=== PATIENT | female | born 1945 | race Caucasian/White ===

== ENCOUNTER 2020-05-17 12:11 | Inpatient (IN) | payer MEDICARE, BC ==
[~2020-05-17] VITALS: Ht 170.2 cm; Wt 69.1 kg
[2020-05-17 13:05] LABS: Basophils # (auto) 0 10 ^3/uL (0-0.2); Basophils % (auto) 0.5 % (0.0-2.0); Eosinophils # (auto) 0.1 10 ^3/uL (0-0.8); Eosinophils % (auto) 1.1 % (0.0-7.0); Hematocrit 40.2 % (36.0-46.0); Hemoglobin 13.7 g/dL (12.2-16.2); Lymphocytes # (auto) 1.1 10 ^3/uL (0.4-5.4); Lymphocytes % (auto) 13.5 % (10.0-50.0); Mean Corpuscular Hemoglobin 33.7 pg (28.0-32.0); Mean Corpuscular Hgb Conc. 34.2 g/dL (32.0-36.0); Mean Corpuscular Volume 98.6 fL (80.0-100.0); Monocytes # (auto) 0.6 10 ^3/uL (0-1.3); Monocytes % (auto) 7.7 % (0.0-12.0); Neutrophils # (auto) 6.2 10 ^3/uL (1.6-8.6); Neutrophils % (auto) 77.2 % (37.0-80.0); Nucleated Red Blood Cells % 0.1 %; Platelet Count (auto) 223 10^3/uL (140-450); Red Blood Cells 4.08 10^6/uL (4.0-5.20); Red Cell Distribution Width 17.4 % (11.8-14.3)
[2020-05-17 13:21] LABS: Calcium 10.1 mg/dL (8.5-10.1); Magnesium 1.9 mg/dL (1.6-2.6); Potassium 4.5 mmol/L (3.5-5.1)
[2020-05-17 13:24] LABS: BUN/Creatinine Ratio 28.7; Bilirubin, Total 0.5 mg/dL (0.2-1.0); Total Protein 7.4 g/dL (6.4-8.2)
[2020-05-17 13:52] LABS: Urine Bacteria FEW /hpf (None Seen); Urine Blood Negative /uL (Negative); Urine WBC 1 /hpf (0 - 5)
[2020-05-17] MEDS ORDERED: SODIUM CHLORIDE 0.9% 250 ML IV ONE (16:00)
[2020-05-17] MEDS ORDERED: ACETAMINOPHEN 500 MG TAB PO PRN (16:00)
[2020-05-17] MEDS ORDERED: ONDANSETRON HCL 4 MG/2 ML VIAL IV PRN (16:00)
[2020-05-17] MEDS ORDERED: hydrALAZINE HCL 20 MG/ML VL IV PRN (16:00)
[2020-05-17] MEDS ORDERED: NITROGLYCERIN 0.4 MG SL TAB SL PRN (16:00)
[2020-05-17] MEDS ORDERED: LORazepam 0.5 MG TAB PO PRN (16:00)
[2020-05-17] MEDS ORDERED: DEXTROSE (50%) 50ML SYRG IV PRN (16:00)
[2020-05-17] MEDS ORDERED: DOCUSATE CALCIUM 240 MG CAP PO PRN (16:00)
[2020-05-17] MEDS: cefTRIAXone 1GM/50ML D5W 50 ML IV SCH (16:27)
[2020-05-17] MEDS: SODIUM CHLORIDE 0.9% 1,000 ML IV SCH (17:10)
[2020-05-17] MEDS: InsuLIN REG 1unit/0.01ml Soln (100units/ml) SC SCH ×2 (18:00→23:06)
[2020-05-17] MEDS: ACCU-CHEK COMFORT CURVE STRIP VI SCH ×2 (18:28→23:06)
[2020-05-17 21:17] VITALS: BP 140/63
[2020-05-17] MEDS ORDERED: INSULIN LANTUS (GLARGINE) 1 /0.01ml (100units/ml) SC SCH (22:00)
[2020-05-17 23:19] VITALS: BP 140/63
[2020-05-18] MEDS ORDERED: SPIR25TA8 PO (00:17)
[2020-05-18] MEDS ORDERED: METF-370 PO (00:17)
[2020-05-18] MEDS ORDERED: LEVO50CA3 PO (00:17)
[2020-05-18] MEDS ORDERED: FURO40TA4 PO (00:17)
[2020-05-18] MEDS ORDERED: ALLO100T PO (00:17)
[2020-05-18] MEDS ORDERED: GLIP10TA9 PO (00:17)
[2020-05-18] MEDS: InsuLIN REG 1unit/0.01ml Soln (100units/ml) SC SCH ×4 (06:00→21:42)
[2020-05-18] MEDS: ACCU-CHEK COMFORT CURVE STRIP VI SCH ×4 (06:28→21:35)
[2020-05-18 07:12] LABS: Basophils # (auto) 0 10 ^3/uL (0-0.2); Basophils % (auto) 0.3 % (0.0-2.0); Eosinophils # (auto) 0.2 10 ^3/uL (0-0.8); Eosinophils % (auto) 2.3 % (0.0-7.0); Hematocrit 35.9 % (36.0-46.0); Hemoglobin 12.4 g/dL (12.2-16.2); Lymphocytes # (auto) 1.3 10 ^3/uL (0.4-5.4); Lymphocytes % (auto) 17.9 % (10.0-50.0); Mean Corpuscular Hemoglobin 33.4 pg (28.0-32.0); Mean Corpuscular Hgb Conc. 34.5 g/dL (32.0-36.0); Mean Corpuscular Volume 96.7 fL (80.0-100.0); Monocytes # (auto) 0.6 10 ^3/uL (0-1.3); Neutrophils % (auto) 70.5 % (37.0-80.0); Platelet Count (auto) 203 10^3/uL (140-450); Red Blood Cells 3.71 10^6/uL (4.0-5.20); Red Cell Distribution Width 17.4 % (11.8-14.3)
[2020-05-18 07:24] LABS: INR 1.03 (0.9-1.15)
[2020-05-18 07:30] LABS: Albumin 3.4 g/dL (3.4-5.0); Potassium 3.9 mmol/L (3.5-5.1)
[2020-05-18 07:32] LABS: BUN/Creatinine Ratio 31.3
[2020-05-18 07:34] LABS: Bilirubin, Total 0.6 mg/dL (0.2-1.0); Total Protein 6.2 g/dL (6.4-8.2)
[2020-05-18] MEDS: cefTRIAXone 1GM/50ML D5W 50 ML IV SCH (08:44)
[2020-05-18] MEDS: ENOXAPARIN SOD 40 MG/0.4 ML SYRINGE SC SCH (08:44)
[2020-05-18] MEDS: PANTOPRAZOLE 40 MG TAB PO SCH (08:44)
[2020-05-18 09:00] VITALS: BP 126/75
[2020-05-18] MEDS: SODIUM CHLORIDE 0.9% 1,000 ML IV SCH (10:59)
[2020-05-18 13:00] VITALS: BP 152/71
[2020-05-18] MEDS ORDERED: DEXTROSE (50%) 50ML SYRG IV PRN (14:00)
[2020-05-18 17:00] VITALS: BP 131/73
[2020-05-18 22:40] VITALS: BP 149/68
[2020-05-19 05:00] VITALS: BP 86/50
[2020-05-19] MEDS: ACCU-CHEK COMFORT CURVE STRIP VI SCH ×4 (06:55→22:00)
[2020-05-19] MEDS: InsuLIN REG 1unit/0.01ml Soln (100units/ml) SC SCH ×4 (06:56→22:37)
[2020-05-19 07:32] LABS: Calcium 9.2 mg/dL (8.5-10.1)
[2020-05-19 07:35] LABS: BUN/Creatinine Ratio 19.4
[2020-05-19 09:00] VITALS: BP 125/65
[2020-05-19] MEDS: SODIUM CHLORIDE 0.9% 1,000 ML IV SCH (09:18)
[2020-05-19] MEDS: cefTRIAXone 1GM/50ML D5W 50 ML IV SCH (09:18)
[2020-05-19] MEDS: PANTOPRAZOLE 40 MG TAB PO SCH (09:19)
[2020-05-19] MEDS: ENOXAPARIN SOD 40 MG/0.4 ML SYRINGE SC SCH (09:19)
[2020-05-19 12:00] VITALS: BP 126/59
[2020-05-19] MEDS ORDERED: LIDOCAINE W/ EPINEPHRINE 1% 20ML VIAL ONE (12:20)
[2020-05-19] MEDS ORDERED: BUPIVACAINE 0.5% MPF INJ 30ML SDV IJ ONE (12:20)
[2020-05-19] MEDS ORDERED: ROCURONIUM 10MG/ML 10ML VIAL IV ONE (12:42)
[2020-05-19] MEDS ORDERED: PROPOFOL 10 MG/ML 20 ML IV ONE (12:42)
[2020-05-19] MEDS ORDERED: MIDAZOLAM HCL 1MG/1ML-2 ML VIAL ONE (12:42)
[2020-05-19] MEDS ORDERED: fentaNYL CITRATE 100 MCG/2 ML VL ONE (12:42)
[2020-05-19] MEDS ORDERED: LIDOCAINE 2% (LOCAL ANESTH.) PF 5ml SDV ONE (12:42)
[2020-05-19] MEDS ORDERED: ONDANSETRON HCL 4 MG/2 ML VIAL ONE (13:41)
[2020-05-19] MEDS ORDERED: HYDROmorphone HCL 2 MG/ML VL IV PRN (14:15)
[2020-05-19] MEDS ORDERED: ONDANSETRON HCL 4 MG/2 ML VIAL IV PRN (14:15)
[2020-05-19] MEDS: D5W/SOD CHL 0.45%/KCL 20MEQ 1,000 ML IV SCH ×2 (15:22→23:58)
[2020-05-19 17:15] VITALS: BP 132/66
[2020-05-19] MEDS: MORPHINE SULF INJ 2 MG/ML SYRINGE 1ML IV PRN (19:58)
[2020-05-19 22:00] VITALS: BP_SYST 102; BP_SYST 139; BP_DIAS 51; BP_DIAS 77
[2020-05-20] MEDS: MORPHINE SULF INJ 2 MG/ML SYRINGE 1ML IV PRN ×6 (00:57→20:16)
[2020-05-20 05:22] VITALS: BP 125/70
[2020-05-20 05:38] LABS: Basophils # (auto) 0.1 10 ^3/uL (0-0.2); Basophils % (auto) 1.2 % (0.0-2.0); Eosinophils # (auto) 0.1 10 ^3/uL (0-0.8); Eosinophils % (auto) 1.8 % (0.0-7.0); Hematocrit 36.1 % (36.0-46.0); Hemoglobin 12.3 g/dL (12.2-16.2); Lymphocytes # (auto) 1.2 10 ^3/uL (0.4-5.4); Lymphocytes % (auto) 16.1 % (10.0-50.0); Mean Corpuscular Hemoglobin 33.7 pg (28.0-32.0); Mean Corpuscular Volume 99.3 fL (80.0-100.0); Monocytes # (auto) 0.7 10 ^3/uL (0-1.3); Monocytes % (auto) 9.2 % (0.0-12.0); Neutrophils # (auto) 5.2 10 ^3/uL (1.6-8.6); Neutrophils % (auto) 71.7 % (37.0-80.0); Platelet Count (auto) 184 10^3/uL (140-450); Red Blood Cells 3.64 10^6/uL (4.0-5.20); Red Cell Distribution Width 17.6 % (11.8-14.3); White Blood Cell 7.3 10^3/uL (4.4-10.8)
[2020-05-20 06:12] LABS: Calcium 8.7 mg/dL (8.5-10.1); Potassium 4.6 mmol/L (3.5-5.1)
[2020-05-20 06:14] LABS: BUN/Creatinine Ratio 13.7
[2020-05-20] MEDS: InsuLIN REG 1unit/0.01ml Soln (100units/ml) SC SCH ×4 (06:51→21:34)
[2020-05-20] MEDS: ACCU-CHEK COMFORT CURVE STRIP VI SCH ×4 (06:53→21:44)
[2020-05-20] MEDS: cefTRIAXone 1GM/50ML D5W 50 ML IV SCH (09:00)
[2020-05-20 09:16] VITALS: BP 130/68
[2020-05-20] MEDS: PANTOPRAZOLE 40 MG TAB PO SCH (09:49)
[2020-05-20] MEDS: ENOXAPARIN SOD 40 MG/0.4 ML SYRINGE SC SCH ×2 (09:50→10:00)
[2020-05-20] MEDS: D5W/SOD CHL 0.45%/KCL 20MEQ 1,000 ML IV SCH ×2 (10:05→12:30)
[2020-05-20 13:00] VITALS: BP 131/55
[2020-05-20 17:09] VITALS: BP 128/87
[2020-05-20 22:00] VITALS: BP 139/51
[2020-05-21] MEDS: MORPHINE SULF INJ 2 MG/ML SYRINGE 1ML IV PRN ×2 (00:16→03:33)
[2020-05-21] MEDS: D5W/SOD CHL 0.45%/KCL 20MEQ 1,000 ML IV SCH (02:23)
[2020-05-21 05:00] VITALS: BP 110/48
[2020-05-21] MEDS: InsuLIN REG 1unit/0.01ml Soln (100units/ml) SC SCH ×3 (06:01→11:30)
[2020-05-21] MEDS: ACCU-CHEK COMFORT CURVE STRIP VI SCH ×2 (06:02→11:30)
[2020-05-21 07:13] LABS: BUN/Creatinine Ratio 11.9; Calcium 8.6 mg/dL (8.5-10.1); Magnesium 1.8 mg/dL (1.6-2.6); Potassium 3.8 mmol/L (3.5-5.1)
[2020-05-21 08:35] VITALS: BP 125/51
[2020-05-21] MEDS: cefTRIAXone 1GM/50ML D5W 50 ML IV SCH (09:00)
[2020-05-21] MEDS: PANTOPRAZOLE 40 MG TAB PO SCH (09:30)
[2020-05-21] MEDS: ENOXAPARIN SOD 40 MG/0.4 ML SYRINGE SC SCH (09:33)
[2020-05-21] MEDS ORDERED: MAGNESIUM SULFATE 1GM/100ML 100 ML IV ONE (09:45)
[2020-05-21 12:39] VITALS: BP 140/62
== END 2020-05-21 16:45 | disposition home or self-care (01) | DRG 353 ==
LOC: ER 12:11 → TELE 15:58 → TELE-WESTW 19:47 → TELE-EAST 19:55 → TELE-WESTW 05-18 03:52
PROVIDERS: ADMIT Family Medicine; ATTEND Internal Medicine
PROC: 3E00XGC Introduction of Other Therapeutic Substance into Skin and Mucous Membranes, External Approach (ICD-10-PCS; 2020-05-19)
PROC: 0WQF0ZZ Repair Abdominal Wall, Open Approach (ICD-10-PCS; principal; 2020-05-19 12:51)
DX: K43.2 Incisional hernia without obstruction or gangrene (principal); N17.0 Acute kidney failure with tubular necrosis; E11.65 Type 2 diabetes mellitus with hyperglycemia; Z86.16 Personal history of COVID-19; E03.9 Hypothyroidism, unspecified; M10.9 Gout, unspecified; E11.22 Type 2 diabetes mellitus with diabetic chronic kidney disease; I12.9 Hypertensive chronic kidney disease with stage 1 through stage 4 chronic kidney disease, or unspecified chronic kidney disease; M06.9 Rheumatoid arthritis, unspecified; Z20.822 Contact with and (suspected) exposure to COVID-19; Z80.0 Family history of malignant neoplasm of digestive organs; Z86.718 Personal history of other venous thrombosis and embolism; Z87.01 Personal history of pneumonia (recurrent); Z90.49 Acquired absence of other specified parts of digestive tract; Z90.710 Acquired absence of both cervix and uterus; Z82.3 Family history of stroke; Z82.49 Family history of ischemic heart disease and other diseases of the circulatory system; Z88.8 Allergy status to other drugs, medicaments and biological substances; N18.32 Chronic kidney disease, stage 3b
CPT/HCPCS: 36415; 71045; 74176; 76775; 80048; 80053; 81001; 82728; 82962; 83036; 83690; 83735; 84443; 85025; 85610; 86141; 86850; 86900; 86901; 87086; 87426; 93005; 93306; 96365; G0378; J0696; J1815; J2001; J2250; J2405; J2704; J3490

== ENCOUNTER 2020-07-20 15:48 | Emergency (ER) | payer MEDICARE, BC ==
[~2020-07-20] VITALS: Ht 170.2 cm; Wt 59.4 kg
[~2020-07-20 15:48] MED LIST: ALLO100T PO; FURO40TA4 PO; GLIP10TA9 PO; LEVO50CA3 PO; METF-370 PO; SPIR25TA8 PO
[2020-07-20 19:05] VITALS: BP 133/68
== END 2020-07-20 20:26 | disposition home or self-care (01) ==
LOC: ER 15:48
DX: J02.9 Acute pharyngitis, unspecified (principal); E11.9 Type 2 diabetes mellitus without complications; I25.10 Atherosclerotic heart disease of native coronary artery without angina pectoris; Z86.73 Personal history of transient ischemic attack (TIA), and cerebral infarction without residual deficits; Z88.6 Allergy status to analgesic agent; Z79.84 Long term (current) use of oral hypoglycemic drugs; Z79.899 Other long term (current) drug therapy; Z90.89 Acquired absence of other organs; Z90.49 Acquired absence of other specified parts of digestive tract; Z90.710 Acquired absence of both cervix and uterus

== ENCOUNTER 2020-08-07 16:25 | Inpatient (IN) | payer MEDICARE, BC ==
[~2020-08-07] VITALS: Ht 170.2 cm; Wt 64.5 kg
[2020-08-07] MEDS ORDERED: DIPHENOXYLATE W/ATROPINE 2.5 MG TAB PO ONE (16:45)
[2020-08-07 18:36] LABS: Albumin 4.5 g/dL (3.4-5.0); Calcium 10.2 mg/dL (8.5-10.1); Potassium 4.5 mmol/L (3.5-5.1)
[2020-08-07 18:39] LABS: BUN/Creatinine Ratio 19.8
[2020-08-07 18:40] LABS: Basophils # (auto) 0 10 ^3/uL (0-0.2); Basophils % (auto) 0.4 % (0.0-2.0); Eosinophils # (auto) 0.1 10 ^3/uL (0-0.8); Eosinophils % (auto) 0.8 % (0.0-7.0); Hematocrit 40.8 % (36.0-46.0); Hemoglobin 14.3 g/dL (12.2-16.2); Lymphocytes # (auto) 1.8 10 ^3/uL (0.4-5.4); Lymphocytes % (auto) 16.5 % (10.0-50.0); Mean Corpuscular Hemoglobin 33.3 pg (28.0-32.0); Mean Corpuscular Hgb Conc. 34.9 g/dL (32.0-36.0); Mean Corpuscular Volume 95.5 fL (80.0-100.0); Monocytes # (auto) 0.8 10 ^3/uL (0-1.3); Monocytes % (auto) 7.8 % (0.0-12.0); Neutrophils # (auto) 8.1 10 ^3/uL (1.6-8.6); Neutrophils % (auto) 74.5 % (37.0-80.0); Nucleated Red Blood Cells % 0.3 %; Platelet Count (auto) 200 10^3/uL (140-450); Red Blood Cells 4.28 10^6/uL (4.0-5.20); Red Cell Distribution Width 15.9 % (11.8-14.3); White Blood Cell 10.9 10^3/uL (4.4-10.8)
[2020-08-07 18:42] LABS: Bilirubin, Total 0.8 mg/dL (0.2-1.0); Total Protein 7.7 g/dL (6.4-8.2)
[2020-08-07] MEDS ORDERED: NITROGLYCERIN 0.4 MG SL TAB SL PRN (19:15)
[2020-08-07] MEDS ORDERED: HYDROcodone-ACET 5/325MG TAB PO PRN (19:15)
[2020-08-07] MEDS ORDERED: ACETAMINOPHEN 500 MG TAB PO PRN (19:15)
[2020-08-07] MEDS ORDERED: DEXTROSE (50%) 50ML SYRG IV PRN (19:15)
[2020-08-07] MEDS ORDERED: MORPHINE SULF INJ 2 MG/ML SYRINGE 1ML IV PRN ×2 (19:15)
[2020-08-07] MEDS ORDERED: ONDANSETRON HCL 4 MG/2 ML VIAL IV PRN (19:15)
[2020-08-07] MEDS: DOCUSATE SOD 100 MG CAP PO SCH (22:00)
[2020-08-07 22:24] LABS: Urine Bacteria FEW /hpf (None Seen); Urine Blood Negative /uL (Negative); Urine Hyaline Cast FEW /lpf (0 - 2); Urine WBC 9 /hpf (0 - 5)
[2020-08-07] MEDS: InsuLIN REG 1unit/0.01ml Soln (100units/ml) SC SCH (22:47)
[2020-08-07] MEDS: ACCU-CHEK COMFORT CURVE STRIP VI SCH (22:48)
[2020-08-08] VITALS (7 sets, daily range): BP systolic 106–136; BP diastolic 51–63
[2020-08-08] MEDS: ACCU-CHEK COMFORT CURVE STRIP VI SCH ×4 (06:21→22:00)
[2020-08-08] MEDS: InsuLIN REG 1unit/0.01ml Soln (100units/ml) SC SCH ×4 (06:21→22:00)
[2020-08-08] MEDS: DOCUSATE SOD 100 MG CAP PO SCH ×2 (10:00→22:00)
[2020-08-08] MEDS: FAMOTIDINE 20 MG TAB PO SCH (10:25)
[2020-08-09 05:00] VITALS: BP 123/71
[2020-08-09] MEDS: InsuLIN REG 1unit/0.01ml Soln (100units/ml) SC SCH ×2 (06:42→12:06)
[2020-08-09] MEDS: ACCU-CHEK COMFORT CURVE STRIP VI SCH ×2 (06:43→11:30)
[2020-08-09 08:00] VITALS: BP 114/60
[2020-08-09 09:00] VITALS: BP 114/60
[2020-08-09] MEDS: FAMOTIDINE 20 MG TAB PO SCH (09:40)
[2020-08-09] MEDS: DOCUSATE SOD 100 MG CAP PO SCH (09:40)
[2020-08-09 11:16] VITALS: BP 114/60
== END 2020-08-09 12:45 | disposition home or self-care (01) | DRG 392 ==
LOC: EDBD 16:34 → ER 16:34 → OVERFLOW 19:15 → EDUNIT# 19:15 → CENTRAL 23:24
PROVIDERS: ADMIT Nurse Practitioner Acute Care; ATTEND Family Medicine
DX: K57.30 Diverticulosis of large intestine without perforation or abscess without bleeding (principal); E83.52 Hypercalcemia; Z20.822 Contact with and (suspected) exposure to COVID-19; E03.9 Hypothyroidism, unspecified; I10 Essential (primary) hypertension; E11.9 Type 2 diabetes mellitus without complications; Z79.84 Long term (current) use of oral hypoglycemic drugs; Z90.49 Acquired absence of other specified parts of digestive tract; Z90.710 Acquired absence of both cervix and uterus; Z79.899 Other long term (current) drug therapy; Z79.891 Long term (current) use of opiate analgesic; Z79.01 Long term (current) use of anticoagulants
CPT/HCPCS: 36415; 74176; 80053; 81001; 82962; 83036; 84443; 85025; 87081; 87426; G0378; J1815

== ENCOUNTER → 2020-08-13 | Outpatient (CLI) | payer MEDICARE, BC ==
[2020-08-13 09:00] LABS: Basophils # (auto) 0.1 10 ^3/uL (0-0.2); Basophils % (auto) 0.6 % (0.0-2.0); Eosinophils # (auto) 0.1 10 ^3/uL (0-0.8); Eosinophils % (auto) 1.5 % (0.0-7.0); Hematocrit 37.4 % (36.0-46.0); Lymphocytes # (auto) 1.5 10 ^3/uL (0.4-5.4); Lymphocytes % (auto) 15.6 % (10.0-50.0); Mean Corpuscular Hemoglobin 33.5 pg (28.0-32.0); Mean Corpuscular Hgb Conc. 34.7 g/dL (32.0-36.0); Mean Corpuscular Volume 96.3 fL (80.0-100.0); Monocytes # (auto) 0.7 10 ^3/uL (0-1.3); Monocytes % (auto) 7.1 % (0.0-12.0); Neutrophils # (auto) 7.1 10 ^3/uL (1.6-8.6); Neutrophils % (auto) 75.2 % (37.0-80.0); Nucleated Red Blood Cells % 0.1 %; Platelet Count (auto) 179 10^3/uL (140-450); Red Blood Cells 3.88 10^6/uL (4.0-5.20); Red Cell Distribution Width 16.5 % (11.8-14.3); White Blood Cell 9.5 10^3/uL (4.4-10.8)
[2020-08-13 09:14] LABS: Urine Bacteria FEW /hpf (None Seen); Urine Blood TRACE /uL (Negative); Urine WBC 17 /hpf (0 - 5)
[2020-08-13 09:32] LABS: Calcium 9.6 mg/dL (8.5-10.1); Potassium 4.1 mmol/L (3.5-5.1)
[2020-08-13 09:38] LABS: BUN/Creatinine Ratio 20.8
== END | disposition home or self-care (01) ==
LOC: LAB 08:34
PROVIDERS: ATTEND Student in an Organized Health Care Education/Training Program
DX: E11.9 Type 2 diabetes mellitus without complications (principal); I10 Essential (primary) hypertension
CPT/HCPCS: 36415; 80048; 80061; 81001; 83036; 85025

== ENCOUNTER → 2020-09-18 | Outpatient (CLI) | payer MEDICARE, BC | END | disposition home or self-care (01) | LOC: Rad HDHVI 09:53 | PROVIDERS: ATTEND Internal Medicine Cardiovascular Disease | DX: I25.10 Atherosclerotic heart disease of native coronary artery without angina pectoris (principal); I10 Essential (primary) hypertension | CPT/HCPCS: 93306 ==

== ENCOUNTER 2020-10-03 08:42 | Inpatient (IN) | payer MEDICARE, BC ==
[2020-10-01 09:37] LABS: Basophils # (auto) 0 10 ^3/uL (0-0.2); Basophils % (auto) 0.5 % (0.0-2.0); Eosinophils # (auto) 0.1 10 ^3/uL (0-0.8); Eosinophils % (auto) 1.3 % (0.0-7.0); Hematocrit 41.6 % (36.0-46.0); Hemoglobin 14.2 g/dL (12.2-16.2); Lymphocytes % (auto) 12.3 % (10.0-50.0); Mean Corpuscular Hemoglobin 33.4 pg (28.0-32.0); Mean Corpuscular Hgb Conc. 34.2 g/dL (32.0-36.0); Mean Corpuscular Volume 97.7 fL (80.0-100.0); Monocytes # (auto) 0.7 10 ^3/uL (0-1.3); Neutrophils # (auto) 6.6 10 ^3/uL (1.6-8.6); Neutrophils % (auto) 77.9 % (37.0-80.0); Red Blood Cells 4.25 10^6/uL (4.0-5.20); Red Cell Distribution Width 16.3 % (11.8-14.3); White Blood Cell 8.4 10^3/uL (4.4-10.8)
[2020-10-01 09:48] LABS: Urine Amorphous Crystal FEW /hpf (None Seen); Urine Bacteria FEW /hpf (None Seen); Urine Blood 1+ /uL (Negative); Urine WBC 5 /hpf (0 - 5)
[2020-10-01 09:58] LABS: Calcium 9.9 mg/dL (8.5-10.1); Potassium 4.4 mmol/L (3.5-5.1)
[2020-10-01 10:01] LABS: Bilirubin, Total 0.5 mg/dL (0.2-1.0); Total Protein 7.4 g/dL (6.4-8.2)
[~2020-10-03] VITALS: Ht 170.2 cm; Wt 63.6 kg
[2020-10-03] MEDS ORDERED: ceFAZolin 1GM/50ML 100 ML IV ONE (09:28)
[2020-10-03] MEDS ORDERED: BUPIVACAINE W/ EPINEPH 0.25% INJ 50ML MDV ONE (12:41)
[2020-10-03] MEDS ORDERED: ROCURONIUM 10MG/ML 10ML VIAL IV ONE (12:44)
[2020-10-03] MEDS ORDERED: GLYCOPYRROLATE 0.2 MG/ML 1ML VIAL ONE (12:44)
[2020-10-03] MEDS ORDERED: ONDANSETRON HCL 4 MG/2 ML VIAL ONE (12:44)
[2020-10-03] MEDS ORDERED: MIDAZOLAM HCL 2MG/2ML 2ml VIAL (1mg/ml) ONE (12:44)
[2020-10-03] MEDS ORDERED: MEPERIDINE HCL (25 MG/ML) 1ML VIAL ONE (12:44)
[2020-10-03] MEDS ORDERED: SODIUM CHLORIDE LOCK 10 ML ONE (12:44)
[2020-10-03] MEDS ORDERED: PROPOFOL 10 MG/ML 20 ML IV ONE (12:44)
[2020-10-03] MEDS ORDERED: fentaNYL CITRATE 100 MCG/2 ML VL ONE (12:44)
[2020-10-03] MEDS ORDERED: NEOSTIGMINE 1 MG/ML INJ (10mg/10ML VIAL) ONE (12:44)
[2020-10-03] MEDS ORDERED: MORPHINE SULFATE 4 MG/ML SYR/VIAL IV PRN (12:45)
[2020-10-03] MEDS ORDERED: METOCLOPRAMIDE HCL 5MG/ml INJ 2ml VIAL IV PRN (12:45)
[2020-10-03] MEDS ORDERED: HYDROmorphone HCL 2 MG/ML VL IV PRN (12:45)
[2020-10-03] MEDS ORDERED: LABETALOL HCL 5 MG/ML 4ML SYRINGE IV ONE ×2 (14:12→15:45)
[2020-10-03] MEDS: SODIUM CHLORIDE 0.9% 1,000 ML IV SCH ×3 (15:00→18:43)
[2020-10-03] MEDS ORDERED: DEXTROSE (50%) 50ML SYRG IV PRN (15:00)
[2020-10-03] MEDS ORDERED: MORPHINE SULF INJ 2 MG/ML SYRINGE 1ML IV PRN (15:00)
[2020-10-03] MEDS ORDERED: NITROGLYCERIN 0.4 MG SL TAB SL PRN (15:00)
[2020-10-03] MEDS ORDERED: ONDANSETRON HCL 4 MG/2 ML VIAL IV PRN (15:00)
[2020-10-03] MEDS: ACCU-CHEK COMFORT CURVE STRIP VI SCH ×2 (18:17→21:56)
[2020-10-03] MEDS: InsuLIN REG 1unit/0.01ml Soln (100units/ml) SC SCH ×2 (18:18→22:00)
[2020-10-03] MEDS ORDERED: cefTRIAXone 1GM/50ML D5W 50 ML IV ONE (21:00)
[2020-10-03 21:52] VITALS: BP 109/47
[2020-10-03] MEDS: MORPHINE SULF INJ 2 MG/ML SYRINGE 1ML IV PRN (22:03)
[2020-10-04] MEDS: MORPHINE SULF INJ 2 MG/ML SYRINGE 1ML IV PRN ×3 (02:18→10:36)
[2020-10-04 05:30] VITALS: BP 122/59
[2020-10-04] MEDS: ACCU-CHEK COMFORT CURVE STRIP VI SCH ×3 (06:26→17:49)
[2020-10-04] MEDS: InsuLIN REG 1unit/0.01ml Soln (100units/ml) SC SCH ×3 (06:26→17:00)
[2020-10-04] MEDS: LEVOTHYROXINE SODIUM 50 MCG TAB PO SCH (06:29)
[2020-10-04] MEDS: SODIUM CHLORIDE 0.9% 1,000 ML IV SCH (06:34)
[2020-10-04 09:00] VITALS: BP 116/59
[2020-10-04] MEDS: PANTOPRAZOLE 40 MG/10 ML VIAL INJ IV SCH (09:23)
[2020-10-04] MEDS: HYDROcodone-ACET 5/325MG TAB PO PRN ×2 (12:20→17:52)
[2020-10-04 13:00] VITALS: BP 119/58
[2020-10-04 17:00] VITALS: BP_SYST 112; BP_SYST 121; BP_DIAS 51; BP_DIAS 74
[2020-10-04 22:00] VITALS: BP 124/60
[2020-10-05] MEDS: ACCU-CHEK COMFORT CURVE STRIP VI SCH ×3 (00:09→11:30)
[2020-10-05] MEDS: HYDROcodone-ACET 5/325MG TAB PO PRN ×2 (00:10→15:20)
[2020-10-05] MEDS: InsuLIN REG 1unit/0.01ml Soln (100units/ml) SC SCH ×3 (00:11→11:30)
[2020-10-05 05:00] VITALS: BP 123/72
[2020-10-05 05:59] LABS: Basophils # (auto) 0.1 10 ^3/uL (0-0.2); Basophils % (auto) 0.8 % (0.0-2.0); Eosinophils # (auto) 0.1 10 ^3/uL (0-0.8); Eosinophils % (auto) 1.9 % (0.0-7.0); Hematocrit 34.6 % (36.0-46.0); Hemoglobin 12.1 g/dL (12.2-16.2); Lymphocytes % (auto) 15.8 % (10.0-50.0); Mean Corpuscular Hemoglobin 33.8 pg (28.0-32.0); Mean Corpuscular Hgb Conc. 34.9 g/dL (32.0-36.0); Mean Corpuscular Volume 96.9 fL (80.0-100.0); Monocytes # (auto) 0.7 10 ^3/uL (0-1.3); Monocytes % (auto) 11.7 % (0.0-12.0); Neutrophils # (auto) 4.3 10 ^3/uL (1.6-8.6); Neutrophils % (auto) 69.8 % (37.0-80.0); Nucleated Red Blood Cells % 0.1 %; Red Blood Cells 3.58 10^6/uL (4.0-5.20); Red Cell Distribution Width 15.8 % (11.8-14.3); White Blood Cell 6.2 10^3/uL (4.4-10.8)
[2020-10-05 06:28] LABS: BUN/Creatinine Ratio 16.2; Calcium 8.9 mg/dL (8.5-10.1); Potassium 4.3 mmol/L (3.5-5.1)
[2020-10-05] MEDS: SODIUM CHLORIDE 0.9% 1,000 ML IV SCH (06:28)
[2020-10-05] MEDS: LEVOTHYROXINE SODIUM 50 MCG TAB PO SCH (06:28)
[2020-10-05 09:00] VITALS: BP 111/57
[2020-10-05] MEDS ORDERED: ALLOPURINOL 100 MG TAB PO SCH (10:00)
[2020-10-05] MEDS: PANTOPRAZOLE 40 MG/10 ML VIAL INJ IV SCH (10:00)
[2020-10-05 12:43] VITALS: BP 123/55
== END 2020-10-05 15:40 | disposition home or self-care (01) | DRG 354 ==
LOC: SUR 08:42 → TELE 14:57 → TELE-CENTR 17:07 → CENTRAL 10-04 12:17
PROVIDERS: ADMIT Nurse Practitioner Acute Care; ATTEND Internal Medicine
PROC: 0WQF0ZZ Repair Abdominal Wall, Open Approach (ICD-10-PCS; principal; 2020-10-03 13:08)
DX: K43.9 Ventral hernia without obstruction or gangrene (principal); N39.0 Urinary tract infection, site not specified; E11.9 Type 2 diabetes mellitus without complications; I10 Essential (primary) hypertension; E03.9 Hypothyroidism, unspecified; M10.9 Gout, unspecified; Z79.84 Long term (current) use of oral hypoglycemic drugs; Z79.899 Other long term (current) drug therapy; Z82.3 Family history of stroke; Z20.822 Contact with and (suspected) exposure to COVID-19; Z82.49 Family history of ischemic heart disease and other diseases of the circulatory system; Z88.8 Allergy status to other drugs, medicaments and biological substances
CPT/HCPCS: 36415; 71045; 80048; 80053; 81001; 82962; 85025; 86850; 86900; 86901; 88302; C9113; G0378; J0690; J0696; J1815; J2250; J2405; J2704; J3490

== ENCOUNTER → 2021-01-02 | Day surgery (SDC) | payer MEDICARE, BC ==
[2020-12-28 10:25] LABS: Basophils # (auto) 0 10 ^3/uL (0-0.2); Basophils % (auto) 0.5 % (0.0-2.0); Eosinophils # (auto) 0.1 10 ^3/uL (0-0.8); Eosinophils % (auto) 1.9 % (0.0-7.0); Hematocrit 39.6 % (36.0-46.0); Hemoglobin 13.5 g/dL (12.2-16.2); Lymphocytes # (auto) 1.2 10 ^3/uL (0.4-5.4); Lymphocytes % (auto) 16.5 % (10.0-50.0); Mean Corpuscular Hemoglobin 33.9 pg (28.0-32.0); Mean Corpuscular Volume 99.7 fL (80.0-100.0); Monocytes # (auto) 0.6 10 ^3/uL (0-1.3); Monocytes % (auto) 8.2 % (0.0-12.0); Neutrophils # (auto) 5.4 10 ^3/uL (1.6-8.6); Neutrophils % (auto) 72.9 % (37.0-80.0); Nucleated Red Blood Cells % 0.1 %; Red Blood Cells 3.97 10^6/uL (4.0-5.20); White Blood Cell 7.4 10^3/uL (4.4-10.8)
[2020-12-28 11:01] LABS: Albumin 3.9 g/dL (3.4-5.0); Calcium 10.2 mg/dL (8.5-10.1); Potassium 4.1 mmol/L (3.5-5.1)
[2020-12-28 11:05] LABS: BUN/Creatinine Ratio 30.1; Bilirubin, Total 0.3 mg/dL (0.2-1.0)
[~2021-01-02] VITALS: Ht 170.2 cm; Wt 58.1 kg
[~2021-01-02] MED LIST changes: +LIDOCAINE VISCOUS 2% 15ML UD ONE
[2021-01-02] MEDS: MIDAZOLAM HCL 5 MG/ML-1ML VIAL ONE ×2 (13:53→13:57)
[2021-01-02] MEDS: diphenhdrAMINE HCL 50 MG/1 ML VL ONE ×2 (13:53→13:57)
[2021-01-02] MEDS: fentaNYL CITRATE 100 MCG/2 ML VL ONE ×2 (13:53→13:57)
[2021-01-02 15:05] VITALS: BP 120/48
== END | disposition home or self-care (01) ==
LOC: GI 12:10
PROVIDERS: ATTEND Internal Medicine Gastroenterology
DX: R10.13 Epigastric pain (principal); K44.9 Diaphragmatic hernia without obstruction or gangrene; K31.89 Other diseases of stomach and duodenum; K22.10 Ulcer of esophagus without bleeding; K29.80 Duodenitis without bleeding; E03.9 Hypothyroidism, unspecified; D64.9 Anemia, unspecified; F09 Unspecified mental disorder due to known physiological condition; F32.9 Major depressive disorder, single episode, unspecified; Z20.822 Contact with and (suspected) exposure to COVID-19; Z90.710 Acquired absence of both cervix and uterus; Z90.89 Acquired absence of other organs; Z98.890 Other specified postprocedural states; Z79.899 Other long term (current) drug therapy; Z90.721 Acquired absence of ovaries, unilateral
CPT/HCPCS: 36415; 43239; 80053; 85025; J1200; J2250; J3010; J7030; U0003; G0500

== ENCOUNTER → 2021-01-28 | Outpatient (CLI) | payer MEDICARE, BC ==
[~2021-01-28] MED LIST changes: -LIDOCAINE VISCOUS 2% 15ML UD ONE
[2021-01-28 09:17] LABS: Basophils # (auto) 0 10 ^3/uL (0-0.2); Basophils % (auto) 0.6 % (0.0-2.0); Eosinophils # (auto) 0.1 10 ^3/uL (0-0.8); Eosinophils % (auto) 1.2 % (0.0-7.0); Hematocrit 38.3 % (36.0-46.0); Hemoglobin 13.1 g/dL (12.2-16.2); Lymphocytes # (auto) 1.3 10 ^3/uL (0.4-5.4); Lymphocytes % (auto) 17.2 % (10.0-50.0); Mean Corpuscular Hemoglobin 33.8 pg (28.0-32.0); Mean Corpuscular Hgb Conc. 34.3 g/dL (32.0-36.0); Mean Corpuscular Volume 98.5 fL (80.0-100.0); Monocytes # (auto) 0.6 10 ^3/uL (0-1.3); Monocytes % (auto) 7.7 % (0.0-12.0); Neutrophils # (auto) 5.4 10 ^3/uL (1.6-8.6); Neutrophils % (auto) 73.3 % (37.0-80.0); Red Blood Cells 3.89 10^6/uL (4.0-5.20); Red Cell Distribution Width 15.7 % (11.8-14.3); White Blood Cell 7.4 10^3/uL (4.4-10.8)
[2021-01-28 09:55] LABS: Potassium 4.4 mmol/L (3.5-5.1)
[2021-01-28 09:59] LABS: Urine Bacteria FEW /hpf (None Seen); Urine Blood Negative /uL (Negative); Urine Hyaline Cast FEW /lpf (0 - 2); Urine Specific Gravity 1.006 (1.001-1.035); Urine WBC 6 /hpf (0 - 5)
[2021-01-28 10:04] LABS: % Iron Saturation 22.3 % (15-50)
[2021-01-28 10:05] LABS: Albumin 3.8 g/dL (3.4-5.0); BUN/Creatinine Ratio 21.7; Bilirubin, Total 0.5 mg/dL (0.2-1.0); Calcium 9.4 mg/dL (8.5-10.1); Total Protein 6.5 g/dL (6.4-8.2); Uric Acid 5.6 mg/dL (2.6-6.0)
[2021-01-28 10:06] LABS: Thyroid Stimulating Hormone 4.73 uIU/mL (0.358-3.74)
[2021-01-28 10:37] LABS: Ferritin 53.4 ng/mL (10-322)
[2021-01-28 10:40] LABS: Folate (Folic Acid) 11.89 ng/mL (5.38-24)
== END | disposition home or self-care (01) ==
LOC: LAB 08:42
PROVIDERS: ATTEND Student in an Organized Health Care Education/Training Program
DX: I12.9 Hypertensive chronic kidney disease with stage 1 through stage 4 chronic kidney disease, or unspecified chronic kidney disease (principal); E11.22 Type 2 diabetes mellitus with diabetic chronic kidney disease; N18.31 Chronic kidney disease, stage 3a; E03.9 Hypothyroidism, unspecified; M10.9 Gout, unspecified; D50.9 Iron deficiency anemia, unspecified; Z88.8 Allergy status to other drugs, medicaments and biological substances
CPT/HCPCS: 36415; 80053; 80061; 81001; 82607; 82728; 82746; 83036; 83540; 83550; 83615; 84443; 84550; 85025

== ENCOUNTER → 2021-03-27 | Outpatient (CLI) | payer MEDICARE, BC ==
[2021-03-27 10:39] LABS: Basophils # (auto) 0 10 ^3/uL (0-0.2); Eosinophils # (auto) 0.1 10 ^3/uL (0-0.8); Lymphocytes # (auto) 1.6 10 ^3/uL (0.4-5.4); Monocytes # (auto) 0.6 10 ^3/uL (0-1.3); Nucleated Red Blood Cells % 0.1 %
[2021-03-27 10:40] LABS: Basophils % (auto) 0.6 % (0.0-2.0); Eosinophils % (auto) 1.5 % (0.0-7.0); Hematocrit 38.8 % (36.0-46.0); Hemoglobin 13.1 g/dL (12.2-16.2); Lymphocytes % (auto) 21.8 % (10.0-50.0); Mean Corpuscular Hemoglobin 33.8 pg (28.0-32.0); Mean Corpuscular Hgb Conc. 33.8 g/dL (32.0-36.0); Mean Corpuscular Volume 100.2 fL (80.0-100.0); Monocytes % (auto) 7.8 % (0.0-12.0); Neutrophils % (auto) 68.3 % (37.0-80.0); Red Blood Cells 3.88 10^6/uL (4.0-5.20); Red Cell Distribution Width 15.3 % (11.8-14.3); White Blood Cell 7.3 10^3/uL (4.4-10.8)
[2021-03-27 10:57] LABS: Urine Bacteria NONE SEEN /hpf (None Seen); Urine Blood Negative /uL (Negative); Urine Specific Gravity 1.009 (1.001-1.035); Urine WBC 11 /hpf (0 - 5)
[2021-03-27 11:30] LABS: Calcium 9.9 mg/dL (8.5-10.1); Potassium 4.5 mmol/L (3.5-5.1)
[2021-03-27 11:35] LABS: Bilirubin, Total 0.4 mg/dL (0.2-1.0); Total Protein 6.6 g/dL (6.4-8.2)
== END | disposition home or self-care (01) ==
LOC: LAB 09:49
PROVIDERS: ATTEND Internal Medicine Gastroenterology
DX: K29.00 Acute gastritis without bleeding (principal); R00.2 Palpitations; R10.13 Epigastric pain
CPT/HCPCS: 36415; 80053; 81001; 82784; 83516; 84443; 85025; 86255

== ENCOUNTER → 2021-04-09 | Outpatient (CLI) | payer MEDICARE, BC ==
[2021-04-09 10:37] LABS: Urine Bacteria NONE SEEN /hpf (None Seen); Urine Blood Negative /uL (Negative); Urine Specific Gravity 1.006 (1.001-1.035); Urine WBC 2 /hpf (0 - 5)
[2021-04-09 11:18] LABS: Folate (Folic Acid) 12.11 ng/mL (5.38-24)
[2021-04-09 12:14] LABS: % Iron Saturation 18.2 % (15-50)
== END | disposition home or self-care (01) ==
LOC: LAB 09:45
PROVIDERS: ATTEND Internal Medicine Gastroenterology
DX: N39.0 Urinary tract infection, site not specified (principal); R19.4 Change in bowel habit; E11.9 Type 2 diabetes mellitus without complications
CPT/HCPCS: 81001; 82607; 82746; 83540; 83550; 87086

== ENCOUNTER → 2021-04-29 | Outpatient (CLI) | payer MEDICARE, BC ==
[2021-04-29 12:52] LABS: Basophils # (auto) 0.1 10 ^3/uL (0-0.2); Basophils % (auto) 0.7 % (0.0-2.0); Eosinophils # (auto) 0.2 10 ^3/uL (0-0.8); Eosinophils % (auto) 2.5 % (0.0-7.0); Hemoglobin 13.4 g/dL (12.2-16.2); Lymphocytes # (auto) 1.5 10 ^3/uL (0.4-5.4); Lymphocytes % (auto) 18.7 % (10.0-50.0); Mean Corpuscular Hgb Conc. 33.6 g/dL (32.0-36.0); Mean Corpuscular Volume 101.3 fL (80.0-100.0); Monocytes # (auto) 0.6 10 ^3/uL (0-1.3); Monocytes % (auto) 8.2 % (0.0-12.0); Neutrophils # (auto) 5.5 10 ^3/uL (1.6-8.6); Neutrophils % (auto) 69.9 % (37.0-80.0); Nucleated Red Blood Cells % 0.1 %; Red Blood Cells 3.95 10^6/uL (4.0-5.20); Red Cell Distribution Width 15.1 % (11.8-14.3); White Blood Cell 7.8 10^3/uL (4.4-10.8)
[2021-04-29 13:09] LABS: % Iron Saturation 18.4 % (15-50)
[2021-04-29 13:20] LABS: Folate (Folic Acid) 11.47 ng/mL (5.38-24)
[2021-04-29 13:33] LABS: Potassium 4.5 mmol/L (3.5-5.1)
[2021-04-29 13:41] LABS: Albumin 4.2 g/dL (3.4-5.0); BUN/Creatinine Ratio 24.8; Bilirubin, Total 0.6 mg/dL (0.2-1.0); Calcium 9.4 mg/dL (8.5-10.1); Magnesium 1.6 mg/dL (1.6-2.6); Phosphorus 2.8 mg/dL (2.5-4.90); Total Protein 7.1 g/dL (6.4-8.2)
[2021-04-29 14:08] LABS: Thyroid Stimulating Hormone 4.08 uIU/mL (0.358-3.74)
[2021-04-29 16:01] LABS: Urine Bacteria FEW /hpf (None Seen); Urine Blood Negative /uL (Negative); Urine Hyaline Cast FEW /lpf (0 - 2); Urine Specific Gravity 1.008 (1.001-1.035); Urine WBC 8 /hpf (0 - 5)
[2021-04-29 16:08] LABS: Protein, Urine 8.3 mg/dL (0.0-11.9)
[2021-04-29 16:19] LABS: Micro Albumin 10.9 mg/L (0-30.0)
== END | disposition home or self-care (01) ==
LOC: LAB 08:24
PROVIDERS: ATTEND Internal Medicine
DX: I12.9 Hypertensive chronic kidney disease with stage 1 through stage 4 chronic kidney disease, or unspecified chronic kidney disease (principal); E11.22 Type 2 diabetes mellitus with diabetic chronic kidney disease; N18.30 Chronic kidney disease, stage 3 unspecified; D50.9 Iron deficiency anemia, unspecified
CPT/HCPCS: 36415; 80053; 80061; 81001; 82043; 82570; 82607; 82746; 83036; 83540; 83550; 83615; 83735; 84100; 84156; 84443; 85025

== ENCOUNTER → 2021-05-03 | Outpatient (CLI) | payer MEDICARE, BC ==
[2021-05-03 11:57] LABS: Free T4 (Free Thyroxine) 1.05 ng/dL (0.89-1.76)
[2021-05-03 11:58] LABS: Free T3 2.67 pg/mL (2.3-4.2)
== END | disposition home or self-care (01) ==
LOC: LAB 08:18
PROVIDERS: ATTEND Internal Medicine Nephrology
DX: E03.9 Hypothyroidism, unspecified (principal)
CPT/HCPCS: 36415; 84439; 84443; 84481

== ENCOUNTER → 2021-05-06 | Outpatient (CLI) | payer MEDICARE, BC ==
[2021-05-06 12:21] LABS: Urine Bacteria FEW /hpf (None Seen); Urine Blood Negative /uL (Negative); Urine Specific Gravity 1.013 (1.001-1.035); Urine WBC 18 /hpf (0 - 5)
[2021-05-06 12:40] LABS: Cholesterol 172 mg/dL (< 200); HDL Cholesterol 31 mg/dL (40-59); LDL Cholesterol 107 mg/dL (< 100); Triglycerides 292 mg/dL (< 150)
[2021-05-08 11:40] LABS: Potassium 5.4 mmol/L (3.5-5.1)
[2021-05-08 12:01] LABS: BUN/Creatinine Ratio 20.6
== END | disposition home or self-care (01) ==
LOC: LAB 11:42
PROVIDERS: ATTEND Internal Medicine Gastroenterology
DX: E11.9 Type 2 diabetes mellitus without complications (principal); I10 Essential (primary) hypertension; Z79.899 Other long term (current) drug therapy
CPT/HCPCS: 36415; 80048; 80061; 81001; 87086

== ENCOUNTER → 2021-06-06 | Outpatient (CLI) | payer MEDICARE, BC ==
[2021-06-06 14:52] LABS: Potassium 3.8 mmol/L (3.5-5.1)
[2021-06-06 14:58] LABS: BUN/Creatinine Ratio 21.6
== END | disposition home or self-care (01) ==
LOC: LAB 14:11
PROVIDERS: ATTEND Internal Medicine Nephrology
DX: N18.32 Chronic kidney disease, stage 3b (principal)
CPT/HCPCS: 36415; 80048

== ENCOUNTER 2021-06-19 15:37 | Emergency (ER) | payer MEDICARE, BC ==
[~2021-06-19] VITALS: Ht 170.2 cm; Wt 63.5 kg
[2021-06-19] MEDS ORDERED: NAP500T PO (17:08)
[2021-06-19] MEDS ORDERED: TRAM50TA2 PO ×2 (17:08→17:41)
[2021-06-19] MEDS ORDERED: TRAM-297 PO (17:13)
[2021-06-19] MEDS ORDERED: traMADol HCL 50 MG TAB PO ONE (18:15)
[2021-06-19 18:48] VITALS: BP 135/74
== END 2021-06-19 18:50 | disposition home or self-care (01) ==
LOC: ER 15:37
DX: M25.551 Pain in right hip (principal); M16.11 Unilateral primary osteoarthritis, right hip; I11.0 Hypertensive heart disease with heart failure; I50.9 Heart failure, unspecified; E03.9 Hypothyroidism, unspecified; M10.9 Gout, unspecified; Z90.49 Acquired absence of other specified parts of digestive tract; Z90.710 Acquired absence of both cervix and uterus; Z79.899 Other long term (current) drug therapy; Z88.8 Allergy status to other drugs, medicaments and biological substances
CPT/HCPCS: 72192

== ENCOUNTER 2021-07-29 21:54 | Emergency (ER) | payer MEDICARE, BC ==
[~2021-07-29] VITALS: Ht 170.2 cm; Wt 61.2 kg
[~2021-07-29 21:54] MED LIST changes: +NAP500T PO; +TRAM50TA2 PO
[2021-07-29 22:50] LABS: Basophils # (auto) 0 10 ^3/uL (0-0.2); Basophils % (auto) 0.4 % (0.0-2.0); Eosinophils # (auto) 0.1 10 ^3/uL (0-0.8); Eosinophils % (auto) 0.6 % (0.0-7.0); Hematocrit 39.6 % (36.0-46.0); Hemoglobin 13.6 g/dL (12.2-16.2); Lymphocytes # (auto) 1.9 10 ^3/uL (0.4-5.4); Mean Corpuscular Hemoglobin 33.9 pg (28.0-32.0); Mean Corpuscular Hgb Conc. 34.5 g/dL (32.0-36.0); Mean Corpuscular Volume 98.3 fL (80.0-100.0); Monocytes # (auto) 1.1 10 ^3/uL (0-1.3); Monocytes % (auto) 8.5 % (0.0-12.0); Neutrophils # (auto) 9.5 10 ^3/uL (1.6-8.6); Neutrophils % (auto) 75.5 % (37.0-80.0); Red Blood Cells 4.02 10^6/uL (4.0-5.20); Red Cell Distribution Width 15.9 % (11.8-14.3); White Blood Cell 12.6 10^3/uL (4.4-10.8)
[2021-07-29 23:05] LABS: BUN/Creatinine Ratio 18.9; Calcium 9.6 mg/dL (8.5-10.1); Potassium 3.2 mmol/L (3.5-5.1)
[2021-07-29 23:08] LABS: Bilirubin, Total 0.5 mg/dL (0.2-1.0); Total Protein 7.1 g/dL (6.4-8.2)
[2021-07-30 01:46] VITALS: BP 188/72
== END 2021-07-30 01:48 | disposition home or self-care (01) ==
LOC: ER 21:55
DX: R10.30 Lower abdominal pain, unspecified (principal); I50.9 Heart failure, unspecified; E11.9 Type 2 diabetes mellitus without complications; E03.9 Hypothyroidism, unspecified; M10.9 Gout, unspecified; Z90.49 Acquired absence of other specified parts of digestive tract; Z90.710 Acquired absence of both cervix and uterus; Z79.899 Other long term (current) drug therapy; Z88.8 Allergy status to other drugs, medicaments and biological substances
CPT/HCPCS: 36415; 74176; 80053; 85025; 93005

== ENCOUNTER → 2021-08-05 | Outpatient (CLI) | payer MEDICARE, BC ==
[2021-08-05 11:09] LABS: Basophils # (auto) 0.1 10 ^3/uL (0-0.2); Basophils % (auto) 0.6 % (0.0-2.0); Eosinophils # (auto) 0.1 10 ^3/uL (0-0.8); Eosinophils % (auto) 0.5 % (0.0-7.0); Hematocrit 40.8 % (36.0-46.0); Hemoglobin 13.9 g/dL (12.2-16.2); Lymphocytes % (auto) 25.6 % (10.0-50.0); Mean Corpuscular Hemoglobin 33.2 pg (28.0-32.0); Mean Corpuscular Hgb Conc. 33.9 g/dL (32.0-36.0); Mean Corpuscular Volume 97.8 fL (80.0-100.0); Monocytes # (auto) 0.9 10 ^3/uL (0-1.3); Monocytes % (auto) 7.4 % (0.0-12.0); Neutrophils # (auto) 7.7 10 ^3/uL (1.6-8.6); Neutrophils % (auto) 65.9 % (37.0-80.0); Red Blood Cells 4.17 10^6/uL (4.0-5.20); Red Cell Distribution Width 16.1 % (11.8-14.3); White Blood Cell 11.7 10^3/uL (4.4-10.8)
[2021-08-05 11:28] LABS: Albumin 4.3 g/dL (3.4-5.0); Potassium 3.5 mmol/L (3.5-5.1)
[2021-08-05 11:34] LABS: BUN/Creatinine Ratio 23.8; Bilirubin, Total 0.5 mg/dL (0.2-1.0); Total Protein 7.2 g/dL (6.4-8.2)
[2021-08-05 11:38] LABS: Ferritin 68.3 ng/mL (10-322); Free T4 (Free Thyroxine) 1.46 ng/dL (0.89-1.76); Thyroid Stimulating Hormone 1.32 uIU/mL (0.358-3.74)
[2021-08-05 11:39] LABS: Folate (Folic Acid) 16.05 ng/mL (5.38-24)
[2021-08-05 12:49] LABS: % Iron Saturation 18.3 % (15-50)
[2021-08-05 15:43] LABS: Urine Bacteria FEW /hpf (None Seen); Urine Blood Negative /uL (Negative); Urine Hyaline Cast FEW /lpf (0 - 2); Urine Specific Gravity 1.009 (1.001-1.035); Urine WBC 20 /hpf (0 - 5)
== END | disposition home or self-care (01) ==
LOC: LAB 10:25
PROVIDERS: ATTEND Internal Medicine
DX: I10 Essential (primary) hypertension (principal); E11.9 Type 2 diabetes mellitus without complications; E03.8 Other specified hypothyroidism; D50.9 Iron deficiency anemia, unspecified
CPT/HCPCS: 36415; 80053; 80061; 81001; 82043; 82607; 82728; 82746; 83036; 83540; 83550; 83615; 84439; 84443; 85025

== ENCOUNTER → 2021-08-07 | Outpatient (CLI) | payer MEDICARE, BC ==
[2021-08-07 14:28] LABS: Urine Bacteria FEW /hpf (None Seen); Urine Blood Negative /uL (Negative); Urine Specific Gravity 1.005 (1.001-1.035); Urine WBC 3 /hpf (0 - 5)
== END | disposition home or self-care (01) ==
LOC: LAB 10:49
PROVIDERS: ATTEND Internal Medicine Gastroenterology
DX: N30.90 Cystitis, unspecified without hematuria (principal)
CPT/HCPCS: 81001; 87086

== ENCOUNTER → 2021-09-04 | Outpatient (CLI) | payer MEDICARE, BC | END | disposition home or self-care (01) | LOC: Rad HDHVI 10:01 | PROVIDERS: ATTEND Internal Medicine Cardiovascular Disease | DX: I37.1 Nonrheumatic pulmonary valve insufficiency (principal); R00.1 Bradycardia, unspecified; I10 Essential (primary) hypertension | CPT/HCPCS: 93306 ==

== ENCOUNTER → 2021-09-09 | Outpatient (CLI) | payer MEDICARE, BC | END | disposition home or self-care (01) | LOC: Rad HDHVI 14:04 | PROVIDERS: ATTEND Internal Medicine Cardiovascular Disease | DX: I65.23 Occlusion and stenosis of bilateral carotid arteries (principal); I65.09 Occlusion and stenosis of unspecified vertebral artery; I70.213 Atherosclerosis of native arteries of extremities with intermittent claudication, bilateral legs; R06.9 Unspecified abnormalities of breathing; R00.2 Palpitations | CPT/HCPCS: 93880; 93925 ==

== ENCOUNTER → 2021-10-28 | Outpatient (CLI) | payer MEDICARE, BC ==
[2021-10-28 10:04] LABS: Basophils # (auto) 0.1 10 ^3/uL (0-0.2); Basophils % (auto) 0.6 % (0.0-2.0); Eosinophils # (auto) 0 10 ^3/uL (0-0.8); Eosinophils % (auto) 0.3 % (0.0-7.0); Hematocrit 38.7 % (36.0-46.0); Lymphocytes # (auto) 1.1 10 ^3/uL (0.4-5.4); Lymphocytes % (auto) 10.7 % (10.0-50.0); Mean Corpuscular Hemoglobin 32.2 pg (28.0-32.0); Mean Corpuscular Hgb Conc. 33.6 g/dL (32.0-36.0); Monocytes # (auto) 0.6 10 ^3/uL (0-1.3); Monocytes % (auto) 5.7 % (0.0-12.0); Neutrophils # (auto) 8.9 10 ^3/uL (1.6-8.6); Neutrophils % (auto) 82.7 % (37.0-80.0); Nucleated Red Blood Cells % 0.1 %; Red Blood Cells 4.03 10^6/uL (4.0-5.20); Red Cell Distribution Width 15.9 % (11.8-14.3); White Blood Cell 10.7 10^3/uL (4.4-10.8)
[2021-10-28 10:41] LABS: Albumin 3.5 g/dL (3.4-5.0); Calcium 9.6 mg/dL (8.5-10.1); Potassium 4.5 mmol/L (3.5-5.1)
[2021-10-28 10:46] LABS: BUN/Creatinine Ratio 23.5; Bilirubin, Total 0.6 mg/dL (0.2-1.0); Total Protein 6.2 g/dL (6.4-8.2)
[2021-10-28 12:17] LABS: Ferritin 56.9 ng/mL (10-322)
[2021-10-28 12:18] LABS: Folate (Folic Acid) 7.51 ng/mL (5.38-24)
[2021-10-28 12:32] LABS: % Iron Saturation 24.6 % (15-50)
== END | disposition home or self-care (01) ==
LOC: LAB 09:34
PROVIDERS: ATTEND Internal Medicine
DX: D50.9 Iron deficiency anemia, unspecified (principal); D51.9 Vitamin B12 deficiency anemia, unspecified
CPT/HCPCS: 36415; 80053; 82607; 82728; 82746; 83540; 83550; 83615; 85025

== ENCOUNTER 2021-10-31 15:43 | Emergency (ER) | payer MEDICARE, BC ==
[~2021-10-31] VITALS: Ht 170.2 cm; Wt 65.0 kg
[2021-10-31 16:01] VITALS: BP 160/78
[2021-10-31 18:06] LABS: Basophils # (auto) 0 10 ^3/uL (0-0.2); Basophils % (auto) 0.3 % (0.0-2.0); Eosinophils # (auto) 0 10 ^3/uL (0-0.8); Eosinophils % (auto) 0.2 % (0.0-7.0); Hematocrit 40.1 % (36.0-46.0); Lymphocytes # (auto) 1.1 10 ^3/uL (0.4-5.4); Lymphocytes % (auto) 9.5 % (10.0-50.0); Mean Corpuscular Hemoglobin 31.5 pg (28.0-32.0); Mean Corpuscular Hgb Conc. 32.5 g/dL (32.0-36.0); Mean Corpuscular Volume 96.7 fL (80.0-100.0); Monocytes # (auto) 0.8 10 ^3/uL (0-1.3); Monocytes % (auto) 7.1 % (0.0-12.0); Neutrophils # (auto) 9.3 10 ^3/uL (1.6-8.6); Neutrophils % (auto) 82.9 % (37.0-80.0); Nucleated Red Blood Cells % 0.1 %; Red Blood Cells 4.15 10^6/uL (4.0-5.20); Red Cell Distribution Width 15.8 % (11.8-14.3); White Blood Cell 11.3 10^3/uL (4.4-10.8)
[2021-10-31 18:13] LABS: Urine Bacteria MANY /hpf (None Seen); Urine Blood 1+ /uL (Negative); Urine Specific Gravity 1.008 (1.001-1.035); Urine WBC 103 /hpf (0 - 5); Urine WBC Clumps PRESENT /hpf (None Seen)
[2021-10-31 18:18] LABS: BUN/Creatinine Ratio 25.8; Calcium 10.1 mg/dL (8.5-10.1); Magnesium 1.5 mg/dL (1.6-2.6); Potassium 4.4 mmol/L (3.5-5.1)
[2021-10-31 18:21] LABS: Bilirubin, Total 0.5 mg/dL (0.2-1.0); Total Protein 6.7 g/dL (6.4-8.2)
[2021-11-01] MEDS ORDERED: NITR-87 PO (20:56)
== END 2021-11-01 00:42 | disposition home or self-care (01) ==
LOC: ER 15:43
DX: R60.0 Localized edema (principal); N39.0 Urinary tract infection, site not specified; I50.9 Heart failure, unspecified; E11.9 Type 2 diabetes mellitus without complications; E03.9 Hypothyroidism, unspecified; M10.9 Gout, unspecified; Z90.49 Acquired absence of other specified parts of digestive tract; Z90.710 Acquired absence of both cervix and uterus; Z79.899 Other long term (current) drug therapy; Z88.8 Allergy status to other drugs, medicaments and biological substances
CPT/HCPCS: 36415; 71045; 80053; 81001; 83735; 83880; 84484; 85025; 93005

== ENCOUNTER → 2021-11-06 | Outpatient (CLI) | payer MEDICARE, BC ==
[~2021-11-06] MED LIST changes: +NITR-87 PO
[2021-11-06 16:40] LABS: Urine Blood Negative /uL (Negative); Urine Specific Gravity 1.007 (1.001-1.035)
== END | disposition home or self-care (01) ==
LOC: LAB 13:07
PROVIDERS: ATTEND Internal Medicine Cardiovascular Disease
DX: N39.0 Urinary tract infection, site not specified (principal)
CPT/HCPCS: 81003

== ENCOUNTER → 2021-11-11 | Outpatient (CLI) | payer MEDICARE, BC ==
[2021-11-11 11:50] LABS: Basophils # (auto) 0.1 10 ^3/uL (0-0.2); Basophils % (auto) 0.7 % (0.0-2.0); Eosinophils # (auto) 0.1 10 ^3/uL (0-0.8); Eosinophils % (auto) 0.5 % (0.0-7.0); Hemoglobin 12.2 g/dL (12.2-16.2); Lymphocytes # (auto) 1.3 10 ^3/uL (0.4-5.4); Mean Corpuscular Hemoglobin 31.6 pg (28.0-32.0); Mean Corpuscular Hgb Conc. 33.1 g/dL (32.0-36.0); Mean Corpuscular Volume 95.4 fL (80.0-100.0); Monocytes % (auto) 8.8 % (0.0-12.0); Neutrophils # (auto) 8.7 10 ^3/uL (1.6-8.6); Red Blood Cells 3.88 10^6/uL (4.0-5.20); Red Cell Distribution Width 15.6 % (11.8-14.3); White Blood Cell 11.1 10^3/uL (4.4-10.8)
[2021-11-11 15:49] LABS: Potassium 3.4 mmol/L (3.5-5.1)
[2021-11-11 16:09] LABS: BUN/Creatinine Ratio 16.1; Calcium 9.1 mg/dL (8.5-10.1)
[2021-11-12 11:11] LABS: Urine Bacteria FEW /hpf (None Seen); Urine Blood Negative /uL (Negative); Urine Mucus FEW (None Seen); Urine Specific Gravity 1.016 (1.001-1.035); Urine WBC 22 /hpf (0 - 5)
== END | disposition home or self-care (01) ==
LOC: LAB 11:01
PROVIDERS: ATTEND Student in an Organized Health Care Education/Training Program
DX: E11.9 Type 2 diabetes mellitus without complications (principal); N39.0 Urinary tract infection, site not specified; I10 Essential (primary) hypertension
CPT/HCPCS: 36415; 80048; 81001; 82043; 83036; 84443; 85025; 87086

== ENCOUNTER → 2021-11-18 | Outpatient (CLI) | payer MEDICARE, BC | END | disposition home or self-care (01) | LOC: Rad HDHVI 14:02 | PROVIDERS: ATTEND Internal Medicine Cardiovascular Disease | DX: M79.89 Other specified soft tissue disorders (principal); R60.9 Edema, unspecified | CPT/HCPCS: 93925 ==

== ENCOUNTER → 2021-12-04 | Outpatient (CLI) | payer MEDICARE, BC ==
[~2021-12-04] VITALS: Ht 170.2 cm; Wt 61.2 kg
[~2021-12-04] MED LIST changes: +ADENOSINE 51 MG in GIVE UN-DILUTED 0 ML IV ONE; +ADENOSINE 90 MG/30 ML INJ IV ONE
== END | disposition home or self-care (01) ==
LOC: Rad HDHVI 09:06
PROVIDERS: ATTEND Internal Medicine Cardiovascular Disease
DX: I25.10 Atherosclerotic heart disease of native coronary artery without angina pectoris (principal); R00.2 Palpitations; I25.2 Old myocardial infarction; I10 Essential (primary) hypertension; E11.9 Type 2 diabetes mellitus without complications; E78.5 Hyperlipidemia, unspecified; Z82.49 Family history of ischemic heart disease and other diseases of the circulatory system; Z95.0 Presence of cardiac pacemaker
CPT/HCPCS: 78452; 93005; 96374; 96375; A9500; J0153

== ENCOUNTER → 2022-01-29 | Outpatient (CLI) | payer MEDICARE, BC ==
[~2022-01-29] MED LIST changes: -ADENOSINE 51 MG in GIVE UN-DILUTED 0 ML IV ONE; -ADENOSINE 90 MG/30 ML INJ IV ONE
[2022-01-29 10:24] LABS: BUN/Creatinine Ratio 20.8; Calcium 9.3 mg/dL (8.5-10.1); Potassium 3.2 mmol/L (3.5-5.1)
[2022-01-29 19:48] LABS: Urine Specific Gravity 1.014 (1.001-1.035)
[2022-01-29 19:49] LABS: Urine Blood Negative /uL (Negative)
== END | disposition home or self-care (01) ==
LOC: LAB 09:27
PROVIDERS: ATTEND Internal Medicine Gastroenterology
DX: N18.31 Chronic kidney disease, stage 3a (principal); N39.0 Urinary tract infection, site not specified
CPT/HCPCS: 36415; 80048; 81001; 87086

== ENCOUNTER → 2022-02-04 | Outpatient (CLI) | payer MEDICARE, BC ==
[~2022-02-04] MED LIST changes: +IOHEXOL 350 MG/ML 100ML IJ ONE; +READI-CAT 2 (BARIUM SULF)(VANILLA SMOOTHIE) 450ML ONE
[2022-02-04 09:05] VITALS: BP 155/62
[2022-02-04 10:20] VITALS: BP 149/55
== END | disposition home or self-care (01) ==
LOC: Rad HDHVI 08:57
PROVIDERS: ATTEND Internal Medicine Cardiovascular Disease
DX: K76.89 Other specified diseases of liver (principal); N28.1 Cyst of kidney, acquired; M47.819 Spondylosis without myelopathy or radiculopathy, site unspecified; K57.30 Diverticulosis of large intestine without perforation or abscess without bleeding; Z90.49 Acquired absence of other specified parts of digestive tract; Z79.899 Other long term (current) drug therapy; Z79.84 Long term (current) use of oral hypoglycemic drugs
CPT/HCPCS: 74177; G0463; Q9967

== ENCOUNTER → 2022-02-10 | Outpatient (CLI) | payer MEDICARE, BC ==
[~2022-02-10] MED LIST changes: -IOHEXOL 350 MG/ML 100ML IJ ONE; -READI-CAT 2 (BARIUM SULF)(VANILLA SMOOTHIE) 450ML ONE
[2022-02-10 11:24] LABS: Basophils # (auto) 0.1 10 ^3/uL (0-0.2); Basophils % (auto) 0.7 % (0.0-2.0); Eosinophils # (auto) 0.1 10 ^3/uL (0-0.8); Eosinophils % (auto) 1.3 % (0.0-7.0); Hematocrit 35.9 % (36.0-46.0); Hemoglobin 12.1 g/dL (12.2-16.2); Lymphocytes # (auto) 1.2 10 ^3/uL (0.4-5.4); Lymphocytes % (auto) 15.5 % (10.0-50.0); Mean Corpuscular Hemoglobin 32.4 pg (28.0-32.0); Mean Corpuscular Hgb Conc. 33.6 g/dL (32.0-36.0); Mean Corpuscular Volume 96.5 fL (80.0-100.0); Monocytes # (auto) 0.6 10 ^3/uL (0-1.3); Monocytes % (auto) 8.2 % (0.0-12.0); Neutrophils # (auto) 5.7 10 ^3/uL (1.6-8.6); Neutrophils % (auto) 74.3 % (37.0-80.0); Nucleated Red Blood Cells % 0.1 %; Red Blood Cells 3.72 10^6/uL (4.0-5.20); Red Cell Distribution Width 17.2 % (11.8-14.3); White Blood Cell 7.7 10^3/uL (4.4-10.8)
[2022-02-10 12:06] LABS: Albumin 3.8 g/dL (3.4-5.0); Calcium 9.7 mg/dL (8.5-10.1); Potassium 3.9 mmol/L (3.5-5.1)
[2022-02-10 12:12] LABS: BUN/Creatinine Ratio 16.5; Bilirubin, Total 0.6 mg/dL (0.2-1.0); Total Protein 6.5 g/dL (6.4-8.2)
[2022-02-10 13:00] LABS: Urine Blood Negative /uL (Negative); Urine Specific Gravity 1.008 (1.001-1.035); Urine WBC 2 /hpf (0 - 5)
== END | disposition home or self-care (01) ==
LOC: LAB 02-07 10:25
PROVIDERS: ATTEND Student in an Organized Health Care Education/Training Program
DX: E11.9 Type 2 diabetes mellitus without complications (principal); I10 Essential (primary) hypertension; R11.2 Nausea with vomiting, unspecified
CPT/HCPCS: 36415; 80053; 80061; 81001; 83036; 83690; 84439; 84443; 85025

== ENCOUNTER → 2022-04-28 | Outpatient (CLI) | payer MEDICARE, BC ==
[2022-04-28 11:11] LABS: Basophils # (auto) 0 10 ^3/uL (0-0.2); Basophils % (auto) 0.6 % (0.0-2.0); Eosinophils # (auto) 0.1 10 ^3/uL (0-0.8); Eosinophils % (auto) 1.4 % (0.0-7.0); Hemoglobin 12.6 g/dL (12.2-16.2); Lymphocytes # (auto) 1.3 10 ^3/uL (0.4-5.4); Lymphocytes % (auto) 14.9 % (10.0-50.0); Mean Corpuscular Hemoglobin 32.6 pg (28.0-32.0); Mean Corpuscular Hgb Conc. 34.9 g/dL (32.0-36.0); Mean Corpuscular Volume 93.5 fL (80.0-100.0); Monocytes # (auto) 0.7 10 ^3/uL (0-1.3); Neutrophils # (auto) 6.4 10 ^3/uL (1.6-8.6); Neutrophils % (auto) 75.1 % (37.0-80.0); Nucleated Red Blood Cells % 0.1 %; Red Blood Cells 3.86 10^6/uL (4.0-5.20); Red Cell Distribution Width 16.3 % (11.8-14.3); White Blood Cell 8.5 10^3/uL (4.4-10.8)
[2022-04-28 11:46] LABS: Albumin 4.2 g/dL (3.4-5.0)
[2022-04-28 11:48] LABS: % Iron Saturation 12.1 % (15-50)
[2022-04-28 11:50] LABS: BUN/Creatinine Ratio 29.1; Bilirubin, Total 0.5 mg/dL (0.2-1.0)
[2022-04-28 12:37] LABS: Ferritin 41.1 ng/mL (10-322)
[2022-04-28 13:00] LABS: Folate (Folic Acid) 13.38 ng/mL (5.38-24)
== END | disposition home or self-care (01) ==
LOC: LAB 10:52
PROVIDERS: ATTEND Internal Medicine
DX: D50.9 Iron deficiency anemia, unspecified (principal); D51.9 Vitamin B12 deficiency anemia, unspecified
CPT/HCPCS: 36415; 80053; 82607; 82728; 82746; 83540; 83550; 83615; 85025

== ENCOUNTER → 2022-05-07 | Outpatient (CLI) | payer MEDICARE, BC ==
[2022-05-07 10:33] LABS: Basophils # (auto) 0.1 10 ^3/uL (0-0.2); Basophils % (auto) 0.8 % (0.0-2.0); Eosinophils # (auto) 0.2 10 ^3/uL (0-0.8); Eosinophils % (auto) 2.2 % (0.0-7.0); Hematocrit 38.5 % (36.0-46.0); Hemoglobin 12.9 g/dL (12.2-16.2); Lymphocytes # (auto) 1.8 10 ^3/uL (0.4-5.4); Lymphocytes % (auto) 23.4 % (10.0-50.0); Mean Corpuscular Hemoglobin 31.5 pg (28.0-32.0); Mean Corpuscular Hgb Conc. 33.5 g/dL (32.0-36.0); Monocytes # (auto) 0.7 10 ^3/uL (0-1.3); Monocytes % (auto) 9.1 % (0.0-12.0); Neutrophils # (auto) 4.9 10 ^3/uL (1.6-8.6); Neutrophils % (auto) 64.5 % (37.0-80.0); Nucleated Red Blood Cells % 0.1 %; Red Cell Distribution Width 16.6 % (11.8-14.3); White Blood Cell 7.6 10^3/uL (4.4-10.8)
[2022-05-07 11:52] LABS: Albumin 4.2 g/dL (3.4-5.0); BUN/Creatinine Ratio 32.6; Calcium 10.5 mg/dL (8.5-10.1); Potassium 4.1 mmol/L (3.5-5.1)
[2022-05-07 11:57] LABS: Bilirubin, Total 0.4 mg/dL (0.2-1.0); Total Protein 7.4 g/dL (6.4-8.2)
[2022-05-07 12:58] LABS: Urine Bacteria MANY /hpf (None Seen); Urine Blood Negative /uL (Negative); Urine WBC 10 /hpf (0 - 5)
[2022-05-07 17:55] LABS: Protein, Urine 12.2 mg/dL (0.0-11.9)
== END | disposition home or self-care (01) ==
LOC: LAB 10:11
PROVIDERS: ATTEND Internal Medicine Nephrology
DX: I12.9 Hypertensive chronic kidney disease with stage 1 through stage 4 chronic kidney disease, or unspecified chronic kidney disease (principal); E11.22 Type 2 diabetes mellitus with diabetic chronic kidney disease; N18.30 Chronic kidney disease, stage 3 unspecified; E03.9 Hypothyroidism, unspecified; R80.9 Proteinuria, unspecified; E03.8 Other specified hypothyroidism; D63.1 Anemia in chronic kidney disease
CPT/HCPCS: 36415; 80053; 80061; 81001; 82570; 83036; 84156; 84439; 84443; 85025

== ENCOUNTER → 2022-05-13 | Outpatient (CLI) | payer MEDICARE, BC ==
[2022-05-13 14:18] LABS: Albumin 3.8 g/dL (3.4-5.0); Bilirubin, Direct 0.1 mg/dL (0-0.2); Bilirubin, Total 0.5 mg/dL (0.2-1.0); Total Protein 6.5 g/dL (6.4-8.2)
== END | disposition home or self-care (01) ==
LOC: LAB 13:19
PROVIDERS: ATTEND Podiatrist
DX: B35.1 Tinea unguium (principal)
CPT/HCPCS: 36415; 80076

== ENCOUNTER → 2022-06-06 | Outpatient (CLI) | payer BC, MEDICARE ==
[2022-06-06 12:29] LABS: Basophils # (auto) 0.1 10 ^3/uL (0-0.2); Basophils % (auto) 1.2 % (0.0-2.0); Eosinophils # (auto) 0.1 10 ^3/uL (0-0.8); Eosinophils % (auto) 0.6 % (0.0-7.0); Hematocrit 35.9 % (36.0-46.0); Lymphocytes # (auto) 1.2 10 ^3/uL (0.4-5.4); Lymphocytes % (auto) 12.8 % (10.0-50.0); Mean Corpuscular Hemoglobin 31.7 pg (28.0-32.0); Mean Corpuscular Hgb Conc. 33.5 g/dL (32.0-36.0); Mean Corpuscular Volume 94.7 fL (80.0-100.0); Monocytes # (auto) 0.6 10 ^3/uL (0-1.3); Monocytes % (auto) 5.9 % (0.0-12.0); Neutrophils # (auto) 7.7 10 ^3/uL (1.6-8.6); Neutrophils % (auto) 79.5 % (37.0-80.0); Red Blood Cells 3.79 10^6/uL (4.0-5.20); Red Cell Distribution Width 16.5 % (11.8-14.3); White Blood Cell 9.7 10^3/uL (4.4-10.8)
[2022-06-06 12:59] LABS: Calcium 10.7 mg/dL (8.5-10.1); Potassium 4.6 mmol/L (3.5-5.1)
[2022-06-06 13:03] LABS: BUN/Creatinine Ratio 24.7 (10.0-20.0); Bilirubin, Total 0.5 mg/dL (0.2-1.0); Total Protein 7.2 g/dL (6.4-8.2)
== END | disposition home or self-care (01) ==
LOC: LAB 12:14
PROVIDERS: ATTEND Student in an Organized Health Care Education/Training Program
DX: I10 Essential (primary) hypertension (principal); R10.9 Unspecified abdominal pain; N39.0 Urinary tract infection, site not specified
CPT/HCPCS: 36415; 80053; 83690; 85025; 87086

== ENCOUNTER → 2022-06-16 | Outpatient (CLI) | payer MEDICARE, BC ==
[2022-06-16 14:57] LABS: Bilirubin, Direct 0.1 mg/dL (0-0.2); Bilirubin, Total 0.6 mg/dL (0.2-1.0); Total Protein 7.9 g/dL (6.4-8.2)
[2022-06-16 14:58] LABS: Albumin 4.4 g/dL (3.4-5.0)
== END | disposition home or self-care (01) ==
LOC: LAB 09:51
PROVIDERS: ATTEND Podiatrist
DX: B35.1 Tinea unguium (principal)
CPT/HCPCS: 36415; 80076

== ENCOUNTER → 2022-07-09 | Outpatient (CLI) | payer MEDICARE, BC ==
[2022-07-09 09:59] LABS: Basophils # (auto) 0 10 ^3/uL (0-0.2); Basophils % (auto) 0.5 % (0.0-2.0); Eosinophils # (auto) 0.1 10 ^3/uL (0-0.8); Hematocrit 36.9 % (36.0-46.0); Hemoglobin 12.4 g/dL (12.2-16.2); Lymphocytes # (auto) 1.4 10 ^3/uL (0.4-5.4); Lymphocytes % (auto) 16.5 % (10.0-50.0); Mean Corpuscular Hemoglobin 32.1 pg (28.0-32.0); Mean Corpuscular Hgb Conc. 33.6 g/dL (32.0-36.0); Mean Corpuscular Volume 95.6 fL (80.0-100.0); Monocytes # (auto) 0.7 10 ^3/uL (0-1.3); Monocytes % (auto) 8.2 % (0.0-12.0); Neutrophils # (auto) 6.1 10 ^3/uL (1.6-8.6); Neutrophils % (auto) 73.8 % (37.0-80.0); Red Blood Cells 3.86 10^6/uL (4.0-5.20); Red Cell Distribution Width 15.8 % (11.8-14.3); White Blood Cell 8.3 10^3/uL (4.4-10.8)
[2022-07-09 10:30] LABS: Potassium 4.1 mmol/L (3.5-5.1)
[2022-07-09 10:36] LABS: Albumin 4.3 g/dL (3.4-5.0); BUN/Creatinine Ratio 24.3 (10.0-20.0); Bilirubin, Total 0.4 mg/dL (0.2-1.0); Calcium 10.4 mg/dL (8.5-10.1); Total Protein 7.1 g/dL (6.4-8.2)
== END | disposition home or self-care (01) ==
LOC: LAB 09:43
PROVIDERS: ATTEND Internal Medicine Gastroenterology
DX: K85.91 Acute pancreatitis with uninfected necrosis, unspecified (principal); R11.2 Nausea with vomiting, unspecified
CPT/HCPCS: 36415; 80053; 82150; 83690; 85025

== ENCOUNTER → 2022-07-23 | Outpatient (CLI) | payer MEDICARE, BC ==
[2022-07-23 10:48] LABS: Basophils # (auto) 0.1 10 ^3/uL (0-0.2); Basophils % (auto) 0.7 % (0.0-2.0); Eosinophils # (auto) 0.1 10 ^3/uL (0-0.8); Eosinophils % (auto) 1.5 % (0.0-7.0); Hematocrit 36.1 % (36.0-46.0); Lymphocytes # (auto) 1.4 10 ^3/uL (0.4-5.4); Lymphocytes % (auto) 15.1 % (10.0-50.0); Mean Corpuscular Hemoglobin 31.7 pg (28.0-32.0); Mean Corpuscular Hgb Conc. 33.4 g/dL (32.0-36.0); Mean Corpuscular Volume 94.9 fL (80.0-100.0); Monocytes # (auto) 0.7 10 ^3/uL (0-1.3); Monocytes % (auto) 7.6 % (0.0-12.0); Neutrophils # (auto) 6.7 10 ^3/uL (1.6-8.6); Neutrophils % (auto) 75.1 % (37.0-80.0); Nucleated Red Blood Cells % 0.1 %; Red Cell Distribution Width 15.4 % (11.8-14.3)
[2022-07-23 11:20] LABS: Albumin 4.1 g/dL (3.4-5.0); Calcium 9.9 mg/dL (8.5-10.1); Potassium 4.2 mmol/L (3.5-5.1)
[2022-07-23 11:25] LABS: BUN/Creatinine Ratio 21.6 (10.0-20.0); Bilirubin, Total 0.4 mg/dL (0.2-1.0); Total Protein 6.8 g/dL (6.4-8.2)
[2022-07-23 11:55] LABS: Ferritin 54.4 ng/mL (10-322)
[2022-07-23 16:23] LABS: Folate (Folic Acid) 11.4 ng/mL (5.38-24)
== END | disposition home or self-care (01) ==
LOC: LAB 10:28
PROVIDERS: ATTEND Physician Assistant
DX: D50.9 Iron deficiency anemia, unspecified (principal); L03.031 Cellulitis of right toe; D51.9 Vitamin B12 deficiency anemia, unspecified
CPT/HCPCS: 36415; 80053; 82607; 82728; 82746; 83540; 83615; 85025

== ENCOUNTER → 2022-08-12 | Outpatient (CLI) | payer MEDICARE, BC ==
[2022-08-12 13:40] LABS: Urine Bacteria NONE SEEN /hpf (None Seen); Urine Blood Negative /uL (Negative); Urine Specific Gravity 1.014 (1.001-1.035); Urine WBC 4 /hpf (0 - 5)
== END | disposition home or self-care (01) ==
LOC: LAB 12:33
PROVIDERS: ATTEND Student in an Organized Health Care Education/Training Program
DX: E11.9 Type 2 diabetes mellitus without complications (principal); I10 Essential (primary) hypertension; E03.8 Other specified hypothyroidism; N39.0 Urinary tract infection, site not specified
CPT/HCPCS: 81001; 87086

== ENCOUNTER → 2022-08-20 | Outpatient (CLI) | payer MEDICARE, BC ==
[2022-08-20 10:33] LABS: BUN/Creatinine Ratio 19.7 (10.0-20.0); Calcium 9.3 mg/dL (8.5-10.1); Potassium 4.5 mmol/L (3.5-5.1)
== END | disposition home or self-care (01) ==
LOC: LAB 09:47
PROVIDERS: ATTEND Internal Medicine Nephrology
DX: N18.31 Chronic kidney disease, stage 3a (principal)
CPT/HCPCS: 36415; 80048

== ENCOUNTER → 2022-10-16 | Outpatient (CLI) | payer MEDICARE, BC ==
[2022-10-16 10:58] LABS: Basophils # (auto) 0 10 ^3/uL (0-0.2); Basophils % (auto) 0.7 % (0.0-2.0); Eosinophils # (auto) 0.1 10 ^3/uL (0-0.8); Eosinophils % (auto) 1.2 % (0.0-7.0); Hematocrit 35.7 % (36.0-46.0); Hemoglobin 11.8 g/dL (12.2-16.2); Lymphocytes # (auto) 1.3 10 ^3/uL (0.4-5.4); Lymphocytes % (auto) 17.4 % (10.0-50.0); Mean Corpuscular Hemoglobin 30.8 pg (28.0-32.0); Mean Corpuscular Hgb Conc. 33.1 g/dL (32.0-36.0); Mean Corpuscular Volume 92.8 fL (80.0-100.0); Monocytes # (auto) 0.5 10 ^3/uL (0-1.3); Monocytes % (auto) 6.6 % (0.0-12.0); Neutrophils # (auto) 5.4 10 ^3/uL (1.6-8.6); Neutrophils % (auto) 74.1 % (37.0-80.0); Red Blood Cells 3.85 10^6/uL (4.0-5.20); Red Cell Distribution Width 14.9 % (11.8-14.3); White Blood Cell 7.3 10^3/uL (4.4-10.8)
[2022-10-16 11:38] LABS: Albumin 3.7 g/dL (3.4-5.0); Calcium 9.6 mg/dL (8.5-10.1); Potassium 3.4 mmol/L (3.5-5.1)
[2022-10-16 11:41] LABS: BUN/Creatinine Ratio 14.9 (10.0-20.0); Bilirubin, Total 0.4 mg/dL (0.2-1.0); Total Protein 6.6 g/dL (6.4-8.2)
[2022-10-16 12:00] LABS: Ferritin 12.2 ng/mL (10-322)
[2022-10-16 12:02] LABS: Folate (Folic Acid) 17.07 ng/mL (5.38-24)
== END | disposition home or self-care (01) ==
LOC: LAB 10:45
PROVIDERS: ATTEND Internal Medicine
DX: D50.9 Iron deficiency anemia, unspecified (principal); D51.9 Vitamin B12 deficiency anemia, unspecified; L03.031 Cellulitis of right toe
CPT/HCPCS: 36415; 80053; 82607; 82728; 82746; 83540; 83550; 83615; 85025

== ENCOUNTER → 2023-02-26 | Outpatient (CLI) | payer MEDICARE ==
[~2023-02-26] MED LIST changes: +ALLO300T2 PO; +GABA-1250 PO; +LEVO25TA6 PO; +TRAZ-228 PO
[2023-02-26 10:30] LABS: Basophils # (auto) 0 10 ^3/uL (0-0.2); Basophils % (auto) 0.4 % (0.0-2.0); Eosinophils # (auto) 0.1 10 ^3/uL (0-0.8); Eosinophils % (auto) 1.3 % (0.0-7.0); Hematocrit 39.9 % (36.0-46.0); Hemoglobin 12.9 g/dL (12.2-16.2); Lymphocytes # (auto) 1.4 10 ^3/uL (0.4-5.4); Lymphocytes % (auto) 18.7 % (10.0-50.0); Mean Corpuscular Hemoglobin 29.1 pg (28.0-32.0); Mean Corpuscular Hgb Conc. 32.3 g/dL (32.0-36.0); Mean Corpuscular Volume 90.3 fL (80.0-100.0); Monocytes # (auto) 0.5 10 ^3/uL (0-1.3); Neutrophils # (auto) 5.5 10 ^3/uL (1.6-8.6); Neutrophils % (auto) 73.6 % (37.0-80.0); Red Blood Cells 4.42 10^6/uL (4.0-5.20); Red Cell Distribution Width 17.3 % (11.8-14.3); White Blood Cell 7.4 10^3/uL (4.4-10.8)
[2023-02-26 11:09] LABS: % Iron Saturation 11.3 % (15-50)
[2023-02-26 11:12] LABS: Thyroid Stimulating Hormone 1.56 uIU/mL (0.55-4.78)
[2023-02-26 11:13] LABS: Alkaline Phosphatase 90 U/L (46-116); Anion Gap 11 (5-15); BUN/Creatinine Ratio 12.1 (10.0-20.0); Blood Urea Nitrogen 11 mg/dL (9-23); Calcium 10.8 mg/dL (8.5-10.1); Carbon Dioxide 24 mmol/L (20-30); Chloride 108 mmol/L (98-107); Glucose 59 mg/dL (74-106); LDL Cholesterol 116 mg/dL (< 100); Potassium 3.7 mmol/L (3.5-5.1); Sodium 143 mmol/L (136-145); Triglycerides 149 mg/dL (< 150)
[2023-02-26 11:14] LABS: Albumin 4.7 g/dL (3.2-4.8); Aspartate Aminotransferase 12 U/L (13-40); Bilirubin, Total 0.5 mg/dL (0.2-1.0); Cholesterol 162 mg/dL (< 200); HDL Cholesterol 37 mg/dL (40-59)
[2023-02-26 11:15] LABS: Total Protein 6.8 g/dL (5.7-8.2)
[2023-02-26 11:16] LABS: Alanine Aminotransferase < 9 U/L (7-40)
[2023-02-26 11:29] LABS: Free T4 (Free Thyroxine) 1.51 ng/dL (0.89-1.76)
[2023-02-26 11:30] LABS: Folate (Folic Acid) 15.26 ng/mL (>5.38)
[2023-02-26 11:31] LABS: Ferritin 18.8 ng/mL (10-291)
[2023-02-26 16:01] LABS: Urine Bacteria MANY /hpf (None Seen); Urine Blood Negative /uL (Negative); Urine Clarity HAZY (Clear); Urine Color Colorless (Yellow); Urine Protein, UAD Negative (Negative); Urine Specific Gravity 1.008 (1.001-1.035); Urine Urobilinogen Normal (Negative); Urine WBC 16 /hpf (0 - 5); Urine pH 5.5 (5.0-8.0)
== END | disposition home or self-care (01) ==
LOC: LAB 10:13
PROVIDERS: ATTEND Internal Medicine Nephrology
DX: E11.22 Type 2 diabetes mellitus with diabetic chronic kidney disease (principal); N18.31 Chronic kidney disease, stage 3a; M54.50 Low back pain, unspecified; R80.9 Proteinuria, unspecified; D51.9 Vitamin B12 deficiency anemia, unspecified; D50.9 Iron deficiency anemia, unspecified; L03.031 Cellulitis of right toe
CPT/HCPCS: 36415; 80053; 80061; 81001; 82607; 82728; 82746; 83036; 83540; 83550; 83615; 84439; 84443; 85025

== ENCOUNTER 2023-07-12 15:17 | Emergency (ER) | payer MEDICARE, MEDICAID ==
[~2023-07-12] VITALS: Ht 170.2 cm; Wt 51.0 kg
[2023-07-12] MEDS ORDERED: HYDR-4902 PO (19:10)
[2023-07-12] MEDS ORDERED: LEVO500T91 PO (19:10)
[2023-07-12 19:33] VITALS: BP 139/65; PULSE 57; RESP 18; TEMP 99.6; O2SAT 98
== END 2023-07-12 19:32 | disposition home or self-care (01) ==
LOC: ER 15:17
DX: K20.90 Esophagitis, unspecified without bleeding (principal); I51.7 Cardiomegaly; K57.30 Diverticulosis of large intestine without perforation or abscess without bleeding; I50.9 Heart failure, unspecified; E11.9 Type 2 diabetes mellitus without complications; M19.90 Unspecified osteoarthritis, unspecified site; M10.9 Gout, unspecified; Z98.890 Other specified postprocedural states; Z88.8 Allergy status to other drugs, medicaments and biological substances; Z79.899 Other long term (current) drug therapy
CPT/HCPCS: 74176

== ENCOUNTER 2024-01-08 09:27 | Inpatient (IN) | payer OTHER, MEDICAID ==
[~2024-01-08] VITALS: Ht 170.2 cm; Wt 55.9 kg
[~2024-01-08 09:27] MED LIST changes: +HYDR-4902 PO; +LEVO500T91 PO
[2024-01-08 09:50] VITALS: PULSE 68; RESP 16; O2SAT 100
--- NOTE | 2024-01-08 11:44 | DVH ---
CLINICAL INDICATION: trauma TECHNIQUE: XY L ELBOW 2 VIEW XRAY Comparison: None FINDINGS/IMPRESSION: Moderate anterior joint effusion. Subtle lucency through the posterior aspect of the proximal ulna suggesting a nondisplaced 2 minimall y displaced fracture. This is best seen on lateral view.
--- NOTE | 2024-01-08 11:46 | ED.PDOC ---
History of Present Illness HPI Comments 78-year-old female who comes in with chief complaint of a syncopal episode this morning at approximately 7:30 a.m.. The patient states that she was going to the bedroom and then passed out and landed on the floor. She struck the left side of her head and sustained an abrasion with the bleeding through the hair. 911 was called by her niece who was on the phone with her and she was transported to our facility. She denies any history of this in the past. She states that she has been feeling somewhat weak. She denies any chest pain, shortness for breath, nausea or vomiting. Upon further questioning, the patient states that she is now having some diarrhea. Chief Complaint: Fall Injury Time Seen by MD: 10:10 Primary Care Provider: Lorenzo Reviewed Notes: Nurses Notes, Director Quality Systems Notes, Medications, Allergies (Allergies listed above) Allergies: Coded Allergies: Baclofen (Verified Allergy, Unknown, 05/17/20) Home Meds Active Scripts Levofloxacin Hemihydrate (LEVAQUIN 500 MG) 500 Mg Tab, 500 MG PO DAILY for 7 Days, #7 TAB Prov:NITHYA VAUGHN MD 07/12/23 Hydrocodone-Acetaminophen (Hydrocodone Bitartrate/AC 5-325 mg) 1 Tab Tab, 1 TAB PO QIDP PRN, #20 TAB Prov:NITHYA VAUGHN MD 07/12/23 Nitrofurantoin Monohydrate Mac (Macrobid) 100 Mg Cap, 100 MG PO BID for 7 Days, #14 CAP Prov:LANI DIETZ MD 11/01/21 Tramadol Hcl (Tramadol Hcl) 50 Mg Tab, 50 MG PO BID for 5 Days, #10 TAB Prov:CLARISSA MALCOLM MD 06/19/21 Naproxen (NAPROSYN TABLET) 500 Mg Tb, 1 TAB PO BID for 7 Days, #14 TAB Prov:CLARISSA MALCOLM MD 06/19/21 Reported Medications Levothyroxine Sodium (Levothyroxine Sodium) 25 Mcg Tab, 50 MCG PO QAM, TAB 09/11/20 Trazodone Hcl (Trazodone Hcl) 100 Mg Tab, 50 MG PO QHSP, TAB 09/11/20 Glipizide (Glipizide) 10 Mg Tab, 10 MG PO DAILY, TAB 09/11/20 Furosemide (Furosemide) 40 Mg Tab, 40 MG PO DAILY, TAB 09/11/20 Spironolactone (Spironolactone) 25 Mg Tab, 25 MG PO DAILY, TAB 09/11/20 Allopurinol (Allopurinol) 300 Mg Tab, 300 MG PO DAILY, TAB 09/11/20 Gabapentin (Gabapentin) 300 Mg Cap, 300 MG PO DAILY, CAP 09/11/20 Metformin Hydrochloride (Metformin Hcl) 500 Mg Tab, 500 MG PO DAILY, TAB 09/11/20 Allopurinol (Allopurinol) 300 Mg Tab, 300 MG PO DAILY for 30 Days, MG 08/08/20 Spironolactone (Spironolactone) 25 Mg Tab, 1 TAB PO BID, #90 TAB 1 Refill 08/08/20 Glipizide (Glipizide) 10 Mg Tab, 10 MG PO DAILY for 30 Days, MG 08/08/20 Metformin Hydrochloride (Metformin Hcl) 500 Mg Tab, 500 MG PO DAILY for 30 Days, MG 08/08/20 Spironolactone (Spironolactone) 25 Mg Tab, 25 MG PO BID, TAB 05/18/20 Allopurinol (Allopurinol) 100 Mg Tab, 100 MG PO DAILY, TAB 05/18/20 Furosemide (Furosemide) 40 Mg Tab, 40 MG PO DAILY for 30 Days 05/18/20 Levothyroxine Sodium (Levothyroxine Sodium) 50 Mcg Cap, 50 MCG PO DAILY, CAP 05/18/20 Glipizide (Glipizide) 10 Mg Tab, 10 MG PO BID for 30 Days, MG 05/18/20 Metformin Hydrochloride (Metformin Hcl) 500 Mg Tab, 500 MG PO IBID for 30 Days, MG 05/18/20 Information Source: Patient, Emergency Med Personnel Mode of Arrival: EMS Severity: Moderate Timing: Hours Duration: Intermittent Prehospital treatment: Interlocking And Signal Mechanic, Other (Dressing to the left side of the head) Associated signs and symptoms No associated chest pain, shortness for breath or vomiting. Past Medical History PAST MEDICAL HISTORY: Arthritis, CHF, DM, Gout, Thyroid Surgical History: Appendectomy, Cholecystectomy, Hernia Repair, Hysterectomy ELEVATOR CONDUCTOR History: No Pertinent ELEVATOR CONDUCTOR History Family History Family History: Reviewed,noncontributory to illness Social History Smoker: Non-Smoker Alcohol: Denies ETOH Use Drugs: Denies Drug Use Lives In: Home Constitutional: denies: chills, diaphoresis, fatigue, fever, malaise, sweats, weakness, others EENTM: denies: blurred vision, double vision, ear bleeding, ear discharge, ear drainage, ear pain, ear ringing, eye pain, eye redness, hearing loss, mouth pain, mouth swelling, nasal discharge, nose bleeding, nose congestion, nose pain, photophobia, tearing, throat pain, throat swelling, voice changes, others Respiratory: denies: cough, hemoptysis, orthopnea, SOB at rest, shortness of breath, SOB with excertion, stridor, wheezing, others Cardiovascular: denies: chest pain, dizzy spells, diaphoresis, Dyspnea on exertion, edema, irregular heart beat, left arm pain, lightheadedness, palpitations, PND, syncope, others Gastrointestinal: denies: abdomen distended, abdominal pain, blood streaked bowels, constipated, diarrhea, dysphagia, difficulty swallowing, hematemesis, melena, nausea, poor appetite, poor fluid intake, rectal bleeding, rectal pain, vomiting, others Genitourinary: denies: abnormal vagina bleeding, burning, dyspareunia, dysuria, flank pain, frequency, hematuria, incontinence, pain, , vagina discharge, urgency, others Neurological: denies: dizziness, fainting, headache, left sided numbness, left sided weakness, numbness, paresthesia, pre-existing deficit, right sided numbness, right sided weakness, seizure, speech problems, tingling, tremors, weakness, others Musculoskeletal: reports: others (The patient has a abrasions with swelling to the left elbow); denies: back pain, gout, joint pain, joint swelling, muscle pain, muscle stiffness, neck pain Integumetry: reports: others (The patient has an abrasion/superficial laceration to the left side of the head with a dressing in place); denies: bruises, change in color, change in hair/nails, dryness, laceration, lesions, lumps, rash, wounds Allergic/Immunocompromised: denies: Difficulty Healing, Frequent Infections, Hives, Itching, others Hematologic/Lymphatic: denies: anemia, blood clots, easy bleeding, easy bruisin g, swollen glands, others Endocrine: denies: excessive hunger, excessive sweating, excessive thirst, excessive urination, flushing, intolerance to cold, intolerance to heat, unexplained weight gain, unexplained weight loss, others Psychiatric: denies: anxiety, bipolar disorder, depression, hopeless, panic disorder, schizophrenia, sleepless, suicidal, others Physical Exam General Appearance: Moderate Distress HEENT: Normal ENT Inspection, Pharynx Normal, TMs Normal Neck: Full Range of Motion, Non-Tender, Normal, Normal Inspection Respiratory: Chest Non-Tender, Lungs Clear, No Accessory Muscle Use, No Respiratory Distress, Normal Breath Sounds Cardiovascular: No Edema, No JVD, No Murmur, No Gallop, Normal Peripheral Pulses, Regular Rate/Rhythm Breast Exam: Deferred Gastrointestinal: No Organomegaly, Non Tender, No Pulsatile Mass, Normal Bowel Sounds, Soft Genitalia: Deferred Pelvic: Deferred Rectal: Deferred Extremities: No calf tenderness, Normal capillary refill, No pedal edema, Swelling (Left elbow swelling with tenderness and decreased range of motion) Musculoskeletal : Apperance: Normal Neurologic: Alert, assistant art director II-XII nml as Tested, No Motor Deficits, Normal Affect, Normal Mood, No Sensory Deficits Cerebellar Function: Normal Reflexes: Normal Skin: Dry, Normal Color, Warm, Other (Abrasion/superficial laceration to the left scalp with a hematoma) Lymphatic: No Adenopathy Was a procedure done? Was a procedure done?: No Differential Dx Considerations may include: Generalized weakness, electrolyte imbalance, dehydration, syncope, laceration, abrasion X-Ray, Labs, Meds, VS Vital Signs Date Time Temp Pulse Resp B/P (MAP) Pulse Ox O2 Delivery O2 Flow Rate FiO2 01/08/24 12:59 207/115 01/08/24 09:50 98.1 68 12 112/61 (78) 100 98.1 01/08/24 09:50 68 16 100 Room Air* 0 21 01/08/24 09:43 97.8 78 18 156/80 (105) 100 Lab Test 01/08/24 11:28 01/08/24 10:45 Range/Units White Blood Count 8.3 4.4-10.8 10^3/uL Red Blood Count 4.79 4.0-5.20 10^6/uL Hemoglobin 14.2 12.2-16.2 g/dL Hematocrit 40.1 36.0-46.0 % Mean Corpuscular Volume 83.8 80.0-100.0 fL Mean Corpuscular Hemoglobin 29.7 28.0-32.0 pg Mean Corpuscular Hemoglobin Concent 35.4 32.0-36.0 g/dL Red Cell Distribution Width 15.5 H 11.8-14.3 % Platelet Count 141 140-450 10^3/uL Mean Platelet Volume 7.2 6.9-10.8 fL Neutrophils (%) (Auto) 84.6 H 37.0-80.0 % Lymphocytes (%) (Auto) 10.0 10.0-50.0 % Monocytes (%) (Auto) 4.8 0.0-12.0 % Eosinophils (%) (Auto) 0.3 0.0-7.0 % Basophils (%) (Auto) 0.3 0.0-2.0 % Neutrophils # (Auto) 7.0 1.6-8.6 10 ^3/uL Lymphocytes # (Auto) 0.8 0.4-5.4 10 ^3/uL Monocytes # (Auto) 0.4 0-1.3 10 ^3/uL Eosinophils # (Auto) 0 0-0.8 10 ^3/uL Basophils # (Auto) 0 0-0.2 10 ^3/uL Nucleated Red Blood Cells 0.2 % Sodium Level 145 136-145 mmol/L Potassium Level 2.2 *L 3.5-5.1 mmol/L Chloride Level 104 98-107 mmol/L Carbon Dioxide Level 37 H 20-31 mmol/L Anion Gap 4 L 5-15 Blood Urea Nitrogen 8 L 9-23 mg/dL Creatinine 0.86 0.550-1.02 mg/dL Glomerular Filtration Rate Calc 69 >90 mL/min BUN/Creatinine Ratio 9.3 L 10.0-20.0 Serum Glucose 109 H 74-106 mg/dL Calcium Level 10.0 8.7-10.4 mg/dL Magnesium Level 1.7 1.6-2.6 mg/dL Thyroid Stimulating Hormone (TSH) Pending Urine Color Light-yellow Yellow Urine Clarity Clear Clear Urine pH 7.5 5.0-9.0 Urine Specific [place] 1.005 1.001-1.035 Urine Protein 2+ H Negative Urine Ketones Negative Negative Urine Blood 1+ H Negative /uL Urine Nitrite Negative Negative Urine Bilirubin Negative Negative Urine Urobilinogen Normal Negative mg/dL Urine Leukocyte Esterase 3+ Negative /uL Urine RBC 14 0 - 4 /hpf Urine WBC 23 0 - 5 /hpf Urine Squamous Epithelial Cells Few <5 /hpf Urine Bacteria Few H None Seen /hpf Urine Glucose Normal Normal mg/dL Current Medications Medications (Trade) Dose Ordered Sig/Edson Route Start Time Stop Time Status Last Admin Potassium Chloride 100 ml @ 50 mls/hr ONCE ONCE IV 01/08/24 12:15 01/08/24 14:14 DC 01/08/24 12:40 Potassium Chloride (Klor-Con Tablet) 40 meq ONCE ONCE PO 01/08/24 12:15 01/08/24 12:16 DC 01/08/24 12:40 Acetaminophen/ Hydrocodone Bitart ([place] 5/325MG Tab) 1 tab ONCE ONCE PO 01/08/24 13:00 01/08/24 13:01 DC 01/08/24 12:58 Clonidine HCl (Catapres Tablet) 0.1 mg ONCE ONCE PO 01/08/24 13:00 01/08/24 13:01 DC 01/08/24 12:59 The patient's CBC and chemistry panel shows hypokalemia at 2.2 The rest of the chemistry panel is within normal limits. EXAM: CT HEAD WITHOUT CONTRAST IMPRESSION: 1. No acute intracranial process. 2. Large left parietal scalp hematoma. XY L ELBOW 2 VIEW XRAY FINDINGS/IMPRESSION: Moderate anterior joint effusion. Subtle lucency through the posterior aspect of the proximal ulna suggesting a nondisplaced 2 minimally displaced fracture. This is best seen on lateral view. At this time, the patient was being admitted to the hospitalist with a diagnosis of autonomic dysfunction The urine test is positive for UTI The patient was being given Rocephin 1 g IV piggyback The patient was also somewhat hypertensive so was given clonidine 0.1 mg by mouth The patient was also given Reinbeck for the headache The patient was given potassium both oral and IV secondary to the hypokalemia The patient was being admitted at this time The patient will be splinted Orthopedic surgery will be called. Images Reviewed?: Images reviewed and evaluated by me Time of 1ST Reevaluation: 12:20 Reevaluation 1ST: Unchanged Patient Education/Counseling: Diagnosis, Treatment, Prognosis Family Education/Counseling: No Family Present Departure 1 Departure Time of Disposition: 14:56 Impression: Primary Impression: Autonomic dysfunction Additional Impressions: Left elbow fracture Qualified Codes: S42.402A - Unspecified fracture of lower end of left humerus, initial encounter for closed fracture Scalp hematoma Qualified Codes: S00.03XA - Contusion of scalp, initial encounter History of fall Disposition: ADMITTED INPATIENT Admit to: Med Surg Condition: Fair Critical Care Note Critical Care Time?: Yes (35 min-critical care time only) Stability Stability form required: Yes Unstable for transfer: Telemetry monitoring (Telemetry monitoring required), ED Physician Assesment (Clinical assesment) Heart Score Heart Score: Heart Score Response (Comments) Value History N/A 0 EKG N/A 0 Age N/A 0 Risk Factors N/A 0 Troponin N/A 0 Total 0 I personally scribed for ANOOP CRYSTAL MD ([email or web address]) on 01/08/24 at 13:46. Electronically submitted by Racheal Galindo ([facility]). ANOOP CRYSTAL MD Jan 08, 2024 11:46
[2024-01-08 11:51] LABS: Basophils # (auto) 0 10 ^3/uL (0-0.2); Basophils % (auto) 0.3 % (0.0-2.0); Eosinophils # (auto) 0 10 ^3/uL (0-0.8); Eosinophils % (auto) 0.3 % (0.0-7.0); Hematocrit 40.1 % (36.0-46.0); Hemoglobin 14.2 g/dL (12.2-16.2); Lymphocytes # (auto) 0.8 10 ^3/uL (0.4-5.4); Mean Corpuscular Hemoglobin 29.7 pg (28.0-32.0); Mean Corpuscular Hgb Conc. 35.4 g/dL (32.0-36.0); Mean Corpuscular Volume 83.8 fL (80.0-100.0); Monocytes # (auto) 0.4 10 ^3/uL (0-1.3); Monocytes % (auto) 4.8 % (0.0-12.0); Neutrophils % (auto) 84.6 % (37.0-80.0); Nucleated Red Blood Cells % 0.2 %; Platelet Count (auto) 141 10^3/uL (140-450); Red Blood Cells 4.79 10^6/uL (4.0-5.20); Red Cell Distribution Width 15.5 % (11.8-14.3); White Blood Cell 8.3 10^3/uL (4.4-10.8)
[2024-01-08 12:00] LABS: Chloride 104 mmol/L (98-107); Sodium 145 mmol/L (136-145)
[2024-01-08 12:01] LABS: Anion Gap 4 (5-15); Carbon Dioxide 37 mmol/L (20-31)
[2024-01-08 12:06] LABS: BUN/Creatinine Ratio 9.3 (10.0-20.0); Blood Urea Nitrogen 8 mg/dL (9-23); Glucose 109 mg/dL (74-106)
[2024-01-08 12:09] LABS: Potassium 2.2 mmol/L (3.5-5.1)
--- NOTE | 2024-01-08 12:28 | ECG ---
[facility] Test Date: 2024-01-08 Test Time: 09:33:54 Pat Name: RAGHAVENDRA LORENZ Department: ED Room: Gender: F Android Ui Developer: AMILCAR : 1945 Requested By: ANOOP CRYSTAL Order Number: [id number] Reading MD: Measurements Intervals [place] Rate: 81 P: 23 AR: 162 QRS: 36 QRSD: 105 T: 228 QT: 395 QTc: 459 Interpretive Statements Sinus rhythm Paired ventricular premature complexes Sinus pause Probable LVH with secondary repol abnrm ST depr, consider ischemia, inferior leads Baseline wander in lead(s) I,III,aVL,V6 Please click the below link to view image of tracing.
[2024-01-08] MEDS: POTASSIUM CHL 20 Meq TABLET PO ONE (12:40)
[2024-01-08] MEDS: POTASSIUM CHL 20MEQ/100ML 100 ML IV ONE (12:40)
--- NOTE | 2024-01-08 12:44 | DVH ---
EXAM: CT HEAD WITHOUT CONTRAST HISTORY: fall COMPARISON: CT ABD PELVIS W CONTRAST on DOS: 02/04/22 TECHNIQUE: Axial images of the head were obtained and reformatted in coronal and sagittal planes. All CT scans at this medical facility are performed using dose modulation techniques as appropriate t o a performed exam including the following: Automated exposure control was utilized; adjustment of th e MA and/or KV according to patient size; and use of iterative reconstruction technique. CT Dose: CTDI volume is 91.56 mGy. Dose-length product is 2117.89 mGy*cm FINDINGS: the CT images are degraded by motion artifact. There is no evidence of acute intracranial hemorrhage, mass, mass effect midline shift. There is no hydrocephalus or extra-axial fluid collection. Polanco-whi te matter differentiation is maintained.. There is a large left parietal scalp hematoma. The calvarium is intact. Visualized paranasal sinuses and mastoid air cells are clear. IMPRESSION: 1. No acute intracranial process. 2. Large left parietal scalp hematoma. HS:Y
[2024-01-08] MEDS: HYDROcodone-ACET 5/325MG TAB PO ONE (12:58)
[2024-01-08] MEDS: cloNIDine HCL 0.1 MG TAB PO ONE (12:59)
[2024-01-08] MEDS ORDERED: MORPHINE SULFATE INJ 2 MG/ml SYRG IV PRN (13:45)
[2024-01-08] MEDS ORDERED: NITROGLYCERIN 0.4 MG SL TAB SL PRN (13:45)
[2024-01-08 13:55] LABS: Urine Bacteria FEW /hpf (None Seen); Urine Blood 1+ /uL (Negative); Urine Clarity Clear (Clear); Urine Color Light-Yellow (Yellow); Urine Protein, UAD 2+ (Negative); Urine Specific Gravity 1.005 (1.001-1.035); Urine Urobilinogen Normal (Negative); Urine WBC 23 /hpf (0 - 5); Urine pH 7.5 (5.0-9.0)
[2024-01-08] MEDS ORDERED: DEXTROSE (50%) 50ML SYRG IV PRN (14:15)
[2024-01-08] MEDS: cefTRIAXone 1GM/50ML D5W 50 ML IV SCH (14:44)
--- NOTE | 2024-01-08 14:50 | DVHHP2 ---
History of Present Illness Reason for Visit: Syncope History of Present Illness 78-year-old female who came in with chief complaint of syncopal episode this morning at 7:30 a.m. patient states she was going up to her bedroom and she passed out and landed on the floor. She hit the left side of her head and sustained an abrasion, and has a headache, CT of head showed large parietal scalp hematoma. Patient also hit her left elbow when she fell, which also has bruising and inflammation, elbow x-ray shows fracture nondisplaced to minimally displaced ulnar fracture. Patient denies chest pain, headache, dizziness, diaphoresis, shortness of breath, abdominal pain, no nausea, vomiting, fever, or chills endorsed by the patient. Patient was admitted for further evaluation medical management. Past Medical History Arthritis, CHF, DM, Gout, Thyroid Past Surgical History Appendectomy, Cholecystectomy, Hernia Repair, Hysterectomy Family History Reviewed noncontributory to the management of this case Smoke: No ALCOHOL: none Drugs: None Lives: with Family Review of Systems Constitutional: No: Fever, Chills, Sweats, Weakness, Malaise, Other Eyes: No: Pain, Vision change, Conjunctivae inflammation, Eyelid inflammation, Other, Redness ENT: No: Ear pain, Ear discharge, Nose pain, Nose discharge, Nose congestion, Mouth pain, Mouth swelling, Throat pain, Throat swelling, Other Respiratory: No: Cough, Dry, Shortness of breath, SOB with excertion, Wheezing, Hemoptysis, Pleuritic Pain, Sputum, Wheezing, Other Cardiovascular: No: Chest Pain, Palpitations, Orthopnea, Paroxysmal Noc. Dyspne a, Edema, Lt Headedness, Other Gastrointestinal: No: Nausea, Vomiting, Abdominal Pain, Diarrhea, Constipation, Melena, Hematochezia, Other Genitourinary: No Dysuria, No Frequency, No Incontinence, No Hematuria, No Retention, No Other Musculoskeletal: arm pain (Left elbow fracture); No: other, neck pain, shoulder pain, back pain, hand pain, leg pain, foot pain Skin: No: Rash, Lesions, Jaundice, Bruising, Other Neurological: Other (Headache); No: Weakness, Numbness, Incoordination, Change in speech, Confusion, Seizures Allergies: Coded Allergies: Baclofen (Verified Allergy, Unknown, 05/17/20) Medications Current Medications Medications Dose Ordered Sig/Edson Route Start Time Stop Time Status Last Admin Dose Admin Acetaminophen/ Hydrocodone Bitart 1 tab Q4HP PRN PO 01/08/24 13:45 Ondansetron HCl 4 mg Q4HP PRN IV 01/08/24 13:45 Morphine Sulfate 2 mg Q4HPRN PRN IV 01/08/24 13:45 Nitroglycerin 0.4 mg Q5MINP PRN SL 01/08/24 13:45 Morphine Sulfate 2 mg Q30M PRN IV 01/08/24 13:45 Hydralazine HCl 10 mg Q6HP PRN IV 01/08/24 14:15 Diagnostic Test (Pha) 1 strip ACHS 01/08/24 17:00 Insulin Human Regular ACHS SC 01/08/24 17:00 Dextrose 50 ml UD PRN IV 01/08/24 14:15 Ceftriaxone Sodium 50 ml @ 100 mls/hr DAILY@09 IV 01/08/24 14:30 UNV Exam Vital Signs Vital Signs Date Time Temp Pulse Resp B/P (MAP) Pulse Ox O2 Delivery O2 Flow Rate FiO2 01/08/24 13:41 197/117 01/08/24 09:50 98.1 68 12 100 98.1 01/08/24 09:50 Room Air* 0 21 General Appearance: Alert, Oriented X3, Cooperative, No acute distress HEENT: Atraumatic, PERRLA, EOMI, Mucous membr. moist/pink Respiratory: Clear to auscultation, Normal air movement Cardiovascular: Regular rate, Normal S1, Normal S2, No murmurs Abdominal: Normal bowel sounds, Soft, No tenderness, No hepatospenomegaly, No masses Extremities: No clubbing, No cyanosis, No edema, Normal pulses, No tenderness/swelling Skin: No rashes, No breakdown, No significant lesion Neuro: Normal gait, Normal speech, Strength at 5/5 X4 ext (Left arm, week due to elbow fracture), Normal tone, Sensation intact, Cranial nerves 3-12 NL, Reflexes 2+ Psych/Mental Status: Mental status NL, Mood NL Labs/Xrays Labs, imaging and ED notes reviewed Labs Test 01/08/24 11:28 01/08/24 10:45 Range/Units White Blood Count 8.3 4.4-10.8 10^3/uL Red Blood Count 4.79 4.0-5.20 10^6/uL Hemoglobin 14.2 12.2-16.2 g/dL Hematocrit 40.1 36.0-46.0 % Mean Corpuscular Volume 83.8 80.0-100.0 fL Mean Corpuscular Hemoglobin 29.7 28.0-32.0 pg Mean Corpuscular Hemoglobin Concent 35.4 32.0-36.0 g/dL Red Cell Distribution Width 15.5 H 11.8-14.3 % Platelet Count 141 140-450 10^3/uL Mean Platelet Volume 7.2 6.9-10.8 fL Neutrophils (%) (Auto) 84.6 H 37.0-80.0 % Lymphocytes (%) (Auto) 10.0 10.0-50.0 % Monocytes (%) (Auto) 4.8 0.0-12.0 % Eosinophils (%) (Auto) 0.3 0.0-7.0 % Basophils (%) (Auto) 0.3 0.0-2.0 % Neutrophils # (Auto) 7.0 1.6-8.6 10 ^3/uL Lymphocytes # (Auto) 0.8 0.4-5.4 10 ^3/uL Monocytes # (Auto) 0.4 0-1.3 10 ^3/uL Eosinophils # (Auto) 0 0-0.8 10 ^3/uL Basophils # (Auto) 0 0-0.2 10 ^3/uL Nucleated Red Blood Cells 0.2 % Sodium Level 145 136-145 mmol/L Potassium Level 2.2 *L 3.5-5.1 mmol/L Chloride Level 104 98-107 mmol/L Carbon Dioxide Level 37 H 20-31 mmol/L Anion Gap 4 L 5-15 Blood Urea Nitrogen 8 L 9-23 mg/dL Creatinine 0.86 0.550-1.02 mg/dL Glomerular Filtration Rate Calc 69 >90 mL/min BUN/Creatinine Ratio 9.3 L 10.0-20.0 Serum Glucose 109 H 74-106 mg/dL Calcium Level 10.0 8.7-10.4 mg/dL Urine Color Light-yellow Yellow Urine Clarity Clear Clear Urine pH 7.5 5.0-9.0 Urine Specific [place] 1.005 1.001-1.035 Urine Protein 2+ H Negative Urine Ketones Negative Negative Urine Blood 1+ H Negative /uL Urine Nitrite Negative Negative Urine Bilirubin Negative Negative Urine Urobilinogen Normal Negative mg/dL Urine Leukocyte Esterase 3+ Negative /uL Urine RBC 14 0 - 4 /hpf Urine WBC 23 0 - 5 /hpf Urine Squamous Epithelial Cells Few <5 /hpf Urine Bacteria Few H None Seen /hpf Urine Glucose Normal Normal mg/dL Assessment/Plan Assessment/Plan Syncope Admit to telemetry Fall risk IV fluids Ulna fracture Consulted ortho Immobilize left arm Ice to arm for swelling Pain meds p.r.n. Zofran p.r.n. nausea Hypokalemia Potassium 2.2- 20 mEq was given IV, 40 mEq was given p.o. Monitor labs in a.m. UTI Started Rocephin Hypertensive urgency Patient states from pain Clonidine given Hydralazine p.r.n. History diabetes mellitus type 2 Accu-Cheks a.c. HS Mild insulin sliding scale FEN/PPX GI and VTE prophylaxis not indicated IV fluids Consistent carb diet Plan discussed with: Patient My Orders Orders - IZAIAH CHANDLER Procedure Category Date Status Time * Orthopedic Consult CONS 01/08/24 Transmitted 13:31 Admit ADMIT 01/08/24 Transmitted 13:31 Code Status CODE 01/08/24 Transmitted 13:31 Vital Signs JUAN RAMON 01/08/24 In Process 13:31 Review Orders With JUAN RAMON 01/08/24 In Process Adm. 13:31 Maintain Bed Rest JUAN RAMON 01/08/24 In Process 13:31 Consistent DIET 01/08/24 Transmitted Carb(Ccho)Diabetes Dinner Notify Of Changes JUA NRAMON 01/08/24 In Process From Base 13:31 Advance Directive JUAN RAMON 01/08/24 In Process 13:31 Basic Metabolic Panel LAB 01/09/24 Verified 04:00 Complete Blood Count LAB 01/09/24 Verified 04:00 Patient Condition ORDERS 01/08/24 Transmitted 13:31 Allergies JUAN RAMON 01/08/24 In Process 13:31 Hydrocodone-Acet PHA 01/08/24 In Process 5/325mg Tab ([place] 13:45 Ondansetron Hcl PHA 01/08/24 In Process (Zofran) 13:45 Morphine Sulfate PHA 01/08/24 In Process Injection 13:45 Nitroglycerin PHA 01/08/24 In Process Sublingual (Ntrostat 13:45 Morphine Sulfate PHA 01/08/24 In Process Injection 13:45 Stat Ekg For Chest JUAN RAMON 01/08/24 In Process Pain 13:31 Notify Md Of Changes [facility] 01/08/24 In Process From Base 13:31 Table And Desk Finisher For [facility] 01/08/24 In Process 24 Hours 13:31 Emergency Dysrhythmia [facility] 01/08/24 In Process Protocol 13:31 Rhythm Strips Once [facility] 01/08/24 In Process Every Shift 13:31 Oxygen By Nasal RT 01/08/24 Transmitted Cannula 13:31 Hydralazine Injection PHA 01/08/24 In Process (Apresoline Inject 14:15 Glucose Blood PHA 01/08/24 In Process (Accu-Chek Comfort 17:00 Insulin R (Human) PHA 01/08/24 In Process (Insulin R) 17:00 Dextrose 50% Syringe PHA 01/08/24 In Process 14:15 Thyroid Stimulating LAB 01/08/24 In Process Hormone 14:12 Magnesium LAB 01/08/24 In Process 14:12 Ceftriaxone 1gm/50ml PHA 01/08/24 Logged D5w (Rocephin) 14:30 Date of Service: Jan 08, 2024 Billing Provider: IZAIAH CHANDLER Common Visit Codes: [id number] INP/OBS CARE (HIGH) IZAIAH CHANDLER Jan 08, 2024 14:50
[2024-01-08] MEDS: SODIUM CHLORIDE 0.9% 1,000 ML IV SCH (15:30)
[2024-01-08] MEDS: InsuLIN REG 1unit/0.01ml Soln (100units/ml) SC SCH (17:00)
[2024-01-08] MEDS: ACCU-CHEK COMFORT CURVE STRIP VI SCH (17:29)
[2024-01-08 17:30] VITALS: BP 146/74; PULSE 51; RESP 16; TEMP 98.4; O2SAT 98
[2024-01-08] MEDS: HYDROcodone-ACET 5/325MG TAB PO PRN (18:54)
[2024-01-08 20:00] VITALS: PULSE 57; PULSE 59; RESP 20; O2SAT 99
[2024-01-08 21:00] VITALS: BP 147/52; PULSE 57; RESP 20; TEMP 98.2; O2SAT 99
[2024-01-09] VITALS (7 sets, daily range): BP systolic 153–178; BP diastolic 54–64; PULSE 47–67; RESP 17–20; TEMP 97.7–98.7; O2SAT 95–100
[2024-01-09] MEDS: hydrALAZINE HCL 20 MG/ML VL IV PRN (05:28)
[2024-01-09 07:23] LABS: Anion Gap 10 (5-15); Carbon Dioxide 27 mmol/L (20-31); Chloride 105 mmol/L (98-107); Potassium 2.6 mmol/L (3.5-5.1); Sodium 142 mmol/L (136-145)
[2024-01-09 07:24] LABS: Calcium 9.1 mg/dL (8.7-10.4)
[2024-01-09 07:29] LABS: BUN/Creatinine Ratio 13.9 (10.0-20.0); Blood Urea Nitrogen 11 mg/dL (9-23); Glucose 86 mg/dL (74-106)
[2024-01-09 08:05] LABS: Basophils # (auto) 0 10 ^3/uL (0-0.2); Basophils % (auto) 0.4 % (0.0-2.0); Eosinophils # (auto) 0.1 10 ^3/uL (0-0.8); Eosinophils % (auto) 1.5 % (0.0-7.0); Hematocrit 36.3 % (36.0-46.0); Hemoglobin 12.2 g/dL (12.2-16.2); Lymphocytes # (auto) 1.8 10 ^3/uL (0.4-5.4); Lymphocytes % (auto) 27.3 % (10.0-50.0); Mean Corpuscular Hemoglobin 29.4 pg (28.0-32.0); Mean Corpuscular Hgb Conc. 33.6 g/dL (32.0-36.0); Mean Corpuscular Volume 87.4 fL (80.0-100.0); Monocytes # (auto) 0.4 10 ^3/uL (0-1.3); Monocytes % (auto) 6.4 % (0.0-12.0); Neutrophils # (auto) 4.2 10 ^3/uL (1.6-8.6); Neutrophils % (auto) 64.4 % (37.0-80.0); Nucleated Red Blood Cells % 0.2 %; Platelet Count (auto) 121 10^3/uL (140-450); Red Blood Cells 4.15 10^6/uL (4.0-5.20); Red Cell Distribution Width 15.1 % (11.8-14.3); White Blood Cell 6.5 10^3/uL (4.4-10.8)
--- NOTE | 2024-01-09 16:48 | DVHPN2 ---
Subjective I am assuming the care of the patient from today onwards who was under the care of the hospitalist team. Patient had a syncope and fall and sustained left scalp hematoma. Also patient sustained left elbow nondisplaced fracture. Reviewed: Care Plan Changes from previous H/P or p: No Changes Eyes: No Pain, No Vision change, No Conjunctivae inflammation, No Eyelid inflammation, No Other, No Redness ENT: No Ear pain, No Ear discharge, No Nose pain, No Nose discharge, No Nose congestion, No Mouth pain, No Mouth swelling, No Throat pain, No Throat swelling, No Other Cardiovascular: No Chest Pain, No Palpitations, No Orthopnea, No Paroxysmal Noc. Dyspnea, No Edema, No Lt Headedness, No Other Respiratory: No Cough, No Dry, No Shortness of breath, No SOB with excertion, No Wheezing, No Hemoptysis, No Pleuritic Pain, No Sputum, No Other Gastrointestinal: No Nausea, No Vomiting, No Abdominal Pain, No Diarrhea, No Constipation, No Melena, No Hematochezia, No Other Genitourinary: No Dysuria, No Frequency, No Incontinence, No Hematuria, No Retention, No Other Musculoskeletal: No other, No neck pain, No shoulder pain; arm pain (Left elbow fracture); No back pain, No hand pain, No leg pain, No foot pain Skin: No Rash, No Lesions, No Jaundice, No Bruising, No Other Objective Vitals Vital Signs Date Time Temp Pulse Resp B/P (MAP) Pulse Ox O2 Delivery O2 Flow Rate FiO2 01/09/24 12:30 98.1 50 20 171/57 (95) 99 98.1 01/09/24 08:00 Room Air* 0 21 Intake/Output Intake and Output 01/09/24 07:00 Intake Total 2250 ml Balance 2250 ml Intake Oral 800 ml IV Total 1450 ml # Voids 3 Exam HEENT pupils are reactive Neck is supple CV is S1-S2 regular rate and rhythm Respiratory diminished breath sounds bases GI positive bowel sound Extremity no edema SEED [employer]YER no motor deficit Medications Current Medications Medications Dose Ordered Sig/Edson Route Start Time Stop Time Status Last Admin Dose Admin Acetaminophen/ Hydrocodone Bitart 1 tab Q4HP PRN PO 01/08/24 13:45 01/09/24 16:02 1 TAB Ondansetron HCl 4 mg Q4HP PRN IV 01/08/24 13:45 Morphine Sulfate 2 mg Q4HPRN PRN IV 01/08/24 13:45 Nitroglycerin 0.4 mg Q5MINP PRN SL 01/08/24 13:45 Morphine Sulfate 2 mg Q30M PRN IV 01/08/24 13:45 Hydralazine HCl 10 mg Q6HP PRN IV 01/08/24 14:15 01/09/24 05:28 10 MG Diagnostic Test (Pha) 1 strip ACHS 01/08/24 17:00 01/09/24 11:49 1 STRIP Insulin Human Regular ACHS SC 01/08/24 17:00 Dextrose 50 ml UD PRN IV 01/08/24 14:15 Ceftriaxone Sodium 50 ml @ 100 mls/hr DAILY@09 IV 01/08/24 14:30 01/09/24 09:16 100 MLS/HR Sodium Chloride 1,000 ml @ 125 mls/hr Q8H IV 01/08/24 15:00 01/09/24 15:00 125 MLS/HR Enteral Nutritional Formula 240 ml TIDWM PO 01/09/24 18:00 Laboratory Results Laboratory Tests 01/09/24 06:37 Chemistry Test 01/09/24 06:37 Calcium Level 9.1 mg/dL (8.7-10.4) Urinalysis Test 01/08/24 10:45 Urine Color Light-yellow (Yellow) Urine Clarity Clear (Clear) Urine pH 7.5 (5.0-9.0) Urine Specific [place] 1.005 (1.001-1.035) Urine Protein 2+ (Negative) H Urine Ketones Negative (Negative) Urine Blood 1+ /uL (Negative) H Urine Nitrite Negative (Negative) Urine Bilirubin Negative (Negative) Urine Urobilinogen Normal mg/dL (Negative) Urine Leukocyte Esterase 3+ /uL (Negative) Urine RBC 14 /hpf (0 - 4) Urine WBC 23 /hpf (0 - 5) Urine Squamous Epithelial Cells Few /hpf (<5) Urine Bacteria Few /hpf (None Seen) H Urine Glucose Normal mg/dL (Normal) Assessment/Plan Assessment/Plan 78-year-old female with a known history of congestive heart failure, diabetes mellitus type 2, gout, hypertension initially presented to the hospital with fall and syncope found to have 1. Syncope unspecified 2. Closed head injury with left parietal scalp hematoma 3. Left elbow fracture minimally displaced/nondisplaced 4. Diabetes mellitus type 2 5. Hypertension 6. Gout -resume home medications, watch for any tele arrhythmias, 2D echo , cardiology consultation-neurology consultation -orthopedic evaluation for left elbow fracture although does not need any surgical intervention Plan discussed with: Patient My Orders Orders - AVELINO SAMUEL MD Procedure Category Date Status Time * Neurology Consult CONS 01/09/24 Transmitted 14:41 Nutritional PHA 01/09/24 In Process Supplements (Ensure 18:00 Pt Request For Service PT 01/09/24 Logged 14:58 Date of Service: Jan 09, 2024 Billing Provider: AVELINO SAMUEL MD Common Visit Codes: [id number] INP/OBS CARE(HIGH) AVELINO SAMUEL MD Jan 09, 2024 16:48
[2024-01-09] MEDS: Ensure HIGH Protein Chocolate 8oz Bottle PO SCH (18:00)
[2024-01-10] VITALS (7 sets, daily range): BP systolic 136–191; BP diastolic 45–69; PULSE 56–67; RESP 14–17; TEMP 98.1–98.7; O2SAT 96–98
[2024-01-10] MEDS: MORPHINE SULFATE INJ 2 MG/ml SYRG IV PRN (01:49)
[2024-01-10] MEDS: ONDANSETRON HCL 4 MG/2 ML VIAL IV PRN (06:05)
--- NOTE | 2024-01-10 07:29 | DVHINCON2 ---
Date of service: Jan 10, 2024 Reason for Consultation Left proximal ulna fracture History of Present Illness 78 yo F sp mechanical fall and landed onto left syde with a syncope event -- she states she lost her balance and fell onto left side -- pain in left side of face and left arm. No numbness or tingling. Supposed to be moving to [place] soon. Past Medical History Past Medical History Arthritis, CHF, DM, Gout, Thyroid Past Surgical History Appendectomy, Cholecystectomy, Hernia Repair, Hysterectomy Family History: Cardiovascular disease G8 MOTHER G8 MOTHER Cardiovascular disease G8 MOTHER G8 MOTHER Cerebrovascular accident (CVA) G8 MOTHER G8 FATHER FH: brain aneurysm G8 MOTHER FH: heart attack G8 MOTHER Allergies: Coded Allergies: Baclofen (Verified Allergy, Unknown, 05/17/20) Home Meds Active Scripts Levofloxacin Hemihydrate (LEVAQUIN 500 MG) 500 Mg Tab, 500 MG PO DAILY for 7 Days, #7 TAB Prov:NITHYA VAUGHN MD 07/12/23 Hydrocodone-Acetaminophen (Hydrocodone Bitartrate/AC 5-325 mg) 1 Tab Tab, 1 TAB PO QIDP PRN, #20 TAB Prov:NITHYA VAUGHN MD 07/12/23 Nitrofurantoin Monohydrate Mac (Macrobid) 100 Mg Cap, 100 MG PO BID for 7 Days, #14 CAP Prov:LANI DIETZ MD 11/01/21 Tramadol Hcl (Tramadol Hcl) 50 Mg Tab, 50 MG PO BID for 5 Days, #10 TAB Prov:CLARISSA MALCOLM MD 06/19/21 Naproxen (NAPROSYN TABLET) 500 Mg Tb, 1 TAB PO BID for 7 Days, #14 TAB Prov:CLARISSA MALCOLM MD 06/19/21 Reported Medications Levothyroxine Sodium (Levothyroxine Sodium) 25 Mcg Tab, 50 MCG PO QAM, TAB 09/11/20 Trazodone Hcl (Trazodone Hcl) 100 Mg Tab, 50 MG PO QHSP, TAB 09/11/20 Glipizide (Glipizide) 10 Mg Tab, 10 MG PO DAILY, TAB 09/11/20 Furosemide (Furosemide) 40 Mg Tab, 40 MG PO DAILY, TAB 09/11/20 Spironolactone (Spironolactone) 25 Mg Tab, 25 MG PO DAILY, TAB 09/11/20 Allopurinol (Allopurinol) 300 Mg Tab, 300 MG PO DAILY, TAB 09/11/20 Gabapentin (Gabapentin) 300 Mg Cap, 300 MG PO DAILY, CAP 09/11/20 Metformin Hydrochloride (Metformin Hcl) 500 Mg Tab, 500 MG PO DAILY, TAB 09/11/20 Allopurinol (Allopurinol) 300 Mg Tab, 300 MG PO DAILY for 30 Days, MG 08/08/20 Spironolactone (Spironolactone) 25 Mg Tab, 1 TAB PO BID, #90 TAB 1 Refill 08/08/20 Glipizide (Glipizide) 10 Mg Tab, 10 MG PO DAILY for 30 Days, MG 08/08/20 Metformin Hydrochloride (Metformin Hcl) 500 Mg Tab, 500 MG PO DAILY for 30 Days, MG 08/08/20 Spironolactone (Spironolactone) 25 Mg Tab, 25 MG PO BID, TAB 05/18/20 Allopurinol (Allopurinol) 100 Mg Tab, 100 MG PO DAILY, TAB 05/18/20 Furosemide (Furosemide) 40 Mg Tab, 40 MG PO DAILY for 30 Days 05/18/20 Levothyroxine Sodium (Levothyroxine Sodium) 50 Mcg Cap, 50 MCG PO DAILY, CAP 05/18/20 Glipizide (Glipizide) 10 Mg Tab, 10 MG PO BID for 30 Days, MG 05/18/20 Metformin Hydrochloride (Metformin Hcl) 500 Mg Tab, 500 MG PO IBID for 30 Days, MG 05/18/20 Current Medications Current Medications Medications (Trade) Dose Ordered Sig/Edson Route PRN Reason Start Time Stop Time Status Last Admin Enteral Nutritional Formula (Ensure High Protein) 240 ml TIDWM PO 01/09/24 18:00 Review of Systems Denies except per HPI Vital Signs Vital Signs Date Time Temp Pulse Resp B/P (MAP) Pulse Ox O2 Delivery O2 Flow Rate FiO2 01/10/24 05:00 98.7 59 17 172/45 (87) 97 98.7 01/09/24 20:00 Room Air* 0 21 Physical Exam NAD LUE: +swelling/ecchymosis/abrasion at elbow pain with elbow ROM +WE/WF silt m/r/u RP 2+ Labs/Diagnostic Data Labs Test 01/09/24 21:29 01/09/24 06:37 11/8/24 11:28 01/08/24 10:45 Range/Units POC Glucose 173 H 70-106 mg/dl White Blood Count 6.5 4.4-10.8 10^3/uL Red Blood Count 4.15 4.0-5.20 10^6/uL Hemoglobin 12.2 12.2-16.2 g/dL Hematocrit 36.3 36.0-46.0 % Mean Corpuscular Volume 87.4 # 80.0-100.0 fL Mean Corpuscular Hemoglobin 29.4 28.0-32.0 pg Mean Corpuscular Hemoglobin Concent 33.6 32.0-36.0 g/dL Red Cell Distribution Width 15.1 H 11.8-14.3 % Platelet Count 121 L 140-450 10^3/uL Mean Platelet Volume 7.1 6.9-10.8 fL Neutrophils (%) (Auto) 64.4 37.0-80.0 % Lymphocytes (%) (Auto) 27.3 10.0-50.0 % Monocytes (%) (Auto) 6.4 0.0-12.0 % Eosinophils (%) (Auto) 1.5 0.0-7.0 % Basophils (%) (Auto) 0.4 0.0-2.0 % Neutrophils # (Auto) 4.2 1.6-8.6 10 ^3/uL Lymphocytes # (Auto) 1.8 0.4-5.4 10 ^3/uL Monocytes # (Auto) 0.4 0-1.3 10 ^3/uL Eosinophils # (Auto) 0.1 0-0.8 10 ^3/uL Basophils # (Auto) 0 0-0.2 10 ^3/uL Nucleated Red Blood Cells 0.2 % Sodium Level 142 136-145 mmol/L Potassium Level 2.6 L 3.5-5.1 mmol/L Chloride Level 105 98-107 mmol/L Carbon Dioxide Level 27 20-31 mmol/L Anion Gap 10 5-15 Blood Urea Nitrogen 11 9-23 mg/dL Creatinine 0.79 0.550-1.02 mg/dL Glomerular Filtration Rate Calc 77 >90 mL/min BUN/Creatinine Ratio 13.9 10.0-20.0 Serum Glucose 86 74-106 mg/dL Calcium Level 9.1 8.7-10.4 mg/dL Magnesium Level 1.7 1.6-2.6 mg/dL Thyroid Stimulating Hormone (TSH) 3.24 0.55-4.78 uIU/mL Urine Color Light-yellow Yellow Urine Clarity Clear Clear Urine pH 7.5 5.0-9.0 Urine Specific [place] 1.005 1.001-1.035 Urine Protein 2+ H Negative Urine Ketones Negative Negative Urine Blood 1+ H Negative /uL Urine Nitrite Negative Negative Urine Bilirubin Negative Negative Urine Urobilinogen Normal Negative mg/dL Urine Leukocyte Esterase 3+ Negative /uL Urine RBC 14 0 - 4 /hpf Urine WBC 23 0 - 5 /hpf Urine Squamous Epithelial Cells Few <5 /hpf Urine Bacteria Few H None Seen /hpf Urine Glucose Normal Normal mg/dL Plan/Recommendation 78 yo F with Nondisplaced left proximal ulna fracture 1. A long and thorough discussion held with patient regarding condition. Questions for patient answered. We can continue with nonop treatment 2. NWB LUE 3. pain control 4. Left elbow ROM brace -- can keep unlocked; currently there is no splint on patient 5. fu with orthopedics in 2 weeks with left elbow xray Plan discussed with: Patient AYUSH RED MD Jan 10, 2024 07:29
--- NOTE | 2024-01-10 16:00 | DVHPN2 ---
Subjective Patient had a syncope and fall and sustained left scalp hematoma. Also patient sustained left elbow nondisplaced fracture. Reviewed: Care Plan Changes from previous H/P or p: No Changes Eyes: No Pain, No Vision change, No Conjunctivae inflammation, No Eyelid inflammation, No Other, No Redness ENT: No Ear pain, No Ear discharge, No Nose pain, No Nose discharge, No Nose congestion, No Mouth pain, No Mouth swelling, No Throat pain, No Throat swelling, No Other Cardiovascular: No Chest Pain, No Palpitations, No Orthopnea, No Paroxysmal Noc. Dyspnea, No Edema, No Lt Headedness, No Other Respiratory: No Cough, No Dry, No Shortness of breath, No SOB with excertion, No Wheezing, No Hemoptysis, No Pleuritic Pain, No Sputum, No Other Gastrointestinal: No Nausea, No Vomiting, No Abdominal Pain, No Diarrhea, No Constipation, No Melena, No Hematochezia, No Other Genitourinary: No Dysuria, No Frequency, No Incontinence, No Hematuria, No Retention, No Other Musculoskeletal: No other, No neck pain, No shoulder pain; arm pain (Left elbow fracture); No back pain, No hand pain, No leg pain, No foot pain Skin: No Rash, No Lesions, No Jaundice, No Bruising, No Other Objective Vitals Vital Signs Date Time Temp Pulse Resp B/P (MAP) Pulse Ox O2 Delivery O2 Flow Rate FiO2 01/10/24 12:51 98.7 60 16 147/56 (86) 98 98.7 01/10/24 07:50 Room Air* 0 21 Intake/Output Intake and Output 01/10/24 07:00 Intake Total 1710 ml Balance 1710 ml Intake Oral 810 ml IV Total 900 ml # Voids 12 Exam HEENT pupils are reactive Neck is supple CV is S1-S2 regular rate and rhythm Respiratory diminished breath sounds bases GI positive bowel sound Extremity no edema 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 Medications Current Medications Medications Dose Ordered Sig/Edson Route Start Time Stop Time Status Last Admin Dose Admin Acetaminophen/ Hydrocodone Bitart 1 tab Q4HP PRN PO 01/08/24 13:45 01/10/24 09:47 1 TAB Ondansetron HCl 4 mg Q4HP PRN IV 01/08/24 13:45 01/10/24 06:05 4 MG Morphine Sulfate 2 mg Q4HPRN PRN IV 01/08/24 13:45 01/10/24 01:49 2 MG Nitroglycerin 0.4 mg Q5MINP PRN SL 01/08/24 13:45 Morphine Sulfate 2 mg Q30M PRN IV 01/08/24 13:45 Hydralazine HCl 10 mg Q6HP PRN IV 01/08/24 14:15 01/10/24 04:14 10 MG Diagnostic Test (Pha) 1 strip ACHS 01/08/24 17:00 01/10/24 11:56 1 STRIP Insulin Human Regular ACHS SC 01/08/24 17:00 01/09/24 22:07 3 UNITS Dextrose 50 ml UD PRN IV 01/08/24 14:15 Ceftriaxone Sodium 50 ml @ 100 mls/hr DAILY@09 IV 01/08/24 14:30 01/10/24 09:35 100 MLS/HR Sodium Chloride 1,000 ml @ 125 mls/hr Q8H IV 01/08/24 15:00 01/09/24 23:17 125 MLS/HR Enteral Nutritional Formula 240 ml TIDWM PO 01/10/24 18:00 UNV Laboratory Results Laboratory Tests 01/09/24 06:37 Urinalysis Test 01/08/24 10:45 Urine Color Light-yellow (Yellow) Urine Clarity Clear (Clear) Urine pH 7.5 (5.0-9.0) Urine Specific [place] 1.005 (1.001-1.035) Urine Protein 2+ (Negative) H Urine Ketones Negative (Negative) Urine Blood 1+ /uL (Negative) H Urine Nitrite Negative (Negative) Urine Bilirubin Negative (Negative) Urine Urobilinogen Normal mg/dL (Negative) Urine Leukocyte Esterase 3+ /uL (Negative) Urine RBC 14 /hpf (0 - 4) Urine WBC 23 /hpf (0 - 5) Urine Squamous Epithelial Cells Few /hpf (<5) Urine Bacteria Few /hpf (None Seen) H Urine Glucose Normal mg/dL (Normal) Assessment/Plan Assessment/Plan 78-year-old female with a known history of congestive heart failure, diabetes mellitus type 2, gout, hypertension initially presented to the hospital with fall and syncope found to have 1. Syncope unspecified 2. Closed head injury with left parietal scalp hematoma 3. Left elbow fracture minimally displaced/nondisplaced, need left elbow [id number]-zcekyi brace 4. Diabetes mellitus type 2 5. Hypertension 6. Gout -recheck BMP and Mag level -resume home medications, watch for any tele arrhythmias, 2D echo , cardiology consultation-neurology consultation -orthopedic evaluation for left elbow fracture although does not need any surgical intervention Plan discussed with: Patient My Orders Orders - AVELINO SAMUEL MD Procedure Category Date Status Time * Cardiology Consult CONS 01/09/24 Transmitted 16:48 Nutritional PHA 01/10/24 Logged Supplements (Glucerna 18:00 Date of Service: Jan 10, 2024 Billing Provider: AVELINO SAMUEL MD Common Visit Codes: [id number] INP/OBS CARE(MOD), NOT BILLABLE AVELINO SAMUEL MD Jan 10, 2024 16:00
[2024-01-10 18:08] LABS: Chloride 104 mmol/L (98-107); Sodium 139 mmol/L (136-145)
[2024-01-10 18:09] LABS: Anion Gap 4 (5-15); Carbon Dioxide 31 mmol/L (20-31)
[2024-01-10 18:10] LABS: Calcium 9.2 mg/dL (8.7-10.4)
[2024-01-10 18:14] LABS: Glucose 163 mg/dL (74-106)
[2024-01-10 18:15] LABS: BUN/Creatinine Ratio 8.3 (10.0-20.0); Blood Urea Nitrogen 10 mg/dL (9-23); Magnesium 1.5 mg/dL (1.6-2.6)
[2024-01-10 18:18] LABS: Potassium 2.5 mmol/L (3.5-5.1)
[2024-01-10] MEDS: Glucerna Carbsteady SHAKE Vanilla 8oz PO SCH (18:51)
--- NOTE | 2024-01-10 20:01 | DVHINCON2 ---
Date of service: Jan 10, [address] Mustafa Reason for Consultation Syncope History of Present Illness Ms. Frank is a 78 years old left-handed female with a history of diabetes, hypothyroidism, gout, arthritis, the patient was brought to the [facility] on 01/08/2024 with a chief company of syncopal episode. At this time, she is alert and fully oriented, she provided the following history Around 8 a.m. on 01/08/2024, when she was standing at home, with no warning, she found herself on the floor, with bleeding from the left scalp, and she was consciousness everything on waking up, she does not remember if he lost her consciousness for status remember falling. There was no associated dizziness/lightheadedness, chest pain, nausea, hot feeling, palpitation, in creased sweating associated with event, the patient was never had similar problem before, she denies a history of seizure or stroke She did not have, but noticed the pain in the left arm sometimes after the fall, and x-ray confirmed elbow fracture Urinalysis, 01/08/2024: WBC: 23, urine leukocyte esterase: 3+ CBC, 01/08/2024: Unremarkable Potassium, 01/09/2024: 2.6, 01/10/24: 2.5 TG/CHOL/LDL/HDL, 02/26/2023: 149/162/116/37 Vitamin B12, 02/26/2023: 149 Folic acid, 02/26/2023: 15.26 Echocardiogram, 01/10/2024: X-ray, left arm, 01/08/2024: Subtle lucency through the posterior aspect of the proximal ulna suggesting a nondisplaced 2 minimally displaced fracture. This is best seen on lateral view CT head, 01/08/2024: 1. No acute intracranial process. 2. Large left parietal scalp hematoma Past Medical History Diabetes, hypothyroidism, gout, arthritis. No headache/migraine Past Surgical History Appendectomy, cholecystectomy, hernia repair, hysterectomy Family History: Cardiovascular disease G8 MOTHER G8 MOTHER Cardiovascular disease G8 MOTHER G8 MOTHER Cerebrovascular accident (CVA) G8 MOTHER G8 FATHER FH: brain aneurysm G8 MOTHER FH: heart attack G8 MOTHER Family History Stroke, heart disease, brain aneurysm (only mother) Social History She was tobacco smoke, but no history of alcohol or recreational substance abuse Allergies: Coded Allergies: Baclofen (Verified Allergy, Unknown, 05/17/20) Home Meds Active Scripts Levofloxacin Hemihydrate (LEVAQUIN 500 MG) 500 Mg Tab, 500 MG PO DAILY for 7 Days, #7 TAB Prov:NITHYA VAUGHN MD 07/12/23 Hydrocodone-Acetaminophen (Hydrocodone Bitartrate/AC 5-325 mg) 1 Tab Tab, 1 TAB PO QIDP PRN, #20 TAB Prov:NITHYA VAUGHN MD 07/12/23 Nitrofurantoin Monohydrate Mac (Macrobid) 100 Mg Cap, 100 MG PO BID for 7 Days, #14 CAP Prov:LANI DIETZ MD 11/01/21 Tramadol Hcl (Tramadol Hcl) 50 Mg Tab, 50 MG PO BID for 5 Days, #10 TAB Prov:CLARISSA MALCOLM MD 06/19/21 Naproxen (NAPROSYN TABLET) 500 Mg Tb, 1 TAB PO BID for 7 Days, #14 TAB Prov:CLARISSA MALCOLM MD 06/19/21 Reported Medications Levothyroxine Sodium (Levothyroxine Sodium) 25 Mcg Tab, 50 MCG PO QAM, TAB 09/11/20 Trazodone Hcl (Trazodone Hcl) 100 Mg Tab, 50 MG PO QHSP, TAB 09/11/20 Glipizide (Glipizide) 10 Mg Tab, 10 MG PO DAILY, TAB 09/11/20 Furosemide (Furosemide) 40 Mg Tab, 40 MG PO DAILY, TAB 09/11/20 Spironolactone (Spironolactone) 25 Mg Tab, 25 MG PO DAILY, TAB 09/11/20 Allopurinol (Allopurinol) 300 Mg Tab, 300 MG PO DAILY, TAB 09/11/20 Gabapentin (Gabapentin) 300 Mg Cap, 300 MG PO DAILY, CAP 09/11/20 Metformin Hydrochloride (Metformin Hcl) 500 Mg Tab, 500 MG PO DAILY, TAB 09/11/20 Allopurinol (Allopurinol) 300 Mg Tab, 300 MG PO DAILY for 30 Days, MG 08/08/20 Spironolactone (Spironolactone) 25 Mg Tab, 1 TAB PO BID, #90 TAB 1 Refill 08/08/20 Glipizide (Glipizide) 10 Mg Tab, 10 MG PO DAILY for 30 Days, MG 6/9/21 Metformin Hydrochloride (Metformin Hcl) 500 Mg Tab, 500 MG PO DAILY for 30 Days, MG 08/08/20 Spironolactone (Spironolactone) 25 Mg Tab, 25 MG PO BID, TAB 05/18/20 Allopurinol (Allopurinol) 100 Mg Tab, 100 MG PO DAILY, TAB 05/18/20 Furosemide (Furosemide) 40 Mg Tab, 40 MG PO DAILY for 30 Days 05/18/20 Levothyroxine Sodium (Levothyroxine Sodium) 50 Mcg Cap, 50 MCG PO DAILY, CAP 05/18/20 Glipizide (Glipizide) 10 Mg Tab, 10 MG PO BID for 30 Days, MG 05/18/20 Metformin Hydrochloride (Metformin Hcl) 500 Mg Tab, 500 MG PO IBID for 30 Days, MG 05/18/20 Current Medications Current Medications Medications (Trade) Dose Ordered Sig/Edson Route PRN Reason Start Time Stop Time Status Last Admin Enteral Nutritional Formula (Glucerna Carbsteady SHAKE) 240 ml TIDWM PO 01/10/24 18:00 01/10/24 18:51 Review of Systems As above, the other systems are negative Vital Signs Vital Signs Date Time Temp Pulse Resp B/P (MAP) Pulse Ox O2 Delivery O2 Flow Rate FiO2 01/10/24 17:00 98.2 64 16 136/69 (91) 98 98.2 01/10/24 07:50 Room Air* 0 21 Physical Exam GENERAL EXAM: General: the patient is well developed and nourished. No acute distress. HEENT: Normocephalic, neck is supple, no carotid bruits. No mass. RESPIRATORY: Normal respiratory effort with symmetrical lung expansion. Lungs clear to auscultation. CARDIOVASCULAR: Regular rate and rhythm with no murmurs. S1, S2. ABDOMEN: Soft, nontender, normal bowel sound MUSCULOSKELETAL EXAM: Pain tenderness in left arm NEUROLOGICAL: MENTAL STATUS: Awake and alert. Oriented to person, place, time and general circumstances. Able to give personal history SPEECH, LANGUAGE, HIGHER CORTICAL FUNCTION: no aphasia or dysathria. CRANIAL NERVES: #2: Intact visual rabago to confrontation. The optic discs were sharp. Retinal background was uniformly pink in appearance. There was no hemorrhages or exudates. #3,4,6: Pupils are equal, round and reactive. EOMs full and conjugate. Mild bilateral gaze evoked nystagmus. #5: Facial sensation intact in all three divisions bilaterally. Mandibular strength intact. #7: Facial muscles symmetrical and strength intact. #8: Hearing grossly normal to voice. #9,10: Uvula and soft palate rise in the midline. Swallow and voice are normal. #11: Trapezius and sternomastoid strength intact bilaterally. #12: Tongue midline. No fasciculations or atrophy. SENSATION: Sensation to touch and pinprick is normal. MOTOR: Normal tone in the upper and lower extremity. Normal muscle bulk. No fasciculations. No abnormal movements or posturing. Muscle strength of the major groups in the extremities is 5/5, except weakness in the left upper extremity secondary to local pain/fracture. REFLEXES: Deep tendon reflexes are symmetrical. No pathological reflexes. CEREBELLAR/COORDINATION: Finger to nose is normal with a right-handed GAIT/STATION: deferred. Labs/Diagnostic Data Labs Test 01/10/24 18:18 01/10/24 17:00 01/09/24 06:37 01/08/24 11:28 Range/Units POC Glucose 167 H 70-106 mg/dl Sodium Level 139 136-145 mmol/L Potassium Level 2.5 *L 3.5-5.1 mmol/L Chloride Level 104 98-107 mmol/L Carbon Dioxide Level 31 20-31 mmol/L Anion Gap 4 L 5-15 Blood Urea Nitrogen 10 9-23 mg/dL Creatinine 1.21 #H 0.550-1.02 mg/dL Glomerular Filtration Rate Calc 46 >90 mL/min BUN/Creatinine Ratio 8.3 L 10.0-20.0 Serum Glucose 163 H 74-106 mg/dL Calcium Level 9.2 8.7-10.4 mg/dL Magnesium Level 1.5 L 1.6-2.6 mg/dL White Blood Count 6.5 4.4-10.8 10^3/uL Red Blood Count 4.15 4.0-5.20 10^6/uL Hemoglobin 12.2 12.2-16.2 g/dL Hematocrit 36.3 36.0-46.0 % Mean Corpuscular Volume 87.4 # 80.0-100.0 fL Mean Corpuscular Hemoglobin 29.4 28.0-32.0 pg Mean Corpuscular Hemoglobin Concent 33.6 32.0-36.0 g/dL Red Cell Distribution Width 15.1 H 11.8-14.3 % Platelet Count 121 L 140-450 10^3/uL Mean Platelet Volume 7.1 6.9-10.8 fL Neutrophils (%) (Auto) 64.4 37.0-80.0 % Lymphocytes (%) (Auto) 27.3 10.0-50.0 % Monocytes (%) (Auto) 6.4 0.0-12.0 % Eosinophils (%) (Auto) 1.5 0.0-7.0 % Basophils (%) (Auto) 0.4 0.0-2.0 % Neutrophils # (Auto) 4.2 1.6-8.6 10 ^3/uL Lymphocytes # (Auto) 1.8 0.4-5.4 10 ^3/uL Monocytes # (Auto) 0.4 0-1.3 10 ^3/uL Eosinophils # (Auto) 0.1 0-0.8 10 ^3/uL Basophils # (Auto) 0 0-0.2 10 ^3/uL Nucleated Red Blood Cells 0.2 % Thyroid Stimulating Hormone (TSH) 3.24 0.55-4.78 uIU/mL Test 01/08/24 10:45 Range/Units Urine Color Light-yellow Yellow Urine Clarity Clear Clear Urine pH 7.5 5.0-9.0 Urine Specific [place] 1.005 1.001-1.035 Urine Protein 2+ H Negative Urine Ketones Negative Negative Urine Blood 1+ H Negative /uL Urine Nitrite Negative Negative Urine Bilirubin Negative Negative Urine Urobilinogen Normal Negative mg/dL Urine Leukocyte Esterase 3+ Negative /uL Urine RBC 14 0 - 4 /hpf Urine WBC 23 0 - 5 /hpf Urine Squamous Epithelial Cells Few <5 /hpf Urine Bacteria Few H None Seen /hpf Urine Glucose Normal Normal mg/dL Assessment Fall Like a syncopal event Rule out seizure, less likely Rule out TIA, less likely Left ulnar fracture Plan/Recommendation Monitoring Supportive treatment Telemetry EEG MRI brain Orthopedic surgeon case More recommendation per clinical course Prognosis: Poor This medical document was created using an electronic medical record system with [employer] system. Although this document has been carefully reviewed, there may still be some phonetic and typographical errors. These areas are purely typographical due to imperfections of the software programs, and do not reflect any compromise in the patient's medical care. Plan discussed with: Patient, Other ELY PORRAS MD Jan 10, 2024 20:01
[2024-01-10] MEDS ORDERED: LORazepam 2MG/ML-1ML VIAL IV PRN (21:00)
[2024-01-11] VITALS (8 sets, daily range): BP systolic 110–186; BP diastolic 58–83; PULSE 62–72; RESP 17–19; TEMP 98.2–98.9; O2SAT 95–97
[2024-01-11 06:50] LABS: Anion Gap 8 (5-15); Carbon Dioxide 29 mmol/L (20-31); Chloride 106 mmol/L (98-107); Sodium 143 mmol/L (136-145)
[2024-01-11 06:51] LABS: Calcium 9.2 mg/dL (8.7-10.4)
[2024-01-11 06:55] LABS: Basophils # (auto) 0 10 ^3/uL (0-0.2); Basophils % (auto) 0.7 % (0.0-2.0); Eosinophils # (auto) 0.1 10 ^3/uL (0-0.8); Eosinophils % (auto) 1.3 % (0.0-7.0); Glucose 96 mg/dL (74-106); Hematocrit 32.6 % (36.0-46.0); Hemoglobin 11.6 g/dL (12.2-16.2); Lymphocytes # (auto) 1.4 10 ^3/uL (0.4-5.4); Lymphocytes % (auto) 22.4 % (10.0-50.0); Mean Corpuscular Hgb Conc. 35.6 g/dL (32.0-36.0); Mean Corpuscular Volume 84.3 fL (80.0-100.0); Monocytes # (auto) 0.4 10 ^3/uL (0-1.3); Monocytes % (auto) 6.9 % (0.0-12.0); Neutrophils # (auto) 4.2 10 ^3/uL (1.6-8.6); Neutrophils % (auto) 68.7 % (37.0-80.0); Platelet Count (auto) 118 10^3/uL (140-450); Red Blood Cells 3.87 10^6/uL (4.0-5.20); Red Cell Distribution Width 15.6 % (11.8-14.3); White Blood Cell 6.1 10^3/uL (4.4-10.8)
[2024-01-11 06:56] LABS: BUN/Creatinine Ratio 13.3 (10.0-20.0); Blood Urea Nitrogen 12 mg/dL (9-23); Magnesium 1.6 mg/dL (1.6-2.6)
[2024-01-11 07:00] LABS: Potassium 2.4 mmol/L (3.5-5.1)
--- NOTE | 2024-01-11 09:26 | DVHSR ---
APPROVED REPORT EXAM: Two-dimensional and M-mode echocardiogram with Doppler and color Doppler. Blood Pressure: 172/45 mmHg INDICATION Syncope RISK FACTORS Height: 5'7", Weight: 128 DIMENSIONS LVDd4.1 (3.8-5.7cm)LA (2D)4.5 (1.9-4.0cm)Aortic Root3.8 (2.0-3.7cm) LVDs2.8 (2.5-4.0cm)LA (MM) (1.9-4.0cm)Aortic Cusp Exc1.9 (1.5-2.0cm) EF (%) 60.0 (55-70%)Rt. Atrium4.1 (1.9-4.0cm)Asc. Aorta cm IVSd1.2 (0.7-1.1cm)RV (D) (1.8-2.4cm) PWd1.1 (0.7-1.1cm) Mitral Valve MitralMitral Stenosis E wave0.78m/sMV Mean GR.mmHg A wave1.21m/sMV Peak GR.mmHg E/A ratio0.62D MVAcm2 DECEL [id number] 1/2 [place] Aortic Valve Aortic ValveAortic Stenosis V11.27m/[place] Mean GR.4mmHg V21.31m/[place] Peak GR.7mmHg LVOT Diameter2.1 (1.8-2.4cm)Doppler AVA3.36cm2 Pulmonic Valve V20.87m/s Tricuspid Valve TR Velocity2.60m/s [id number] Other Information Technically limited study due to patient position. Conclusion Normal left ventricular size and dimension. Normal left ventricular systolic function estimated ejec tion fraction 55%. There is a grade 1 diastolic dysfunction. Normal right ventricular size and dimension. Normal right ventricular systolic function. Slightly i ncreased right ventricular systolic pressure at 34 mm of mercury. Normal biatrial size and dimension. Normal aortic valve structure and function. Normal mitral valve structure and function. Normal tricuspid valve structure and function. The pulmonary valve is grossly normal. No pericardial effusion.
--- NOTE | 2024-01-11 10:35 | DVHINCON2 ---
Date Seen: Jan 11, [address] Mustafa Reason for Consultation Syncope History of Present Illness 78-year-old female with past medical history of gout, type 2 diabetes and hypertension who presented to the hospital after experiencing a syncopal episode. She reports that this is her 1st episode of syncope and describes it as brief, with full recall of events following the incident, indicating no postictal confusion or memory loss. During the episode she fell and struck the left side of her head resulting in an head hematoma and left elbow fracture. She is currently awaiting an arm brace for the elbow fracture. The patient denies any history of hypoglycemia as a potential cause of her syncope, noting that her glucose levels were normal prior to the episode. She reports no previous cardiovascular events, has not had recent cardiology follow- up and last saw a office rental clerk a few years ago prior to undergoing a hernia repair surgery. Urinalysis was positive for urinary tract infection with may have contributed to her syncopal episode. An EKG showed normal sinus rhythm but demonstrated ST depression in the inferior leads, raising concern for ischemia (chronic). Additionally recent lab work showed potassium levels of 2.4 and magnesium levels of 1.6 mg/dL, for which replacement therapy has been initiated. Past Medical History Gout Type 2 diabetes Hypertension Family History: Cardiovascular disease G8 MOTHER G8 MOTHER Cardiovascular disease G8 MOTHER G8 MOTHER Cerebrovascular accident (CVA) G8 MOTHER G8 FATHER FH: brain aneurysm G8 MOTHER FH: heart attack G8 MOTHER Allergies: Coded Allergies: Baclofen (Verified Allergy, Unknown, 05/17/20) Home Meds Active Scripts Levofloxacin Hemihydrate (LEVAQUIN 500 MG) 500 Mg Tab, 500 MG PO DAILY for 7 Days, #7 TAB Prov:NITHYA VAUGHN MD 07/12/23 Hydrocodone-Acetaminophen (Hydrocodone Bitartrate/AC 5-325 mg) 1 Tab Tab, 1 TAB PO QIDP PRN, #20 TAB Prov:NITHYA VAUGHN MD 07/12/23 Nitrofurantoin Monohydrate Mac (Macrobid) 100 Mg Cap, 100 MG PO BID for 7 Days, #14 CAP Prov:LANI DIETZ MD 11/01/21 Tramadol Hcl (Tramadol Hcl) 50 Mg Tab, 50 MG PO BID for 5 Days, #10 TAB Prov:CLARISSA MALCOLM MD 06/19/21 Naproxen (NAPROSYN TABLET) 500 Mg Tb, 1 TAB PO BID for 7 Days, #14 TAB Prov:CLARISSA MALCOLM MD 06/19/21 Reported Medications Levothyroxine Sodium (Levothyroxine Sodium) 25 Mcg Tab, 50 MCG PO QAM, TAB 09/11/20 Trazodone Hcl (Trazodone Hcl) 100 Mg Tab, 50 MG PO QHSP, TAB 09/11/20 Glipizide (Glipizide) 10 Mg Tab, 10 MG PO DAILY, TAB 09/11/20 Furosemide (Furosemide) 40 Mg Tab, 40 MG PO DAILY, TAB 09/11/20 Spironolactone (Spironolactone) 25 Mg Tab, 25 MG PO DAILY, TAB 09/11/20 Allopurinol (Allopurinol) 300 Mg Tab, 300 MG PO DAILY, TAB 09/11/20 Gabapentin (Gabapentin) 300 Mg Cap, 300 MG PO DAILY, CAP 09/11/20 Metformin Hydrochloride (Metformin Hcl) 500 Mg Tab, 500 MG PO DAILY, TAB 09/11/20 Allopurinol (Allopurinol) 300 Mg Tab, 300 MG PO DAILY for 30 Days, MG 08/08/20 Spironolactone (Spironolactone) 25 Mg Tab, 1 TAB PO BID, #90 TAB 1 Refill 08/08/20 Glipizide (Glipizide) 10 Mg Tab, 10 MG PO DAILY for 30 Days, MG 08/08/20 Metformin Hydrochloride (Metformin Hcl) 500 Mg Tab, 500 MG PO DAILY for 30 Days, MG 08/08/20 Spironolactone (Spironolactone) 25 Mg Tab, 25 MG PO BID, TAB 05/18/20 Allopurinol (Allopurinol) 100 Mg Tab, 100 MG PO DAILY, TAB 05/18/20 Furosemide (Furosemide) 40 Mg Tab, 40 MG PO DAILY for 30 Days 05/18/20 Levothyroxine Sodium (Levothyroxine Sodium) 50 Mcg Cap, 50 MCG PO DAILY, CAP 05/18/20 Glipizide (Glipizide) 10 Mg Tab, 10 MG PO BID for 30 Days, MG 05/18/20 Metformin Hydrochloride (Metformin Hcl) 500 Mg Tab, 500 MG PO IBID for 30 Days, MG 05/18/20 Current Medications Current Medications Medications (Trade) Dose Ordered Sig/Edson Route PRN Reason Start Time Stop Time Status Last Admin Enteral Nutritional Formula (Glucerna Farrahsteady FERMINKE) 240 ml TIDWM PO 01/10/24 18:00 01/11/24 08:00 Lorazepam (Ativan Inj) 1 mg ONCE PRN IV MRI 01/10/24 21:00 Potassium Chloride 100 ml @ 50 mls/hr Q2H IV 01/11/24 08:15 01/11/24 16:14 Magnesium Sulfate/ Dextrose 100 ml @ 100 mls/hr Q1HR IV 01/11/24 09:00 01/11/24 10:59 Review of Systems Constitutional: No: Fever, Chills, Sweats, Weakness, Malaise, Other Eyes: No: Pain, Vision change, Conjunctivae inflammation, Eyelid inflammation, Other, Redness ENT: No: Ear pain, Ear discharge, Nose pain, Nose discharge, Nose congestion, Mouth pain, Mouth swelling, Throat pain, Throat swelling, Other Respiratory: No Wheezing, Hemoptysis, Pleuritic Pain, Sputum, Wheezing, Other Cardiovascular: No: Chest Pain, Palpitations, Orthopnea, Paroxysmal Noc. Dyspnea, Edema, Lt Headedness, Other Gastrointestinal: No: Nausea, Vomiting, Abdominal Pain, Diarrhea, Constipation, Melena, Hematochezia, Other Musculoskeletal: Yes: Elbow pain status post fracture No: other, neck pain, shoulder pain, arm pain, back pain, hand pain, leg pain, foot pain Neurological:; No: Weakness, Numbness, Incoordination, Change in speech, Confusion, Seizures Vital Signs Vital Signs Date Time Temp Pulse Resp B/P (MAP) Pulse Ox O2 Delivery O2 Flow Rate FiO2 01/11/24 10:12 186/59 01/11/24 09:29 98.7 62 18 96 98.7 01/10/24 20:00 Room Air* 0 21 Physical Exam Examination General Appearance: Alert, Oriented X3, Cooperative, No acute distress HEENT: EOMI Respiratory: Clear to auscultation, Normal air movement Cardiovascular: Regular rate, Normal S1, Normal S2 Abdominal: Normal bowel sounds Extremities: Left elbow swelling/tenderness status post fracture, No cyanosis, No edema, Normal pulses, No tenderness/swelling Skin: No rashes, No breakdown Neuro: Normal gait, Normal speech, Strength at 5/5 X4 ext, Normal tone, Sensation intact, Cranial nerves 3-12 NL, Reflexes 2+ Psych/Mental Status: Mental status NL, Mood NL Labs/Diagnostic Data Labs Test 01/11/24 04:15 01/10/24 21:09 01/08/24 11:28 01/08/24 10:45 Range/Units White Blood Count 6.1 4.4-10.8 10^3/uL Red Blood Count 3.87 L 4.0-5.20 10^6/uL Hemoglobin 11.6 L 12.2-16.2 g/dL Hematocrit 32.6 #L 36.0-46.0 % Mean Corpuscular Volume 84.3 80.0-100.0 fL Mean Corpuscular Hemoglobin 30.0 28.0-32.0 pg Mean Corpuscular Hemoglobin Concent 35.6 32.0-36.0 g/dL Red Cell Distribution Width 15.6 H 11.8-14.3 % Platelet Count 118 L 140-450 10^3/uL Mean Platelet Volume 7.3 6.9-10.8 fL Neutrophils (%) (Auto) 68.7 37.0-80.0 % Lymphocytes (%) (Auto) 22.4 10.0-50.0 % Monocytes (%) (Auto) 6.9 0.0-12.0 % Eosinophils (%) (Auto) 1.3 0.0-7.0 % Basophils (%) (Auto) 0.7 0.0-2.0 % Neutrophils # (Auto) 4.2 1.6-8.6 10 ^3/uL Lymphocytes # (Auto) 1.4 0.4-5.4 10 ^3/uL Monocytes # (Auto) 0.4 0-1.3 10 ^3/uL Eosinophils # (Auto) 0.1 0-0.8 10 ^3/uL Basophils # (Auto) 0 0-0.2 10 ^3/uL Nucleated Red Blood Cells 0.0 % Sodium Level 143 136-145 mmol/L Potassium Level 2.4 *L 3.5-5.1 mmol/L Chloride Level 106 98-107 mmol/L Carbon Dioxide Level 29 20-31 mmol/L Anion Gap 8 5-15 Blood Urea Nitrogen 12 9-23 mg/dL Creatinine 0.90 0.550-1.02 mg/dL Glomerular Filtration Rate Calc 65 >90 mL/min BUN/Creatinine Ratio 13.3 10.0-20.0 Serum Glucose 96 74-106 mg/dL Calcium Level 9.2 8.7-10.4 mg/dL Magnesium Level 1.6 1.6-2.6 mg/dL POC Glucose 169 H 70-106 mg/dl Thyroid Stimulating Hormone (TSH) 3.24 0.55-4.78 uIU/mL Urine Color Light-yellow Yellow Urine Clarity Clear Clear Urine pH 7.5 5.0-9.0 Urine Specific [place] 1.005 1.001-1.035 Urine Protein 2+ H Negative Urine Ketones Negative Negative Urine Blood 1+ H Negative /uL Urine Nitrite Negative Negative Urine Bilirubin Negative Negative Urine Urobilinogen Normal Negative mg/dL Urine Leukocyte Esterase 3+ Negative /uL Urine RBC 14 0 - 4 /hpf Urine WBC 23 0 - 5 /hpf Urine Squamous Epithelial Cells Few <5 /hpf Urine Bacteria Few H None Seen /hpf Urine Glucose Normal Normal mg/dL Assessment Syncope unspecified, likely reflex, rule out seizure Severe hypokalemia Hypomagnesemia left parietal scalp hematoma Diabetes mellitus type 2 Left elbow fracture minimally displaced/nondisplaced, need left elbow [id number] brace Uncontrolled Hypertension Gout Plan/Recommendation Recent echocardiogram showed 55 ejection fraction Slightly increased right ventricular systolic pressure 34 mm Hg EKG showed sinus rhythm Continue nifedipine 60 mg daily for blood pressure control Other medical management per hospitalist and other consultants. Thank you for allowing us participate in this case, there is no further workup indicated at this time. We are signing off. Case discussed with Dr. Ward Critical care, time spent: 49 minutes. Plan discussed with: Patient Date of Service: Jan 11, 2024 Billing Provider: MITUL WARD MD Cardiology Common Codes: [id number] INP/OBS CARE (High) LORENZO RENTERIA RESIDENT Jan 11, 2024 10:35
[2024-01-11] MEDS: MAGNESIUM SULFATE 1GM/100ML 100 ML IV SCH (10:50)
[2024-01-11] MEDS: POTASSIUM CHL 20MEQ/100ML 100 ML IV SCH ×2 (10:50→20:00)
--- NOTE | 2024-01-11 11:09 | DVHPN2 ---
Progress Note - Dictate Date Seen: Jan 11, 2024 Medical Necessity Reason Pt with a Central, PICC or Fol: No Subjective This is a difficult follow-up. Ms. Frank is a 78 years old left-handed female with a history of diabetes, hypothyroidism, gout, arthritis, the patient was brought to the [facility] on 01/08/2024 with a chief company of syncopal episode. Have seen examined the patient, along with her nurse, the patient was alert and fully oriented, but she states that she will refuse anymore tests on her, and she was to leave the hospital after she got brace for her left arm It Is hard for for us to change her mind. We have advised her to think twice before she was refused all the recommended tests Urinalysis, 01/08/2024: WBC: 23, urine leukocyte esterase: 3+ CBC, 01/08/2024: Unremarkable Potassium, 01/09/2024: 2.6, 01/10/24: 2.5 TG/CHOL/LDL/HDL, 02/26/2023: 149/162/116/37 Vitamin B12, 02/26/2023: 149 Folic acid, 02/26/2023: 15.26 Echocardiogram, 01/10/2024: X-ray, left arm, 01/08/2024: Subtle lucency through the posterior aspect of the proximal ulna suggesting a nondisplaced 2 minimally displaced fracture. This is best seen on lateral view CT head, 01/08/2024: 1. No acute intracranial process. 2. Large left parietal scalp hematoma vital signs Vital Sign Date Time Temp Pulse Resp B/P (MAP) Pulse Ox O2 Delivery O2 Flow Rate FiO2 01/11/24 10:12 186/59 01/11/24 09:29 98.7 62 18 96 98.7 01/10/24 20:00 Room Air* 0 21 Total Intake and Output 01/10/24 01/10/24 01/11/24 15:00 23:00 07:00 Intake Total 470 ml 1420 ml 550 ml Output Total 400 ml Balance 470 ml 1420 ml 150 ml medications Current Medications Medications Dose Ordered Sig/Edson Route Start Time Stop Time Status Last Admin Dose Admin Acetaminophen/ Hydrocodone Bitart 1 tab Q4HP PRN PO 01/08/24 13:45 01/11/24 10:13 1 TAB Ondansetron HCl 4 mg Q4HP PRN IV 01/08/24 13:45 01/10/24 06:05 4 MG Morphine Sulfate 2 mg Q4HPRN PRN IV 01/08/24 13:45 01/10/24 21:14 2 MG Nitroglycerin 0.4 mg Q5MINP PRN SL 01/08/24 13:45 Morphine Sulfate 2 mg Q30M PRN IV 01/08/24 13:45 Hydralazine HCl 10 mg Q6HP PRN IV 01/08/24 14:15 01/11/24 10:12 10 MG Diagnostic Test (Pha) 1 strip ACHS 01/08/24 17:00 01/11/24 06:21 1 STRIP Insulin Human Regular ACHS SC 01/08/24 17:00 01/10/24 21:22 3 UNITS Dextrose 50 ml UD PRN IV 01/08/24 14:15 Ceftriaxone Sodium 50 ml @ 100 mls/hr DAILY@09 IV 01/08/24 14:30 01/11/24 10:13 100 MLS/HR Sodium Chloride 1,000 ml @ 125 mls/hr Q8H IV 01/08/24 15:00 01/09/24 23:17 125 MLS/HR Enteral Nutritional Formula 240 ml TIDWM PO 01/10/24 18:00 01/11/24 08:00 240 ML Lorazepam 1 mg ONCE PRN IV 01/10/24 21:00 Potassium Chloride 100 ml @ 50 mls/hr Q2H IV 01/11/24 08:15 01/11/24 16:14 01/11/24 10:50 50 MLS/HR objective General: the patient is well developed and nourished. No acute distress. MENTAL STATUS: Subjective SPEECH, LANGUAGE, HIGHER CORTICAL FUNCTION: no aphasia or dysathria. CRANIAL NERVES: Pupils are equal, round and reactive. EOMs full and conjugate. Mild bilateral gaze evoked nystagmus. Facial sensation intact in all three divisions bilaterally. Mandibular strength intact. Facial muscles symmetrical and strength intact. SENSATION: Sensation to touch and pinprick is normal. MOTOR: Normal tone in the upper and lower extremity. Normal muscle bulk. No fasciculations. No abnormal movements or posturing. Muscle strength of the major groups in the extremities is 5/5, except weakness in the left upper extremity secondary to local pain/fracture. REFLEXES: Deep tendon reflexes are symmetrical. No pathological reflexes. CEREBELLAR/COORDINATION: Finger to nose is normal with a right-handed GAIT/STATION: deferred. laboratory and microbiology Laboratory Tests 01/11/24 04:15 Test 01/11/24 04:15 Range/Units Serum Glucose 96 74-106 mg/dL Problem List Fall Like a syncopal event Rule out seizure, less likely Rule out TIA, less likely Left ulnar fracture Assessment/Plan Monitoring Supportive treatment Telemetry EEG MRI brain Orthopedic surgeon case More recommendation per clinical course This medical document was created using an electronic medical record system with [employer] dictation system. Although this document has been carefully reviewed, there may still be some phonetic and typographical errors. These areas are purely typographical due to imperfections of the software programs, and do not reflect any compromise in the patient's medical care. Prognosis poor Dietary Evaluation Review Comments: 1. Continue diet regime 2. Continue Ensure HP at this time Expected Outcomes/Goals: 1. Pt will consume >75% of estimated needs within 3-5 days Plan discussed with: Patient, Other Total Time (mins): 40 ELY PORRAS MD Jan 11, 2024 11:09
--- NOTE | 2024-01-11 16:37 | DVHPN2 ---
Subjective Patient had a syncope and fall and sustained left scalp hematoma. Also patient sustained left elbow nondisplaced fracture. Reviewed: Care Plan Changes from previous H/P or p: No Changes Eyes: No Pain, No Vision change, No Conjunctivae inflammation, No Eyelid inflammation, No Other, No Redness ENT: No Ear pain, No Ear discharge, No Nose pain, No Nose discharge, No Nose congestion, No Mouth pain, No Mouth swelling, No Throat pain, No Throat swelling, No Other Cardiovascular: No Chest Pain, No Palpitations, No Orthopnea, No Paroxysmal Noc. Dyspnea, No Edema, No Lt Headedness, No Other Respiratory: No Cough, No Dry, No Shortness of breath, No SOB with excertion, No Wheezing, No Hemoptysis, No Pleuritic Pain, No Sputum, No Other Gastrointestinal: No Nausea, No Vomiting, No Abdominal Pain, No Diarrhea, No Constipation, No Melena, No Hematochezia, No Other Genitourinary: No Dysuria, No Frequency, No Incontinence, No Hematuria, No Retention, No Other Musculoskeletal: No other, No neck pain, No shoulder pain; arm pain (Left elbow fracture); No back pain, No hand pain, No leg pain, No foot pain Skin: No Rash, No Lesions, No Jaundice, No Bruising, No Other Objective Vitals Vital Signs Date Time Temp Pulse Resp B/P (MAP) Pulse Ox O2 Delivery O2 Flow Rate FiO2 01/11/24 13:10 98.9 69 18 144/58 (86) 97 98.9 01/11/24 08:00 Room Air* 0 21 Intake/Output Intake and Output 01/11/24 07:00 Intake Total 2440 ml Output Total 400 ml Balance 2040 ml Intake Oral 2390 ml IV Total 50 ml Output Urine Total 400 ml # Voids 8 Exam HEENT pupils are reactive Neck is supple CV is S1-S2 regular rate and rhythm Respiratory diminished breath sounds bases GI positive bowel sound Extremity no edema [employer] no motor deficit Medications Current Medications Medications Dose Ordered Sig/Edson Route Start Time Stop Time Status Last Admin Dose Admin Acetaminophen/ Hydrocodone Bitart 1 tab Q4HP PRN PO 01/08/24 13:45 01/11/24 10:13 1 TAB Ondansetron HCl 4 mg Q4HP PRN IV 01/08/24 13:45 01/10/24 06:05 4 MG Morphine Sulfate 2 mg Q4HPRN PRN IV 01/08/24 13:45 01/10/24 21:14 2 MG Nitroglycerin 0.4 mg Q5MINP PRN SL 01/08/24 13:45 Morphine Sulfate 2 mg Q30M PRN IV 01/08/24 13:45 Hydralazine HCl 10 mg Q6HP PRN IV 01/08/24 14:15 01/11/24 10:12 10 MG Diagnostic Test (Pha) 1 strip ACHS 01/08/24 17:00 01/11/24 12:32 1 STRIP Insulin Human Regular ACHS SC 01/08/24 17:00 01/11/24 12:31 4 UNITS Dextrose 50 ml UD PRN IV 01/08/24 14:15 Ceftriaxone Sodium 50 ml @ 100 mls/hr DAILY@09 IV 01/08/24 14:30 01/11/24 10:13 100 MLS/HR Enteral Nutritional Formula 240 ml TIDWM PO 01/10/24 18:00 01/11/24 12:32 240 ML Lorazepam 1 mg ONCE PRN IV 01/10/24 21:00 Nifedipine 60 mg DAILY PO 01/12/24 10:00 Laboratory Results Laboratory Tests 01/11/24 04:15 Chemistry Test 01/10/24 17:00 01/11/24 04:15 Calcium Level 9.2 mg/dL (8.7-10.4) 9.2 mg/dL (8.7-10.4) Magnesium Level 1.5 mg/dL (1.6-2.6) L 1.6 mg/dL (1.6-2.6) HgA1c, TSH Test 01/11/24 04:15 Hemoglobin A1c 4.6 % A1C (<5.7) Thyroid Stimulating Hormone (TSH) 2.39 uIU/mL (0.55-4.78) Urinalysis Test 01/08/24 10:45 Urine Color Light-yellow (Yellow) Urine Clarity Clear (Clear) Urine pH 7.5 (5.0-9.0) Urine Specific [place] 1.005 (1.001-1.035) Urine Protein 2+ (Negative) H Urine Ketones Negative (Negative) Urine Blood 1+ /uL (Negative) H Urine Nitrite Negative (Negative) Urine Bilirubin Negative (Negative) Urine Urobilinogen Normal mg/dL (Negative) Urine Leukocyte Esterase 3+ /uL (Negative) Urine RBC 14 /hpf (0 - 4) Urine WBC 23 /hpf (0 - 5) Urine Squamous Epithelial Cells Few /hpf (<5) Urine Bacteria Few /hpf (None Seen) H Urine Glucose Normal mg/dL (Normal) Assessment/Plan Assessment/Plan 78-year-old female with a known history of congestive heart failure, diabetes mellitus type 2, gout, hypertension initially presented to the hospital with fall and syncope found to have 1. Syncope unspecified 2. Closed head injury with left parietal scalp hematoma 3. Left elbow fracture minimally displaced/nondisplaced, need left elbow [id number] brace 4. Diabetes mellitus type 2 5. Hypertension 6. Gout -days potassium -resume home medications, watch for any tele arrhythmias, 2D echo , cardiology consultation-neurology consultation -orthopedic evaluation for left elbow fracture although does not need any surgical intervention Plan discussed with: Patient Date of Service: Jan 11, 2024 Billing Provider: AVELINO SAMUEL MD Common Visit Codes: [id number] INP/OBS CARE(MOD), NOT BILLABLE AVELINO SAMUEL MD Jan 11, 2024 16:37
[2024-01-11] MEDS: NIFEdipine ER 30 MG TAB PO ONE (16:53)
--- NOTE | 2024-01-11 17:03 | MEDREC ---
[facility] Intervention Section I [facility] Intervention: Review courses of therapy (PLEASE CONSIDER D/C ANTIBIOTIC(S) IN ABSENCE OF BACTERIAL INFECTION) SHIV SAENZ PHARMACIST Jan 11, 2024 17:03
[2024-01-12] VITALS (10 sets, daily range): BP systolic 102–149; BP diastolic 53–69; PULSE 60–75; RESP 16–18; TEMP 97.6–98.5; O2SAT 93–99
[2024-01-12 06:48] LABS: Basophils # (auto) 0 10 ^3/uL (0-0.2); Basophils % (auto) 0.5 % (0.0-2.0); Eosinophils # (auto) 0.1 10 ^3/uL (0-0.8); Eosinophils % (auto) 1.5 % (0.0-7.0); Hematocrit 32.4 % (36.0-46.0); Hemoglobin 11.2 g/dL (12.2-16.2); Lymphocytes # (auto) 1.4 10 ^3/uL (0.4-5.4); Lymphocytes % (auto) 23.9 % (10.0-50.0); Mean Corpuscular Hemoglobin 29.7 pg (28.0-32.0); Mean Corpuscular Hgb Conc. 34.5 g/dL (32.0-36.0); Monocytes # (auto) 0.4 10 ^3/uL (0-1.3); Monocytes % (auto) 7.1 % (0.0-12.0); Neutrophils # (auto) 3.8 10 ^3/uL (1.6-8.6); Nucleated Red Blood Cells % 0.1 %; Platelet Count (auto) 124 10^3/uL (140-450); Red Blood Cells 3.76 10^6/uL (4.0-5.20); Red Cell Distribution Width 15.7 % (11.8-14.3); White Blood Cell 5.7 10^3/uL (4.4-10.8)
[2024-01-12] MEDS: NIFEdipine ER 30 MG TAB PO SCH (09:07)
[2024-01-12 12:34] LABS: Chloride 107 mmol/L (98-107); Potassium 3.5 mmol/L (3.5-5.1); Sodium 140 mmol/L (136-145)
[2024-01-12 12:35] LABS: Anion Gap 3 (5-15); Carbon Dioxide 30 mmol/L (20-31)
[2024-01-12 12:36] LABS: Calcium 9.2 mg/dL (8.7-10.4)
[2024-01-12 12:40] LABS: BUN/Creatinine Ratio 20.3 (10.0-20.0); Blood Urea Nitrogen 16 mg/dL (9-23); Glucose 155 mg/dL (74-106)
--- NOTE | 2024-01-12 13:59 | CONS ---
Pharmacy Clinical Information: Patient from [facility] HF report. Patient is >75 y.o. with diabetes, adding a statin for this group after the age of 75 y.o. should be discussed with primary care provider for benefit-risk evaluation. ELIJAH GILES PHARMACIST Jan 12, 2024 13:59
--- NOTE | 2024-01-12 19:21 | DVHDS2 ---
Discharge Summary Date of Admission Jan 08, 2024 at 13:31 Date of Discharge: Jan 12, 2024 Labs/Diagnostic Data: Laboratory Results Test 01/12/24 11:57 01/12/24 11:15 01/12/24 05:55 01/11/24 04:15 Sodium Level 140 mmol/L (136-145) Potassium Level 3.5 mmol/L (3.5-5.1) Chloride Level 107 mmol/L (98-107) Carbon Dioxide Level 30 mmol/L (20-31) Anion Gap 3 (5-15) Blood Urea Nitrogen 16 mg/dL (9-23) Creatinine 0.79 mg/dL (0.550-1.02) Glomerular Filtration Rate Calc 77 mL/min (>90) BUN/Creatinine Ratio 20.3 (10.0-20.0) Serum Glucose 155 mg/dL (74-106) Calcium Level 9.2 mg/dL (8.7-10.4) POC Glucose 171 mg/dl (70-106) White Blood Count 5.7 10^3/uL (4.4-10.8) Red Blood Count 3.76 10^6/uL (4.0-5.20) Hemoglobin 11.2 g/dL (12.2-16.2) Hematocrit 32.4 % (36.0-46.0) Mean Corpuscular Volume 86.0 fL (80.0-100.0) Mean Corpuscular Hemoglobin 29.7 pg (28.0-32.0) Mean Corpuscular Hemoglobin Concent 34.5 g/dL (32.0-36.0) Red Cell Distribution Width 15.7 % (11.8-14.3) Platelet Count 124 10^3/uL (140-450) Mean Platelet Volume 7.5 fL (6.9-10.8) Neutrophils (%) (Auto) 67.0 % (37.0-80.0) Lymphocytes (%) (Auto) 23.9 % (10.0-50.0) Monocytes (%) (Auto) 7.1 % (0.0-12.0) Eosinophils (%) (Auto) 1.5 % (0.0-7.0) Basophils (%) (Auto) 0.5 % (0.0-2.0) Neutrophils # (Auto) 3.8 10 ^3/uL (1.6-8.6) Lymphocytes # (Auto) 1.4 10 ^3/uL (0.4-5.4) Monocytes # (Auto) 0.4 10 ^3/uL (0-1.3) Eosinophils # (Auto) 0.1 10 ^3/uL (0-0.8) Basophils # (Auto) 0 10 ^3/uL (0-0.2) Nucleated Red Blood Cells 0.1 % Hemoglobin A1c 4.6 % A1C (<5.7) Magnesium Level 1.6 mg/dL (1.6-2.6) Thyroid Stimulating Hormone (TSH) 2.39 uIU/mL (0.55-4.78) Test 01/08/24 10:45 Urine Color Light-yellow (Yellow) Urine Clarity Clear (Clear) Urine pH 7.5 (5.0-9.0) Urine Specific [place] 1.005 (1.001-1.035) Urine Protein 2+ (Negative) Urine Ketones Negative (Negative) Urine Blood 1+ /uL (Negative) Urine Nitrite Negative (Negative) Urine Bilirubin Negative (Negative) Urine Urobilinogen Normal mg/dL (Negative) Urine Leukocyte Esterase 3+ /uL (Negative) Urine RBC 14 /hpf (0 - 4) Urine WBC 23 /hpf (0 - 5) Urine Squamous Epithelial Cells Few /hpf (<5) Urine Bacteria Few /hpf (None Seen) Urine Glucose Normal mg/dL (Normal) Other Laboratory Tests 01/12/24 11:57 01/12/24 05:55 Brief Hx & Hospital Course: 78-year-old female with a known history of congestive heart failure, diabetes mellitus type 2, gout, hypertension initially presented to the hospital with fall and syncope found to have closed head injury with a left parietal scalp hematoma. Patient also had a left elbow fracture minimally displaced, needed a elbow range of motion brace. Patient's hospital course was eventful for noncompliance and she refused to vera brace on the left elbow. Patient's CT head was negative for any acute pathology. The patient was being discharged under stable condition with the home has home safety evaluation once arranged. Patient was vital has been stable physical examination no change Condition at Discharge: Stable Final Diagnosis/Problems List 78-year-old female with a known history of congestive heart failure, diabetes mellitus type 2, gout, hypertension initially presented to the hospital with fall and syncope found to have 1. Syncope unspecified 2. Closed head injury with left parietal scalp hematoma 3. Left elbow fracture minimally displaced/nondisplaced, need left elbow [id number] brace 4. Diabetes mellitus type 2 5. Hypertension 6. Gout Discharge Disposition: Home with Health Services SNF Discharge Will this Physician continue t: No Discharge Instruct/Medications Diet: Cardiac 2g Na,low cholest Activity: No Restrictions, As Tolerated Follow Up/Referral: Follow up with the PCP in 1-2 weeks Outpatient follow up with Orthopedics for left elbow fracture Outpatient follow up with Cardiology for Holter monitoring to look for any arrhythmias Medications: Resume home medications Discharge Statement: "Patient was advised to return to the ER or call 911 if any headaches, dizziness, shortness of breath, chest pain, abdominal pain, bleeding, fevers, or worsening of medical condition. Patient was counseled about treatment plan, medications, possible side effects, patientverbalized understanding. All questions were answered to the best of my ability. This discharge took greater then 30 minutes in planning, reviewing documentation, counseling the patient, and discussing with other team members." ASSESSMENT ASSESSMENT Assessment 78-year-old female with a known history of congestive heart failure, diabetes mellitus type 2, gout, hypertension initially presented to the hospital with fall and syncope found to have 1. Syncope unspecified 2. Closed head injury with left parietal scalp hematoma 3. Left elbow fracture minimally displaced/nondisplaced, need left elbow [id number] brace 4. Diabetes mellitus type 2 5. Hypertension 6. Gout Date of Service: Jan 12, 2024 Billing Provider: AVELINO SAMUEL MD Common Visit Codes: NOT BILLABLE AVELINO SAMUEL MD Jan 12, 2024 19:21
--- NOTE | 2024-01-12 21:54 | DVHPN2 ---
Progress Note - Dictate Date Seen: Jan 12, 2024 Medical Necessity Reason Pt with a Central, PICC or Fol: No Subjective Ms. Frank is a 78 years old left-handed female with a history of diabetes, hypothyroidism, gout, arthritis, the patient was brought to the [facility] on 01/08/2024 with a chief company of syncopal episode. I have seen and examined the patient, I have talked to her nurse and other medical staff, she was doing fine, alert and fully oriented, she is not interested in any more testing on her Urinalysis, 01/08/2024: WBC: 23, urine leukocyte esterase: 3+ CBC, 01/08/2024: Unremarkable Potassium, 01/09/2024: 2.6, 01/10/24: 2.5 TG/CHOL/LDL/HDL, 02/26/2023: 149/162/116/37 Vitamin B12, 02/26/2023: 149 Folic acid, 02/26/2023: 15.26 Echocardiogram, 01/10/2024: X-ray, left arm, 01/08/2024: Subtle lucency through the posterior aspect of the proximal ulna suggesting a nondisplaced 2 minimally displaced fracture. This is best seen on lateral view CT head, 01/08/2024: 1. No acute intracranial process. 2. Large left parietal scalp hematoma vital signs Vital Sign Date Time Temp Pulse Resp B/P (MAP) Pulse Ox O2 Delivery O2 Flow Rate FiO2 01/12/24 16:42 98.0 75 17 146/62 (90) 99 98.0 01/12/24 08:00 Room Air* 0 21 Total Intake and Output 01/11/24 01/11/24 01/12/24 15:00 23:00 07:00 Intake Total 250 ml 625 ml 400 ml Balance 250 ml 625 ml 400 ml medications Current Medications Medications Dose Ordered Sig/Edson Route Start Time Stop Time Status Last Admin Dose Admin Acetaminophen/ Hydrocodone Bitart 1 tab Q4HP PRN PO 01/08/24 13:45 01/12/24 09:11 1 TAB Ondansetron HCl 4 mg Q4HP PRN IV 01/08/24 13:45 01/10/24 06:05 4 MG Morphine Sulfate 2 mg Q4HPRN PRN IV 01/08/24 13:45 01/10/24 21:14 2 MG Nitroglycerin 0.4 mg Q5MINP PRN SL 01/08/24 13:45 Morphine Sulfate 2 mg Q30M PRN IV 01/08/24 13:45 Hydralazine HCl 10 mg Q6HP PRN IV 01/08/24 14:15 01/11/24 10:12 10 MG Diagnostic Test (Pha) 1 strip ACHS 01/08/24 17:00 01/12/24 21:28 1 STRIP Insulin Human Regular ACHS SC 01/08/24 17:00 01/12/24 21:29 3 UNITS Dextrose 50 ml UD PRN IV 01/08/24 14:15 Enteral Nutritional Formula 240 ml TIDWM PO 01/10/24 18:00 01/12/24 18:00 240 ML Lorazepam 1 mg ONCE PRN IV 01/10/24 21:00 Nifedipine 60 mg DAILY PO 01/12/24 10:00 01/12/24 09:07 60 MG objective General: the patient is well developed and nourished. No acute distress. MENTAL STATUS: Subjective SPEECH, LANGUAGE, HIGHER CORTICAL FUNCTION: no aphasia or dysathria. CRANIAL NERVES: Pupils are equal, round and reactive. EOMs full and conjugate. Mild bilateral gaze evoked nystagmus. Facial sensation intact in all three divisions bilaterally. Mandibular strength intact. Facial muscles symmetrical and strength intact. SENSATION: Sensation to touch and pinprick is normal. MOTOR: Normal tone in the upper and lower extremity. Normal muscle bulk. No fasciculations. No abnormal movements or posturing. Muscle strength of the major groups in the extremities is 5/5, except weakness in the left upper extremity secondary to local pain/fracture. REFLEXES: Deep tendon reflexes are symmetrical. No pathological reflexes. CEREBELLAR/COORDINATION: Finger to nose is normal with a right-handed GAIT/STATION: deferred. laboratory and microbiology Laboratory Tests 01/12/24 11:57 01/12/24 05:55 Test 01/12/24 11:57 Range/Units Serum Glucose 155 H 74-106 mg/dL Problem List Fall Like a syncopal event Rule out seizure, less likely Rule out TIA, less likely Left ulnar fracture Assessment/Plan Monitoring Supportive treatment Telemetry EEG MRI brain Orthopedic surgeon case More recommendation per clinical course This medical document was created using an electronic medical record system with [employer] dictation system. Although this document has been carefully reviewed, there may still be some phonetic and typographical errors. These areas are purely typographical due to imperfections of the software programs, and do not reflect any compromise in the patient's medical care. Prognosis poor Dietary Evaluation Review Comments: 1. Continue diet regime 2. Continue Ensure HP at this time Expected Outcomes/Goals: 1. Pt will consume >75% of estimated needs within 3-5 days Plan discussed with: Other ELY PORRAS MD Jan 12, 2024 21:54
[2024-01-13] VITALS (7 sets, daily range): BP systolic 123–163; BP diastolic 58–64; PULSE 65–84; RESP 14–18; TEMP 98–98.2; O2SAT 93–99
== END 2024-01-13 19:20 | disposition home health service (06) | DRG 305 ==
LOC: ER 09:27 → EDUNIT# 09:27 → EDBD 09:27 → TELE 13:31 → TELE-WESTW 17:17
PROVIDERS: ADMIT Registered Nurse General Practice; ATTEND Internal Medicine
DX: I16.0 Hypertensive urgency (principal); N39.0 Urinary tract infection, site not specified; S42.402A Unspecified fracture of lower end of left humerus, initial encounter for closed fracture; G90.89 Other disorders of autonomic nervous system; E11.43 Type 2 diabetes mellitus with diabetic autonomic (poly)neuropathy; E87.6 Hypokalemia; E03.9 Hypothyroidism, unspecified; M10.9 Gout, unspecified; S00.03XA Contusion of scalp, initial encounter; E83.42 Hypomagnesemia; W01.0XXA Fall on same level from slipping, tripping and stumbling without subsequent striking against object, initial encounter; Z91.81 History of falling; Z91.199 Patient's noncompliance with other medical treatment and regimen due to unspecified reason; Z90.710 Acquired absence of both cervix and uterus; Z82.49 Family history of ischemic heart disease and other diseases of the circulatory system; Z82.3 Family history of stroke; Z79.899 Other long term (current) drug therapy; Z90.49 Acquired absence of other specified parts of digestive tract; Y93.89 Activity, other specified; Y92.89 Other specified places as the place of occurrence of the external cause; Y99.8 Other external cause status; Z79.84 Long term (current) use of oral hypoglycemic drugs
CPT/HCPCS: 36415; 70450; 73070; 80048; 81001; 82962; 83036; 83735; 84443; 85025; 93005; 93306; 97110; 97116; 97163; 97530; 99291; G0378; J1815; J2405; J3480

== ENCOUNTER 2024-09-23 20:11 | Emergency (ER) | payer OTHER, MEDICAID ==
[~2024-09-23] VITALS: Ht 170.2 cm; Wt 47.7 kg
[~2024-09-23 20:11] MED LIST changes: -LEVO500T91 PO
--- NOTE | 2024-09-23 20:35 | ED.PDOC ---
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 Patient reports she was walking when her body suddenly "twisted" and she fell on the back of her head. Per biofuels engineering manager, patient has spontaneously fallen before. Patient denies any LOC, dizziness, or further associated symptoms of migraine, blurred vision, slurred speech, or N/V. Per biofuels engineering manager, patient is on hospice, though the reason is unclear. Upon triage, patient presents with a small abrasion with localized bleeding to the back of the head. No further complaints at this time. Chief Complaint: Fall Injury Time Seen by MD: 20:30 Primary Care Provider: Lorenzo History of Present Illness: Nurses Notes, Medications, Allergies Allergies: Coded Allergies: Baclofen (Verified Allergy, Unknown, 05/17/20) Home Meds Active Scripts Hydrocodone-Acetaminophen (Hydrocodone Bitartrate/AC 5-325 mg) 1 Tab Tab, 1 TAB PO QIDP PRN, #20 TAB Prov:NITHYA VAUGHN MD 07/12/23 Nitrofurantoin Monohydrate Mac (Macrobid) 100 Mg Cap, 100 MG PO BID for 7 Days, #14 CAP Prov:LANI DIETZ MD 11/01/21 Tramadol Hcl (Tramadol Hcl) 50 Mg Tab, 50 MG PO BID for 5 Days, #10 TAB Prov:CLARISSA MALCOLM MD 06/19/21 Naproxen (NAPROSYN TABLET) 500 Mg Tb, 1 TAB PO BID for 7 Days, #14 TAB Prov:CLARISSA MALCOLM MD 06/19/21 Reported Medications Levothyroxine Sodium (Levothyroxine Sodium) 25 Mcg Tab, 50 MCG PO QAM, TAB 09/11/20 Trazodone Hcl (Trazodone Hcl) 100 Mg Tab, 50 MG PO QHSP, TAB 09/11/20 Glipizide (Glipizide) 10 Mg Tab, 10 MG PO DAILY, TAB 09/11/20 Furosemide (Furosemide) 40 Mg Tab, 40 MG PO DAILY, TAB 09/11/20 Spironolactone (Spironolactone) 25 Mg Tab, 25 MG PO DAILY, TAB 09/11/20 Allopurinol (Allopurinol) 300 Mg Tab, 300 MG PO DAILY, TAB 09/11/20 Gabapentin (Gabapentin) 300 Mg Cap, 300 MG PO DAILY, CAP 09/11/20 Metformin Hydrochloride (Metformin Hcl) 500 Mg Tab, 500 MG PO DAILY, TAB 09/11/20 Allopurinol (Allopurinol) 300 Mg Tab, 300 MG PO DAILY for 30 Days, MG 08/08/20 Spironolactone (Spironolactone) 25 Mg Tab, 1 TAB PO BID, #90 TAB 1 Refill 08/08/20 Glipizide (Glipizide) 10 Mg Tab, 10 MG PO DAILY for 30 Days, MG 08/08/20 Metformin Hydrochloride (Metformin Hcl) 500 Mg Tab, 500 MG PO DAILY for 30 Days, MG 08/08/20 Spironolactone (Spironolactone) 25 Mg Tab, 25 MG PO BID, TAB 05/18/20 Allopurinol (Allopurinol) 100 Mg Tab, 100 MG PO DAILY, TAB 05/18/20 Furosemide (Furosemide) 40 Mg Tab, 40 MG PO DAILY for 30 Days 05/18/20 Levothyroxine Sodium (Levothyroxine Sodium) 50 Mcg Cap, 50 MCG PO DAILY, CAP 05/18/20 Glipizide (Glipizide) 10 Mg Tab, 10 MG PO BID for 30 Days, MG 05/18/20 Metformin Hydrochloride (Metformin Hcl) 500 Mg Tab, 500 MG PO IBID for 30 Days, MG 05/18/20 Information Source: Patient, Friend Mode of Arrival: Ambulatory Severity: Moderate Timing: Minutes Duration: Since onset Prehospital treatment: None Location: Head Mechanism: Blunt Trauma Occurence: Indoors Wound Type: Abrasion Tetanus: UTD Past Medical History PAST MEDICAL HISTORY: Arthritis, CHF, DM, Gout, Thyroid Surgical History: Appendectomy, Cholecystectomy, Hernia Repair, Hysterectomy ACCOUNT DEVELOPMENT ASSOCIATE History: No Pertinent ACCOUNT DEVELOPMENT ASSOCIATE History Family History Family History: Reviewed,noncontributory to illness Social History Smoker: Non-Smoker Alcohol: Denies ETOH Use Drugs: Denies Drug Use Lives In: Home Constitutional: denies: chills, diaphoresis, fatigue, fever, malaise, sweats, weakness, others EENTM: denies: blurred vision, double vision, ear bleeding, ear discharge, ear drainage, ear pain, ear ringing, eye pain, eye redness, hearing loss, mouth pain, mouth swelling, nasal discharge, nose bleeding, nose congestion, nose pain, photophobia, tearing, throat pain, throat swelling, voice changes, others Respiratory: denies: cough, hemoptysis, orthopnea, SOB at rest, shortness of breath, SOB with excertion, stridor, wheezing, others Cardiovascular: denies: chest pain, dizzy spells, diaphoresis, Dyspnea on exertion, edema, irregular heart beat, left arm pain, lightheadedness, palpitations, PND, syncope, others Gastrointestinal: denies: abdomen distended, abdominal pain, blood streaked bowels, constipated, diarrhea, dysphagia, difficulty swallowing, hematemesis, melena, nausea, poor appetite, poor fluid intake, rectal bleeding, rectal pain, vomiting, others Genitourinary: denies: abnormal vagina bleeding, burning, dyspareunia, dysuria, flank pain, frequency, hematuria, incontinence, pain, , vagina discharge, urgency, others Neurological: denies: dizziness, fainting, headache, left sided numbness, left sided weakness, numbness, paresthesia, pre-existing deficit, right sided numbness, right sided weakness, seizure, speech problems, tingling, tremors, weakness, others Musculoskeletal: denies: back pain, gout, joint pain, joint swelling, muscle pain, muscle stiffness, neck pain, others Integumetry: reports: others (Abrasion to back of head, bleeding controlled ); denies: bruises, change in color, change in hair/nails, dryness, laceration, lesions, lumps, rash, wounds Allergic/Immunocompromised: denies: Difficulty Healing, Frequent Infections, Hives, Itching, others Hematologic/Lymphatic: denies: anemia, blood clots, easy bleeding, easy bruising, swollen glands, others Endocrine: denies: excessive hunger, excessive sweating, excessive thirst, excessive urination, flushing, intolerance to cold, intolerance to heat, unexplained weight gain, unexplained weight loss, others Psychiatric: denies: anxiety, bipolar disorder, depression, hopeless, panic d isorder, schizophrenia, sleepless, suicidal, others All Other Systems: Reviewed and Negative Physical Exam General Appearance: No Apparent Distress (Patient was in no distress at time of evaluation.), Normal HEENT: Head (Patient displays a 2 cm laceration to the superior and posterior scalp. No active bleed. No skull depression or deformity.), Normal ENT Inspection, Pharynx Normal, TMs Normal Neck: Full Range of Motion, Non-Tender, Normal, Normal Inspection Respiratory: Chest Non-Tender, Lungs Clear, No Accessory Muscle Use, No Respiratory Distress, Normal Breath Sounds Cardiovascular: No Edema, No JVD, No Murmur, No Gallop, Normal Peripheral Pulses, Regular Rate/Rhythm Breast Exam: Deferred Gastrointestinal: No Organomegaly, Non Tender, No Pulsatile Mass, Normal Bowel Sounds, Soft Genitalia: Deferred Pelvic: Deferred Rectal: Deferred Extremities: No calf tenderness, Normal capillary refill, Normal inspection, Normal range of motion, Non-tender, No pedal edema Neurologic: Alert, Normal Affect, Normal Mood Cerebellar Function: NOT DONE Reflexes: NOT DONE Skin: Dry, Lacerations (HEENT for description of scalp laceration), Normal Color, Warm Lymphatic: No Adenopathy Was a procedure done? Was a procedure done?: Yes Sedation Sedation?: No Other Procedure Notes Copious irrigation was performed. Two cruz were placed. Patient tolerated procedure well. Dressing applied. Differential Diagnosis (INTG) Differential Diagnosis: Abrasion, Laceration, Puncture Wound X-Ray, Labs, Meds, VS Vital Signs Date Time Temp Pulse Resp B/P (MAP) Pulse Ox O2 Delivery O2 Flow Rate FiO2 09/23/24 22:50 98.0 54 20 122/51 (74) 97 98.0 09/23/24 20:39 204/112 09/23/24 20:25 98.4 64 16 204/112 (142) 99 98.4 Lab Test 09/23/24 20:50 Range/Units White Blood Count 9.2 4.4-10.8 10^3/uL Red Blood Count 3.80 L 4.0-5.20 10^6/uL Hemoglobin 11.9 L 12.2-16.2 g/dL Hematocrit 33.3 L 36.0-46.0 % Mean Corpuscular Volume 87.7 80.0-100.0 fL Mean Corpuscular Hemoglobin 31.2 28.0-32.0 pg Mean Corpuscular Hemoglobin Concent 35.6 32.0-36.0 g/dL Red Cell Distribution Width 15.1 H 11.8-14.3 % Platelet Count 176 140-450 10^3/uL Mean Platelet Volume 7.2 6.9-10.8 fL Neutrophils (%) (Auto) 71.2 37.0-80.0 % Lymphocytes (%) (Auto) 17.6 10.0-50.0 % Monocytes (%) (Auto) 9.2 0.0-12.0 % Eosinophils (%) (Auto) 1.4 0.0-7.0 % Basophils (%) (Auto) 0.6 0.0-2.0 % Neutrophils # (Auto) 6.6 1.6-8.6 10 ^3/uL Lymphocytes # (Auto) 1.6 0.4-5.4 10 ^3/uL Monocytes # (Auto) 0.8 0-1.3 10 ^3/uL Eosinophils # (Auto) 0.1 0-0.8 10 ^3/uL Basophils # (Auto) 0.1 0-0.2 10 ^3/uL Nucleated Red Blood Cells 0.0 % Sodium Level 144 136-145 mmol/L Potassium Level 2.6 L 3.5-5.1 mmol/L Chloride Level 100 98-107 mmol/L Carbon Dioxide Level 33 H 20-31 mmol/L Anion Gap 11 5-15 Blood Urea Nitrogen 23 9-23 mg/dL Creatinine 1.11 H 0.550-1.02 mg/dL Glomerular Filtration Rate Calc 51 >90 mL/min BUN/Creatinine Ratio 20.7 H 10.0-20.0 Serum Glucose 117 H 74-106 mg/dL Calcium Level 10.4 8.7-10.4 mg/dL Current Medications Medications (Trade) Dose Ordered Sig/Edson Route Start Time Stop Time Status Last Admin Clonidine HCl (Catapres Tablet) 0.2 mg ONCE ONCE PO 09/23/24 20:45 09/23/24 20:46 DC 09/23/24 20:[address] [address] Ph: [phone] DIAGNOSTIC IMAGING Diagnostic Imaging Report : [id number] Signed PATIENT: RAGHAVENDRA LORENZ ACCT: [id number] UNIT: [id number] : 1945 LOC: ER ROOM / BED: / AGE / SEX: 79 / F ADM STATUS: REG ER SERVICE 29 ORDERING PHYSICIAN: YARIEL JENNINGS PAC PROCEDURE(s): HWOCT - HEAD WITHOUT CONTRAST REASON: Fall/posterior scalp injury ORDER NUMBER(s): [id number], ACCESSION NUMBER(s): [id number] CT HEAD WITHOUT CONTRAST INDICATION: Fall/posterior scalp injury COMPARISON: CT HEAD WITHOUT CONTRAST on DOS: 01/08/24 TECHNIQUE: CT of the head without intravenous contrast. RADIATION DOSE: CTDIvol: mGy, DLP: mGy*cm FINDINGS: There is no evidence of intracranial hemorrhage, infarct, extra-axial collection, mass effect, midline shift, herniation or hydrocephalus. Mild ventricular and sulcal enlargement related to mild cerebral volume loss. The rivera-white differentiation is preserved. Visualized paranasal sinuses and mastoid air cells are clear. Evidence of scalp laceration and mild scalp hematoma in left posterior parietal region with overlying scalp cruz. No calvarial abnormality/fracture. IMPRESSION: No hemorrhage or other acute intracranial abnormality. X-Ray, Labs, Meds, VS Comment Patient tolerated staple procedure well. Advised patient utilize topical antibiotics next few days. Patient laboratories were unremarkable for any systemic concerns. Patient has been evaluated and should go back on hospice. Time of 1ST Reevaluation: 23:06 Reevaluation 1ST: Improved Consultation: PCP Patient Education/Counseling: Diagnosis, Treatment Family Education/Counseling: Diagnosis, Treatment Medical Screening: No EMC Exist At This Time SEPSIS Sepsis Screen Recent Procedure: No On Antibiotic Therapy: No Respiratory Rate >20: No Heart Rate >90: No Temp<36 C (96.8 F) or >38.3 C: No SBP <90 or MAP <65 mmHG: No New Acute Mental Status Change: No Is the patient on CPAP, BIPAP,: No Physician Orders Urinalysis (09/23/24 20:30) Head Without Contrast (09/23/24 20:30) Potassium Effervesent Tab (Klor-Con/Ef) (09/23/24 23:15) Vital Signs Date Time Temp Pulse Resp B/P (MAP) Pulse Ox O2 Delivery O2 Flow Rate FiO2 09/23/24 22:50 98.0 54 20 122/51 (74) 97 98.0 09/23/24 20:39 204/112 09/23/24 20:25 98.4 64 16 204/112 (142) 99 98.4 Laboratory Tests Test 09/23/24 20:50 White Blood Count 9.2 10^3/uL (4.4-10.8) Medications Medications Dose Ordered Sig/Edson Route Start Time Stop Time Status Last Admin Dose Admin Clonidine HCl 0.2 mg ONCE ONCE PO 09/23/24 20:45 09/23/24 20:46 DC 09/23/24 20:39 Departure 1 Departure Time of Disposition: 23:06 Impression: Primary Impression: History of fall Additional Impressions: Head trauma Scalp laceration Hypokalemia Disposition: HOME / SELF CARE / HOMELESS Condition: Stable Additional Instructions: Advised Tylenol and or Motrin as needed for symptomatic relief as well as topical antibiotics multiple times a day. Patient should return to ED in 8-10 days for re-evaluation and probable staple removal. e-Prescriptions Bacitracin Base (Bacitracin) 500 Unit/Gm Oin 500 UNIT TOP BID for 7 Days, #30 GM Prov: YARIEL JENNINGS PAC 09/23/24 Discharged With: Self, [place] Critical Care Note Critical Care Time?: No Stability Stability form required: No Heart Score Heart Score: Heart Score Response (Comments) Value History N/A 0 EKG N/A 0 Age N/A 0 Risk Factors N/A 0 Troponin N/A 0 Total 0 I personally scribed for YARIEL JENNINGS PAC ([email or web address]) on 09/23/24 at 20:35. Electronically submitted by Hanna Mauricio ([employer]). I personally scribed for YARIEL JENNINGS PAC ([email or web address]) on 09/23/24 at 20:38. Electronically submitted by Hanna Mauricio ([employer]). I personally scribed for YARIEL JENNINGS PAC ([email or web address]) on 09/23/24 at 21:50. Electronically submitted by Hanna Mauricio ([employer]). YARIEL JENNINGS PAC Sep 23, 2024 20:35
[2024-09-23 21:08] LABS: Hematocrit 33.3 % (36.0-46.0); Hemoglobin 11.9 g/dL (12.2-16.2); Mean Corpuscular Hemoglobin 31.2 pg (28.0-32.0); Mean Corpuscular Volume 87.7 fL (80.0-100.0); Nucleated Red Blood Cells % 0.0 %
[2024-09-23 21:20] LABS: Chloride 100 mmol/L (98-107); Sodium 144 mmol/L (136-145)
[2024-09-23 21:21] LABS: Anion Gap 11 (5-15); Calcium 10.4 mg/dL (8.7-10.4); Carbon Dioxide 33 mmol/L (20-31); Potassium 2.6 mmol/L (3.5-5.1)
[2024-09-23 21:26] LABS: BUN/Creatinine Ratio 20.7 (10.0-20.0); Blood Urea Nitrogen 23 mg/dL (9-23); Glucose 117 mg/dL (74-106)
--- NOTE | 2024-09-23 21:41 | DVH ---
CT HEAD WITHOUT CONTRAST INDICATION: Fall/posterior scalp injury COMPARISON: CT HEAD WITHOUT CONTRAST on DOS: 01/08/24 TECHNIQUE: CT of the head without intravenous contrast. RADIATION DOSE: CTDIvol: mGy, DLP: mGy*cm FINDINGS: There is no evidence of intracranial hemorrhage, infarct, extra-axial collection, mass effect, midli ne shift, herniation or hydrocephalus. Mild ventricular and sulcal enlargement related to mild cerebr al volume loss. The rivera-white differentiation is preserved. Visualized paranasal sinuses and mastoid air cells are clear. Evidence of scalp laceration and mild scalp hematoma in left posterior parietal region with overlying scalp cruz. No calvarial abnormality/fracture. IMPRESSION: No hemorrhage or other acute intracranial abnormality.
[2024-09-23 22:50] VITALS: BP 122/51; PULSE 54; RESP 20; TEMP 98; O2SAT 97
[2024-09-23] MEDS ORDERED: BACIOIN15 TOP (23:08)
[2024-09-23] MEDS: POTASSIUM EFFERVESENT TAB 25 MEQ PO ONE (23:36)
[2024-09-24 00:08] LABS: Urine Protein, UAD 2+ (Negative)
== END 2024-09-23 23:52 | disposition home or self-care (01) ==
LOC: ER 20:11
DX: S01.01XA Laceration without foreign body of scalp, initial encounter (principal); E87.6 Hypokalemia; E11.9 Type 2 diabetes mellitus without complications; I50.9 Heart failure, unspecified; M10.9 Gout, unspecified; M19.90 Unspecified osteoarthritis, unspecified site; Z79.84 Long term (current) use of oral hypoglycemic drugs; Z79.899 Other long term (current) drug therapy; Z90.49 Acquired absence of other specified parts of digestive tract; Z90.710 Acquired absence of both cervix and uterus; Z98.890 Other specified postprocedural states; W18.39XA Other fall on same level, initial encounter; Y93.01 Activity, walking, marching and hiking; Y92.89 Other specified places as the place of occurrence of the external cause; Y99.8 Other external cause status
CPT/HCPCS: 12001; 36415; 70450; 80048; 81001; 85025

== ENCOUNTER 2024-11-02 10:31 | Inpatient (IN) | payer OTHER, MEDICAID ==
[2024-11-02] VITALS (29 sets, daily range): BP systolic 98–172; BP diastolic 44–85; PULSE 55–101; RESP 16–27; TEMP 96.6–100; O2SAT 90–100
[~2024-11-02] VITALS: Ht 157.5 cm; Wt 46.7 kg
[~2024-11-02 10:31] MED LIST changes: +BACIOIN15 TOP
--- NOTE | 2024-11-02 10:44 | ECG ---
[facility] Test Date: 2024-11-02 Test Time: 10:37:47 Pat Name: RAGHAVENDRA LORENZ Department: [facility] ED Patient ID: [facility]-[id number] Room: [address] [place] [address] Gender: F Memorial Counselor: sandra : 1945 Requested By: CODY SCHULZ Order Number: [id number] Reading MD: Agustín Sampson Measurements Intervals [place] Rate: 65 P: 92 CO: 142 QRS: 78 QRSD: 98 T: 262 QT: 338 QTc: 352 Interpretive Statements Sinus rhythm Probable LVH with secondary repol abnrm ST depression, consider ischemia, diffuse lds Baseline wander in lead(s) I,III,aVR,aVL,aVF,V2,V3,V4,V6 Electronically Signed On 11-03-2024 17:02:43 PDT by Agustín Sampson Please click the below link to view image of tracing.
--- NOTE | 2024-11-02 10:45 | ED.PDOC ---
Altered Mental Status HPI Comments This is a 79-year-old female with past medical history of diabetes, heart failure, hypertension brought in by EMS from boarding care due to altered mental status. Per EMS report, history was taken from collateral (roommate), today morning upon waking up was altered. The last time patient was seen normal was last night at 10:00 p.m. while she was going to bed. At the scene, patient's GCS was 7 and 1 L of fluid was given by EMS. Upon hospital arrival, GCS was 9 (eyes open spontaneously, making incomprehensible sounds, and had reflexive response to pain stimuli), maintain saturation at 91% on room air, but patient's mental status gradually worsened, subsequently the patient was sedated, in tubated and put on mechanical ventilation. 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 Allergies: Coded Allergies: UNOBTAINABLE (Unverified , 11/02/24) Home Meds Reported Medications Metformin Hydrochloride (Glumetza) 500 Mg Tab, 500 MG PO DAILY 11/02/24 Lisinopril & Hydrochlorothiazi (Lisinopril/Hydrochlorothi) 1 Tab Tab, 1 TAB PO DAILY, #30 TAB 5 Refills 11/02/24 Carvedilol (Carvedilol) 3.125 Mg Tab, 1 TAB PO BID 11/02/24 Glipizide (Glipizide) 10 Mg Tab, 20 MG PO BID 11/02/24 Mode of Arrival: EMS Severity: Severe Timing: Hours Duration: Days Past Medical History Past Medical History (Other): Heart failure, hypertension and diabetes Surgical History: Denies all surgeries [employer] History: No Pertinent [employer] History Family History Family History: Reviewed,noncontributory to illness, No family hx of Cancer, No family hx of DM, No family hx of Heart sandra, No family hx of HTN, No family hx ofKidney sandra, No family hx of Liver sandra, No family hx of Lung sandra, No family hx of Stroke Social History Smoker: Non-Smoker Alcohol: Denies ETOH Use Drugs: Denies Drug Use Constitutional: denies: chills, diaphoresis, fatigue, fever, malaise, sweats, weakness, others EENTM: denies: blurred vision, double vision, ear bleeding, ear discharge, ear drainage, ear pain, ear ringing, eye pain, eye redness, hearing loss, mouth pain, mouth swelling, nasal discharge, nose bleeding, nose congestion, nose pain, photophobia, tearing, throat pain, throat swelling, voice changes, others Respiratory: denies: cough, hemoptysis, orthopnea, SOB at rest, shortness of breath, SOB with excertion, stridor, wheezing, others Cardiovascular: denies: chest pain, dizzy spells, diaphoresis, Dyspnea on exertion, edema, irregular heart beat, left arm pain, lightheadedness, palpitations, PND, syncope, others Gastrointestinal: denies: abdomen distended, abdominal pain, blood streaked bowels, constipated, diarrhea, dysphagia, difficulty swallowing, hematemesis, melena, nausea, poor appetite, poor fluid intake, rectal bleeding, rectal pain, vomiting, others Genitourinary: denies: abnormal vagina bleeding, burning, dyspareunia, dysuria, flank pain, frequency, hematuria, incontinence, pain, , vagina discharge, urgency, others Neurological: reports: speech problems Musculoskeletal: denies: back pain, gout, joint pain, joint swelling, muscle pain, muscle stiffness, neck pain, others Physical Exam General Appearance: Cachectic, Severe Distress, Thin HEENT: Normal ENT Inspection, Pharynx Normal, TMs Normal Neck: Full Range of Motion, Non-Tender, Normal, Normal Inspection Respiratory: Accessory Muscle Use, Respiratory Distress, Other (Bilaterally harsh respiratory sounds) Cardiovascular: No Edema, No JVD, No Murmur, No Gallop, Normal Peripheral Pulses, Regular Rate/Rhythm Breast Exam: Deferred Gastrointestinal: No Organomegaly, Non Tender, No Pulsatile Mass, Normal Bowel Sounds, Soft Genitalia: Deferred Pelvic: Deferred Rectal: Deferred Extremities: No calf tenderness, Normal capillary refill, Normal inspection, Normal range of motion, Non-tender, No pedal edema 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) Indication: Volume resuscitation, Inability to obtain IV Room prepared for procedure: Yes [employer] performed hand hygien: Yes Maximal sterile barrier precau: Mask/Eye shield, Sterile gown, Cap, Sterlie gloves, Large sterlie drape Skin Preparation: Chlorhexidine gluconate Skin preparation completely dr: Yes Insertion site: Right, Internal jugular Central line catheter type: [id number] dialysis Number of lumens: 3 Central line exchanged over a: Yes Antiseptic ointment applied to: Yes Post Assessment: Chest X-Ray, Proper placement Informed consent obtained: No Risks/benefits/alt described: No Intubation Indication: Respiratory Insufficiency, Altered Mental Status, Airway Protection Prep: Preoxygenation Pretreated with: Sedation Medicated with: Vecuronium Intubation Approach: Orotracheal Intubation size: cm (7.5) Informed consent obtained: No Risks/benefits/alt described: No Differential Diagnosis (ALOC) Differential Diagnosis: Dehydration, Encephalopathy, Sepsis, Hypoxemia, CVA, Heart Failure (NSTEMI) X-Ray, Labs, Meds, VS Vital Signs Date Time Temp Pulse Resp B/P (MAP) Pulse Ox O2 Delivery O2 Flow Rate FiO2 11/02/24 14:57 74 18 156/119 (131) 11/02/24 14:50 204/81 11/02/24 14:41 76 18 170/62 (98) 11/02/24 14:26 74 18 204/81 (122) 11/02/24 13:50 192/93 11/02/24 13:41 68 18 192/93 (126) 11/02/24 13:40 62 16 192/93 (126) 100 50 11/02/24 13:30 212/80 11/02/24 13:29 64 18 190/85 (120) 11/02/24 13:26 65 18 210/85 (126) 11/02/24 12:50 218/98 11/02/24 12:47 218/98 11/02/24 11:13 218/85 11/02/24 11:10 76 18 218/98 (138) 99 100 11/02/24 11:01 101 18 218/98 (138) 90 11/02/24 10:55 101 27 90 Room Air* 0 21 11/02/24 10:55 101 18 218/98 (138) 90 11/02/24 10:48 96.6 81 14 92 96.6 11/02/24 10:37 65 Lab Test 11/02/24 14:02 11/02/24 13:21 11/02/24 13:18 11/02/24 12:17 Range/Units Troponin I High Sensitivity 8513 *H </=34 ng/L Triglycerides Level 202 H < 150 mg/dL Cholesterol Level 180 < 200 mg/dL LDL Cholesterol 127 H < 100 mg/dL HDL Cholesterol 27 L 40-59 mg/dL Thyroid Stimulating Hormone (TSH) 4.66 0.55-4.78 uIU/mL Blood Gas Specimen Type Arterial Blood Gas Sample Site Right radial Blood Gas Patient Temperature 37.0 Arterial Blood Date Drawn [id number] Arterial Blood pH 7.526 H 7.350-7.450 Arterial Blood Partial Pressure CO2 40.4 32.0-45.0 mmHg Arterial Blood Partial Pressure O2 462.9 *H 83.0-108.0 mmHg Arterial Blood HCO3 32.7 H 21.0-28.0 mmol/L Arterial Blood Oxygen Saturation 99.3 H 94.0-98.0 % Arterial Blood Base Excess 9.2 H -2.0-3.0 mmol/L Arterial Blood Oxyhemoglobin 98.0 94.0-98.0 % Arterial Blood Carboxyhemoglobin 0.3 L 0.5-1.5 % Arterial Blood Methemoglobin 1.0 0.0-1.5 % Prem Test Modified Blood Gas Total Hemoglobin 12.00 12.0-16.0 g/dL Blood Gas Set Respiration Rate 18.0 Blood Gas Modality Vent - ac Blood Gas Spontaneous Rate 18 FiO2 % 100.0 Blood Gas Tidal Volume 400.0 Blood Gas PEEP or CPAP 5.0 Specimen Drawn By Blood Gas Critical Value Read Back Yes Blood Gas Notified Whom Blood Gas Notified Time [id number] Blood Gas Notified By Kimberly avery rt Influenza Type A Antigen Negative Negative Influenza Type B Antigen Negative Negative SARS-CoV-2 Antigen (Rapid) Negative NEGATIVE Urine Color Light-yellow Yellow Urine Clarity Turbid H Clear Urine pH 7.0 5.0-9.0 Urine Specific [place] 1.010 1.001-1.035 Urine Protein 2+ H Negative Urine Ketones Negative Negative Urine Blood 1+ H Negative /uL Urine Nitrite Negative Negative Urine Bilirubin Negative Negative Urine Urobilinogen Normal Negative mg/dL Urine Leukocyte Esterase Trace Negative /uL Urine RBC 2 0 - 4 /hpf Urine Microscopic WBC 15 H 0-5 /HPF Urine Squamous Epithelial Cells Few <5 /hpf Urine Bacteria None seen None Seen /hpf Urine Hyaline Casts Few 0 - 2 /lpf Urine Glucose Trace Normal mg/dL Urine Opiates Screen Neg NEGATIVE Urine Fentanyl Screen Neg NEGATIVE Urine Barbiturates Screen Neg NEGATIVE Urine Phencyclidine Screen Neg NEGATIVE Urine Amphetamines Screen Neg NEGATIVE Urine Benzodiazepines Screen Neg NEGATIVE Urine Cocaine Screen Neg NEGATIVE Urine Cannabinoids Screen Neg NEGATIVE Test 11/02/24 11:55 11/02/24 11:10 Range/Units Lactic Acid Level 1.9 0.4-2.0 mmol/L White Blood Count 13.6 H 4.4-10.8 10^3/uL Red Blood Count 3.89 L 4.0-5.20 10^6/uL Hemoglobin 11.8 L 12.2-16.2 g/dL Hematocrit 33.0 L 36.0-46.0 % Mean Corpuscular Volume 84.9 80.0-100.0 fL Mean Corpuscular Hemoglobin 30.3 28.0-32.0 pg Mean Corpuscular Hemoglobin Concent 35.6 32.0-36.0 g/dL Red Cell Distribution Width 13.9 11.8-14.3 % Platelet Count 220 140-450 10^3/uL Mean Platelet Volume 7.5 6.9-10.8 fL Neutrophils (%) (Auto) 77.0 37.0-80.0 % Lymphocytes (%) (Auto) 14.9 10.0-50.0 % Monocytes (%) (Auto) 7.3 0.0-12.0 % Eosinophils (%) (Auto) 0.4 0.0-7.0 % Basophils (%) (Auto) 0.4 0.0-2.0 % Neutrophils # (Auto) 10.5 H 1.6-8.6 10 ^3/uL Lymphocytes # (Auto) 2.0 0.4-5.4 10 ^3/uL Monocytes # (Auto) 1.0 0-1.3 10 ^3/uL Eosinophils # (Auto) 0 0-0.8 10 ^3/uL Basophils # (Auto) 0.1 0-0.2 10 ^3/uL Nucleated Red Blood Cells 0.0 % Prothrombin Time 11.3 9.3-11.8 sec Prothrombin Time INR 1.07 0.9-1.15 Sodium Level 145 136-145 mmol/L Potassium Level 2.0 *L 3.5-5.1 mmol/L Chloride Level 99 98-107 mmol/L Carbon Dioxide Level 34 H 20-31 mmol/L Anion Gap 12 5-15 Blood Urea Nitrogen 25 H 9-23 mg/dL Creatinine 1.47 H 0.550-1.02 mg/dL Glomerular Filtration Rate Calc 36 >90 mL/min BUN/Creatinine Ratio 17.0 10.0-20.0 Serum Glucose 255 H 74-106 mg/dL Calcium Level 9.1 8.7-10.4 mg/dL Magnesium Level 1.6 1.6-2.6 mg/dL Total Bilirubin 0.7 0.2-1.0 mg/dL Aspartate Amino Transferase (AST) 40 13-40 U/L Alanine Aminotransferase (ALT) 16 7-40 U/L Alkaline Phosphatase 66 46-116 U/L Troponin I High Sensitivity 6108 *H </=34 ng/L B-Type Natriuretic Peptide 300.93 0-100 pg/mL Total Protein 5.6 L 5.7-8.2 g/dL Albumin 3.7 3.2-4.8 g/dL Current Medications Medications (Trade) Dose Ordered Sig/Edson Route Start Time Stop Time Status Last Admin Vancomycin HCl 250 ml @ 250 mls/hr ONCE ONCE IV 11/02/24 11:45 11/02/24 12:44 DC 11/02/24 13:45 Piperacillin Sod/ Tazobactam Sod 100 ml @ 100 mls/hr ONCE ONCE IV 11/02/24 11:45 11/02/24 12:44 DC 11/02/24 13:45 Potassium Chloride 100 ml @ 50 mls/hr Q2H IV 11/02/24 12:30 11/02/24 20:29 DC 11/02/24 20:40 Sodium Chloride 2,000 ml @ 1,000 mls/hr Q2H ONCE IV 11/02/24 12:30 11/02/24 14:29 DC 11/02/24 13:45 Midazolam HCl 50 ml @ 1 mls/hr Q24H IV 11/02/24 12:45 11/02/24 11:13 Etomidate 15 mg ONCE ONCE IV 11/02/24 12:45 11/02/24 12:46 DC 11/02/24 12:46 Rocuronium [place] 50 mg ONCE ONCE IV 11/02/24 12:45 11/02/24 12:46 DC 11/02/24 12:47 Hydralazine HCl (Apresoline Injection) 15 mg ONCE ONCE IV 11/02/24 13:30 11/02/24 14:08 DC 11/02/24 13:30 Magnesium Sulfate/ Dextrose 100 ml @ 100 mls/hr ONCE ONCE IV 11/02/24 14:30 11/02/24 15:29 DC 11/02/24 16:00 Enoxaparin Sodium (Lovenox) 50 mg ONCE ONCE SC 11/02/24 15:00 11/02/24 15:03 DC 11/02/24 15:18 PROCEDURE(s): CTH - STROKE CTH REASON: RULE OUT BLEED ORDER NUMBER(s): [id number], ACCESSION NUMBER(s): [id number] CT STROKE CTH Indication: RULE OUT BLEED EXAM DATE: 11/02/2024 11:25 AM COMPARISON: CT HEAD WITHOUT CONTRAST on DOS: 09/23/24, CT HEAD WITHOUT CONTRAST on DOS: 01/08/24 TECHNIQUE: CT of the head without intravenous contrast. RADIATION DOSE: CTDIvol: 56.5 mGy, DLP: 1113 mGy*cm FINDINGS: There is no intracranial hemorrhage. There is no extra-axial fluid, mass, mass effect or midline shift. The ventricles are midline and normal in size. Basilar cisterns are patent. There are mild periventricular and subcortical white matter chronic microvascular ischemic changes. There is mild global cerebral volume loss. The mastoids are well pneumatized. Bilateral maxillary uncinectomy. Mucosal thickening of the bilateral maxillary sinuses.. Imaged portion of the orbits are unremarkable. IMPRESSION: No intracranial hemorrhage or mass effect. Mild chronic microvascular ischemic changes. Mild global cerebral volume loss. EDURE(s): CXR1 - CHEST XRAY 1 VIEW REASON: PLACEMENT CONFIRMATION FOR CENTRAL LINE AND OG TUBE ORDER NUMBER(s): [id number], ACCESSION NUMBER(s): [id number] EXAM: XY CHEST XRAY 1 VIEW Indication: PLACEMENT CONFIRMATION FOR CENTRAL LINE AND OG TUBE Technique: Single frontal view of the chest was obtained Comparison: XY CHEST XRAY 1 VIEW on DOS: 11/02/24, XR CHEST 2 VIEW on DOS: 06/27/24, CHEST PORTABLE on DOS: 10/31/21, CXRP on DOS: 10/31/21, CHEST TWO VIEWS ROUTINE on DOS: 12/17/20 FINDINGS: Lines and Tubes: Endotracheal tube projects 2.7 cm above the eagle. Right internal jugular central venous catheter tip projects over the cavoatrial junction. Enteric tube is not well visualized due to technique of exam. Lungs: Pulmonary edema. Pleura: No effusion. No pneumothorax. Cardiomediastinal contours: Unremarkable Bones: No acute osseous abnormality. IMPRESSION: Endotracheal tube projects 2.7 cm above the eagle. Right internal jugular central venous catheter tip projects over the cavoatrial junction. Enteric tube is not well visualized due to technique of exam. EDURE(s): CXR1 - CHEST XRAY 1 VIEW REASON: TUBE PLACEMENT ORDER NUMBER(s): [id number], ACCESSION NUMBER(s): [id number] EXAM: XY CHEST XRAY 1 VIEW Indication: TUBE PLACEMENT Technique: Single frontal view of the chest was obtained Comparison: XR CHEST 2 VIEW on DOS: 06/27/24, CHEST PORTABLE on DOS: 10/31/21, CXRP on DOS: 10/31/21, CHEST TWO VIEWS ROUTINE on DOS: 12/17/20 FINDINGS: Lines and Tubes: Endotracheal tube projects 4.8 cm above the eagle. Lungs: No focal consolidation. Diffuse interstitial opacities. Pleura: No effusion. No pneumothorax. Cardiomediastinal contours: Unremarkable. Atherosclerotic vascular calcifications of the thoracic aorta are noted. Bones: No acute osseous abnormality. IMPRESSION: Endotracheal tube in appropriate position. Pulmonary edema versus atypical infection. Time of 1ST Reevaluation: 12:00 Reevaluation 1ST: Unchanged Time of 2ND Reevaluation: 13:00 Reevaluation 2ND: Unchanged Consultation: Cardiology Patient Education/Counseling: Pt Unresponsive Family Education/Counseling: No Family Present SEPSIS Sepsis Screen Date sepsis recognized/suspect: Nov 02, 2024 Physician Orders Blood Culture (11/02/24 10:54) Urine Bacterial Culture (11/02/24 10:54) Respiratory Culture W/ Gs (11/02/24 10:54) Ct Head Cva (11/02/24 11:15) Chest Xray 1 View (11/02/24 11:15) Ventilator Orders (11/02/24 11:10) Abg W/ Co-Ox (11/02/24 12:15) Midazolam Drip 50 Mg/50ml (Versed Drip 5 (11/02/24 12:45) Chest Xray 1 View (11/02/24 13:06) * Cardiology Consult (11/02/24 13:47) Ventilator Orders (11/02/24 13:40) Abg W/ Co-Ox (11/02/24 15:30) Echo 2d Mode Cardiac Dop (11/02/24 14:54) Vital Signs Date Time Temp Pulse Resp B/P (MAP) Pulse Ox O2 Delivery O2 Flow Rate FiO2 11/02/24 14:57 74 18 156/119 (131) 90 11/02/24 14:50 204/81 11/02/24 14:41 76 18 170/62 (98) 90 11/02/24 14:26 74 18 204/81 (122) 11/02/24 13:50 192/93 11/02/24 13:41 68 18 192/93 (126) 90 11/02/24 13:40 62 16 192/93 (126) 100 50 11/02/24 13:30 212/80 11/02/24 13:29 64 18 190/85 (120) 90 11/02/24 13:26 65 18 210/85 (126) 90 11/02/24 12:50 218/98 11/02/24 12:47 218/98 11/02/24 11:13 218/85 11/02/24 11:10 76 18 218/98 (138) 99 100 11/02/24 11:01 101 18 218/98 (138) 90 11/02/24 10:55 101 27 90 Room Air* 0 21 11/02/24 10:55 101 18 218/98 (138) 90 11/02/24 10:48 96.6 81 14 92 96.6 11/02/24 10:37 65 Laboratory Tests Test 11/02/24 11:10 11/02/24 11:55 White Blood Count 13.6 10^3/uL (4.4-10.8) H Lactic Acid Level 1.9 mmol/L (0.4-2.0) Medications Medications Dose Ordered Sig/Edson Route Start Time Stop Time Status Last Admin Dose Admin Enoxaparin Sodium 50 mg ONCE ONCE SC 11/02/24 15:00 11/02/24 15:03 DC 11/02/24 15:18 Etomidate 15 mg ONCE ONCE IV 11/02/24 12:45 11/02/24 12:46 DC 11/02/24 12:46 Hydralazine HCl 15 mg ONCE ONCE IV 11/02/24 13:30 11/02/24 14:08 DC 11/02/24 13:30 Magnesium Sulfate/ Dextrose 100 ml @ 100 mls/hr ONCE ONCE IV 11/02/24 14:30 11/02/24 15:29 DC 11/02/24 16:00 Midazolam HCl 50 ml @ 1 mls/hr Q24H IV 11/02/24 12:45 11/02/24 11:13 Piperacillin Sod/ Tazobactam Sod 100 ml @ 100 mls/hr ONCE ONCE IV 11/02/24 11:45 11/02/24 12:44 DC 11/02/24 13:45 Potassium Chloride 100 ml @ 50 mls/hr Q2H IV 11/02/24 12:30 11/02/24 20:29 DC 11/02/24 20:40 Rocuronium [place] 50 mg ONCE ONCE IV 11/02/24 12:45 11/02/24 12:46 DC 11/02/24 12:47 Sodium Chloride 2,000 ml @ 1,000 mls/hr Q2H ONCE IV 11/02/24 12:30 11/02/24 14:29 DC 11/02/24 13:45 Vancomycin HCl 250 ml @ 250 mls/hr ONCE ONCE IV 11/02/24 11:45 11/02/24 12:44 DC 11/02/24 13:45 Departure 1 Departure Time of Disposition: 13:44 Impression: Primary Impression: Altered mental status Additional Impressions: NSTEMI (non-ST elevated myocardial infarction) Sepsis Disposition: ADMITTED INPATIENT Admit to: ICU Condition: Critical Critical Care Note Critical Care Time?: Yes (>90min-critical care time only) Critical care comment: Critical care time including multiple bedside re-evaluations, review of lab and imaging studies, and discussion of the case with the admitting and consulting providers. Patient is high risk for respiratory, neurologic and/or hemodynamic decompensation. Stability Stability form required: No Heart Score Heart Score: Heart Score Response (Comments) Value History Highly Suspicious 2 EKG Repolarization Disturb 1 Age >65 2 Risk Factors >3 or Hx ASHD 2 Troponin >3 x's Normal limit 2 Total 9 CODY SCHULZ Nov 02, 2024 10:45 AMKENZIE MARTINEZ MD Nov 02, 2024 22:19
[2024-11-02] MEDS: ETOMIDATE (2MG/ML) 20ML VIAL IV ONE ×2 (11:10→12:46)
[2024-11-02] MEDS: ROCURONIUM 10MG/ML 10ML VIAL IV ONE ×2 (11:10→12:47)
[2024-11-02] MEDS: MIDAZOLAM DRIP 50 mg/50mL 50 ML IV ONE (11:11)
[2024-11-02] MEDS: MIDAZOLAM DRIP 50 mg/50mL 50 ML IV SCH (11:13)
[2024-11-02 11:34] LABS: Hematocrit 33.0 % (36.0-46.0); Hemoglobin 11.8 g/dL (12.2-16.2); Mean Corpuscular Hemoglobin 30.3 pg (28.0-32.0); Mean Corpuscular Volume 84.9 fL (80.0-100.0); Nucleated Red Blood Cells % 0.0 %
[2024-11-02 11:46] LABS: INR 1.07 (0.9-1.15); Prothrombin Time 11.3 sec (9.3-11.8)
--- NOTE | 2024-11-02 11:47 | DVH ---
EXAM: XY CHEST XRAY 1 VIEW Indication: TUBE PLACEMENT Technique: Single frontal view of the chest was obtained Comparison: XR CHEST 2 VIEW on DOS: 06/27/24, CHEST PORTABLE on DOS: 10/31/21, CXRP on DOS: 10/31/21, CHES T TWO VIEWS ROUTINE on DOS: 12/17/20 FINDINGS: Lines and Tubes: Endotracheal tube projects 4.8 cm above the eagle. Lungs: No focal consolidation. Diffuse interstitial opacities. Pleura: No effusion. No pneumothorax. Cardiomediastinal contours: Unremarkable. Atherosclerotic vascular calcifications of the thoracic ao rta are noted. Bones: No acute osseous abnormality. IMPRESSION: Endotracheal tube in appropriate position. Pulmonary edema versus atypical infection.
[2024-11-02 11:50] LABS: Alanine Aminotransferase 16 U/L (7-40); Albumin 3.7 g/dL (3.2-4.8); Alkaline Phosphatase 66 U/L (46-116); Anion Gap 12 (5-15); BUN/Creatinine Ratio 17.0 (10.0-20.0); Calcium 9.1 mg/dL (8.7-10.4); Chloride 99 mmol/L (98-107); Magnesium 1.6 mg/dL (1.6-2.6); Sodium 145 mmol/L (136-145)
[2024-11-02 11:51] LABS: Blood Urea Nitrogen 25 mg/dL (9-23); Carbon Dioxide 34 mmol/L (20-31); Glucose 255 mg/dL (74-106); Total Protein 5.6 g/dL (5.7-8.2)
[2024-11-02 11:52] LABS: Potassium 2.0 mmol/L (3.5-5.1)
--- NOTE | 2024-11-02 12:19 | DVH ---
CT STROKE CTH Indication: RULE OUT BLEED EXAM DATE: 11/02/2024 11:25 AM COMPARISON: CT HEAD WITHOUT CONTRAST on DOS: 09/23/24, CT HEAD WITHOUT CONTRAST on DOS: 01/08/24 TECHNIQUE: CT of the head without intravenous contrast. RADIATION DOSE: CTDIvol: 56.5 mGy, DLP: 1113 mGy*cm FINDINGS: There is no intracranial hemorrhage. There is no extra-axial fluid, mass, mass effect or midline shif t. The ventricles are midline and normal in size. Basilar cisterns are patent. There are mild periven tricular and subcortical white matter chronic microvascular ischemic changes. There is mild global ce rebral volume loss. The mastoids are well pneumatized. Bilateral maxillary uncinectomy. Mucosal thickening of the bilate ral maxillary sinuses.. Imaged portion of the orbits are unremarkable. IMPRESSION: No intracranial hemorrhage or mass effect. Mild chronic microvascular ischemic changes. Mild global cerebral volume loss.
[2024-11-02 12:37] LABS: Urine Protein, UAD 2+ (Negative)
[2024-11-02 12:39] LABS: Bilirubin, Total 0.7 mg/dL (0.2-1.0)
[2024-11-02] MEDS: hydrALAZINE HCL 20 MG/ML VL IV ONE (13:30)
[2024-11-02 13:31] LABS: Base Excess 9.2 mmol/L (-2.0-3.0)
[2024-11-02] MEDS: VANCOMYCIN 1GM/250ML KIT 250 ML IV ONE (13:45)
[2024-11-02] MEDS: POTASSIUM CHL 20MEQ/100ML 100 ML IV SCH (13:45)
[2024-11-02] MEDS: SODIUM CHLORIDE 0.9% 2,000 ML IV ONE (13:45)
[2024-11-02] MEDS: PIPERACILLIN-TAZOB 3.375GM 100 ML IV ONE (13:45)
[2024-11-02 13:53] LABS: Benzodiazephine Screen, Urine Neg (NEGATIVE)
[2024-11-02 13:58] LABS: Amphetamine Screen, Urine Neg (NEGATIVE); Barbiturate Scree,Urine Neg (NEGATIVE); Cannabinoid Screen, Urine Neg (NEGATIVE); Cocaine Screen, Urine Neg (NEGATIVE); Opiate Scree,Urine Neg (NEGATIVE); Phencyclidine Screen, Urine Neg (NEGATIVE)
--- NOTE | 2024-11-02 14:00 | DVH ---
EXAM: XY CHEST XRAY 1 VIEW Indication: PLACEMENT CONFIRMATION FOR CENTRAL LINE AND OG TUBE Technique: Single frontal view of the chest was obtained Comparison: XY CHEST XRAY 1 VIEW on DOS: 11/02/24, XR CHEST 2 VIEW on DOS: 06/27/24, CHEST PORTABLE on D OS: 10/31/21, CXRP on DOS: 10/31/21, CHEST TWO VIEWS ROUTINE on DOS: 12/17/20 FINDINGS: Lines and Tubes: Endotracheal tube projects 2.7 cm above the eagle. Right internal jugular central v enous catheter tip projects over the cavoatrial junction. Enteric tube is not well visualized due to technique of exam. Lungs: Pulmonary edema. Pleura: No effusion. No pneumothorax. Cardiomediastinal contours: Unremarkable Bones: No acute osseous abnormality. IMPRESSION: Endotracheal tube projects 2.7 cm above the eagle. Right internal jugular central venous catheter ti p projects over the cavoatrial junction. Enteric tube is not well visualized due to technique of exam .
[2024-11-02 14:01] LABS: COVID19 ANTIGEN SOFIA FIA NEGATIVE (NEGATIVE)
--- NOTE | 2024-11-02 14:26 | DVHINCON2 ---
Date Seen: Nov 02, 2024 Referring Physician MD Ann Marie Reason for Consultation NSTEMI History of Present Illness This is a 79-year-old female who presented to the emergency room via [facility] facility with a chief complaint of ALOC. At time of assessment, the patient was found endotracheally intubated with 50% FiO2, chemically sedated, the systolic blood pressures in the 200s mmHg. Information obtained from records and primary RN. It appears the patient was found to be altered today and last seen normal at 2200 last night. She presented with oxygen support via nasopharyngeal airway with a associated agonal breathing and subsequently endotracheally intubated for airway protection within the emergency room. She was medicated with NS x5 100 mL EN route to the hospital. A 12 lead electrocardiogram revealed a sinus rhythm with diffuse T-wave segment depression. satellite project site monitor revealed ventricular bigeminy. Serial troponin levels are trending up with latest >8500s ng/L. Significant medical history includes hypertension, dyslipidemia, insulin-dependent diabetes mellitus, thyroid disease, gout, and history of COVID-19 pneumonia. Past Medical History Past medical history reviewed. No other significant than mentioned above. Past Surgical History Ventral hernia repair Family History Unable to obtain family history at this time. Social History Unable to obtain social history at this time. Allergies: Coded Allergies: UNOBTAINABLE (Unverified , 11/02/24) Home Meds Reported Medications Metformin Hydrochloride (Glumetza) 500 Mg Tab, 500 MG PO DAILY 11/02/24 Lisinopril & Hydrochlorothiazi (Lisinopril/Hydrochlorothi) 1 Tab Tab, 1 TAB PO DAILY, #30 TAB 5 Refills 11/02/24 Carvedilol (Carvedilol) 3.125 Mg Tab, 1 TAB PO BID 11/02/24 Glipizide (Glipizide) 10 Mg Tab, 20 MG PO BID 11/02/24 Home Meds Home medications reviewed. Current Medications Current Medications Medications (Trade) Dose Ordered Sig/Edson Route PRN Reason Start Time Stop Time Status Last Admin Potassium Chloride 100 ml @ 50 mls/hr Q2H IV 11/02/24 12:30 11/02/24 20:29 11/02/24 13:45 Midazolam HCl 50 ml @ 1 mls/hr Q24H IV 11/02/24 12:45 11/02/24 12:50 Review of Systems Constitutional: No symptom reported Ears, Nose, & Throat: No symptom reported Eyes: No symptom reported Neurological: ALOC Pulmonary/Respiratory: SOB Cardiovascular: No symptom reported Gastrointestinal: No symptom reported Genitourinary: No symptom reported Musculoskeletal: No symptom reported Skin: No symptom reported Psychiatric: No symptom reported Endocrine: No symptom reported Hemotologic/Lymphatic: No symptom reported Vital Signs Vital Signs Date Time Temp Pulse Resp B/P (MAP) Pulse Ox O2 Delivery O2 Flow Rate FiO2 11/02/24 12:50 218/98 11/02/24 11:10 76 18 99 100 11/02/24 10:55 Room Air* 0 11/02/24 10:48 96.6 96.6 Physical Exam General Appearance: Chemically sedated. Withdrawn. Endotracheally intubated Head Exam: Normal inspection Neck Exam: Normal inspection. Normal alignment Pulmonary/Respiratory: Clear bilateral breath sounds. Endotracheally intubated with 50% FiO2, PEEP 5.0 Cardiovascular/Chest: Regular rate and rhythm. S1, S2. Sinus rhythm with ventricular bigeminy. No murmurs. No JVD. Peripheral Pulses: 2+ Radial (R). 2+ Radial (L). 2+ Pedal (R). 2+ Pedal (L) Abdominal Exam: Normal bowel sounds. Soft Ankle Exam: Negative ankle edema Lower extremities: Negative lower extremity edema Neuro/Mental Status: Chemically sedated. PERRLA. Positive cough/gag reflex Thoughts/Psych: Unable to assess at this time Appearance: Withdrawn Skin Exam: Normal inspection. Normal color. Warm. Dry Labs/Diagnostic Data Labs Test 11/02/24 14:02 11/02/24 13:21 11/02/24 13:18 11/02/24 12:17 Range/Units Blood Gas Specimen Type Arterial Blood Gas Sample Site Right radial Blood Gas Patient Temperature 37.0 Arterial Blood Date Drawn [id number] Arterial Blood pH 7.526 H 7.350-7.450 Arterial Blood Partial Pressure CO2 40.4 32.0-45.0 mmHg Arterial Blood Partial Pressure O2 462.9 *H 83.0-108.0 mmHg Arterial Blood HCO3 32.7 H 21.0-28.0 mmol/L Arterial Blood Oxygen Saturation 99.3 H 94.0-98.0 % Arterial Blood Base Excess 9.2 H -2.0-3.0 mmol/L Arterial Blood Oxyhemoglobin 98.0 94.0-98.0 % Arterial Blood Carboxyhemoglobin 0.3 L 0.5-1.5 % Arterial Blood Methemoglobin 1.0 0.0-1.5 % Prem Test Modified Blood Gas Total Hemoglobin 12.00 12.0-16.0 g/dL Blood Gas Set Respiration Rate 18.0 Blood Gas Modality Vent - ac Blood Gas Spontaneous Rate 18 FiO2 % 100.0 Blood Gas Tidal Volume 400.0 Blood Gas PEEP or CPAP 5.0 Specimen Drawn By Blood Gas Critical Value Read Back Yes Blood Gas Notified Whom Blood Gas Notified Time [id number] Blood Gas Notified By Kimberly avery rt Influenza Type A Antigen Negative Negative Influenza Type B Antigen Negative Negative SARS-CoV-2 Antigen (Rapid) Negative NEGATIVE Urine Color Light-yellow Yellow Urine Clarity Turbid H Clear Urine pH 7.0 5.0-9.0 Urine Specific [place] 1.010 1.001-1.035 Urine Protein 2+ H Negative Urine Ketones Negative Negative Urine Blood 1+ H Negative /uL Urine Nitrite Negative Negative Urine Bilirubin Negative Negative Urine Urobilinogen Normal Negative mg/dL Urine Leukocyte Esterase Trace Negative /uL Urine RBC 2 0 - 4 /hpf Urine Microscopic WBC 15 H 0-5 /HPF Urine Squamous Epithelial Cells Few <5 /hpf Urine Bacteria None seen None Seen /hpf Urine Hyaline Casts Few 0 - 2 /lpf Urine Glucose Trace Normal mg/dL Urine Opiates Screen Neg NEGATIVE Urine Fentanyl Screen Neg NEGATIVE Urine Barbiturates Screen Neg NEGATIVE Urine Phencyclidine Screen Neg NEGATIVE Urine Amphetamines Screen Neg NEGATIVE Urine Benzodiazepines Screen Neg NEGATIVE Urine Cocaine Screen Neg NEGATIVE Urine Cannabinoids Screen Neg NEGATIVE Test 11/02/24 11:55 11/02/24 11:10 Range/Units Lactic Acid Level 1.9 0.4-2.0 mmol/L White Blood Count 13.6 H 4.4-10.8 10^3/uL Red Blood Count 3.89 L 4.0-5.20 10^6/uL Hemoglobin 11.8 L 12.2-16.2 g/dL Hematocrit 33.0 L 36.0-46.0 % Mean Corpuscular Volume 84.9 80.0-100.0 fL Mean Corpuscular Hemoglobin 30.3 28.0-32.0 pg Mean Corpuscular Hemoglobin Concent 35.6 32.0-36.0 g/dL Red Cell Distribution Width 13.9 11.8-14.3 % Platelet Count 220 140-450 10^3/uL Mean Platelet Volume 7.5 6.9-10.8 fL Neutrophils (%) (Auto) 77.0 37.0-80.0 % Lymphocytes (%) (Auto) 14.9 10.0-50.0 % Monocytes (%) (Auto) 7.3 0.0-12.0 % Eosinophils (%) (Auto) 0.4 0.0-7.0 % Basophils (%) (Auto) 0.4 0.0-2.0 % Neutrophils # (Auto) 10.5 H 1.6-8.6 10 ^3/uL Lymphocytes # (Auto) 2.0 0.4-5.4 10 ^3/uL Monocytes # (Auto) 1.0 0-1.3 10 ^3/uL Eosinophils # (Auto) 0 0-0.8 10 ^3/uL Basophils # (Auto) 0.1 0-0.2 10 ^3/uL Nucleated Red Blood Cells 0.0 % Prothrombin Time 11.3 9.3-11.8 sec Prothrombin Time INR 1.07 0.9-1.15 Sodium Level 145 136-145 mmol/L Potassium Level 2.0 *L 3.5-5.1 mmol/L Chloride Level 99 98-107 mmol/L Carbon Dioxide Level 34 H 20-31 mmol/L Anion Gap 12 5-15 Blood Urea Nitrogen 25 H 9-23 mg/dL Creatinine 1.47 H 0.550-1.02 mg/dL Glomerular Filtration Rate Calc 36 >90 mL/min BUN/Creatinine Ratio 17.0 10.0-20.0 Serum Glucose 255 H 74-106 mg/dL Calcium Level 9.1 8.7-10.4 mg/dL Magnesium Level 1.6 1.6-2.6 mg/dL Total Bilirubin 0.7 0.2-1.0 mg/dL Aspartate Amino Transferase (AST) 40 13-40 U/L Alanine Aminotransferase (ALT) 16 7-40 U/L Alkaline Phosphatase 66 46-116 U/L B-Type Natriuretic Peptide 300.93 0-100 pg/mL Total Protein 5.6 L 5.7-8.2 g/dL Albumin 3.7 3.2-4.8 g/dL Assessment Hypertensive emergency with acute encephalopathy Ventricular bigeminy in the setting of severe hypokalemia/hypomagnesemia NSTEMI, likely type II secondary to above Rule out primary aldosteronism Insulin-dependent diabetes mellitus Dyslipidemia Hypothyroidism Gout Plan/Recommendation (Dr. Sampson) Transthoracic echocardiogram from 01/11/2024 revealed LVEF 55% with grade 1 diastolic dysfunction and normal rapid ventricular systolic function. Repeat transthoracic echocardiogram. Initiate parenteral administration of Nicardipine drip for blood pressure control. Renin/aldosterone levels pending. Replete electrolytes as necessary. Initiate therapeutic Lovenox. Continue single- antiplatelet therapy and lipid-lowering agent. Trend troponin levels closely as well as ECG changes. Repeat ECG in the morning. Further orders per clinical course. Thank you for allowing us to participate in this patient's care. Please call if you have any questions or concerns. Of note, patient has another . Critical care time: 40 min. This medical document was created using an electronic medical record system with voice recognition software and computerized dictation system. Although this document has been carefully reviewed, there might still be some phonetic and typographical errors. Occasional wrong-word or ``sound-alike substitutions may have occurred due to the inherent limitations of voice recognition software. These areas are purely typographical due to imperfections of the software programs and do not reflect any compromise in the patient's medical care. Please read the chart carefully and recognize, using context, where these substitutions have occurred. Plan discussed with: Other NYHA Physical activity limitations: NA Date of Service: Nov 02, 2024 Billing Provider: RENEE AVILA Cardiology Common Codes: [id number] CARE 30-74 MIN RENEE AVILA Nov 02, 2024 14:25
[2024-11-02] MEDS ORDERED: NITROGLYCERIN 0.4 MG SL TAB SL PRN (15:00)
[2024-11-02] MEDS ORDERED: MORPHINE SULFATE INJ 2 MG/ml SYRG IV PRN (15:00)
[2024-11-02 15:05] LABS: Cholesterol 180 mg/dL (< 200)
[2024-11-02 15:06] LABS: HDL Cholesterol 27 mg/dL (40-59); Triglycerides 202 mg/dL (< 150)
[2024-11-02] MEDS ORDERED: VANCOMYCIN PER PHARMACY 0 MG IV SCH (15:15)
[2024-11-02] MEDS: ENOXAPARIN SOD 100 MG/1 ML SYRINGE SC ONE (15:18)
[2024-11-02] MEDS: ATORVASTATIN 20 MG TAB PO ONE (15:30)
[2024-11-02 15:35] LABS: Base Excess 6.8 mmol/L (-2.0-3.0)
[2024-11-02] MEDS ORDERED: DEXTROSE (50%) 50ML SYRG IV PRN (15:45)
--- NOTE | 2024-11-02 15:52 | DVHHP2 ---
History of Present Illness Reason for Visit: ALOC History of Present Illness Nannette Frank is a 79-year-old male with past medical history of hypertension, CHF, and diabetes, who was brought to the hospital by EMS for ALOC. Patient lives in a [facility] and [facility] facility. This morning the roommate noticed that the patient was not breathing well or responding. She alerted staff and EMS was called. Patient was last seen well last night about 2200. When EMS arrived they found her to be only responsive to pain. Patient was brought to the hospital and intubated shortly after arrival. Cardiovascular: CHF, HTN Endocrine: Diabetes Past Surgical History: Appendectomy, Cholecystectomy, Hysterectomy, Hernia Repair Smoke: No ALCOHOL: none Drugs: None Lives: Other ([facility] and [facility]) Review of Systems Review of Systems unable to obtain Allergies: Coded Allergies: UNOBTAINABLE (Unverified , 11/02/24) Medications Current Medications Medications Dose Ordered Sig/Edson Route Start Time Stop Time Status Last Admin Dose Admin Potassium Chloride 100 ml @ 50 mls/hr Q2H IV 11/02/24 12:30 11/02/24 20:29 11/02/24 13:45 50 MLS/HR Midazolam HCl 50 ml @ 1 mls/hr Q24H IV 11/02/24 12:45 11/02/24 12:50 1 MLS/HR Nicardipine HCl 250 ml @ 50 mls/hr Q5H IV 11/02/24 14:30 UNV Enoxaparin Sodium 50 mg DAILY SC 11/03/24 10:00 Nicardipine/ Sodium Chloride 200 ml @ 50 mls/hr Q4H IV 11/02/24 15:15 Ondansetron HCl 4 mg Q4HP PRN IV 11/02/24 15:00 Acetaminophen 650 mg Q6HP PRN PO 11/02/24 15:00 Nitroglycerin 0.4 mg Q5MINP PRN SL 11/02/24 15:00 Morphine Sulfate 2 mg Q30M PRN IV 11/02/24 15:00 Exam Vital Signs Vital Signs Date Time Temp Pulse Resp B/P (MAP) Pulse Ox O2 Delivery O2 Flow Rate FiO2 11/02/24 13:30 212/80 11/02/24 11:10 76 18 99 100 11/02/24 10:55 Room Air* 0 11/02/24 10:48 96.6 96.6 General Appearance: Other (sedated) HEENT: Atraumatic, PERRLA Respiratory: Other (Intubated, Diminished breath sounds) Cardiovascular: Other (bigeminy) Abdominal: Normal bowel sounds, Soft, No tenderness Extremities: No clubbing, No cyanosis, No edema, Normal pulses Skin: No rashes, No breakdown, No significant lesion Neuro: Other (sedated and intubated) Labs/Xrays Labs Test 11/02/24 14:02 11/02/24 13:21 11/02/24 13:18 11/02/24 12:17 Range/Units Troponin I High Sensitivity 8513 *H </=34 ng/L Triglycerides Level 202 H < 150 mg/dL Cholesterol Level 180 < 200 mg/dL LDL Cholesterol 127 H < 100 mg/dL HDL Cholesterol 27 L 40-59 mg/dL Thyroid Stimulating Hormone (TSH) 4.66 0.55-4.78 uIU/mL Blood Gas Specimen Type Arterial Blood Gas Sample Site Right radial Blood Gas Patient Temperature 37.0 Arterial Blood Date Drawn [id number] Arterial Blood pH 7.526 H 7.350-7.450 Arterial Blood Partial Pressure CO2 40.4 32.0-45.0 mmHg Arterial Blood Partial Pressure O2 462.9 *H 83.0-108.0 mmHg Arterial Blood HCO3 32.7 H 21.0-28.0 mmol/L Arterial Blood Oxygen Saturation 99.3 H 94.0-98.0 % Arterial Blood Base Excess 9.2 H -2.0-3.0 mmol/L Arterial Blood Oxyhemoglobin 98.0 94.0-98.0 % Arterial Blood Carboxyhemoglobin 0.3 L 0.5-1.5 % Arterial Blood Methemoglobin 1.0 0.0-1.5 % Prem Test Modified Blood Gas Total Hemoglobin 12.00 12.0-16.0 g/dL Blood Gas Set Respiration Rate 18.0 Blood Gas Modality Vent - ac Blood Gas Spontaneous Rate 18 FiO2 % 100.0 Blood Gas Tidal Volume 400.0 Blood Gas PEEP or CPAP 5.0 Specimen Drawn By Blood Gas Critical Value Read Back Yes Blood Gas Notified Whom Blood Gas Notified Time [id number] Blood Gas Notified By Kimberly avery rt Influenza Type A Antigen Negative Negative Influenza Type B Antigen Negative Negative SARS-CoV-2 Antigen (Rapid) Negative NEGATIVE Urine Color Light-yellow Yellow Urine Clarity Turbid H Clear Urine pH 7.0 5.0-9.0 Urine Specific [place] 1.010 1.001-1.035 Urine Protein 2+ H Negative Urine Ketones Negative Negative Urine Blood 1+ H Negative /uL Urine Nitrite Negative Negative Urine Bilirubin Negative Negative Urine Urobilinogen Normal Negative mg/dL Urine Leukocyte Esterase Trace Negative /uL Urine RBC 2 0 - 4 /hpf Urine Microscopic WBC 15 H 0-5 /HPF Urine Squamous Epithelial Cells Few <5 /hpf Urine Bacteria None seen None Seen /hpf Urine Hyaline Casts Few 0 - 2 /lpf Urine Glucose Trace Normal mg/dL Urine Opiates Screen Neg NEGATIVE Urine Fentanyl Screen Neg NEGATIVE Urine Barbiturates Screen Neg NEGATIVE Urine Phencyclidine Screen Neg NEGATIVE Urine Amphetamines Screen Neg NEGATIVE Urine Benzodiazepines Screen Neg NEGATIVE Urine Cocaine Screen Neg NEGATIVE Urine Cannabinoids Screen Neg NEGATIVE Test 11/02/24 11:55 11/02/24 11:10 Range/Units Lactic Acid Level 1.9 0.4-2.0 mmol/L White Blood Count 13.6 H 4.4-10.8 10^3/uL Red Blood Count 3.89 L 4.0-5.20 10^6/uL Hemoglobin 11.8 L 12.2-16.2 g/dL Hematocrit 33.0 L 36.0-46.0 % Mean Corpuscular Volume 84.9 80.0-100.0 fL Mean Corpuscular Hemoglobin 30.3 28.0-32.0 pg Mean Corpuscular Hemoglobin Concent 35.6 32.0-36.0 g/dL Red Cell Distribution Width 13.9 11.8-14.3 % Platelet Count 220 140-450 10^3/uL Mean Platelet Volume 7.5 6.9-10.8 fL Neutrophils (%) (Auto) 77.0 37.0-80.0 % Lymphocytes (%) (Auto) 14.9 10.0-50.0 % Monocytes (%) (Auto) 7.3 0.0-12.0 % Eosinophils (%) (Auto) 0.4 0.0-7.0 % Basophils (%) (Auto) 0.4 0.0-2.0 % Neutrophils # (Auto) 10.5 H 1.6-8.6 10 ^3/uL Lymphocytes # (Auto) 2.0 0.4-5.4 10 ^3/uL Monocytes # (Auto) 1.0 0-1.3 10 ^3/uL Eosinophils # (Auto) 0 0-0.8 10 ^3/uL Basophils # (Auto) 0.1 0-0.2 10 ^3/uL Nucleated Red Blood Cells 0.0 % Prothrombin Time 11.3 9.3-11.8 sec Prothrombin Time INR 1.07 0.9-1.15 Sodium Level 145 136-145 mmol/L Potassium Level 2.0 *L 3.5-5.1 mmol/L Chloride Level 99 98-107 mmol/L Carbon Dioxide Level 34 H 20-31 mmol/L Anion Gap 12 5-15 Blood Urea Nitrogen 25 H 9-23 mg/dL Creatinine 1.47 H 0.550-1.02 mg/dL Glomerular Filtration Rate Calc 36 >90 mL/min BUN/Creatinine Ratio 17.0 10.0-20.0 Serum Glucose 255 H 74-106 mg/dL Calcium Level 9.1 8.7-10.4 mg/dL Magnesium Level 1.6 1.6-2.6 mg/dL Total Bilirubin 0.7 0.2-1.0 mg/dL Aspartate Amino Transferase (AST) 40 13-40 U/L Alanine Aminotransferase (ALT) 16 7-40 U/L Alkaline Phosphatase 66 46-116 U/L B-Type Natriuretic Peptide 300.93 0-100 pg/mL Total Protein 5.6 L 5.7-8.2 g/dL Albumin 3.7 3.2-4.8 g/dL EXAM: XY CHEST XRAY 1 VIEW FINDINGS: Lines and Tubes: Endotracheal tube projects 4.8 cm above the eagle. Lungs: No focal consolidation. Diffuse interstitial opacities. Pleura: No effusion. No pneumothorax. Cardiomediastinal contours: Unremarkable. Atherosclerotic vascular calcifications of the thoracic aorta are noted. Bones: No acute osseous abnormality. IMPRESSION: Endotracheal tube in appropriate position. Pulmonary edema versus atypical infe ction. CT STROKE CTH FINDINGS: There is no intracranial hemorrhage. There is no extra-axial fluid, mass, mass effect or midline shift. The ventricles are midline and normal in size. Basilar cisterns are patent. There are mild periventricular and subcortical white matter chronic microvascular ischemic changes. There is mild global cerebral volume loss. The mastoids are well pneumatized. Bilateral maxillary uncinectomy. Mucosal thickening of the bilateral maxillary sinuses.. Imaged portion of the orbits are unremarkable. IMPRESSION: No intracranial hemorrhage or mass effect. Mild chronic microvascular ischemic changes. Mild global cerebral volume loss. SEPSIS Sepsis Screen Date sepsis recognized/suspect: Nov 02, 2024 Time Sepsis recognized/suspect: 1043 Recent Procedure: No On Antibiotic Therapy: No Respiratory Rate >20: No Heart Rate >90: No Temp<36 C (96.8 F) or >38.3 C: Yes SBP <90 or MAP <65 mmHG: No New Acute Mental Status Change: Yes Is the patient on CPAP, BIPAP,: No Physician Orders Blood Culture (11/02/24 10:54) Urine Bacterial Culture (11/02/24 10:54) Respiratory Culture W/ Gs (11/02/24 10:54) Ct Head Cva (11/02/24 11:15) Chest Xray 1 View (11/02/24 11:15) Ventilator Orders (11/02/24 11:10) Abg W/ Co-Ox (11/02/24 12:15) Troponin-I Hs (11/02/24 15:08) Potassium Chl 20meq/100ml (11/02/24 12:30) Midazolam Drip 50 Mg/50ml (Versed Drip 5 (11/02/24 12:45) Rass Sedation Scale Q1HR (11/02/24 12:36) Chest Xray 1 View (11/02/24 13:06) * Cardiology Consult (11/02/24 13:47) Ventilator Orders (11/02/24 13:40) Abg W/ Co-Ox (11/02/24 15:30) Magnesium Sulfate 1gm/100ml (11/02/24 14:30) Echo 2d Mode Cardiac Dop (11/02/24 14:54) Renin Activity And Aldosterone (11/02/24 15:02) Enoxaparin Sodium (Lovenox) (11/03/24 10:00) Nicardipine Hcl In Sodium Chlo (Cardene (11/02/24 15:15) Admit (11/02/24 15:00) Code Status (11/02/24 15:00) Ondansetron Hcl (Zofran) (11/02/24 15:00) Complete Blood Count (11/03/24 04:00) Comprehensive Metabolic Panel (11/03/24 04:00) Npo (Nothing By Mouth) Diet (11/02/24 Dinner) Condition: Critical (11/02/24 15:00) Acetaminophen Tablet (Tylenol Tablet) (11/02/24 15:00) Nitroglycerin Sublingual (Ntrostat Subli (11/02/24 15:00) Morphine Sulfate Injection (11/02/24 15:00) Stat Ekg For Chest Pain (11/02/24 15:00) Notify Md Of Changes From Base (11/02/24 15:00) Cuff Slitter For 24 Hours (11/02/24 15:00) Emergency Dysrhythmia Protocol (11/02/24 15:00) Rhythm Strips Once Every Shift (11/02/24 15:00) Oxygen By Nasal Cannula (11/02/24 15:00) Brain Head Wo Contrast (11/02/24 15:00) * Neurology Consult (11/02/24 15:00) Vital Signs Date Time Temp Pulse Resp B/P (MAP) Pulse Ox O2 Delivery O2 Flow Rate FiO2 11/02/24 13:30 212/80 11/02/24 12:50 218/98 11/02/24 12:47 218/98 11/02/24 11:10 76 18 218/98 (138) 99 100 11/02/24 10:55 101 27 90 Room Air* 0 21 11/02/24 10:55 101 18 218/98 (138) 90 11/02/24 10:48 96.6 81 14 92 96.6 11/02/24 10:37 65 Laboratory Tests Test 11/02/24 11:10 11/02/24 11:55 White Blood Count 13.6 10^3/uL (4.4-10.8) H Lactic Acid Level 1.9 mmol/L (0.4-2.0) Medications Medications Dose Ordered Sig/Edson Route Start Time Stop Time Status Last Admin Dose Admin Etomidate 15 mg ONCE ONCE IV 11/02/24 12:45 11/02/24 12:46 DC 11/02/24 12:46 15 MG Hydralazine HCl 15 mg ONCE ONCE IV 11/02/24 13:30 11/02/24 14:08 DC 11/02/24 13:30 15 MG Midazolam HCl 50 ml @ 1 mls/hr Q24H IV 11/02/24 12:45 11/02/24 12:50 1 MLS/HR Piperacillin Sod/ Tazobactam Sod 100 ml @ 100 mls/hr ONCE ONCE IV 11/02/24 11:45 11/02/24 12:44 DC 11/02/24 13:45 100 MLS/HR Potassium Chloride 100 ml @ 50 mls/hr Q2H IV 11/02/24 12:30 11/02/24 20:29 11/02/24 13:45 50 MLS/HR Rocuronium [place] 50 mg ONCE ONCE IV 11/02/24 12:45 11/02/24 12:46 DC 11/02/24 12:47 50 MG Sodium Chloride 2,000 ml @ 1,000 mls/hr Q2H ONCE IV 11/02/24 12:30 11/02/24 14:29 DC 11/02/24 13:45 1,000 MLS/HR Vancomycin HCl 250 ml @ 250 mls/hr ONCE ONCE IV 11/02/24 11:45 11/02/24 12:44 DC 11/02/24 13:45 250 MLS/HR Assessment/Plan Assessment/Plan Assessment: NSTEMI (non-ST elevated myocardial infarction), Metabolic encephalopathy, Hypokalemia, Hypertensive crisis, Possible stroke, Leukocytosis, Hyperglycemia, CHF, Plan: Admit to ICU, Cardiology consult, Neurology consult, MRI of brain, Mechanical ventilation, IV antibiotics, Therapeutic Lovenox, IV hydration, ECHO, Blood, urine, respiratory cultures, Accu checks with sliding scale, Plan discussed with: Patient My Orders Orders - AGNES HERCULES [employer] Procedure Category Date Status Time Admit ADMIT 11/02/24 Transmitted 15:00 Code Status CODE 11/02/24 Transmitted 15:00 Ondansetron Hcl PHA 11/02/24 In Process (Zofran) 15:00 Complete Blood Count LAB 11/03/24 Verified 04:00 Comprehensive LAB 11/03/24 Verified Metabolic Panel 04:00 Npo (Nothing By DIET 11/02/24 Transmitted Mouth) Diet Dinner Condition: Critical JUAN RAMON 11/02/24 In Process 15:00 Acetaminophen Tablet PHA 11/02/24 In Process (Tylenol Tablet) 15:00 Nitroglycerin PHA 11/02/24 In Process Sublingual (Ntrostat 15:00 Morphine Sulfate PHA 11/02/24 In Process Injection 15:00 Stat Ekg For Chest [facility] 11/02/24 In Process Pain 15:00 Notify Of Changes [facility] 11/02/24 In Process From Base 15:00 Cuff Slitter For [facility] 11/02/24 In Process 24 Hours 15:00 Emergency Dysrhythmia [facility] 11/02/24 In Process Protocol 15:00 Rhythm Strips Once [facility] 11/02/24 In Process Every Shift 15:00 Oxygen By Nasal RT 11/02/24 Transmitted Cannula 15:00 Brain Head Wo Contrast MRI 11/02/24 Logged 15:00 * Neurology Consult CONS 11/02/24 Transmitted 15:00 Date of Service: Nov 02, 2024 Billing Provider: AGNES HERCULES Common Visit Codes: [id number] INP/OBS CARE (MOD) AGNES HERCULES Nov 02, 2024 15:52
[2024-11-02] MEDS: MAGNESIUM SULFATE 1GM/100ML 100 ML IV ONE (16:00)
[2024-11-02] MEDS ORDERED: VANCOMYCIN 750MG KIT 100 ML IV ONE (16:15)
[2024-11-02] MEDS: ATORVASTATIN 20 MG TAB NG ONE (18:14)
[2024-11-02] MEDS: ACETAMINOPHEN IV 1000 MG/100ML (10MG/ML) IV ONE (18:22)
[2024-11-02] MEDS: InsuLIN REG 1unit/0.01ml Soln (100units/ml) SC SCH (18:37)
[2024-11-02] MEDS: ACCU-CHEK COMFORT CURVE STRIP VI SCH (18:38)
--- NOTE | 2024-11-02 20:37 | DVHINCON2 ---
Date of service: Nov 02, 2024 Referring Physician Leann Reason for Consultation ALOC History of Present Illness Ms. Frank is a 77 years old female with a history of hypertension, diabetes, heart failure, she was brought to the [facility] on 11/02/2024 with a chief complaint of altered mental status. At this time, she is intubated, sedated, only responsive to stroke painful stimuli, the history is obtained from chart review and the his nurse Apparently, he was mentally normal last night around 10:00 p.m. when she was going to bed, but her roommate noticed altered mental status on her in the morning on 11/02/2024, at the scene, her GCS was seven. In the ER her mental status deteriorated, and she also had agonal breathing, as a result she is intubated T-max: 101.3 Urinalysis, 11/02/2024: WBC: 15 urine leukocyte esterase:: Trace UDS, 11/02/2024: Negative WBC/HB/PLT/MCV, 11/02/2024: 13.6/11.8/220/84.9 K 11/02/2024: 2 BUN/CR, 11/02/24: 25/1.47 GFR, 11/02/2024: 36 Troponin one high sensitivity, 11/02/2024: 6108, 5013, 9224 TG/HDL/LDL/HDL, 11/02/2024: 202/IA T/127/27 TSH, 11/02/2024: 4.66 Chest x-ray, 11/02/2024: Endotracheal tube in appropriate position. Pulmonary edema versus atypical infection CT head, 11/02/2024: No intracranial hemorrhage or mass effect. Mild chronic microvascular ischemic changes. Mild global cerebral volume loss. Past Medical History Hypertension, diabetes, heart failure Past Surgical History Denies all surgeries Family History Reviewed,noncontributory to illness, No family hx of Cancer, No family hx of DM, No family hx of Heart sandra, No family hx of HTN, No family hx ofKidney sandra, No family hx of Liver sandra, No family hx of Lung sandra, No family hx of Stroke Social History Smoker: Non-Smoker Alcohol: Denies ETOH Use Drugs: Denies Drug Use Allergies: Coded Allergies: UNOBTAINABLE (Unverified , 11/02/24) Home Meds Reported Medications Metformin Hydrochloride (Glumetza) 500 Mg Tab, 500 MG PO DAILY 11/02/24 Lisinopril & Hydrochlorothiazi (Lisinopril/Hydrochlorothi) 1 Tab Tab, 1 TAB PO DAILY, #30 TAB 5 Refills 11/02/24 Carvedilol (Carvedilol) 3.125 Mg Tab, 1 TAB PO BID 11/02/24 Glipizide (Glipizide) 10 Mg Tab, 20 MG PO BID 11/02/24 Current Medications Current Medications Medications (Trade) Dose Ordered Sig/Edson Route PRN Reason Start Time Stop Time Status Last Admin Potassium Chloride 100 ml @ 50 mls/hr Q2H IV 11/02/24 12:30 11/02/24 20:29 DC 11/02/24 18:38 Midazolam HCl 50 ml @ 1 mls/hr Q24H IV 11/02/24 12:45 11/02/24 11:13 Nicardipine HCl 250 ml @ 50 mls/hr Q5H IV 11/02/24 14:30 UNV Enoxaparin Sodium (Lovenox) 50 mg Q12HR SC 11/02/24 22:00 11/02/24 15:04 DC Enoxaparin Sodium (Lovenox) 50 mg DAILY SC 11/03/24 10:00 Nicardipine/ Sodium Chloride 200 ml @ 50 mls/hr Q4H IV 11/02/24 15:15 11/02/24 15:14 Ondansetron HCl (Zofran) 4 mg Q4HP PRN IV NAUSEA / VOMITING 11/02/24 15:00 Acetaminophen (Tylenol Tablet) 650 mg Q6HP PRN PO PAIN SCALE 1-3 OR TEMP>100.4 11/02/24 15:00 Nitroglycerin (Ntrostat Sublingual) 0.4 mg Q5MINP PRN SL FOR CHEST PAIN 11/02/24 15:00 Morphine Sulfate 2 mg Q30M PRN IV FOR CHEST PAIN 11/02/24 15:00 Vancomycin HCl 0 ml @ 0 mls/hr UD IV 11/02/24 15:15 Diagnostic Test (Pha) (Accu-Chek Comfort Curve T) 1 strip Q6HR 11/02/24 18:00 11/02/24 18:38 Insulin Human Regular (InsuLIN R) Q6HR SC 11/02/24 18:00 11/02/24 18:37 Dextrose 50 ml UD PRN IV Blood Sugar LESS THAN 60 11/02/24 15:45 Ceftriaxone Sodium 50 ml @ 100 mls/hr DAILY@09 IV 11/03/24 09:00 Aspirin 81 mg DAILY PO 11/03/24 10:00 Atorvastatin Calcium (Lipitor) 40 mg HS PO 11/02/24 22:00 11/02/24 15:48 DC Atorvastatin Calcium (Lipitor) 40 mg HS PO 11/03/24 22:00 Hydralazine HCl (Apresoline Tablet) 50 mg Q8HR PO 11/02/24 22:00 Clonidine HCl (Catapres Tablet) 0.1 mg Q4HP PRN PO SBP>150 11/02/24 19:15 Review of Systems Unobtainable Vital Signs Vital Signs Date Time Temp Pulse Resp B/P (MAP) Pulse Ox O2 Delivery O2 Flow Rate FiO2 11/02/24 20:00 73 26 136/48 (77) 100 30 11/02/24 19:15 100.9 100.9 11/02/24 16:00 Room Air* 0 Mechanical Ventilator+ Physical Exam The patient is well-nourished and well-developed with no distress. The patient is intubated HEENT: Normocephalic, neck supple, no carotid bruits Lungs: Clear to auscultation Cardiovascular: Regular rate and region, S1, S2, no murmurs Abdomen: Soft, nontender, normal bowel sounds MENTAL STATUS: Responsive to stroke painful stimuli CRANIAL NERVES: Pupils are equal, round and nonreactive, very small. There are corneal reflexes and doll's eyes phenomenon. No signs of facial weakness. There are gagging or coughing reflexes SENSATION: Responses to strong pain stimuli. MOTOR: Normal tone in the upper and lower extremity. Normal muscle bulk. No fasciculations. No spontaneous movement. REFLEXES: Deep tendon reflexes are symmetrical. No pathological reflexes. CEREBELLAR/COORDINATION: Deferred GAIT/STATION: deferred. Labs/Diagnostic Data Labs Test 11/02/24 18:24 11/02/24 16:09 11/02/24 15:24 11/02/24 14:02 Range/Units POC Glucose 345 H 70-106 mg/dl Troponin I High Sensitivity 9224 *H </=34 ng/L Blood Gas Specimen Type Arterial Blood Gas Sample Site Right radial Blood Gas Patient Temperature 37.0 Arterial Blood Date Drawn [id number] Arterial Blood pH 7.526 H 7.350-7.450 Arterial Blood Partial Pressure CO2 36.9 32.0-45.0 mmHg Arterial Blood Partial Pressure O2 102.7 83.0-108.0 mmHg Arterial Blood HCO3 29.9 H 21.0-28.0 mmol/L Arterial Blood Oxygen Saturation 97.8 94.0-98.0 % Arterial Blood Base Excess 6.8 H -2.0-3.0 mmol/L Arterial Blood Oxyhemoglobin 96.6 94.0-98.0 % Arterial Blood Carboxyhemoglobin 0.3 L 0.5-1.5 % Arterial Blood Methemoglobin 0.9 0.0-1.5 % Prem Test Modified Blood Gas Total Hemoglobin 10.60 L 12.0-16.0 g/dL Blood Gas Set Respiration Rate 16.0 Blood Gas Modality Vent - ac FiO2 % 50.0 Blood Gas Tidal Volume 350.0 Blood Gas PEEP or CPAP 5.0 Triglycerides Level 202 H < 150 mg/dL Cholesterol Level 180 < 200 mg/dL LDL Cholesterol 127 H < 100 mg/dL HDL Cholesterol 27 L 40-59 mg/dL Thyroid Stimulating Hormone (TSH) 4.66 0.55-4.78 uIU/mL Test 11/02/24 13:21 11/02/24 13:18 11/02/24 12:17 11/02/24 11:55 Range/Units Blood Gas Spontaneous Rate 18 Specimen Drawn By Blood Gas Critical Value Read Back Yes Blood Gas Notified Whom Blood Gas Notified Time [id number] Blood Gas Notified By Kimberly avery rt Influenza Type A Antigen Negative Negative Influenza Type B Antigen Negative Negative SARS-CoV-2 Antigen (Rapid) Negative NEGATIVE Urine Color Light-yellow Yellow Urine Clarity Turbid H Clear Urine pH 7.0 5.0-9.0 Urine Specific [place] 1.010 1.001-1.035 Urine Protein 2+ H Negative Urine Ketones Negative Negative Urine Blood 1+ H Negative /uL Urine Nitrite Negative Negative Urine Bilirubin Negative Negative Urine Urobilinogen Normal Negative mg/dL Urine Leukocyte Esterase Trace Negative /uL Urine RBC 2 0 - 4 /hpf Urine Microscopic WBC 15 H 0-5 /HPF Urine Squamous Epithelial Cells Few <5 /hpf Urine Bacteria None seen None Seen /hpf Urine Hyaline Casts Few 0 - 2 /lpf Urine Glucose Trace Normal mg/dL Urine Opiates Screen Neg NEGATIVE Urine Fentanyl Screen Neg NEGATIVE Urine Barbiturates Screen Neg NEGATIVE Urine Phencyclidine Screen Neg NEGATIVE Urine Amphetamines Screen Neg NEGATIVE Urine Benzodiazepines Screen Neg NEGATIVE Urine Cocaine Screen Neg NEGATIVE Urine Cannabinoids Screen Neg NEGATIVE Lactic Acid Level 1.9 0.4-2.0 mmol/L Test 11/02/24 11:10 Range/Units White Blood Count 13.6 H 4.4-10.8 10^3/uL Red Blood Count 3.89 L 4.0-5.20 10^6/uL Hemoglobin 11.8 L 12.2-16.2 g/dL Hematocrit 33.0 L 36.0-46.0 % Mean Corpuscular Volume 84.9 80.0-100.0 fL Mean Corpuscular Hemoglobin 30.3 28.0-32.0 pg Mean Corpuscular Hemoglobin Concent 35.6 32.0-36.0 g/dL Red Cell Distribution Width 13.9 11.8-14.3 % Platelet Count 220 140-450 10^3/uL Mean Platelet Volume 7.5 6.9-10.8 fL Neutrophils (%) (Auto) 77.0 37.0-80.0 % Lymphocytes (%) (Auto) 14.9 10.0-50.0 % Monocytes (%) (Auto) 7.3 0.0-12.0 % Eosinophils (%) (Auto) 0.4 0.0-7.0 % Basophils (%) (Auto) 0.4 0.0-2.0 % Neutrophils # (Auto) 10.5 H 1.6-8.6 10 ^3/uL Lymphocytes # (Auto) 2.0 0.4-5.4 10 ^3/uL Monocytes # (Auto) 1.0 0-1.3 10 ^3/uL Eosinophils # (Auto) 0 0-0.8 10 ^3/uL Basophils # (Auto) 0.1 0-0.2 10 ^3/uL Nucleated Red Blood Cells 0.0 % Prothrombin Time 11.3 9.3-11.8 sec Prothrombin Time INR 1.07 0.9-1.15 Sodium Level 145 136-145 mmol/L Potassium Level 2.0 *L 3.5-5.1 mmol/L Chloride Level 99 98-107 mmol/L Carbon Dioxide Level 34 H 20-31 mmol/L Anion Gap 12 5-15 Blood Urea Nitrogen 25 H 9-23 mg/dL Creatinine 1.47 H 0.550-1.02 mg/dL Glomerular Filtration Rate Calc 36 >90 mL/min BUN/Creatinine Ratio 17.0 10.0-20.0 Serum Glucose 255 H 74-106 mg/dL Calcium Level 9.1 8.7-10.4 mg/dL Magnesium Level 1.6 1.6-2.6 mg/dL Total Bilirubin 0.7 0.2-1.0 mg/dL Aspartate Amino Transferase (AST) 40 13-40 U/L Alanine Aminotransferase (ALT) 16 7-40 U/L Alkaline Phosphatase 66 46-116 U/L B-Type Natriuretic Peptide 300.93 0-100 pg/mL Total Protein 5.6 L 5.7-8.2 g/dL Albumin 3.7 3.2-4.8 g/dL Assessment Fever, leukocytosis, altered mental status Sepsis UTI Pneumonia Coma/altered mental status Hypoxic encephalopathy Metabolic encephalopathy Rule out intracranial pathology Hypokalemia Kidney failure Plan/Recommendation Monitoring Supportive treatment ICU care Follow-up blood tests Blood culture EEG MR head Respiratory support/vent management Stabilize vitals/pressor drip Oxygen IV antibiotics IV fluids DVT prophylaxis More recommendation per clinical course Progress: Guarded Critical Care time: 45 minutes This medical document was created using an electronic medical record system with [employer] dictation system. Although this document has been carefully reviewed, there may still be some phonetic and typographical errors. These areas are purely typographical due to imperfections of the software programs, and do not reflect any compromise in the patient's medical care. Plan discussed with: Other ELY PORRAS MD Nov 02, 2024 20:37
[2024-11-02] MEDS ORDERED: ATORVASTATIN 20 MG TAB PO SCH (22:00)
[2024-11-02] MEDS ORDERED: ENOXAPARIN SOD 100 MG/1 ML SYRINGE SC SCH (22:00)
[2024-11-03] VITALS (107 sets, daily range): BP systolic 78–181; BP diastolic 41–87; PULSE 38–85; RESP 12–26; TEMP 98.8–100.2; O2SAT 89–100
[2024-11-03] MEDS: POTASSIUM CHL 20MEQ/100ML 100 ML IV SCH ×3 (01:16→16:40)
[2024-11-03] MEDS: ATROPINE SULFATE 1 MG/1 ML VIAL ONE ×2 (03:15→09:10)
[2024-11-03 04:42] LABS: Hematocrit 30.3 % (36.0-46.0); Hemoglobin 10.7 g/dL (12.2-16.2); Mean Corpuscular Hemoglobin 30.2 pg (28.0-32.0); Mean Corpuscular Volume 85.0 fL (80.0-100.0); Nucleated Red Blood Cells % 0.0 %
--- NOTE | 2024-11-03 06:27 | DVH ---
CHEST RADIOGRAPH Indication: INTUBATED Technique: Single frontal view of the chest was obtained Comparison: XY CHEST XRAY 1 VIEW on DOS: 11/02/24 FINDINGS: Lines and Tubes: The endotracheal tube terminates 5.2 cm above the eagle. There is a right central v enous catheter with its tip terminating in the superior cavoatrial junction. The enteric tube courses below the left hemidiaphragm and the tip extends outside the field of view. Lungs: Pulmonary vascular congestion is similar to prior study. No focal consolidation. Pleura: No effusion. No pneumothorax. Cardiomediastinal contours: Unremarkable Bones: No acute osseous abnormality. IMPRESSION: 1. Support tubes, unchanged. 2. Pulmonary vascular congestion, unchanged.
[2024-11-03] MEDS: ENOXAPARIN SOD 100 MG/1 ML SYRINGE SC SCH (08:09)
[2024-11-03 08:14] LABS: Base Excess 5.2 mmol/L (-2.0-3.0)
[2024-11-03 09:43] LABS: Alanine Aminotransferase 19 U/L (7-40); Albumin 3.7 g/dL (3.2-4.8); Alkaline Phosphatase 64 U/L (46-116); Anion Gap 10 (5-15); BUN/Creatinine Ratio 15.3 (10.0-20.0); Blood Urea Nitrogen 20 mg/dL (9-23); Calcium 9.0 mg/dL (8.7-10.4); Chloride 103 mmol/L (98-107); Magnesium 1.9 mg/dL (1.6-2.6); Total Protein 5.8 g/dL (5.7-8.2)
[2024-11-03 09:44] LABS: Bilirubin, Total 0.5 mg/dL (0.2-1.0); Carbon Dioxide 32 mmol/L (20-31); Glucose 163 mg/dL (74-106); Potassium 2.7 mmol/L (3.5-5.1); Sodium 145 mmol/L (136-145)
--- NOTE | 2024-11-03 10:36 | ECG ---
[facility] Test Date: 2024-11-03 Test Time: 09:09:10 Pat Name: RAGHAVENDRA LORENZ Department: Respiratoy Room: [address] [place] [address] A Gender: F Production Engineer: MIGUEL : 1945 Requested By: BRITTANY BOWIE Order Number: [id number] Reading MD: Agustín Sampson Measurements Intervals [place] Rate: 33 P: 80 [place]: 115 QRS: 49 QRSD: 107 T: 243 QT: 663 QTc: 492 Interpretive Statements Sinus bradycardia Borderline short [place] interval Probable anterior infarct, age indeterminate Abnormal T, probable ischemia, widespread Lateral leads are also involved Electronically Signed On 11-03-2024 14:39:55 PDT by Agustín Sampson Please click the below link to view image of tracing.
--- NOTE | 2024-11-03 10:36 | ECG ---
[facility] Test Date: 2024-11-03 Test Time: 09:10:59 Pat Name: RAGHAVENDRA LORENZ Department: Respiratoy Room: [address] [place] [address] A Gender: F Project Consultant: MIGUEL : 1945 Requested By: RENEE AVILA Order Number: [id number] Reading MD: Agustín Smapson Measurements Intervals [place] Rate: 84 P: 68 [place]: 144 QRS: 51 QRSD: 103 T: 224 QT: 432 QTc: 511 Interpretive Statements Sinus rhythm Probable anterior infarct, age indeterminate Lateral leads are also involved Prolonged QT interval Electronically Signed On 11-03-2024 14:40:06 PDT by Agustín Sampson Please click the below link to view image of tracing.
--- NOTE | 2024-11-03 10:37 | ECG ---
[facility] Test Date: 2024-11-03 Test Time: 07:04:07 Pat Name: RAGHAVENDRA LORENZ Department: ICU Room: [address] [place] [address] A Gender: F Satellite Tv Technician: Stevie : 1945 Requested By: BRITTANY BOWIE Order Number: [id number] Reading MD: Agustín Sampson Measurements Intervals [place] Rate: 79 P: 71 [place]: 123 QRS: 45 QRSD: 92 T: 249 QT: 521 QTc: 598 Interpretive Statements Sinus rhythm Ventricular bigeminy Probable LVH with secondary repol abnrm Abnormal T, probable ischemia, anterior leads Electronically Signed On 11-03-2024 14:39:48 PDT by Agustín Sampson Please click the below link to view image of tracing.
--- NOTE | 2024-11-03 10:37 | ECG ---
[facility] Test Date: 2024-11-03 Test Time: 09:05:40 Pat Name: RAGHAVENDRA LORENZ Department: Respiratoy Room: [address] [place] [address] A Gender: F Chuck Wagon Driver: MIGUEL : 1945 Requested By: RENEE AVILA Order Number: [id number] Reading MD: Agustín Sampson Measurements Intervals [place] Rate: 80 P: 71 [place]: 115 QRS: 38 QRSD: 99 T: 242 QT: 483 QTc: 558 Interpretive Statements Sinus rhythm Ventricular bigeminy Borderline short [place] interval Probable anterior infarct, age indeterminate Abnormal T, probable ischemia, widespread Lateral leads are also involved Electronically Signed On 11-03-2024 14:39:52 PDT by Agustín Sampson Please click the below link to view image of tracing.
--- NOTE | 2024-11-03 10:40 | DVHPN2 ---
Progress Note - Dictate Date Seen: Nov 03, 2024 Medical Necessity Reason Pt with a Central, PICC or Fol: No Subjective Ms. Frank is a 77 years old female with a history of hypertension, diabetes, heart failure, she was brought to the [facility] on 11/02/2024 with a chief complaint of altered mental status. I have seen and examined the patient, talked to her nurse, he is intubated, sedated, only responsive to strong painful stimuli,At this time, she is intubated, sedated, only responsive to stroke painful stimuli, the history is obtained from chart review and the his nurse Versed 10 mg/hour, fentanyl 25 mcg/hour Blood culture, 11/02/2024: Urine culture, 11/02/2024: Urinalysis, 11/02/2024: WBC: 15 urine leukocyte esterase:: Trace UDS, 11/02/2024: Negative WBC/HB/PLT/MCV, 11/02/2024: 13.6/11.8/220/84.9, 11/03/2024: 14.1/10.7/173/85 K 11/02/2024: 2 BUN/CR, 11/02/24: 25/1.47, 11/03/2024: 20/1.31 GFR, 11/02/2024: 36 Troponin one high sensitivity, 11/02/2024: 6108, 5013, 9224 TG/HDL/LDL/HDL, 11/02/2024: 202/IA T/127/27 TSH, 11/02/2024: 4.66 Chest x-ray, 11/02/2024: Endotracheal tube in appropriate position. Pulmonary edema versus atypical infection CT head, 11/02/2024: No intracranial hemorrhage or mass effect. Mild chronic microvascular ischemic changes. Mild global cerebral volume loss. vital signs Vital Sign Date Time Temp Pulse Resp B/P (MAP) Pulse Ox O2 Delivery O2 Flow Rate FiO2 11/03/24 10:18 76 21 154/53 (86) 100 30 11/03/24 09:56 Mechanical Ventilator+ 11/03/24 09:45 99.9 211.8 11/02/24 16:00 0 Total Intake and Output 11/02/24 11/02/24 11/03/24 15:00 23:00 07:00 Intake Total 1414 ml 1356 ml 299 ml Output Total 450 ml Balance 1414 ml 1356 ml -151 ml medications Current Medications Medications Dose Ordered Sig/Edson Route Start Time Stop Time Status Last Admin Dose Admin Midazolam HCl 50 ml @ 1 mls/hr Q24H IV 11/02/24 12:45 11/03/24 09:45 6 MLS/HR Nicardipine HCl 250 ml @ 50 mls/hr Q5H IV 11/02/24 14:30 UNV Enoxaparin Sodium 50 mg DAILY SC 11/03/24 10:00 11/03/24 08:09 50 MG Nicardipine/ Sodium Chloride 200 ml @ 50 mls/hr Q4H IV 11/02/24 15:15 11/02/24 15:14 50 MLS/HR Ondansetron HCl 4 mg Q4HP PRN IV 11/02/24 15:00 Acetaminophen 650 mg Q6HP PRN PO 11/02/24 15:00 Nitroglycerin 0.4 mg Q5MINP PRN SL 11/02/24 15:00 Morphine Sulfate 2 mg Q30M PRN IV 11/02/24 15:00 Vancomycin HCl 0 ml @ 0 mls/hr UD IV 11/02/24 15:15 Diagnostic Test (Pha) 1 strip Q6HR 11/02/24 18:00 11/03/24 05:32 1 STRIP Insulin Human Regular Q6HR SC 11/02/24 18:00 11/03/24 05:44 3 UNITS Dextrose 50 ml UD PRN IV 11/02/24 15:45 Ceftriaxone Sodium 50 ml @ 100 mls/hr DAILY@09 IV 11/03/24 09:00 11/03/24 08:08 100 MLS/HR Aspirin 81 mg DAILY PO 11/03/24 10:00 11/03/24 08:08 81 MG Atorvastatin Calcium 40 mg HS PO 11/03/24 22:00 Hydralazine HCl 50 mg Q8HR PO 11/02/24 22:00 11/03/24 05:43 50 MG Clonidine HCl 0.1 mg Q4HP PRN PO 11/02/24 19:15 objective The patient is well-nourished and well-developed with no distress. The patient is intubated MENTAL STATUS: Subjective CRANIAL NERVES: Pupils are equal, round and nonreactive, very small. There are corneal reflexes and doll's eyes phenomenon. No signs of facial weakness. There are gagging or coughing reflexes SENSATION: Responses to strong pain stimuli. MOTOR: Normal tone in the upper and lower extremity. Normal muscle bulk. No fasciculations. No spontaneous movement. REFLEXES: Deep tendon reflexes are symmetrical. Upgoing toes in the feet,. CEREBELLAR/COORDINATION: Deferred GAIT/STATION: deferred laboratory and microbiology Laboratory Tests 11/03/24 08:36 11/03/24 03:58 Test 11/03/24 08:36 Range/Units Serum Glucose 163 H 74-106 mg/dL Problem List Fever, leukocytosis, altered mental status Sepsis UTI Pneumonia Coma/altered mental status Hypoxic encephalopathy Metabolic encephalopathy Rule out intracranial pathology Hypokalemia Kidney failure Assessment/Plan Monitoring Supportive treatment ICU care Follow-up blood tests Blood culture EEG MR head Respiratory support/vent management Stabilize vitals/pressor drip Oxygen IV antibiotics IV fluids DVT prophylaxis More recommendation per clinical course This medical document was created using an electronic medical record system with [employer] computerized dictation system. Although this document has been carefully reviewed, there may still be some phonetic and typographical errors. These areas are purely typographical due to imperfections of the software programs, and do not reflect any compromise in the patient's medical care. Prognosis guarded Plan discussed with: Other Critical Care Time(min): 35 ELY PORRAS MD Nov 03, 2024 10:40
[2024-11-03] MEDS: MAGNESIUM SULFATE 1GM/100ML 100 ML IV ONE (11:09)
[2024-11-03] MEDS: NITROGLYCERIN 50MG/250ML 250 ML IV SCH (11:10)
--- NOTE | 2024-11-03 11:34 | DVHPN2 ---
Subjective Patient chemically sedated Reviewed: Care Plan, H&P, Labs, Medications Changes from previous H/P or p: No Changes General: Per HPI Objective Vitals Vital Signs Date Time Temp Pulse Resp B/P (MAP) Pulse Ox O2 Delivery O2 Flow Rate FiO2 11/03/24 11:10 155/73 11/03/24 10:18 76 21 100 30 11/03/24 09:56 Mechanical Ventilator+ 11/03/24 09:45 99.9 211.8 11/02/24 16:00 0 Intake/Output Intake and Output 11/03/24 07:00 Intake Total 3069 ml Output Total 450 ml Balance 2619 ml Intake IV Total 3009 ml Tube Feeding 60 ml Output Urine Total 450 ml General Appearance: moderate distress, Other (Unable to assess) HEENT: PERRLA Lungs: Clear to auscultation, Normal air movement Cardiovascular: Normal S1, Normal S2 Abdomen: Normal bowel sounds, Soft, No tenderness, No hepatospenomegaly Musculoskeletal: Other (No motor movement) Psych/Mental Status: Other (Unable to assess) Medications Current Medications Medications Dose Ordered Sig/Edson Route Start Time Stop Time Status Last Admin Dose Admin Midazolam HCl 50 ml @ 1 mls/hr Q24H IV 11/02/24 12:45 11/03/24 09:45 6 MLS/HR Nicardipine HCl 250 ml @ 50 mls/hr Q5H IV 11/02/24 14:30 UNV Enoxaparin Sodium 50 mg DAILY SC 11/03/24 10:00 11/03/24 08:09 50 MG Ondansetron HCl 4 mg Q4HP PRN IV 11/02/24 15:00 Acetaminophen 650 mg Q6HP PRN PO 11/02/24 15:00 Nitroglycerin 0.4 mg Q5MINP PRN SL 11/02/24 15:00 Morphine Sulfate 2 mg Q30M PRN IV 11/02/24 15:00 Vancomycin HCl 0 ml @ 0 mls/hr UD IV 11/02/24 15:15 Diagnostic Test (Pha) 1 strip Q6HR 11/02/24 18:00 11/03/24 05:32 1 STRIP Insulin Human Regular Q6HR SC 11/02/24 18:00 11/03/24 05:44 3 UNITS Dextrose 50 ml UD PRN IV 9/3/25 15:45 Aspirin 81 mg DAILY PO 11/03/24 10:00 11/03/24 08:08 81 MG Atorvastatin Calcium 40 mg HS PO 11/03/24 22:00 Potassium Chloride 100 ml @ 50 mls/hr Q2H IV 11/03/24 10:45 11/03/24 16:44 11/03/24 11:09 50 MLS/HR Cefepime HCl 50 ml @ 12.5 mls/hr Q12HR IV 11/03/24 22:00 UNV Nitroglycerin 250 ml @ 1.5 mls/hr Q24H IV 11/03/24 10:45 11/03/24 11:10 1.5 MLS/HR Furosemide 20 mg BIDD NG 11/03/24 18:00 Enteral Nutritional Formula 1,000 ml 30ML/HR GT 11/03/24 10:45 Laboratory Results Laboratory Tests 11/03/24 03:58 11/03/24 08:36 Chemistry Test 11/03/24 00:13 11/03/24 08:36 Magnesium Level 1.8 mg/dL (1.6-2.6) 1.9 mg/dL (1.6-2.6) Albumin 3.7 g/dL (3.2-4.8) Calcium Level 9.0 mg/dL (8.7-10.4) Total Protein 5.8 g/dL (5.7-8.2) Lipid panel Test 11/02/24 14:02 Cholesterol Level 180 mg/dL (< 200) HDL Cholesterol 27 mg/dL (40-59) L Triglycerides Level 202 mg/dL (< 150) H LFT Test 11/03/24 08:36 Alanine Aminotransferase (ALT) 19 U/L (7-40) Alkaline Phosphatase 64 U/L (46-116) Aspartate Amino Transferase (AST) 46 U/L (13-40) H Total Bilirubin 0.5 mg/dL (0.2-1.0) HgA1c, TSH Test 11/02/24 14:02 Thyroid Stimulating Hormone (TSH) 4.66 uIU/mL (0.55-4.78) Urinalysis Test 11/02/24 12:17 Urine Color Light-yellow (Yellow) Urine Clarity Turbid (Clear) H Urine pH 7.0 (5.0-9.0) Urine Specific [place] 1.010 (1.001-1.035) Urine Protein 2+ (Negative) H Urine Ketones Negative (Negative) Urine Blood 1+ /uL (Negative) H Urine Nitrite Negative (Negative) Urine Bilirubin Negative (Negative) Urine Urobilinogen Normal mg/dL (Negative) Urine Leukocyte Esterase Trace /uL (Negative) Urine RBC 2 /hpf (0 - 4) Urine Microscopic WBC 15 /HPF (0-5) H Urine Squamous Epithelial Cells Few /hpf (<5) Urine Bacteria None seen /hpf (None Seen) Urine Hyaline Casts Few /lpf (0 - 2) Urine Glucose Trace mg/dL (Normal) Blood Gas Results Test 11/02/24 13:21 11/02/24 15:24 11/03/24 07:55 Arterial Blood pH 7.526 (7.350-7.450) 7.526 (7.350-7.450) 7.496 (7.350-7.450) FiO2 % 100.0 50.0 30.0 Microbiology Microbiology Date/Time Source Procedure Growth Status 11/02/24 12:17 Voided Urine Urine Culture - Preliminary Resulted 11/02/24 11:10 Sputum Gram Stain Pending Resulted 11/02/24 11:10 Sputum Respiratory Culture - Preliminary Resulted Labs and/or images reviewed: Labs reviewed by me, Image(s) reviewed by me Assessment/Plan Assessment/Plan Impression: -metabolic encephalopathy -acute hypoxic respiratory failure -acute systolic heart failure -NSTEMI type [address]-depression in lateral leads -dyslipidemia -diabetes mellitus -accelerated hypertension -ventricular bigeminy with bradycardia Plan: -stop nicardipine drip, add Tridil for blood pressure control -hold beta-blockers given bigeminy, bradycardia, prolonged QTC -continue full-dose anticoagulation with Lovenox -continue aspirin -regular insulin sliding scale -start Jevity -potassium and magnesium replacement -PUD prophylaxis -repeat labs, chest x-ray, ABG in a.m. Critical care time spent with patient discussing and formulating plan of care: 40 minutes. This does not include time spent performing procedures. This medical document was created using an electronic medical record system with [employer] dictation system. Although this document has been carefully reviewed, there may still be some phonetic and typographical errors. These areas are purely typographical due to imperfections of the software programs, and do not reflect any compromise in the patient's medical care. Plan discussed with: Patient, Other (RN) My Orders Orders - ALEXANDER TAMAYO NP Procedure Category Date Status Time Potassium Chl PHA 11/03/24 In Process 20meq/100ml 10:45 Magnesium Sulfate PHA 11/03/24 In Process 1gm/100ml 10:45 Cefepime 1gm/50ml PHA 11/03/24 Logged (Maxipime 1gm/50ml) 22:00 Nitroglycerin PHA 11/03/24 In Process 50mg/250ml (Tridil) 10:45 Basic Metabolic Panel LAB 11/04/24 Verified 05:00 Basic Metabolic Panel LAB 11/05/24 Verified 05:00 Basic Metabolic Panel LAB 11/06/24 Verified 05:00 Chest Portable XY 11/04/24 Logged 05:00 Chest Portable XY 11/05/24 Logged 05:00 Chest Portable XY 11/06/24 Logged 05:00 Complete Blood Count LAB 11/04/24 Verified 05:00 Complete Blood Count LAB 11/05/24 Verified 05:00 Complete Blood Count LAB 11/06/24 Verified 05:00 Furosemide Tablet PHA 11/03/24 In Process (Lasix Tablet) 18:00 Nutritional PHA 11/03/24 In Process Supplements (Jevity 10:45 * Geothermal Operations Manager CONS 11/03/24 Transmitted Consult Date of Service: Nov 03, 2024 Billing Provider: ALEXANDER TAMAYO NP Common Visit Codes: [id number] CARE 30-74 MIN ALEXANDER TAMAYO NP Nov 03, 2024 11:34
--- NOTE | 2024-11-03 12:12 | DVHSR ---
APPROVED REPORT EXAM: Two-dimensional echocardiogram with [employer]. Blood Pressure: 167/77 mmHg INDICATION NSTEMI RISK FACTORS Height: 5'2", Weight: 109 DIMENSIONS LVDd5.7 (3.8-5.7cm)LA (2D)5.4 (1.9-4.0cm)Aortic Root3.2 (2.0-3.7cm) LVDs4.6 (2.5-4.0cm)LA (MM) (1.9-4.0cm)Aortic Cusp Exc1.8 (1.5-2.0cm) EF (%) 39.0 (55-70%)Rt. Atrium3.5 (1.9-4.0cm)Asc. Aorta3.4 cm IVSd1.0 (0.7-1.1cm)RV (D)2.8 (1.8-2.4cm) PWd0.9 (0.7-1.1cm) Mitral Valve MitralMitral Stenosis E wave0.46m/sMV Mean GR.mmHg A wave0.65m/sMV Peak GR.mmHg E/A ratio0.72D MVAcm2 DECEL [id number] 1/2 Timems Aortic Valve Aortic ValveAortic Stenosis V10.87m/[place] Mean GR.3mmHg V21.13m/[place] Peak GR.5mmHg LVOT Diameter2.1 (1.8-2.4cm)Doppler AVA2.67cm2 Tricuspid Valve TR Velocity2.60m/s [id number] Other Information Quality : Technically LimitedRhythm : Technically limited study due to on vent. Conclusion lvef 30% severe LV dysfunction anteroseptum is akinetic RVmild enlarged left atrium enlarged no severe valve abnormalities noted mild mitral regurg mild trciuspid regurg
[2024-11-03] MEDS: VANCOMYCIN 500mg/100mL 100 ML IV ONE (13:19)
[2024-11-03] MEDS: fentaNYL Drip 2500mCg/250mlNS 250 ML IV SCH (14:08)
--- NOTE | 2024-11-03 14:58 | DVHPN2 ---
Consult Progress Note Subjective Other Systems: Patient remains chemically sedated and mechanically ventilated Patient in normal sinus rhythm at time of assessment Objective vital signs Vital Sign Date Time Temp Pulse Resp B/P (MAP) Pulse Ox O2 Delivery O2 Flow Rate FiO2 11/03/24 14:45 99.5 75 16 126/58 (80) 100 211.1 11/03/24 14:28 30 11/03/24 13:30 Mechanical Ventilator+ 11/02/24 16:00 0 Total Intake and Output 11/02/24 11/02/24 11/03/24 15:00 23:00 07:00 Intake Total 1414 ml 1356 ml 299 ml Output Total 450 ml Balance 1414 ml 1356 ml -151 ml medications Current Medications Medications Dose Ordered Sig/Edson Route Start Time Stop Time Status Last Admin Dose Admin Midazolam HCl 50 ml @ 1 mls/hr Q24H IV 11/02/24 12:45 11/03/24 14:31 13 MLS/HR Nicardipine HCl 250 ml @ 50 mls/hr Q5H IV 11/02/24 14:30 UNV Enoxaparin Sodium 50 mg DAILY SC 11/03/24 10:00 11/03/24 08:09 50 MG Ondansetron HCl 4 mg Q4HP PRN IV 11/02/24 15:00 Acetaminophen 650 mg Q6HP PRN PO 11/02/24 15:00 Nitroglycerin 0.4 mg Q5MINP PRN SL 11/02/24 15:00 Morphine Sulfate 2 mg Q30M PRN IV 11/02/24 15:00 Vancomycin HCl 0 ml @ 0 mls/hr UD IV 11/02/24 15:15 Diagnostic Test (Pha) 1 strip Q6HR 11/02/24 18:00 11/03/24 12:15 1 STRIP Insulin Human Regular Q6HR SC 11/02/24 18:00 11/03/24 12:20 2 UNITS Dextrose 50 ml UD PRN IV 11/02/24 15:45 Aspirin 81 mg DAILY PO 11/03/24 10:00 11/03/24 08:08 81 MG Atorvastatin Calcium 40 mg HS PO 11/03/24 22:00 Potassium Chloride 100 ml @ 50 mls/hr Q2H IV 11/03/24 10:45 11/03/24 16:44 11/03/24 13:10 50 MLS/HR Cefepime HCl 50 ml @ 12.5 mls/hr DAILY IV 11/04/24 10:00 Nitroglycerin 250 ml @ 1.5 mls/hr Q24H IV 11/03/24 10:45 11/03/24 11:10 1.5 MLS/HR Furosemide 20 mg BIDD NG 11/03/24 18:00 Enteral Nutritional Formula 1,000 ml 30ML/HR GT 11/03/24 10:45 Fentanyl Citrate 250 ml @ 2.5 mls/hr Q24H IV 11/03/24 13:30 11/03/24 14:08 2.5 MLS/HR Examination: GENERAL:Abnormal, LUNGS:Abnormal (Mechanically ventilated), CVS:Normal, NEURO:Abnormal (Chemically sedated) laboratory and microbiology Laboratory Tests 11/03/24 08:36 11/03/24 03:58 Test 11/03/24 08:36 Range/Units Serum Glucose 163 H 74-106 mg/dL Problem List/Assessment/Plan Problem List/Assessment/Plan Hypertensive emergency with acute encephalopathy NSTEMI, suspected type 1 De Teddy HFrEF, NYHA class IV Ventricular bigeminy in the setting of severe hypokalemia/hypomagnesemia Mild mitral and tricuspid valve regurgitation Dyslipidemia Rule out primary aldosteronism Insulin-dependent diabetes mellitus Acute kidney injury Hypothyroidism Gout Plan/Recommendation (Dr. Sampson) Case discussed with . A transthoracic echocardiogram on this admission reveals an EF of 30% with akinetic anteroseptum. A previous transthoracic echocardiogram from 01/11/2024 reveals an EF of 55%. We will initiate guideline directed medical therapy for CHF as tolerated. We will hold off on beta- blockers at this time given bradycardia. Patient also noted to have severely elevated troponin level as well as ST segment changes to anterolateral leads on twelve lead EKG. Continue therapeutic Lovenox. Continue single-antiplatelet therapy and lipid-lowering agent. Given new findings on echocardiogram (reduced EF and wall motion abnormalities), elevated troponin level, and ST segment changes on twelve lead electrocardiograms, the patient may benefit from a coronary angiogram with left heart catheterization. Pending brain MRI to assess for neurological function. If neurological function intact, cardiology team we will consider taking the patient for a coronary angiogram with left heart catheterization. We will need to contact next of kin for consents. Closely monitor and replete electrolytes as needed. Renin/aldosterone levels pending. Thank you for allowing us to participate in this patient's care. Please call if you have any questions or concerns. Of note, patient has another . Critical care time: 40 min. This medical document was created using an electronic medical record system with voice recognition software and computerized dictation system. Although this document has been carefully reviewed, there might still be some phonetic and typographical errors. Occasional wrong-word or ``sound-alike substitutions may have occurred due to the inherent limitations of voice recognition software. These areas are purely typographical due to imperfections of the software programs and do not reflect any compromise in the patient's medical care. Please read the chart carefully and recognize, using context, where these substitutions have occurred. Plan discussed with: Other (Bedside RN) Date of Service: Nov 03, 2024 Billing Provider: PACO LOUIE Common Visit Codes: [id number] CARE 30-74 MIN APCO LOUIE Nov 03, 2024 14:58
[2024-11-03] MEDS: CEFEPIME 1GM/50ML 50 ML IV ONE (16:36)
[2024-11-03] MEDS: POTASSIUM EFFERVESENT TAB 25 MEQ PO ONE (16:40)
[2024-11-03] MEDS: FUROSEMIDE 20 MG TAB NG SCH (17:24)
[2024-11-03] MEDS: SACUBITRIL-VALSARTAN 24mg/26mg TAB PO SCH (22:10)
[2024-11-03] MEDS: ATORVASTATIN 20 MG TAB PO SCH (22:10)
[2024-11-04] VITALS (111 sets, daily range): BP systolic 80–147; BP diastolic 34–67; PULSE 50–76; RESP 6–24; TEMP 98.4–100.6; O2SAT 99–100
[2024-11-04 03:59] LABS: Hematocrit 27.1 % (36.0-46.0); Hemoglobin 9.7 g/dL (12.2-16.2); Mean Corpuscular Hemoglobin 30.7 pg (28.0-32.0); Mean Corpuscular Volume 86.2 fL (80.0-100.0); Nucleated Red Blood Cells % 0.0 %
[2024-11-04 04:43] LABS: Anion Gap 8 (5-15); Chloride 107 mmol/L (98-107)
[2024-11-04 04:49] LABS: BUN/Creatinine Ratio 20.2 (10.0-20.0); Blood Urea Nitrogen 21 mg/dL (9-23); Magnesium 2.0 mg/dL (1.6-2.6)
[2024-11-04 04:50] LABS: Calcium 8.3 mg/dL (8.7-10.4); Carbon Dioxide 32 mmol/L (20-31); Glucose 122 mg/dL (74-106); Potassium 3.1 mmol/L (3.5-5.1); Sodium 147 mmol/L (136-145)
[2024-11-04] MEDS: POTASSIUM CHL 20MEQ/100ML 100 ML IV SCH (05:22)
--- NOTE | 2024-11-04 05:55 | DVH ---
CHEST RADIOGRAPH Indication: chf Technique: Single frontal view of the chest was obtained COMPARISON: XY CHEST XRAY 1 VIEW on DOS: 11/03/24, XY CHEST XRAY 1 VIEW on DOS: 11/02/24, XY CHEST XRAY 1 VIEW on DOS: 11/02/24, XR CHEST 2 VIEW on DOS: 06/27/24, CHEST PORTABLE on DOS: 10/31/21 FINDINGS: Lines and Tubes: Endotracheal tube, enteric catheter and right central venous catheter in satisfactor y position. Lungs: Congestion Pleura: No effusion. No pneumothorax. Cardiomediastinal contours: Unremarkable Bones: Unremarkable IMPRESSION: Lines and tubes in satisfactory position. No significant interval change.
[2024-11-04] MEDS: EMPAGLIFLOZIN 10 MG TAB PO SCH (07:22)
[2024-11-04] MEDS: SPIRONOLACTONE 25 MG TAB PO SCH (07:22)
[2024-11-04 08:51] LABS: Base Excess 5.3 mmol/L (-2.0-3.0)
--- NOTE | 2024-11-04 08:58 | DVHPN2 ---
Subjective Patient chemically sedated Reviewed: Care Plan, H&P, Labs, Medications Changes from previous H/P or p: No Changes General: Per HPI Objective Vitals Vital Signs Date Time Temp Pulse Resp B/P (MAP) Pulse Ox O2 Delivery O2 Flow Rate FiO2 11/04/24 08:15 99.3 58 16 104/40 (61) 100 210.7 11/04/24 08:00 Mechanical Ventilator+ 30 30 11/02/24 16:00 0 Intake/Output Intake and Output 11/04/24 07:00 Intake Total 1409.0 ml Output Total 675 ml Balance 734.0 ml Intake Oral 180 ml IV Total 1084.0 ml Tube Feeding 145 ml Output Urine Total 675 ml General Appearance: moderate distress, Other (Unable to assess) HEENT: PERRLA Lungs: Clear to auscultation, Normal air movement Cardiovascular: Normal S1, Normal S2 Abdomen: Normal bowel sounds, Soft, No tenderness, No hepatospenomegaly Genitourinary: No Apparent Abnormalities ([place]) Musculoskeletal: Other (No motor movement) Skin: Dry, Intact Psych/Mental Status: Other (Unable to assess) Medications Current Medications Medications Dose Ordered Sig/Edson Route Start Time Stop Time Status Last Admin Dose Admin Midazolam HCl 50 ml @ 1 mls/hr Q24H IV 11/02/24 12:45 11/04/24 04:26 8 MLS/HR Nicardipine HCl 250 ml @ 50 mls/hr Q5H IV 11/02/24 14:30 UNV Enoxaparin Sodium 50 mg DAILY SC 11/03/24 10:00 11/04/24 07:23 50 MG Ondansetron HCl 4 mg Q4HP PRN IV 11/02/24 15:00 Acetaminophen 650 mg Q6HP PRN PO 11/02/24 15:00 Nitroglycerin 0.4 mg Q5MINP PRN SL 11/02/24 15:00 Morphine Sulfate 2 mg Q30M PRN IV 11/02/24 15:00 Vancomycin HCl 0 ml @ 0 mls/hr UD IV 11/02/24 15:15 Diagnostic Test (Pha) 1 strip Q6HR 11/02/24 18:00 11/04/24 05:36 1 STRIP Insulin Human Regular Q6HR SC 11/02/24 18:00 11/03/24 12:20 2 UNITS Dextrose 50 ml UD PRN IV 11/02/24 15:45 Aspirin 81 mg DAILY PO 11/03/24 10:00 11/04/24 07:22 81 MG Atorvastatin Calcium 40 mg HS PO 11/03/24 22:00 11/03/24 22:10 40 MG Cefepime HCl 50 ml @ 12.5 mls/hr DAILY IV 11/04/24 10:00 Nitroglycerin 250 ml @ 1.5 mls/hr Q24H IV 11/03/24 10:45 11/03/24 11:10 1.5 MLS/HR Furosemide 20 mg BIDD NG 11/03/24 18:00 11/04/24 05:22 20 MG Enteral Nutritional Formula 1,000 ml 30ML/HR GT 11/03/24 10:45 Fentanyl Citrate 250 ml @ 2.5 mls/hr Q24H IV 11/03/24 13:30 11/03/24 14:08 2.5 MLS/HR Spironolactone 25 mg DAILY PO 11/04/24 10:00 11/04/24 07:22 25 MG Sacubitril/ Valsartan 1 tab BID PO 11/03/24 22:00 11/04/24 07:22 1 TAB Empaglifozin 10 mg DAILY PO 11/04/24 10:00 11/04/24 07:22 10 MG Potassium Chloride 100 ml @ 50 mls/hr Q2H IV 11/04/24 05:15 11/04/24 11:14 11/04/24 08:36 50 MLS/HR Laboratory Results Laboratory Tests 11/04/24 03:00 Chemistry Test 11/04/24 03:00 Calcium Level 8.3 mg/dL (8.7-10.4) L Magnesium Level 2.0 mg/dL (1.6-2.6) Urinalysis Test 11/02/24 12:17 Urine Color Light-yellow (Yellow) Urine Clarity Turbid (Clear) H Urine pH 7.0 (5.0-9.0) Urine Specific [place] 1.010 (1.001-1.035) Urine Protein 2+ (Negative) H Urine Ketones Negative (Negative) Urine Blood 1+ /uL (Negative) H Urine Nitrite Negative (Negative) Urine Bilirubin Negative (Negative) Urine Urobilinogen Normal mg/dL (Negative) Urine Leukocyte Esterase Trace /uL (Negative) Urine RBC 2 /hpf (0 - 4) Urine Microscopic WBC 15 /HPF (0-5) H Urine Squamous Epithelial Cells Few /hpf (<5) Urine Bacteria None seen /hpf (None Seen) Urine Hyaline Casts Few /lpf (0 - 2) Urine Glucose Trace mg/dL (Normal) Blood Gas Results Test 11/04/24 08:45 Arterial Blood pH 7.439 (7.350-7.450) FiO2 % 30.0 Microbiology Microbiology Date/Time Source Procedure Growth Status 11/03/24 00:00 Nose MRSA Screen - Final Complete 11/02/24 12:17 Voided Urine Urine Culture - Preliminary Resulted 11/02/24 11:55 Blood Blood Culture - Preliminary NO GROWTH AFTER 24 HOURS OF INCUBATION. Resulted 11/02/24 11:10 Sputum Gram Stain - Final Resulted 11/02/24 11:10 Sputum Respiratory Culture - Preliminary Resulted Labs and/or images reviewed: Labs reviewed by me, Image(s) reviewed by me Assessment/Plan Assessment/Plan Impression: -metabolic encephalopathy -acute hypoxic respiratory failure -acute systolic heart failure -NSTEMI type [address]-depression in lateral leads -dyslipidemia -diabetes mellitus -accelerated hypertension -ventricular bigeminy with bradycardia Plan: Events: EF 30% with Apical/Septal akinesis. Ectopi improving -Plans for MRI of brain -Cardiology: Possible [facility] -Use low dose Tridil -continue full-dose anticoagulation with Lovenox -continue aspirin -regular insulin sliding scale -TF with Jevity -potassium and magnesium replacement -PUD prophylaxis -repeat labs, chest x-ray, ABG in a.m. Critical care time spent with patient discussing and formulating plan of care: 40 minutes. This does not include time spent performing procedures. This medical document was created using an electronic medical record system with [employer] dictation system. Although this document has been carefully reviewed, there may still be some phonetic and typographical errors. These areas are purely typographical due to imperfections of the software programs, and do not reflect any compromise in the patient's medical care. Plan discussed with: Patient, Other (RN) My Orders Orders - ALEXANDER TAMAYO NP Procedure Category Date Status Time Nitroglycerin PHA 11/03/24 In Process 50mg/250ml (Tridil) 10:45 Basic Metabolic Panel LAB 11/05/24 Verified 05:00 Basic Metabolic Panel LAB 11/06/24 Verified 05:00 Chest Portable XY 11/04/24 Resulted 05:00 Chest Portable XY 11/05/24 Logged 05:00 Chest Portable XY 11/06/24 Logged 05:00 Complete Blood Count LAB 11/05/24 Verified 05:00 Complete Blood Count LAB 11/06/24 Verified 05:00 Furosemide Tablet PHA 11/03/24 In Process (Lasix Tablet) 18:00 Nutritional PHA 11/03/24 In Process Supplements (Jevity 10:45 * Tax Director CONS 11/03/24 Transmitted Consult Cefepime 1gm/50ml PHA 11/04/24 In Process (Maxipime 1gm/50ml) 10:00 Fentanyl Drip PHA 11/03/24 In Process 2500mcg/250mlns 13:30 Abg W/ Co-Ox RT 11/04/24 Logged 04:00 * Wound Consult CONS 11/04/24 Transmitted Potassium Effervesent PHA 11/12/24 Verified Tab (Klor-Con/Ef) 10:00 Date of Service: Nov 04, 2024 Billing Provider: ALEXANDER TAMAYO NP Common Visit Codes: [id number] CARE 30-74 MIN ALEXANDER TAMAYO NP Nov 04, 2024 08:58
[2024-11-04] MEDS: CEFEPIME 1GM/50ML 50 ML IV SCH (10:06)
[2024-11-04] MEDS: VANCOMYCIN 500mg/100mL 100 ML IV SCH (13:01)
[2024-11-04] MEDS: ACETAMINOPHEN 325 MG TAB PO PRN (13:16)
--- NOTE | 2024-11-04 16:34 | DVHPN2 ---
Consult Progress Note Subjective Other Systems: Patient in normal sinus rhythm at time of assessment with depressed T-waves on lunchroom monitor Objective vital signs Vital Sign Date Time Temp Pulse Resp B/P (MAP) Pulse Ox O2 Delivery O2 Flow Rate FiO2 11/04/24 16:00 30 11/04/24 16:00 17 100 Mechanical Ventilator+ 11/04/24 15:30 99.7 68 121/43 (69) 211.5 11/02/24 16:00 0 Total Intake and Output 11/03/24 11/03/24 11/04/24 15:00 23:00 07:00 Intake Total 537.5 ml 569.0 ml 302.5 ml Output Total 350 ml 325 ml Balance 537.5 ml 219.0 ml -22.5 ml medications Current Medications Medications Dose Ordered Sig/Edson Route Start Time Stop Time Status Last Admin Dose Admin Midazolam HCl 50 ml @ 1 mls/hr Q24H IV 11/02/24 12:45 11/04/24 16:06 10 MLS/HR Nicardipine HCl 250 ml @ 50 mls/hr Q5H IV 11/02/24 14:30 UNV Enoxaparin Sodium 50 mg DAILY SC 11/03/24 10:00 11/04/24 07:23 50 MG Ondansetron HCl 4 mg Q4HP PRN IV 11/02/24 15:00 Acetaminophen 650 mg Q6HP PRN PO 11/02/24 15:00 11/04/24 13:16 650 MG Nitroglycerin 0.4 mg Q5MINP PRN SL 11/02/24 15:00 Vancomycin HCl 0 ml @ 0 mls/hr UD IV 11/02/24 15:15 Diagnostic Test (Pha) 1 strip Q6HR 11/02/24 18:00 11/04/24 11:18 1 STRIP Insulin Human Regular Q6HR SC 11/02/24 18:00 11/03/24 12:20 2 UNITS Dextrose 50 ml UD PRN IV 11/02/24 15:45 Aspirin 81 mg DAILY PO 11/03/24 10:00 11/04/24 07:22 81 MG Atorvastatin Calcium 40 mg HS PO 11/03/24 22:00 11/03/24 22:10 40 MG Cefepime HCl 50 ml @ 12.5 mls/hr DAILY IV 11/04/24 10:00 11/04/24 10:06 12.5 MLS/HR Furosemide 20 mg BIDD NG 11/03/24 18:00 11/04/24 05:22 20 MG Enteral Nutritional Formula 1,000 ml 30ML/HR GT 11/03/24 10:45 Fentanyl Citrate 250 ml @ 2.5 mls/hr Q24H IV 11/03/24 13:30 11/03/24 14:08 2.5 MLS/HR Spironolactone 25 mg DAILY PO 11/04/24 10:00 11/04/24 07:22 25 MG Sacubitril/ Valsartan 1 tab BID PO 11/03/24 22:00 11/04/24 07:22 1 TAB Empaglifozin 10 mg DAILY PO 11/04/24 10:00 11/04/24 07:22 10 MG Potassium Bicarbonate 25 meq DAILY GT 11/05/24 10:00 Vancomycin HCl 100 ml @ 200 mls/hr DAILY@1300 IV 11/04/24 13:00 11/04/24 13:01 200 MLS/HR Examination: GENERAL:Abnormal, LUNGS:Abnormal (Mechanically ventilated), CVS:Normal, NEURO:Abnormal (Chemically sedated) laboratory and microbiology Laboratory Tests 11/04/24 13:09 11/04/24 03:00 Test 11/04/24 03:00 Range/Units Serum Glucose 122 H 74-106 mg/dL Problem List/Assessment/Plan Problem List/Assessment/Plan Hypertensive emergency with acute encephalopathy NSTEMI, suspected type 1 De [place] HFrEF, NYHA class IV Ventricular bigeminy in the setting of severe hypokalemia/hypomagnesemia Mild mitral and tricuspid valve regurgitation Dyslipidemia Rule out primary aldosteronism Insulin-dependent diabetes mellitus Acute kidney injury Hypothyroidism Gout Plan/Recommendation (Dr. Sampson) Case discussed with . A transthoracic echocardiogram on this admission reveals an EF of 30% with akinetic anteroseptum. A previous transthoracic echocardiogram from 01/11/2024 reveals an EF of 55%. We will initiate guideline directed medical therapy for CHF as tolerated. We will hold off on beta- blockers at this time given bradycardia. Patient also noted to have severely elevated troponin level as well as ST segment changes to anterolateral leads on twelve lead EKG. Continue therapeutic Lovenox. Continue single-antiplatelet therapy and lipid-lowering agent. Given new findings on echocardiogram (reduced EF and wall motion abnormalities), elevated troponin level, and ST segment changes on twelve lead electrocardiograms, the patient may benefit from a coronary angiogram with left heart catheterization. Pending brain MRI to assess for neurological function. If neurological function intact, cardiology team we will consider taking the patient for a coronary angiogram with left heart catheterization. We will need to contact next of kin for consents. Closely monitor and replete electrolytes as needed. Renin/aldosterone levels pending. Thank you for allowing us to participate in this patient's care. Please call if you have any questions or concerns. Of note, patient has another . Critical care time: 40 min. This medical document was created using an electronic medical record system with voice recognition software and computerized dictation system. Although this document has been carefully reviewed, there might still be some phonetic and typographical errors. Occasional wrong-word or ``sound-alike substitutions may have occurred due to the inherent limitations of voice recognition software. These areas are purely typographical due to imperfections of the software programs and do not reflect any compromise in the patient's medical care. Please read the chart carefully and recognize, using context, where these substitutions have occurred. Plan discussed with: Other (Bedside RN) Dietary Evaluation Review Comments: Glucerna 1.2 @45ml/hr providing 65g prot, 1296kcal 869ml free water Expected Outcomes/Goals: Maintain Wt, prevent losing muscle mass Date of Service: Nov 04, 2024 Billing Provider: PACO LOUIE Common Visit Codes: [id number] CARE 30-74 MIN PACO LOUIE Nov 04, 2024 16:34
[2024-11-04 17:59] LABS: Potassium 3.9 mmol/L (3.5-5.1)
[2024-11-04 18:06] LABS: Magnesium 1.8 mg/dL (1.6-2.6)
[2024-11-04] MEDS: MAGNESIUM SULFATE 1GM/100ML 100 ML IV ONE (18:53)
--- NOTE | 2024-11-04 20:18 | DVHPN2 ---
Progress Note - Dictate Date Seen: Nov 04, 2024 Medical Necessity Reason Pt with a Central, PICC or Fol: No Subjective Ms. Frank is a 77 years old female with a history of hypertension, diabetes, heart failure, she was brought to the [facility] on 11/02/2024 with a chief complaint of altered mental status. I have seen and examined the patient, talked to her nurse, he is intubated, less sedated, responsive to touch stimuli Versed 10 mg/hour, fentanyl 25 mcg/hour Blood culture, 11/02/2024: Urine culture, 11/02/2024: Urinalysis, 11/02/2024: WBC: 15 urine leukocyte esterase:: Trace UDS, 11/02/2024: Negative WBC/HB/PLT/MCV, 11/02/2024: 13.6/11.8/220/84.9, 11/03/2024: 14.1/10.7/173/85 Na 11/03/2024: 145, 11/04/2024: 147 K 11/02/2024: 2 BUN/CR, 11/02/24: 25/1.47, 11/03/2024: 20/1.31 GFR, 11/02/2024: 36 Troponin one high sensitivity, 11/02/2024: 6108, 5013, 9224 TG/HDL/LDL/HDL, 11/02/2024: 202/IA T/127/27 TSH, 11/02/2024: 4.66 Echocardiogram, 11/03/2024: lvef 30% severe LV dysfunction anteroseptum is akinetic RVmild enlarged left atrium enlarged no severe valve abnormalities noted mild mitral regurg mild trciuspid regurg Chest x-ray, 11/02/2024: Endotracheal tube in appropriate position. Pulmonary edema versus atypical infection CT head, 11/02/2024: No intracranial hemorrhage or mass effect. Mild chronic microvascular ischemic changes. Mild global cerebral volume loss. vital signs Vital Sign Date Time Temp Pulse Resp B/P (MAP) Pulse Ox O2 Delivery O2 Flow Rate FiO2 11/04/24 19:00 99.5 62 16 100/41 (60) 100 211.1 11/04/24 17:59 Mechanical Ventilator+ 30 30 11/02/24 16:00 0 Total Intake and Output 9/411/03/24 11/04/24 15:00 23:00 07:00 Intake Total 537.5 ml 569.0 ml 302.5 ml Output Total 350 ml 325 ml Balance 537.5 ml 219.0 ml -22.5 ml medications Current Medications Medications Dose Ordered Sig/Edson Route Start Time Stop Time Status Last Admin Dose Admin Midazolam HCl 50 ml @ 1 mls/hr Q24H IV 11/02/24 12:45 11/04/24 16:06 10 MLS/HR Nicardipine HCl 250 ml @ 50 mls/hr Q5H IV 11/02/24 14:30 UNV Enoxaparin Sodium 50 mg DAILY SC 11/03/24 10:00 11/04/24 07:23 50 MG Ondansetron HCl 4 mg Q4HP PRN IV 11/02/24 15:00 Acetaminophen 650 mg Q6HP PRN PO 11/02/24 15:00 11/04/24 13:16 650 MG Nitroglycerin 0.4 mg Q5MINP PRN SL 11/02/24 15:00 Vancomycin HCl 0 ml @ 0 mls/hr UD IV 11/02/24 15:15 Diagnostic Test (Pha) 1 strip Q6HR 11/02/24 18:00 11/04/24 17:23 1 STRIP Insulin Human Regular Q6HR SC 11/02/24 18:00 11/04/24 17:30 2 UNITS Dextrose 50 ml UD PRN IV 11/02/24 15:45 Aspirin 81 mg DAILY PO 11/03/24 10:00 11/04/24 07:22 81 MG Atorvastatin Calcium 40 mg HS PO 11/03/24 22:00 11/03/24 22:10 40 MG Cefepime HCl 50 ml @ 12.5 mls/hr DAILY IV 11/04/24 10:00 11/04/24 10:06 12.5 MLS/HR Furosemide 20 mg BIDD NG 11/03/24 18:00 11/04/24 17:42 20 MG Enteral Nutritional Formula 1,000 ml 30ML/HR GT 11/03/24 10:45 Fentanyl Citrate 250 ml @ 2.5 mls/hr Q24H IV 11/03/24 13:30 11/03/24 14:08 2.5 MLS/HR Spironolactone 25 mg DAILY PO 11/04/24 10:00 11/04/24 07:22 25 MG Sacubitril/ Valsartan 1 tab BID PO 11/03/24 22:00 11/04/24 07:22 1 TAB Empaglifozin 10 mg DAILY PO 11/04/24 10:00 11/04/24 07:22 10 MG Potassium Bicarbonate 25 meq DAILY GT 11/05/24 10:00 Vancomycin HCl 100 ml @ 200 mls/hr DAILY@1300 IV 11/04/24 13:00 11/04/24 13:01 200 MLS/HR objective The patient is well-nourished and well-developed with no distress. The patient is intubated MENTAL STATUS: Subjective CRANIAL NERVES: Pupils are equal, round and nonreactive, very small. There are corneal reflexes and doll's eyes phenomenon. No signs of facial weakness. There are gagging or coughing reflexes SENSATION: Responses to touch MOTOR: Normal tone in the upper and lower extremity. Normal muscle bulk. No fasciculations. No spontaneous movement. REFLEXES: Deep tendon reflexes are symmetrical. Upgoing toes in the feet,. CEREBELLAR/COORDINATION: Deferred GAIT/STATION: deferred laboratory and microbiology Laboratory Tests 11/04/24 17:40 11/04/24 03:00 Test 11/04/24 03:00 Range/Units Serum Glucose 122 H 74-106 mg/dL Problem List Fever, leukocytosis, altered mental status Sepsis UTI Pneumonia Coma/altered mental status Hypoxic encephalopathy Metabolic encephalopathy Rule out intracranial pathology Hypokalemia Kidney failure Assessment/Plan Monitoring Supportive treatment ICU care Follow-up blood tests Blood culture EEG MR head Respiratory support/vent management Stabilize vitals/pressor drip Oxygen IV antibiotics IV fluids DVT prophylaxis More recommendation per clinical course This medical document was created using an electronic medical record system with [id number] dictation system. Although this document has been carefully reviewed, there may still be some phonetic and typographical errors. These areas are purely typographical due to imperfections of the software programs, and do not reflect any compromise in the patient's medical care. Prognosis guarded Dietary Evaluation Review Comments: Glucerna 1.2 @45ml/hr providing 65g prot, 1296kcal 869ml free water Expected Outcomes/Goals: Maintain Wt, prevent losing muscle mass Plan discussed with: Other Critical Care Time(min): 30 ELY PORRAS MD Nov 04, 2024 20:18
[2024-11-05] VITALS (110 sets, daily range): BP systolic 81–145; BP diastolic 36–68; PULSE 54–87; RESP 11–29; TEMP 98.6–100.4; O2SAT 91–100
[2024-11-05] MEDS: Jevity 1.2 Cal/Fiber 1 Liter GT SCH (03:00)
[2024-11-05 03:59] LABS: Hematocrit 27.8 % (36.0-46.0); Hemoglobin 10.0 g/dL (12.2-16.2); Mean Corpuscular Hemoglobin 31.2 pg (28.0-32.0); Mean Corpuscular Volume 87.1 fL (80.0-100.0); Nucleated Red Blood Cells % 0.0 %
[2024-11-05 04:54] LABS: Anion Gap 9 (5-15); Carbon Dioxide 29 mmol/L (20-31)
[2024-11-05 04:55] LABS: Calcium 8.8 mg/dL (8.7-10.4)
[2024-11-05 05:00] LABS: BUN/Creatinine Ratio 17.9 (10.0-20.0); Blood Urea Nitrogen 20 mg/dL (9-23)
[2024-11-05 05:06] LABS: Chloride 108 mmol/L (98-107); Glucose 144 mg/dL (74-106); Potassium 3.5 mmol/L (3.5-5.1); Sodium 146 mmol/L (136-145)
--- NOTE | 2024-11-05 05:50 | DVH ---
CHEST RADIOGRAPH Indication: chf Technique: Single frontal view of the chest was obtained COMPARISON: XY CHEST PORTABLE on DOS: 11/04/24, XY CHEST XRAY 1 VIEW on DOS: 11/03/24, XY CHEST XRAY 1 EW on DOS: 11/02/24, XY CHEST XRAY 1 VIEW on DOS: 11/02/24, XR CHEST 2 VIEW on DOS: 06/27/24 FINDINGS: Lines and Tubes: Slight interval retraction of endotracheal tube such that the tip now projects appro ximately 5.3 cm above the level of the eagle. Remaining lines and tubes unchanged. Lungs: Clear Pleura: No effusion. No pneumothorax. Cardiomediastinal contours: Unremarkable Bones: Unremarkable IMPRESSION: 1. Slight interval retraction of endotracheal tube. Remaining lines and tubes unchanged. 2. No evidence of acute cardiopulmonary process.
[2024-11-05 08:22] LABS: Base Excess 4.6 mmol/L (-2.0-3.0)
[2024-11-05] MEDS: POTASSIUM EFFERVESENT TAB 25 MEQ GT SCH (09:56)
[2024-11-05] MEDS: ENOXAPARIN SOD 100 MG/1 ML SYRINGE SC SCH (09:57)
--- NOTE | 2024-11-05 10:34 | DVHPN2 ---
Consult Progress Note Objective vital signs Vital Sign Date Time Temp Pulse Resp B/P (MAP) Pulse Ox O2 Delivery O2 Flow Rate FiO2 11/05/24 09:58 62 16 134/56 (82) 100 30 11/05/24 06:45 98.8 98.8 11/05/24 06:00 Mechanical Ventilator+ Total Intake and Output 11/04/24 11/04/24 11/05/24 15:00 23:00 07:00 Intake Total 347.0 ml 500.5 ml 512.5 ml Output Total 450 ml 300 ml Balance 347.0 ml 50.5 ml 212.5 ml medications Current Medications Medications Dose Ordered Sig/Edson Route Start Time Stop Time Status Last Admin Dose Admin Midazolam HCl 50 ml @ 1 mls/hr Q24H IV 11/02/24 12:45 11/05/24 09:55 8 MLS/HR Nicardipine HCl 250 ml @ 50 mls/hr Q5H IV 11/02/24 14:30 UNV Ondansetron HCl 4 mg Q4HP PRN IV 11/02/24 15:00 Acetaminophen 650 mg Q6HP PRN PO 11/02/24 15:00 11/04/24 13:16 650 MG Nitroglycerin 0.4 mg Q5MINP PRN SL 11/02/24 15:00 Vancomycin HCl 0 ml @ 0 mls/hr UD IV 11/02/24 15:15 Diagnostic Test (Pha) 1 strip Q6HR 11/02/24 18:00 11/05/24 06:02 1 STRIP Insulin Human Regular Q6HR SC 11/02/24 18:00 11/05/24 06:02 2 UNITS Dextrose 50 ml UD PRN IV 11/02/24 15:45 Aspirin 81 mg DAILY PO 11/03/24 10:00 11/05/24 09:56 81 MG Atorvastatin Calcium 40 mg HS PO 11/03/24 22:00 11/04/24 21:23 40 MG Cefepime HCl 50 ml @ 12.5 mls/hr DAILY IV 11/04/24 10:00 11/05/24 09:55 12.5 MLS/HR Furosemide 20 mg BIDD NG 11/03/24 18:00 11/05/24 06:03 20 MG Enteral Nutritional Formula 1,000 ml 30ML/HR GT 11/03/24 10:45 11/05/24 03:00 1,000 ML Fentanyl Citrate 250 ml @ 2.5 mls/hr Q24H IV 11/03/24 13:30 11/03/24 14:08 2.5 MLS/HR Spironolactone 25 mg DAILY PO 11/04/24 10:00 11/05/24 09:56 25 MG Sacubitril/ Valsartan 1 tab BID PO 11/03/24 22:00 11/05/24 09:56 1 TAB Empaglifozin 10 mg DAILY PO 11/04/24 10:00 11/05/24 09:56 10 MG Potassium Bicarbonate 25 meq DAILY GT 11/05/24 10:00 11/05/24 09:56 25 MEQ Vancomycin HCl 100 ml @ 200 mls/hr DAILY@1300 IV 11/04/24 13:00 11/04/24 13:01 200 MLS/HR Enoxaparin Sodium 50 mg Q12HR SC 11/05/24 10:00 11/05/24 09:57 50 MG laboratory and microbiology Laboratory Tests 11/05/24 03:25 Test 11/05/24 03:25 Range/Units Serum Glucose 144 H 74-106 mg/dL Problem List/Assessment/Plan Problem List/Assessment/Plan Problem List/Assessment/Plan Hypertensive emergency with acute encephalopathy NSTEMI, suspected type 1 De Teddy HFrEF, NYHA class IV Ventricular bigeminy in the setting of severe hypokalemia/hypomagnesemia Mild mitral and tricuspid valve regurgitation Dyslipidemia Rule out primary aldosteronism Insulin-dependent diabetes mellitus Acute kidney injury Hypothyroidism Gout Plan/Recommendation (Dr. Sampson) Case discussed with . EF of 30% with akinetic anteroseptum this admission. A previous transthoracic echocardiogram from 01/11/2024 reveals an EF of 55%. Guideline directed medical therapy for CHF as tolerated. No beta- blockers at this time given bradycardia. Patient also noted to have severely elevated troponin level as well as ST segment changes to anterolateral leads on twelve lead EKG. Continue therapeutic Lovenox. Continue single-antiplatelet therapy and lipid-lowering agent. Given new findings on echocardiogram, elevated troponin level, and ST segment changes on twelve lead electrocardiograms, the patient may benefit from a coronary angiogram with left heart catheterization. Unable to proceed with brain MRI to assess for neurological function due to oral hardware. EEG pending, follow up neurology recs. If neurological function intact, cardiology team we will consider taking the patient for a coronary angiogram with left heart catheterization. We will need to contact next of kin for consents. Closely monitor and replete electrolytes as needed. Renin/aldosterone levels pending. Thank you for allowing us to participate in this patient's care. Please call if you have any questions or concerns. Of note, patient has another . This medical document was created using an electronic medical record system with voice recognition software and computerized dictation system. Although this document has been carefully reviewed, there might still be some phonetic and typographical errors. Occasional wrong-word or ``sound-alike substitutions may have occurred due to the inherent limitations of voice recognition software. These areas are purely typographical due to imperfections of the software programs and do not reflect any compromise in the patient's medical care. Please read the chart carefully and recognize, using context, where these substitutions have occurred. Thank you for allowing me to participate in the management of this patient. The treatment plan was discussed with and agreed upon by patient/family including requesting consultants and ordering of imaging/procedures. Plan discussed with: Other Dietary Evaluation Review Comments: Glucerna 1.2 @45ml/hr providing 65g prot, 1296kcal 869ml free water Expected Outcomes/Goals: Maintain Wt, prevent losing muscle mass Date of Service: Nov 05, 2024 Billing Provider: JENIFFER MADRIGAL Common Visit Codes: [id number] INP/OBS CARE(HIGH), [id number] CARE 30-74 MIN JENIFFER MADRIGAL Nov 05, 2024 10:34
[2024-11-05] MEDS: PANTOPRAZOLE 40 MG/10 ML VIAL INJ IV SCH (12:24)
--- NOTE | 2024-11-05 13:57 | DVHPN2 ---
Progress Note - Dictate Date Seen: Nov 05, 2024 Medical Necessity Reason Pt with a Central, PICC or Fol: No vital signs Vital Sign Date Time Temp Pulse Resp B/P (MAP) Pulse Ox O2 Delivery O2 Flow Rate FiO2 11/05/24 13:17 62 16 122/46 (71) 100 30 11/05/24 12:30 99.5 211.1 11/05/24 12:00 Mechanical Ventilator+ Total Intake and Output 11/04/24 11/04/24 11/05/24 15:00 23:00 07:00 Intake Total 347.0 ml 500.5 ml 523.0 ml Output Total 450 ml 300 ml Balance 347.0 ml 50.5 ml 223.0 ml medications Current Medications Medications Dose Ordered Sig/Edson Route Start Time Stop Time Status Last Admin Dose Admin Midazolam HCl 50 ml @ 1 mls/hr Q24H IV 11/02/24 12:45 11/05/24 09:55 8 MLS/HR Nicardipine HCl 250 ml @ 50 mls/hr Q5H IV 11/02/24 14:30 UNV Ondansetron HCl 4 mg Q4HP PRN IV 11/02/24 15:00 Acetaminophen 650 mg Q6HP PRN PO 11/02/24 15:00 11/04/24 13:16 650 MG Nitroglycerin 0.4 mg Q5MINP PRN SL 11/02/24 15:00 Vancomycin HCl 0 ml @ 0 mls/hr UD IV 11/02/24 15:15 Diagnostic Test (Pha) 1 strip Q6HR 11/02/24 18:00 11/05/24 12:25 1 STRIP Insulin Human Regular Q6HR SC 11/02/24 18:00 11/05/24 06:02 2 UNITS Dextrose 50 ml UD PRN IV 11/02/24 15:45 Aspirin 81 mg DAILY PO 11/03/24 10:00 11/05/24 09:56 81 MG Atorvastatin Calcium 40 mg HS PO 11/03/24 22:00 11/04/24 21:23 40 MG Cefepime HCl 50 ml @ 12.5 mls/hr DAILY IV 11/04/24 10:00 11/05/24 09:55 12.5 MLS/HR Furosemide 20 mg BIDD NG 11/03/24 18:00 11/05/24 06:03 20 MG Enteral Nutritional Formula 1,000 ml 30ML/HR GT 11/03/24 10:45 11/05/24 03:00 1,000 ML Fentanyl Citrate 250 ml @ 2.5 mls/hr Q24H IV 11/03/24 13:30 11/03/24 14:08 2.5 MLS/HR Spironolactone 25 mg DAILY PO 11/04/24 10:00 11/05/24 09:56 25 MG Sacubitril/ Valsartan 1 tab BID PO 11/03/24 22:00 11/05/24 09:56 1 TAB Empaglifozin 10 mg DAILY PO 11/04/24 10:00 11/05/24 09:56 10 MG Potassium Bicarbonate 25 meq DAILY GT 11/05/24 10:00 11/05/24 09:56 25 MEQ Vancomycin HCl 100 ml @ 200 mls/hr DAILY@1300 IV 11/04/24 13:00 11/05/24 12:25 200 MLS/HR Enoxaparin Sodium 50 mg Q12HR SC 11/05/24 10:00 11/05/24 09:57 50 MG Pantoprazole Sodium 40 mg DAILY IV 11/05/24 11:52 11/05/24 12:24 40 MG Sennosides 8.6 mg HS PO 11/05/24 22:00 laboratory and microbiology Laboratory Tests 11/05/24 03:25 Test 11/05/24 03:25 Range/Units Serum Glucose 144 H 74-106 mg/dL Assessment/Plan Covering for Dr. Pathak Impression Acute hypoxemic respiratory failure Elevated troponin NSTEMI CHF Patient seen and examined in ICU Events On mechanical ventilation S/p intubation PEEP 5, FiO2 30% Labs and imaging reviewed ABG reviewed Management Vent support Titrate to maintain sats 90% or above Sedation for vent synchrony Bronchodilators Monitor renal function Monitor electrolytes Supplement as needed Pressors as needed for hemodynamic support To maintain a mean arterial pressure of 65 mmHg Echo report reviewed EF 30% F/u cardiology DVT prophylaxis Critical care time 35 minutes Dietary Evaluation Review Comments: Glucerna 1.2 @45ml/hr providing 65g prot, 1296kcal 869ml free water Expected Outcomes/Goals: Maintain Wt, prevent losing muscle mass Plan discussed with: Other (Rn) SCARLETT LUBIN MD Nov 05, 2024 13:57
--- NOTE | 2024-11-05 19:43 | DVHPN2 ---
Assessment/Plan Assessment/Plan ICU note 79 F with DM HFrEF, intubated on mechanical vent. covering seen today, for sedation vacation, if good mental status cardio wants to do [facility] physical exam intubated, on low sedation on mech vent PERLLA cough and gag not following commands s1 s2 rrr mechanical breath sounds abdomen soft no LE edema labs ekg imaging reviewed assessment and plan metabolic encephalopathy acute hypoxic RF req mech vent acute systolic HF NSTEMI HLD DM HTN [facility] if good mentation sedation vacation lovenox therapeutic ISS asa c/w mech vent diet jevity dvt ppx lovenox gi ppx protonix condition critical prognosis poor critical care time 65 minutes Plan discussed with: Other Date of Service: Nov 05, 2024 Billing Provider: JASWANT CURTIS MD Common Visit Codes: [id number] CARE 30-74 MIN JASWANT CURTIS MD Nov 05, 2024 19:43
--- NOTE | 2024-11-05 19:45 | DVHPN2 ---
Progress Note - Dictate Date Seen: Nov 05, 2024 Medical Necessity Reason Pt with a Central, PICC or Fol: No Subjective Ms. Frank is a 77 years old female with a history of hypertension, diabetes, heart failure, she was brought to the [facility] on 11/02/2024 with a chief complaint of altered mental status. I have seen and examined the patient, talked to her nurse, he is intubated, responsive to light painful stimuli with opening in both eyes, but she does not follow verbal commands, does not move the extremities Versed 8 mg/hour, fentanyl 25 mcg/hour Blood culture, 11/02/2024: Urine culture, 11/02/2024: Urinalysis, 11/02/2024: WBC: 15 urine leukocyte esterase:: Trace UDS, 11/02/2024: Negative WBC/HB/PLT/MCV, 11/02/2024: 13.6/11.8/220/84.9, 11/03/2024: 14.1/10.7/173/85 Na 11/03/2024: 145, 11/04/2024: 147, 11/05/24: 146 K 11/02/2024: 2 BUN/CR, 11/02/24: 25/1.47, 11/03/2024: 20/1.31 GFR, 11/02/2024: 36 Troponin one high sensitivity, 11/02/2024: 6108, 5013, 9224 TG/HDL/LDL/HDL, 11/02/2024: 202/IA T/127/27 TSH, 11/02/2024: 4.66 Echocardiogram, 11/03/2024: lvef 30% severe LV dysfunction anteroseptum is akinetic RVmild enlarged left atrium enlarged no severe valve abnormalities noted mild mitral regurg mild trciuspid regurg Chest x-ray, 11/02/2024: Endotracheal tube in appropriate position. Pulmonary edema versus atypical infection CT head, 11/02/2024: No intracranial hemorrhage or mass effect. Mild chronic microvascular ischemic changes. Mild global cerebral volume loss. vital signs Vital Sign Date Time Temp Pulse Resp B/P (MAP) Pulse Ox O2 Delivery O2 Flow Rate FiO2 11/05/24 18:45 99.9 59 16 107/43 (64) 100 211.8 11/05/24 18:28 30 11/05/24 18:00 Mechanical Ventilator+ Total Intake and Output 11/04/24 11/04/24 11/05/24 15:00 23:00 07:00 Intake Total 347.0 ml 500.5 ml 523.0 ml Output Total 450 ml 300 ml Balance 347.0 ml 50.5 ml 223.0 ml medications Current Medications Medications Dose Ordered Sig/Edson Route Start Time Stop Time Status Last Admin Dose Admin Midazolam HCl 50 ml @ 1 mls/hr Q24H IV 11/02/24 12:45 11/05/24 17:27 8 MLS/HR Nicardipine HCl 250 ml @ 50 mls/hr Q5H IV 11/02/24 14:30 UNV Ondansetron HCl 4 mg Q4HP PRN IV 11/02/24 15:00 Acetaminophen 650 mg Q6HP PRN PO 11/02/24 15:00 11/05/24 17:26 650 MG Nitroglycerin 0.4 mg Q5MINP PRN SL 11/02/24 15:00 Vancomycin HCl 0 ml @ 0 mls/hr UD IV 11/02/24 15:15 Diagnostic Test (Pha) 1 strip Q6HR 11/02/24 18:00 11/05/24 17:27 1 STRIP Insulin Human Regular Q6HR SC 11/02/24 18:00 11/05/24 06:02 2 UNITS Dextrose 50 ml UD PRN IV 11/02/24 15:45 Aspirin 81 mg DAILY PO 11/03/24 10:00 11/05/24 09:56 81 MG Atorvastatin Calcium 40 mg HS PO 11/03/24 22:00 11/04/24 21:23 40 MG Cefepime HCl 50 ml @ 12.5 mls/hr DAILY IV 11/04/24 10:00 11/05/24 09:55 12.5 MLS/HR Furosemide 20 mg BIDD NG 11/03/24 18:00 11/05/24 17:26 20 MG Enteral Nutritional Formula 1,000 ml 30ML/HR GT 11/03/24 10:45 11/05/24 03:00 1,000 ML Fentanyl Citrate 250 ml @ 2.5 mls/hr Q24H IV 11/03/24 13:30 11/03/24 14:08 2.5 MLS/HR Spironolactone 25 mg DAILY PO 11/04/24 10:00 11/05/24 09:56 25 MG Sacubitril/ Valsartan 1 tab BID PO 11/03/24 22:00 11/05/24 09:56 1 TAB Empaglifozin 10 mg DAILY PO 11/04/24 10:00 11/05/24 09:56 10 MG Potassium Bicarbonate 25 meq DAILY GT 11/05/24 10:00 11/05/24 09:56 25 MEQ Vancomycin HCl 100 ml @ 200 mls/hr DAILY@1300 IV 11/04/24 13:00 11/05/24 12:25 200 MLS/HR Enoxaparin Sodium 50 mg Q12HR SC 11/05/24 10:00 11/05/24 09:57 50 MG Pantoprazole Sodium 40 mg DAILY IV 11/05/24 11:52 11/05/24 12:24 40 MG Sennosides 8.6 mg HS PO 11/05/24 22:00 objective The patient is well-nourished and well-developed with no distress. The patient is intubated MENTAL STATUS: Subjective CRANIAL NERVES: Pupils are equal, round and nonreactive, very small. There are corneal reflexes and doll's eyes phenomenon. No signs of facial weakness. There are gagging or coughing reflexes SENSATION: Responses to light painful stimuli MOTOR: Normal tone in the upper and lower extremity. Normal muscle bulk. No fasciculations. No spontaneous movement. REFLEXES: Deep tendon reflexes are symmetrical. Upgoing toes in the feet,. CEREBELLAR/COORDINATION: Deferred GAIT/STATION: deferred laboratory and microbiology Laboratory Tests 11/05/24 03:25 Test 11/05/24 03:25 Range/Units Serum Glucose 144 H 74-106 mg/dL Problem List Fever, leukocytosis, altered mental status Sepsis UTI Pneumonia Coma/altered mental status Hypoxic encephalopathy Metabolic encephalopathy Rule out intracranial pathology Hypokalemia Kidney failure Assessment/Plan Monitoring Supportive treatment ICU care Follow-up blood tests Blood culture EEG MR head Respiratory support/vent management Stabilize vitals/pressor drip Oxygen IV antibiotics IV fluids DVT prophylaxis More recommendation per clinical course This medical document was created using an electronic medical record system with [employer] system. Although this document has been carefully reviewed, there may still be some phonetic and typographical errors. These areas are purely typographical due to imperfections of the software programs, and do not reflect any compromise in the patient's medical care. Prognosis Guarded Dietary Evaluation Review Comments: Glucerna 1.2 @45ml/hr providing 65g prot, 1296kcal 869ml free water Expected Outcomes/Goals: Maintain Wt, prevent losing muscle mass Plan discussed with: Other Critical Care Time(min): 30 ELY PORRAS MD Nov 05, 2024 19:45
[2024-11-05] MEDS: SENNA 8.6 MG TAB PO SCH (21:43)
[2024-11-06] VITALS (116 sets, daily range): BP systolic 78–183; BP diastolic 33–114; PULSE 57–104; RESP 9–28; TEMP 78.4–101.1; O2SAT 83–100
[2024-11-06 04:13] LABS: Hematocrit 28.5 % (36.0-46.0); Hemoglobin 10.2 g/dL (12.2-16.2); Mean Corpuscular Hemoglobin 31.3 pg (28.0-32.0); Mean Corpuscular Volume 87.3 fL (80.0-100.0); Nucleated Red Blood Cells % 0.0 %
[2024-11-06 04:14] LABS: Anion Gap 8 (5-15); Potassium 3.7 mmol/L (3.5-5.1)
[2024-11-06 04:15] LABS: Calcium 9.1 mg/dL (8.7-10.4)
[2024-11-06 04:20] LABS: BUN/Creatinine Ratio 17.1 (10.0-20.0); Blood Urea Nitrogen 19 mg/dL (9-23)
[2024-11-06 04:21] LABS: Magnesium 1.9 mg/dL (1.6-2.6)
[2024-11-06 04:44] LABS: Carbon Dioxide 32 mmol/L (20-31); Chloride 107 mmol/L (98-107); Glucose 165 mg/dL (74-106); Sodium 147 mmol/L (136-145)
--- NOTE | 2024-11-06 05:42 | DVH ---
CHEST RADIOGRAPH Indication: chf Technique: Single frontal view of the chest was obtained Comparison: XY CHEST PORTABLE on DOS: 11/05/24, XY CHEST PORTABLE on DOS: 11/04/24, XY CHEST XRAY 1 VIEW on DOS: 11/03/24 IMPRESSION: ET tube 3-4 cm from the eagle. IJ catheter tip in the superior vena cava. Enteric tube tip in the r egion of the stomach. The lungs appear otherwise clear without focal airspace opacity, effusion, or pneumothorax.
[2024-11-06 08:55] LABS: Base Excess 4.0 mmol/L (-2.0-3.0)
--- NOTE | 2024-11-06 10:54 | MEDREC ---
[facility] ASP Intervention Section I [facility] ASP Intervention: Deescalate AB based on CS (PLEASE CONSIDER DE-ESCALATION BASED ON THE CULTURE RESULTS (NO PSEUDOMONAS AERUGINOSA AND NO MRSA)) SHIV SAENZ PHARMACIST Nov 06, 2024 10:54
--- NOTE | 2024-11-06 13:21 | DVHPN2 ---
Progress Note - Dictate Date Seen: Nov 06, 2024 Medical Necessity Reason Pt with a Central, PICC or Fol: No vital signs Vital Sign Date Time Temp Pulse Resp B/P (MAP) Pulse Ox O2 Delivery O2 Flow Rate FiO2 11/06/24 11:37 75 20 117/41 (66) 100 30 11/06/24 10:16 99.1 210.4 11/06/24 06:00 Mechanical Ventilator+ Total Intake and Output 11/05/24 11/05/24 11/06/24 15:00 23:00 07:00 Intake Total 194.5 ml 557.75 ml 480.5 ml Output Total 450 ml 650 ml Balance 194.5 ml 107.75 ml -169.5 ml medications Current Medications Medications Dose Ordered Sig/Edson Route Start Time Stop Time Status Last Admin Dose Admin Midazolam HCl 50 ml @ 1 mls/hr Q24H IV 11/02/24 12:45 11/06/24 05:40 4 MLS/HR Nicardipine HCl 250 ml @ 50 mls/hr Q5H IV 11/02/24 14:30 UNV Ondansetron HCl 4 mg Q4HP PRN IV 11/02/24 15:00 Acetaminophen 650 mg Q6HP PRN PO 11/02/24 15:00 11/06/24 05:41 650 MG Nitroglycerin 0.4 mg Q5MINP PRN SL 11/02/24 15:00 Vancomycin HCl 0 ml @ 0 mls/hr UD IV 11/02/24 15:15 Diagnostic Test (Pha) 1 strip Q6HR 11/02/24 18:00 11/06/24 12:29 1 STRIP Insulin Human Regular Q6HR SC 11/02/24 18:00 11/06/24 06:30 2 UNITS Dextrose 50 ml UD PRN IV 11/02/24 15:45 Aspirin 81 mg DAILY PO 11/03/24 10:00 11/06/24 10:12 81 MG Atorvastatin Calcium 40 mg HS PO 11/03/24 22:00 11/05/24 21:43 40 MG Cefepime HCl 50 ml @ 12.5 mls/hr DAILY IV 11/04/24 10:00 11/06/24 10:12 12.5 MLS/HR Furosemide 20 mg BIDD NG 11/03/24 18:00 11/06/24 05:41 20 MG Enteral Nutritional Formula 1,000 ml 30ML/HR GT 11/03/24 10:45 11/05/24 03:00 1,000 ML Fentanyl Citrate 250 ml @ 2.5 mls/hr Q24H IV 11/03/24 13:30 11/03/24 14:08 2.5 MLS/HR Spironolactone 25 mg DAILY PO 11/04/24 10:00 11/06/24 10:13 25 MG Sacubitril/ Valsartan 1 tab BID PO 11/03/24 22:00 11/05/24 21:43 1 TAB Empaglifozin 10 mg DAILY PO 11/04/24 10:00 11/06/24 10:13 10 MG Potassium Bicarbonate 25 meq DAILY GT 11/05/24 10:00 11/06/24 10:12 25 MEQ Vancomycin HCl 100 ml @ 200 mls/hr DAILY@1300 IV 11/04/24 13:00 11/05/24 12:25 200 MLS/HR Enoxaparin Sodium 50 mg Q12HR SC 11/05/24 10:00 11/06/24 10:13 50 MG Pantoprazole Sodium 40 mg DAILY IV 11/05/24 11:52 11/06/24 10:12 40 MG Sennosides 8.6 mg HS PO 11/05/24 22:00 11/05/24 21:43 8.6 MG laboratory and microbiology Laboratory Tests 11/06/24 03:42 Test 11/06/24 03:42 Range/Units Serum Glucose 165 H 74-106 mg/dL Assessment/Plan Covering for Dr. Pathak Impression Acute hypoxemic respiratory failure Elevated troponin NSTEMI CHF Patient seen and examined in ICU Events On mechanical ventilation S/p intubation Tolerating CPAP Scheduled for heart cath in AM Labs and imaging reviewed ABG reviewed Management Vent support Titrate to maintain sats 90% or above Sedation for vent synchrony Consider weaning trial after procedure Bronchodilators Monitor renal function Monitor electrolytes Supplement as needed Pressors as needed for hemodynamic support To maintain a mean arterial pressure of 65 mmHg Echo report reviewed F/u cardiology DVT prophylaxis Critical care time 35 minutes Dietary Evaluation Review Comments: Glucerna 1.2 @45ml/hr providing 65g prot, 1296kcal 869ml free water Expected Outcomes/Goals: Maintain Wt, prevent losing muscle mass Plan discussed with: Other (Rn) SCARLETT LUBIN MD Nov 06, 2024 13:21
--- NOTE | 2024-11-06 14:09 | DVHPN2 ---
Assessment/Plan Assessment/Plan ICU note 79 F with DM HFrEF, intubated on mechanical vent. covering seen today, off sedation, not following commands but opening eyes and moving. c/w sedation vacation. neuro following physical exam intubated, on low sedation on mech vent PERLLA cough and gag not following commands s1 s2 rrr mechanical breath sounds abdomen soft no LE edema labs ekg imaging reviewed assessment and plan metabolic encephalopathy acute hypoxic RF req mech vent acute systolic HF NSTEMI HLD DM HTN LHC if good mentation sedation vacation lovenox therapeutic ISS asa c/w mech vent diet jevity dvt ppx lovenox gi ppx protonix condition critical prognosis poor critical care time 35 minutes Plan discussed with: Other My Orders Orders - JASWANT CURTIS MD Procedure Category Date Status Time Cpap/Sed Vacation Med ORDERS 11/05/24 Transmitted Weaning 19:41 Date of Service: Nov 06, 2024 Billing Provider: JASWANT CURTIS MD Common Visit Codes: [id number] CARE 30-74 MIN JASWANT CURTIS MD Nov 06, 2024 14:09
[2024-11-06] MEDS: DEXMEDETOMIDINE HCL IN D5W 100 ML IV SCH (19:29)
[2024-11-06] MEDS: ENOXAPARIN SOD 60 MG/0.6 ML SYRINGE SC SCH (21:53)
[2024-11-07] VITALS (110 sets, daily range): BP systolic 70–169; BP diastolic 35–125; PULSE 52–159; RESP 9–26; TEMP 96.3–100.2; O2SAT 79–100
[2024-11-07 03:46] LABS: Hematocrit 26.3 % (36.0-46.0); Hemoglobin 9.3 g/dL (12.2-16.2); Mean Corpuscular Hemoglobin 31.1 pg (28.0-32.0); Mean Corpuscular Volume 87.6 fL (80.0-100.0); Nucleated Red Blood Cells % 0.0 %
[2024-11-07 04:02] LABS: Chloride 107 mmol/L (98-107); Potassium 3.9 mmol/L (3.5-5.1); Sodium 145 mmol/L (136-145)
[2024-11-07 04:03] LABS: Anion Gap 6 (5-15); Carbon Dioxide 32 mmol/L (20-31)
[2024-11-07 04:08] LABS: BUN/Creatinine Ratio 21.4 (10.0-20.0)
[2024-11-07 04:09] LABS: Magnesium 1.8 mg/dL (1.6-2.6)
[2024-11-07 04:20] LABS: Blood Urea Nitrogen 24 mg/dL (9-23); Calcium 8.6 mg/dL (8.7-10.4); Glucose 182 mg/dL (74-106)
[2024-11-07 07:51] LABS: Base Excess 2.0 mmol/L (-2.0-3.0)
--- NOTE | 2024-11-07 09:29 | DVHPN2 ---
Subjective Patient chemically sedated Reviewed: Care Plan, H&P, Labs, Medications Changes from previous H/P or p: No Changes General: Per HPI Objective Vitals Vital Signs Date Time Temp Pulse Resp B/P (MAP) Pulse Ox O2 Delivery O2 Flow Rate FiO2 11/07/24 08:16 83 16 118/62 (80) 100 30 11/07/24 06:48 99.1 210.4 11/07/24 06:00 Mechanical Ventilator+ Intake/Output Intake and Output 11/07/24 07:00 Intake Total 1070.875 ml Output Total 885 ml Balance 185.875 ml Intake Oral 250 ml IV Total 380.875 ml Tube Feeding 440 ml Output Urine Total 685 ml Stool Total 200 ml # Bowel Movements 2 General Appearance: moderate distress, Other (Unable to assess) HEENT: PERRLA Lungs: Clear to auscultation, Normal air movement Cardiovascular: Normal S1, Normal S2 Abdomen: Normal bowel sounds, Soft, No tenderness, No hepatospenomegaly Genitourinary: No Apparent Abnormalities ([place]) Musculoskeletal: Other (No motor movement) Skin: Dry, Intact Psych/Mental Status: Other (Unable to assess) Medications Current Medications Medications Dose Ordered Sig/Edson Route Start Time Stop Time Status Last Admin Dose Admin Midazolam HCl 50 ml @ 1 mls/hr Q24H IV 11/02/24 12:45 11/06/24 19:41 5 MLS/HR Nicardipine HCl 250 ml @ 50 mls/hr Q5H IV 11/02/24 14:30 UNV Ondansetron HCl 4 mg Q4HP PRN IV 11/02/24 15:00 Acetaminophen 650 mg Q6HP PRN PO 11/02/24 15:00 11/06/24 05:41 650 MG Nitroglycerin 0.4 mg Q5MINP PRN SL 11/02/24 15:00 Vancomycin HCl 0 ml @ 0 mls/hr UD IV 11/02/24 15:15 Diagnostic Test (Pha) 1 strip Q6HR 11/02/24 18:00 11/07/24 06:00 1 STRIP Insulin Human Regular Q6HR SC 11/02/24 18:00 11/06/24 17:50 2 UNITS Dextrose 50 ml UD PRN IV 11/02/24 15:45 Aspirin 81 mg DAILY PO 11/03/24 10:00 11/06/24 10:12 81 MG Atorvastatin Calcium 40 mg HS PO 11/03/24 22:00 11/06/24 21:48 40 MG Cefepime HCl 50 ml @ 12.5 mls/hr DAILY IV 11/04/24 10:00 11/06/24 10:12 12.5 MLS/HR Furosemide 20 mg BIDD NG 11/03/24 18:00 11/07/24 05:56 20 MG Enteral Nutritional Formula 1,000 ml 30ML/HR GT 11/03/24 10:45 11/06/24 21:59 1,000 ML Fentanyl Citrate 250 ml @ 2.5 mls/hr Q24H IV 11/03/24 13:30 11/06/24 13:10 7.5 MLS/HR Spironolactone 25 mg DAILY PO 11/04/24 10:00 11/06/24 10:13 25 MG Sacubitril/ Valsartan 1 tab BID PO 11/03/24 22:00 11/06/24 21:48 1 TAB Empaglifozin 10 mg DAILY PO 11/04/24 10:00 11/06/24 10:13 10 MG Potassium Bicarbonate 25 meq DAILY GT 11/05/24 10:00 11/06/24 10:12 25 MEQ Pantoprazole Sodium 40 mg DAILY IV 11/05/24 11:52 11/06/24 10:12 40 MG Sennosides 8.6 mg HS PO 11/05/24 22:00 11/06/24 21:48 8.6 MG Vancomycin HCl 100 ml @ 100 mls/hr DAILY@1400 IV 11/07/24 14:00 Enoxaparin Sodium 50 mg Q12HR SC 11/06/24 22:00 11/06/24 21:53 50 MG Laboratory Results Laboratory Tests 11/07/24 03:23 Chemistry Test 11/07/24 03:23 Calcium Level 8.6 mg/dL (8.7-10.4) L Magnesium Level 1.8 mg/dL (1.6-2.6) Phosphorus Level 3.7 mg/dL (2.4-5.1) Urinalysis Test 11/02/24 12:17 Urine Color Light-yellow (Yellow) Urine Clarity Turbid (Clear) H Urine pH 7.0 (5.0-9.0) Urine Specific [place] 1.010 (1.001-1.035) Urine Protein 2+ (Negative) H Urine Ketones Negative (Negative) Urine Blood 1+ /uL (Negative) H Urine Nitrite Negative (Negative) Urine Bilirubin Negative (Negative) Urine Urobilinogen Normal mg/dL (Negative) Urine Leukocyte Esterase Trace /uL (Negative) Urine RBC 2 /hpf (0 - 4) Urine Microscopic WBC 15 /HPF (0-5) H Urine Squamous Epithelial Cells Few /hpf (<5) Urine Bacteria None seen /hpf (None Seen) Urine Hyaline Casts Few /lpf (0 - 2) Urine Glucose Trace mg/dL (Normal) Blood Gas Results Test 11/07/24 07:39 Arterial Blood pH 7.465 (7.350-7.450) FiO2 % 30.0 Microbiology Microbiology Date/Time Source Procedure Growth Status 11/03/24 00:00 Nose MRSA Screen - Final Complete 11/02/24 12:17 Voided Urine Urine Culture - Final Complete 11/02/24 11:55 Blood Blood Culture - Preliminary NO GROWTH AFTER 72 HOURS OF INCUBATION. Resulted 11/02/24 11:10 Sputum Gram Stain - Final Complete 11/02/24 11:10 Sputum Respiratory Culture - Final Complete Labs and/or images reviewed: Labs reviewed by me, Image(s) reviewed by me Assessment/Plan Assessment/Plan Impression: -metabolic encephalopathy -acute hypoxic respiratory failure -acute systolic heart failure -NSTEMI type [address]-depression in lateral leads -dyslipidemia -diabetes mellitus -accelerated hypertension -ventricular bigeminy with bradycardia Plan: Events: Attempted to wean sedation. Currently on Precedex. Consult with Cardiology for LHC -Cardiology: Possible LHC -Hold lovenox at this time -continue aspirin -regular insulin sliding scale -TF with Jevity -potassium and magnesium replacement -PUD prophylaxis -repeat labs, chest x-ray, ABG in a.m. Critical care time spent with patient discussing and formulating plan of care: 40 minutes. This does not include time spent performing procedures. This medical document was created using an electronic medical record system with [employer] system. Although this document has been carefully reviewed, there may still be some phonetic and typographical errors. These areas are purely typographical due to imperfections of the software programs, and do not reflect any compromise in the patient's medical care. Plan discussed with: Patient, Other (RN) My Orders Orders - ALEXANDER TAMAYO NP Procedure Category Date Status Time Abg W/ Co-Ox RT 11/07/24 Logged 05:33 Nutritional PHA 11/07/24 Verified Supplements (Jevity 09:30 Date of Service: Nov 07, 2024 Billing Provider: ALEXANDER TAMAYO NP Common Visit Codes: [id number] CARE 30-74 MIN ALEXANDER TAMAYO NP Nov 07, 2024 09:29
--- NOTE | 2024-11-07 10:08 | DVHPN2 ---
Consult Progress Note Date Seen: Nov 07, 2024 Subjective Other Systems: No overnight cardiac events reported Objective vital signs Vital Sign Date Time Temp Pulse Resp B/P (MAP) Pulse Ox O2 Delivery O2 Flow Rate FiO2 11/07/24 08:16 83 16 118/62 (80) 100 30 11/07/24 06:48 99.1 210.4 11/07/24 06:00 Mechanical Ventilator+ Total Intake and Output 11/06/24 11/06/24 11/07/24 15:00 23:00 07:00 Intake Total 246.5 ml 604.750 ml 219.625 ml Output Total 325 ml 560 ml Balance 246.5 ml 279.750 ml -340.375 ml medications Current Medications Medications Dose Ordered Sig/Edson Route Start Time Stop Time Status Last Admin Dose Admin Midazolam HCl 50 ml @ 1 mls/hr Q24H IV 11/02/24 12:45 11/06/24 19:41 5 MLS/HR Nicardipine HCl 250 ml @ 50 mls/hr Q5H IV 11/02/24 14:30 UNV Ondansetron HCl 4 mg Q4HP PRN IV 11/02/24 15:00 Acetaminophen 650 mg Q6HP PRN PO 11/02/24 15:00 11/06/24 05:41 650 MG Nitroglycerin 0.4 mg Q5MINP PRN SL 11/02/24 15:00 Diagnostic Test (Pha) 1 strip Q6HR 11/02/24 18:00 11/07/24 06:00 1 STRIP Insulin Human Regular Q6HR SC 11/02/24 18:00 11/06/24 17:50 2 UNITS Dextrose 50 ml UD PRN IV 11/02/24 15:45 Aspirin 81 mg DAILY PO 11/03/24 10:00 11/06/24 10:12 81 MG Atorvastatin Calcium 40 mg HS PO 11/03/24 22:00 11/06/24 21:48 40 MG Cefepime HCl 50 ml @ 12.5 mls/hr DAILY IV 11/04/24 10:00 11/06/24 10:12 12.5 MLS/HR Furosemide 20 mg BIDD NG 11/03/24 18:00 11/07/24 05:56 20 MG Fentanyl Citrate 250 ml @ 2.5 mls/hr Q24H IV 11/03/24 13:30 11/06/24 13:10 7.5 MLS/HR Spironolactone 25 mg DAILY PO 11/04/24 10:00 11/06/24 10:13 25 MG Sacubitril/ Valsartan 1 tab BID PO 11/03/24 22:00 11/06/24 21:48 1 TAB Empaglifozin 10 mg DAILY PO 11/04/24 10:00 11/06/24 10:13 10 MG Potassium Bicarbonate 25 meq DAILY GT 11/05/24 10:00 11/06/24 10:12 25 MEQ Pantoprazole Sodium 40 mg DAILY IV 11/05/24 11:52 11/06/24 10:12 40 MG Sennosides 8.6 mg HS PO 11/05/24 22:00 11/06/24 21:48 8.6 MG Enteral Nutritional Formula 1,000 ml 5ML/HR GT 11/07/24 09:30 Examination: LUNGS:Abnormal (Endotracheally intubated, 30% FiO2), CVS:Normal (Off vasopressors. NSR with T-wave segment inversion on bedside monitor), NEURO:Normal (On light sedation. +Cough/gag reflex. Reactive bilateral pupils. Responsive to light touch) laboratory and microbiology Laboratory Tests 11/07/24 03:23 Test 11/07/24 03:23 Range/Units Serum Glucose 182 H 74-106 mg/dL Problem List/Assessment/Plan Problem List/Assessment/Plan NSTEMI, suspected Type I Hypertensive emergency with acute encephalopathy [place] HFrEF, NYHA class IV Ventricular bigeminy in the setting of severe hypokalemia/hypomagnesemia Mild mitral and tricuspid valve regurgitation Dyslipidemia Rule out primary aldosteronism Insulin-dependent diabetes mellitus Acute kidney injury Hypothyroidism Gout Plan/Recommendation (Dr. Sampson) Latest TTE revealed EF of 30% with akinetic anteroseptum. A previous transthoracic echocardiogram from 01/11/2024 reveals an EF of 55%. Scheduled for a coronary angiogram with cardiac catheterization with Dr. Love. All risks and benefits of the procedure were explained in full detail to next of kin/POA Daily Fermin who agrees to proceed with intervention. Hold lovenox. Continue guideline directed medical therapy for CHF, and no beta-blockers given bradycardia. Continue single-antiplatelet therapy and lipid-lowering agent. Renin/aldosterone levels pending. Closely monitor and replete electrolytes as needed. Rest of plan per clinical course. Thank you for allowing us to participate in this patient's care. Please call if you have any questions or concerns. Of note, patient has another . Critical care time: 40 min. This medical document was created using an electronic medical record system with voice recognition software and computerized dictation system. Although this document has been carefully reviewed, there might still be some phonetic and typographical errors. Occasional wrong-word or ``sound-alike substitutions may have occurred due to the inherent limitations of voice recognition software. These areas are purely typographical due to imperfections of the software programs and do not reflect any compromise in the patient's medical care. Please read the chart carefully and recognize, using context, where these substitutions have occurred. Plan discussed with: Other Dietary Evaluation Review Comments: Glucerna 1.2 @45ml/hr providing 65g prot, 1296kcal 869ml free water Expected Outcomes/Goals: Maintain Wt, prevent losing muscle mass Date of Service: Nov 07, 2024 Billing Provider: RENEE AVILA Cardiology Common Codes: [id number] CARE 30-74 MIN RENEE AVILA Nov 07, 2024 10:08
--- NOTE | 2024-11-07 10:53 | DVHPN2 ---
Progress Note - Dictate Date Seen: Nov 07, 2024 Medical Necessity Reason Pt with a Central, PICC or Fol: No Subjective Ms. Frank is a 77 years old female with a history of hypertension, diabetes, heart failure, she was brought to the [facility] on 11/02/2024 with a chief complaint of altered mental status. I have seen and examined the patient, talked to her nurse, he is intubated, responsive to light voice, she followed Jessie's verbal commands Versed 0 mg/hour, fentanyl 50 mcg/hour, Precedex 0.3 units/kg Blood culture, 11/02/2024: Urine culture, 11/02/2024: Urinalysis, 11/02/2024: WBC: 15 urine leukocyte esterase:: Trace UDS, 11/02/2024: Negative WBC/HB/PLT/MCV, 11/02/2024: 13.6/11.8/220/84.9, 11/03/2024: 14.1/10.7/173/85 Na 11/03/2024: 145, 11/04/2024: 147, 11/05/24: 146 K 11/02/2024: 2 BUN/CR, 11/02/24: 25/1.47, 11/03/2024: 20/1.31 GFR, 11/02/2024: 36 Troponin one high sensitivity, 11/02/2024: 6108, 5013, 9224 TG/HDL/LDL/HDL, 11/02/2024: 202/IA T/127/27 TSH, 11/02/2024: 4.66 Echocardiogram, 11/03/2024: lvef 30% severe LV dysfunction anteroseptum is akinetic RVmild enlarged left atrium enlarged no severe valve abnormalities noted mild mitral regurg mild trciuspid regurg Chest x-ray, 11/02/2024: Endotracheal tube in appropriate position. Pulmonary edema versus atypical infection CT head, 11/02/2024: No intracranial hemorrhage or mass effect. Mild chronic microvascular ischemic changes. Mild global cerebral volume loss. vital signs Vital Sign Date Time Temp Pulse Resp B/P (MAP) Pulse Ox O2 Delivery O2 Flow Rate FiO2 11/07/24 10:23 63 16 107/46 (66) 100 30 11/07/24 06:48 99.1 210.4 11/07/24 06:00 Mechanical Ventilator+ Total Intake and Output 11/06/24 11/06/24 11/07/24 15:00 23:00 07:00 Intake Total 246.5 ml 604.750 ml 219.625 ml Output Total 325 ml 560 ml Balance 246.5 ml 279.750 ml -340.375 ml medications Current Medications Medications Dose Ordered Sig/Edson Route Start Time Stop Time Status Last Admin Dose Admin Midazolam HCl 50 ml @ 1 mls/hr Q24H IV 11/02/24 12:45 11/06/24 19:41 5 MLS/HR Nicardipine HCl 250 ml @ 50 mls/hr Q5H IV 11/02/24 14:30 UNV Ondansetron HCl 4 mg Q4HP PRN IV 11/02/24 15:00 Acetaminophen 650 mg Q6HP PRN PO 11/02/24 15:00 11/06/24 05:41 650 MG Nitroglycerin 0.4 mg Q5MINP PRN SL 11/02/24 15:00 Diagnostic Test (Pha) 1 strip Q6HR 11/02/24 18:00 11/07/24 06:00 1 STRIP Insulin Human Regular Q6HR SC 11/02/24 18:00 11/06/24 17:50 2 UNITS Dextrose 50 ml UD PRN IV 11/02/24 15:45 Aspirin 81 mg DAILY PO 11/03/24 10:00 11/06/24 10:12 81 MG Atorvastatin Calcium 40 mg HS PO 11/03/24 22:00 11/06/24 21:48 40 MG Cefepime HCl 50 ml @ 12.5 mls/hr DAILY IV 11/04/24 10:00 11/07/24 10:03 12.5 MLS/HR Furosemide 20 mg BIDD NG 11/03/24 18:00 11/07/24 05:56 20 MG Fentanyl Citrate 250 ml @ 2.5 mls/hr Q24H IV 11/03/24 13:30 11/06/24 13:10 7.5 MLS/HR Spironolactone 25 mg DAILY PO 11/04/24 10:00 11/06/24 10:13 25 MG Sacubitril/ Valsartan 1 tab BID PO 11/03/24 22:00 11/06/24 21:48 1 TAB Empaglifozin 10 mg DAILY PO 11/04/24 10:00 11/06/24 10:13 10 MG Potassium Bicarbonate 25 meq DAILY GT 11/05/24 10:00 11/06/24 10:12 25 MEQ Pantoprazole Sodium 40 mg DAILY IV 11/05/24 11:52 11/07/24 10:04 40 MG Sennosides 8.6 mg HS PO 11/05/24 22:00 11/06/24 21:48 8.6 MG Enteral Nutritional Formula 1,000 ml 5ML/HR GT 11/07/24 09:30 objective The patient is well-nourished and well-developed with no distress. The patient is intubated MENTAL STATUS: Subjective CRANIAL NERVES: Pupils are equal, round and nonreactive, very small. There are conjugated eye movement. No signs of facial weakness. There are gagging or coughing reflexes SENSATION: Responses to light painful stimuli MOTOR: Normal tone in the upper and lower extremity. Normal muscle bulk. No fasciculations. No spontaneous movement. REFLEXES: Deep tendon reflexes are symmetrical. Upgoing toes in the feet,. CEREBELLAR/COORDINATION: Deferred GAIT/STATION: deferred laboratory and microbiology Laboratory Tests 11/07/24 03:23 Test 11/07/24 03:23 Range/Units Serum Glucose 182 H 74-106 mg/dL Problem List Fever, leukocytosis, altered mental status Sepsis UTI Pneumonia Coma/altered mental status Hypoxic encephalopathy Metabolic encephalopathy Rule out intracranial pathology Hypokalemia Kidney failure Assessment/Plan Monitoring Supportive treatment ICU care Follow-up blood tests Blood culture EEG MR head Respiratory support/vent management Stabilize vitals/pressor drip Oxygen IV antibiotics IV fluids DVT prophylaxis More recommendation per clinical course This medical document was created using an electronic medical record system with [employer] dictation system. Although this document has been carefully reviewed, there may still be some phonetic and typographical errors. These areas are purely typographical due to imperfections of the software programs, and do not reflect any compromise in the patient's medical care. Prognosis Guarded Dietary Evaluation Review Comments: Glucerna 1.2 @45ml/hr providing 65g prot, 1296kcal 869ml free water Expected Outcomes/Goals: Maintain Wt, prevent losing muscle mass Plan discussed with: Other ELY PORRAS MD Nov 07, 2024 10:53
[2024-11-07] MEDS: IODIXANOL 320MG/ML 100ML BTL IV ONE (11:42)
[2024-11-07] MEDS: AMIODARONE BOLUS KIT 100 ML IV ONE ×2 (11:45→11:49)
[2024-11-07 11:57] LABS: INR 1.03 (0.9-1.15); Partial Thromboplastin Time 27.3 SEC (24.5-34.5); Prothrombin Time 10.9 sec (9.3-11.8)
[2024-11-07] MEDS: AMIODARONE 360mg/200mL PREMIX 200 ML IV ONE ×2 (12:00→12:01)
[2024-11-07] MEDS: NOREPINEPHRINE 8 MG/250ML KIT 250 ML IV ONE (12:12)
[2024-11-07] MEDS: NOREPINEPHRINE 8 MG/250ML KIT 250 ML IV SCH (12:15)
--- NOTE | 2024-11-07 12:17 | DVHPN2 ---
Progress Note Date Seen: Nov 07, 2024 Medical Necessity Reason Pt with a Central, PICC or Fol: No Subjective Patient reports: Feels worse Other Systems: pt went into afib was flailling around started amio gtt now BP is 70s Objective vital signs Vital Sign Date Time Temp Pulse Resp B/P (MAP) Pulse Ox O2 Delivery O2 Flow Rate FiO2 11/07/24 11:23 153 16 141/73 (95) 100 30 11/07/24 06:48 99.1 210.4 11/07/24 06:00 Mechanical Ventilator+ Total Intake and Output 11/06/24 11/06/24 11/07/24 15:00 23:00 07:00 Intake Total 246.5 ml 604.750 ml 219.625 ml Output Total 325 ml 560 ml Balance 246.5 ml 279.750 ml -340.375 ml medications Current Medications Medications Dose Ordered Sig/Edson Route Start Time Stop Time Status Last Admin Dose Admin Midazolam HCl 50 ml @ 1 mls/hr Q24H IV 11/02/24 12:45 11/06/24 19:41 5 MLS/HR Nicardipine HCl 250 ml @ 50 mls/hr Q5H IV 11/02/24 14:30 UNV Ondansetron HCl 4 mg Q4HP PRN IV 11/02/24 15:00 Acetaminophen 650 mg Q6HP PRN PO 11/02/24 15:00 11/06/24 05:41 650 MG Nitroglycerin 0.4 mg Q5MINP PRN SL 11/02/24 15:00 Diagnostic Test (Pha) 1 strip Q6HR 11/02/24 18:00 11/07/24 11:55 1 STRIP Insulin Human Regular Q6HR SC 11/02/24 18:00 11/06/24 17:50 2 UNITS Dextrose 50 ml UD PRN IV 11/02/24 15:45 Aspirin 81 mg DAILY PO 11/03/24 10:00 11/06/24 10:12 81 MG Atorvastatin Calcium 40 mg HS PO 11/03/24 22:00 11/06/24 21:48 40 MG Cefepime HCl 50 ml @ 12.5 mls/hr DAILY IV 11/04/24 10:00 11/07/24 10:03 12.5 MLS/HR Furosemide 20 mg BIDD NG 11/03/24 18:00 11/07/24 05:56 20 MG Fentanyl Citrate 250 ml @ 2.5 mls/hr Q24H IV 11/03/24 13:30 11/06/24 13:10 7.5 MLS/HR Spironolactone 25 mg DAILY PO 11/04/24 10:00 11/06/24 10:13 25 MG Sacubitril/ Valsartan 1 tab BID PO 11/03/24 22:00 11/06/24 21:48 1 TAB Empaglifozin 10 mg DAILY PO 11/04/24 10:00 11/06/24 10:13 10 MG Potassium Bicarbonate 25 meq DAILY GT 11/05/24 10:00 11/06/24 10:12 25 MEQ Pantoprazole Sodium 40 mg DAILY IV 11/05/24 11:52 11/07/24 10:04 40 MG Sennosides 8.6 mg HS PO 11/05/24 22:00 11/06/24 21:48 8.6 MG Enteral Nutritional Formula 1,000 ml 5ML/HR GT 11/07/24 09:30 Amiodarone HCL/ Dextrose 200 ml @ 16.66 mls/ hr Q12H IV 11/07/24 17:49 UNV Norepinephrine Bitartrate 250 ml @ 3.75 mls/hr Q24H IV 11/07/24 12:15 UNV Examination: GENERAL:Abnormal, HEENT:Abnormal, LUNGS:Abnormal, CVS:Abnormal, ABDOMEN:Abnormal laboratory and microbiology Laboratory Tests 11/07/24 03:23 Test 11/07/24 03:23 Range/Units Serum Glucose 182 H 74-106 mg/dL Microbiology Date/Time Source Procedure Growth Status 11/03/24 00:00 Nose MRSA Screen - Final Complete 11/02/24 12:17 Voided Urine Urine Culture - Final Complete 11/02/24 11:55 Blood Blood Culture - Final NO GROWTH AFTER 5 DAYS OF INCUBATION. Complete 11/02/24 11:10 Sputum Gram Stain - Final Complete 11/02/24 11:10 Sputum Respiratory Culture - Final Complete Problem List/Assessment/Plan Problem List/Assessment/Plan NSTEMI, suspected Type I Hypertensive emergency with acute encephalopathy De Teddy HFrEF, NYHA class IV Ventricular bigeminy in the setting of severe hypokalemia/hypomagnesemia Mild mitral and tricuspid valve regurgitation Dyslipidemia Rule out primary aldosteronism Insulin-dependent diabetes mellitus Acute kidney injury Hypothyroidism Gout Plan/Recommendation Latest TTE revealed EF of 30% with akinetic anteroseptum. A previous transthoracic echocardiogram from 01/11/2024 reveals an EF of 55%. Scheduled for a coronary angiogram with cardiac catheterization with Dr. Aguayo. All risks and benefits of the procedure were explained in full detail to next of kin/POA Daily Fermin who agrees to proceed with intervention. Hold lovenox. Continue guideline directed medical therapy for CHF, and no beta-blockers given bradycardia. Continue single-antiplatelet therapy and lipid-lowering agent. Renin/aldosterone levels pending. Closely monitor and replete electrolytes as needed. Rest of plan per clinical course. Thank you for allowing us to participate in this patient's care. Please call if you have any questions or concerns. Of note, patient has another . [facility] on hold today as bp has dropped, starting levophed, amio gtt Plan discussed with: Other (rn) Dietary Evaluation Review Comments: Glucerna 1.2 @45ml/hr providing 65g prot, 1296kcal 869ml free water Expected Outcomes/Goals: Maintain Wt, prevent losing muscle mass Date of Service: Nov 07, 2024 Billing Provider: RAMONA AGUAYO MD Common Visit Codes: NOT BILLABLE RAMONA AGUAYO MD Nov 07, 2024 12:17
[2024-11-07] MEDS ORDERED: VANCOMYCIN 750mg/100mL IV SCH (14:00)
[2024-11-07] MEDS: MAGNESIUM SULFATE 1GM/100ML 100 ML IV ONE (17:01)
[2024-11-07] MEDS: AMIODARONE 360mg/200mL PREMIX 200 ML IV SCH (18:08)
[2024-11-07] MEDS: CEFEPIME 1GM/50ML 50 ML IV SCH (22:00)
[2024-11-08] VITALS (103 sets, daily range): BP systolic 78–146; BP diastolic 38–77; PULSE 51–99; RESP 8–28; TEMP 98.8–100.6; O2SAT 98–100
--- NOTE | 2024-11-08 00:15 | DVHEEG2 ---
Neurology EEG Procedural Note Procedural Note EXAM DATE: 11/03/2024 REFERRING DOCTOR: Dr. Porras TECHNIQUE: Eighteen channels of EEG, 2 channels of EOG, and 1 channel of EKG were recorded using the International 10/20 system. CLINICAL DATA: The patient was referred for an EEG evaluation for the evidence of seizure disorder. MEDICATIONS: See the chart BACKGROUND ACTIVITY: This record showed diffuse low amplitude theta activity over both hemispheres, with intervals of really the suppressed background activity. ACTIVATION: Hyperventilation: Not done Photic Stimulation: Not done Sleep: Nonresponsiveness IMPRESSION: This is a remarkably abnormal EEG, this EEG is seen in severe cerebral dysfunction due to metabolic/hypoxic encephalopathy or medication effects, please correlate clinically. The EKG channel showed a regular heart rate of 78/min[place] [address] ELY PORRAS MD Nov 08, 2024 00:15
[2024-11-08 04:11] LABS: Hematocrit 28.9 % (36.0-46.0); Hemoglobin 10.1 g/dL (12.2-16.2); Mean Corpuscular Hemoglobin 30.5 pg (28.0-32.0); Mean Corpuscular Volume 86.7 fL (80.0-100.0); Nucleated Red Blood Cells % 0.1 %
[2024-11-08 04:18] LABS: Anion Gap 6 (5-15); Chloride 106 mmol/L (98-107); Sodium 144 mmol/L (136-145)
[2024-11-08 04:19] LABS: Calcium 8.8 mg/dL (8.7-10.4)
[2024-11-08 04:22] LABS: Carbon Dioxide 32 mmol/L (20-31); Potassium 3.3 mmol/L (3.5-5.1)
[2024-11-08 04:24] LABS: BUN/Creatinine Ratio 18.3 (10.0-20.0); Blood Urea Nitrogen 21 mg/dL (9-23); Magnesium 1.9 mg/dL (1.6-2.6)
[2024-11-08 04:40] LABS: Glucose 138 mg/dL (74-106)
[2024-11-08 05:02] LABS: INR 1.04 (0.9-1.15); Partial Thromboplastin Time 28.0 SEC (24.5-34.5); Prothrombin Time 11.0 sec (9.3-11.8)
--- NOTE | 2024-11-08 05:27 | DVH ---
CHEST RADIOGRAPH Indication: chf Technique: Single frontal view of the chest was obtained Comparison: XY CHEST PORTABLE on DOS: 11/06/24 FINDINGS: Lines and Tubes: The endotracheal tube terminates 3.4 cm above the eagle. There is a right central v enous catheter terminating in the right atrium. Lungs: Bilateral increased interstitial prominence. No focal consolidation. Pleura: No effusion. No pneumothorax. Cardiomediastinal contours: Unremarkable Bones: No acute osseous abnormality. IMPRESSION: 1. Bilateral interstitial prominence suggestive of pulmonary vascular congestion.
[2024-11-08 07:27] LABS: Base Excess 0.5 mmol/L (-2.0-3.0)
--- NOTE | 2024-11-08 08:02 | ECG ---
[facility] Test Date: 2024-11-07 Test Time: 11:45:20 Pat Name: RAGHAVENDRA LORENZ Department: ICU Room: 0219T Gender: F Assistant Broker: FAMLAWRENCE : 1945 Requested By: RENEE AVILA Order Number: [id number] Reading MD: Agustín Sampson Measurements Intervals [place] Rate: 149 P: 0 NJ: 0 QRS: 78 QRSD: 103 T: 232 QT: 276 QTc: 435 Interpretive Statements Atrial fibrillation with rapid V-rate Ventricular premature complex Probable LVH with secondary repol abnrm ST depression, probably rate related Electronically Signed On 11-15-2024 17:57:53 PDT by Agustín Sampson Please click the below link to view image of tracing.
--- NOTE | 2024-11-08 08:48 | DVHPN2 ---
Subjective Patient chemically sedated Reviewed: Care Plan, H&P, Labs, Medications Changes from previous H/P or p: No Changes General: Per HPI Objective Vitals Vital Signs Date Time Temp Pulse Resp B/P (MAP) Pulse Ox O2 Delivery O2 Flow Rate FiO2 11/08/24 07:46 99.6 11/08/24 07:00 68 16 124/52 (76) 100 11/08/24 06:18 30 11/08/24 06:00 Mechanical Ventilator+ Intake/Output Intake and Output 11/08/24 07:00 Intake Total 1625.520 ml Output Total 925 ml Balance 700.520 ml Intake Oral 160 ml IV Total 1285.520 ml Tube Feeding 180 ml Output Urine Total 725 ml Gastric Drainage Total 200 ml # Bowel Movements 2 General Appearance: moderate distress, Other (Unable to assess) HEENT: PERRLA Lungs: Clear to auscultation, Normal air movement, Other (Mechanical ventilation) Cardiovascular: Normal S1, Normal S2 Abdomen: Normal bowel sounds, Soft, No tenderness, No hepatospenomegaly Genitourinary: No Apparent Abnormalities ([place]) Musculoskeletal: Other (No motor movement) Skin: Dry, Intact Psych/Mental Status: Other (Unable to assess) Medications Current Medications Medications Dose Ordered Sig/Edosn Route Start Time Stop Time Status Last Admin Dose Admin Midazolam HCl 50 ml @ 1 mls/hr Q24H IV 11/02/24 12:45 11/07/24 23:58 5 MLS/HR Nicardipine HCl 250 ml @ 50 mls/hr Q5H IV 11/02/24 14:30 UNV Ondansetron HCl 4 mg Q4HP PRN IV 11/02/24 15:00 Acetaminophen 650 mg Q6HP PRN PO 11/02/24 15:00 11/08/24 06:46 650 MG Nitroglycerin 0.4 mg Q5MINP PRN SL 11/02/24 15:00 Diagnostic Test (Pha) 1 strip Q6HR 11/02/24 18:00 11/08/24 06:05 1 STRIP Insulin Human Regular Q6HR SC 11/02/24 18:00 11/07/24 23:39 2 UNITS Dextrose 50 ml UD PRN IV 11/02/24 15:45 Aspirin 81 mg DAILY PO 11/03/24 10:00 11/06/24 10:12 81 MG Atorvastatin Calcium 40 mg HS PO 11/03/24 22:00 11/07/24 21:59 40 MG Furosemide 20 mg BIDD NG 11/03/24 18:00 11/07/24 18:09 20 MG Fentanyl Citrate 250 ml @ 2.5 mls/hr Q24H IV 11/03/24 13:30 11/08/24 05:34 17.5 MLS/HR Spironolactone 25 mg DAILY PO 11/04/24 10:00 11/06/24 10:13 25 MG Sacubitril/ Valsartan 1 tab BID PO 11/03/24 22:00 11/06/24 21:48 1 TAB Empaglifozin 10 mg DAILY PO 11/04/24 10:00 11/06/24 10:13 10 MG Potassium Bicarbonate 25 meq DAILY GT 11/05/24 10:00 11/08/24 06:41 25 MEQ Pantoprazole Sodium 40 mg DAILY IV 11/05/24 11:52 11/07/24 10:04 40 MG Sennosides 8.6 mg HS PO 11/05/24 22:00 11/07/24 21:59 8.6 MG Enteral Nutritional Formula 1,000 ml 5ML/HR GT 11/07/24 09:30 Amiodarone HCL/ Dextrose 200 ml @ 16.66 mls/ hr Q12H IV 11/07/24 17:49 11/08/24 05:06 16.66 MLS/HR Norepinephrine Bitartrate 250 ml @ 3.75 mls/hr Q24H IV 11/07/24 12:15 11/07/24 12:15 3.75 MLS/HR Cefepime HCl 50 ml @ 12.5 mls/hr Q12H IV 11/07/24 22:00 11/07/24 22:00 12.5 MLS/HR Laboratory Results Laboratory Tests 11/08/24 03:25 Chemistry Test 11/08/24 03:25 Calcium Level 8.8 mg/dL (8.7-10.4) Magnesium Level 1.9 mg/dL (1.6-2.6) Coagulation Test 11/07/24 11:15 11/08/24 03:25 Prothrombin Time 10.9 sec (9.3-11.8) 11.0 sec (9.3-11.8) Prothrombin Time INR 1.03 (0.9-1.15) 1.04 (0.9-1.15) Activated Partial Thromboplast Time 27.3 SEC (24.5-34.5) 28.0 SEC (24.5-34.5) Urinalysis Test 11/02/24 12:17 Urine Color Light-yellow (Yellow) Urine Clarity Turbid (Clear) H Urine pH 7.0 (5.0-9.0) Urine Specific [place] 1.010 (1.001-1.035) Urine Protein 2+ (Negative) H Urine Ketones Negative (Negative) Urine Blood 1+ /uL (Negative) H Urine Nitrite Negative (Negative) Urine Bilirubin Negative (Negative) Urine Urobilinogen Normal mg/dL (Negative) Urine Leukocyte Esterase Trace /uL (Negative) Urine RBC 2 /hpf (0 - 4) Urine Microscopic WBC 15 /HPF (0-5) H Urine Squamous Epithelial Cells Few /hpf (<5) Urine Bacteria None seen /hpf (None Seen) Urine Hyaline Casts Few /lpf (0 - 2) Urine Glucose Trace mg/dL (Normal) Blood Gas Results Test 11/08/24 07:11 Arterial Blood pH 7.400 (7.350-7.450) FiO2 % 35.0 Microbiology Microbiology Date/Time Source Procedure Growth Status 11/03/24 00:00 Nose MRSA Screen - Final Complete 11/02/24 12:17 Voided Urine Urine Culture - Final Complete 11/02/24 11:55 Blood Blood Culture - Final NO GROWTH AFTER 5 DAYS OF INCUBATION. Complete 11/02/24 11:10 Sputum Gram Stain - Final Complete 11/02/24 11:10 Sputum Respiratory Culture - Final Complete Labs and/or images reviewed: Labs reviewed by me, Image(s) reviewed by me Assessment/Plan Assessment/Plan Impression: -metabolic encephalopathy -acute hypoxic respiratory failure -acute systolic heart failure -NSTEMI type [address]-depression in lateral leads -dyslipidemia -diabetes mellitus -accelerated hypertension -ventricular bigeminy with bradycardia Plan: Events: LHC held yesterday due to afib and vasopressor support. Now SR with pacs, Levophed at 4mcg/min. Stop Entresto. Give ASA please. Reglan NG for reported emesis yesterday. -Cardiology: Possible LHC -Hold lovenox at this time -continue aspirin -regular insulin sliding scale -TF with Jevity -potassium and magnesium replacement -PUD prophylaxis -repeat labs, chest x-ray, ABG in a.m. Critical care time spent with patient discussing and formulating plan of care: 40 minutes. This does not include time spent performing procedures. This medical document was created using an electronic medical record system with [employer]ley dictation system. Although this document has been carefully reviewed, there may still be some phonetic and typographical errors. These areas are purely typographical due to imperfections of the software programs, and do not reflect any compromise in the patient's medical care. Plan discussed with: Patient, Other (RN) My Orders Orders - ALEXANDER TAMAYO NP Procedure Category Date Status Time Nutritional PHA 11/07/24 In Process Supplements (Jevity 09:30 Chest Portable XY 11/08/24 Resulted 04:00 Cefepime 1gm/50ml PHA 11/07/24 In Process (Maxipime 1gm/50ml) 22:00 Abg W/ Co-Ox RT 11/08/24 Logged 06:00 Potassium Chl Rhys PHA 11/08/24 Transmitted KCL 08:45 Magnesium Rhys PHA 11/08/24 Transmitted 08:45 Metoclopramide Oral PHA 11/08/24 Transmitted Soln (Reglan Oral So 14:00 Complete Blood Count LAB 11/09/24 Verified 04:00 Magnesium LAB 11/09/24 Verified 04:00 Chest Portable XY 11/09/24 Logged 05:00 Chest Portable XY 11/10/24 Transmitted 05:00 Chest Portable XY 11/11/24 Transmitted 05:00 Date of Service: Nov 08, 2024 Billing Provider: ALEXANDER TAMAYO NP Common Visit Codes: [id number] CARE 30-74 MIN ALEXANDER TAMAYO NP Nov 08, 2024 08:48
[2024-11-08] MEDS: POTASSIUM CHL 20MEQ/100ML 100 ML IV ONE (09:59)
[2024-11-08] MEDS: MAGNESIUM SULFATE 1GM/100ML 100 ML IV ONE (10:03)
[2024-11-08] MEDS ORDERED: AMIODARONE HCL 200 MG TAB GT ONE (10:15)
[2024-11-08] MEDS: ENOXAPARIN SOD 100 MG/1 ML SYRINGE SC ONE (10:15)
--- NOTE | 2024-11-08 10:25 | DVHPN2 ---
Consult Progress Note Date Seen: Nov 08, 2024 Subjective Other Systems: No overnight cardiac events reported. Rapid a-fib with RVR on 11/07/24 for which patient was initiated on an amiodarone drip Objective vital signs Vital Sign Date Time Temp Pulse Resp B/P (MAP) Pulse Ox O2 Delivery O2 Flow Rate FiO2 11/08/24 10:02 68 18 130/56 (80) 100 30 11/08/24 07:46 99.6 11/08/24 06:00 Mechanical Ventilator+ Total Intake and Output 11/07/24 11/07/24 11/08/24 15:00 23:00 07:00 Intake Total 212.265 ml 621.635 ml 791.62 ml Output Total 650 ml 275 ml Balance 212.265 ml -28.365 ml 516.62 ml medications Current Medications Medications Dose Ordered Sig/Edson Route Start Time Stop Time Status Last Admin Dose Admin Midazolam HCl 50 ml @ 1 mls/hr Q24H IV 11/02/24 12:45 11/08/24 10:00 5 MLS/HR Nicardipine HCl 250 ml @ 50 mls/hr Q5H IV 11/02/24 14:30 UNV Ondansetron HCl 4 mg Q4HP PRN IV 11/02/24 15:00 Acetaminophen 650 mg Q6HP PRN PO 11/02/24 15:00 11/08/24 06:46 650 MG Nitroglycerin 0.4 mg Q5MINP PRN SL 11/02/24 15:00 Diagnostic Test (Pha) 1 strip Q6HR 11/02/24 18:00 11/08/24 06:05 1 STRIP Insulin Human Regular Q6HR SC 11/02/24 18:00 11/07/24 23:39 2 UNITS Dextrose 50 ml UD PRN IV 11/02/24 15:45 Aspirin 81 mg DAILY PO 11/03/24 10:00 11/06/24 10:12 81 MG Atorvastatin Calcium 40 mg HS PO 11/03/24 22:00 11/07/24 21:59 40 MG Furosemide 20 mg BIDD NG 11/03/24 18:00 11/07/24 18:09 20 MG Fentanyl Citrate 250 ml @ 2.5 mls/hr Q24H IV 11/03/24 13:30 11/08/24 05:34 17.5 MLS/HR Spironolactone 25 mg DAILY PO 11/04/24 10:00 11/06/24 10:13 25 MG Empaglifozin 10 mg DAILY PO 11/04/24 10:00 11/06/24 10:13 10 MG Potassium Bicarbonate 25 meq DAILY GT 11/05/24 10:00 11/08/24 06:41 25 MEQ Pantoprazole Sodium 40 mg DAILY IV 11/05/24 11:52 11/08/24 09:58 40 MG Sennosides 8.6 mg HS PO 11/05/24 22:00 11/07/24 21:59 8.6 MG Enteral Nutritional Formula 1,000 ml 5ML/HR GT 11/07/24 09:30 Amiodarone HCL/ Dextrose 200 ml @ 16.66 mls/ hr Q12H IV 11/07/24 17:49 11/08/24 05:06 16.66 MLS/HR Norepinephrine Bitartrate 250 ml @ 3.75 mls/hr Q24H IV 11/07/24 12:15 11/07/24 12:15 3.75 MLS/HR Cefepime HCl 50 ml @ 12.5 mls/hr Q12H IV 11/07/24 22:00 11/08/24 10:03 12.5 MLS/HR Metoclopramide HCl 10 mg Q8HR GT 11/08/24 14:00 11/09/24 22:01 Examination: GENERAL:Abnormal, LUNGS:Abnormal (Endotracheally intubated 30% FiO2), CVS:Normal (Sinus rhythm with trigeminal PACs), NEURO:Abnormal (Chemically sedated) laboratory and microbiology Laboratory Tests 11/08/24 03:25 Test 11/08/24 03:25 Range/Units Serum Glucose 138 H 74-106 mg/dL Problem List/Assessment/Plan Problem List/Assessment/Plan NSTEMI, suspected Type I De Teddy HFrEF, NYHA class IV Hypertensive emergency with acute encephalopathy Paroxysmal atrial fibrillation with RVR, Stage IIIa, now NSR with trigeminal PACs Ventricular bigeminy in the setting of severe hypokalemia/hypomagnesemia Mild mitral and tricuspid valve regurgitation Dyslipidemia Rule out primary aldosteronism Insulin-dependent diabetes mellitus Acute kidney injury Hypothyroidism Gout Plan/Recommendation (Dr. Sampson) Latest TTE revealed EF of 30% with akinetic anteroseptum. A previous transthoracic echocardiogram from 01/11/2024 reveals an EF of 55%. Scheduled for a coronary angiogram with cardiac catheterization with Dr. Love. All risks and benefits of the procedure were explained in full detail to next of kin/POA Daily Fermin who agrees to proceed with intervention. Hold lovenox. Continue guideline directed medical therapy for CHF, and no beta-blockers given bradycardia. Continue single-antiplatelet therapy and lipid-lowering agent. Transition to amiodarone p.o. post-procedure. Renin/aldosterone levels pending. Closely monitor and replete electrolytes as needed. Rest of plan per clinical course. Thank you for allowing us to participate in this patient's care. Please call if you have any questions or concerns. Of note, patient has another . Critical care time: 30 min. This medical document was created using an electronic medical record system with voice recognition software and computerized dictation system. Although this document has been carefully reviewed, there might still be some phonetic and typographical errors. Occasional wrong-word or ``sound-alike substitutions may have occurred due to the inherent limitations of voice recognition software. These areas are purely typographical due to imperfections of the software programs and do not reflect any compromise in the patient's medical care. Please read the chart carefully and recognize, using context, where these substitutions have occurred. Plan discussed with: Other Dietary Evaluation Review Comments: Glucerna 1.2 @45ml/hr providing 65g prot, 1296kcal 869ml free water Expected Outcomes/Goals: Maintain Wt, prevent losing muscle mass Date of Service: Nov 08, 2024 Billing Provider: RENEE AVILA Cardiology Common Codes: [id number] CARE 30-74 MIN RENEE AVILA Nov 08, 2024 10:25
--- NOTE | 2024-11-08 10:41 | DVHPN2 ---
Progress Note - Dictate Date Seen: Nov 08, 2024 Medical Necessity Reason Pt with a Central, PICC or Fol: No Subjective Ms. Frank is a 77 years old female with a history of hypertension, diabetes, heart failure, she was brought to the [facility] on 11/02/2024 with a chief complaint of altered mental status. I have seen and examined the patient, talked to her nurse, she is intubated, responsive to light painful stimuli with head and eye movement, she does not follow verbal commands on waking up Versed 5 mg/hour, fentanyl 125 mcg/hour, Precedex 0 units/kg, levo 4 cmm/minute Blood culture, 11/02/2024: Urine culture, 11/02/2024: Urinalysis, 11/02/2024: WBC: 15 urine leukocyte esterase:: Trace UDS, 11/02/2024: Negative WBC/HB/PLT/MCV, 11/02/2024: 13.6/11.8/220/84.9, 11/03/2024: 14.1/10.7/173/85 Na 11/03/2024: 145, 11/04/2024: 147, 11/05/24: 146 K 11/02/2024: 2 BUN/CR, 11/02/24: 25/1.47, 11/03/2024: 20/1.31 GFR, 11/02/2024: 36 Troponin one high sensitivity, 11/02/2024: 6108, 5013, 9224 TG/HDL/LDL/HDL, 11/02/2024: 202/IA T/127/27 TSH, 11/02/2024: 4.66 EKG, 11/07/2024: Atrial fibrillation with rapid V-rate Echocardiogram, 11/03/2024: lvef 30% severe LV dysfunction anteroseptum is akinetic RVmild enlarged left atrium enlarged no severe valve abnormalities noted mild mitral regurg mild trciuspid regurg Chest x-ray, 11/02/2024: Endotracheal tube in appropriate position. Pulmonary edema versus atypical infection CT head, 11/02/2024: No intracranial hemorrhage or mass effect. Mild chronic microvascular ischemic changes. Mild global cerebral volume loss. vital signs Vital Sign Date Time Temp Pulse Resp B/P (MAP) Pulse Ox O2 Delivery O2 Flow Rate FiO2 11/08/24 10:02 68 18 130/56 (80) 100 30 11/08/24 07:46 99.6 11/08/24 06:00 Mechanical Ventilator+ Total Intake and Output 11/07/24 11/07/24 11/08/24 15:00 23:00 07:00 Intake Total 212.265 ml 621.635 ml 791.62 ml Output Total 650 ml 275 ml Balance 212.265 ml -28.365 ml 516.62 ml medications Current Medications Medications Dose Ordered Sig/Edson Route Start Time Stop Time Status Last Admin Dose Admin Midazolam HCl 50 ml @ 1 mls/hr Q24H IV 11/02/24 12:45 11/08/24 10:00 5 MLS/HR Nicardipine HCl 250 ml @ 50 mls/hr Q5H IV 11/02/24 14:30 UNV Ondansetron HCl 4 mg Q4HP PRN IV 11/02/24 15:00 Acetaminophen 650 mg Q6HP PRN PO 11/02/24 15:00 11/08/24 06:46 650 MG Nitroglycerin 0.4 mg Q5MINP PRN SL 11/02/24 15:00 Diagnostic Test (Pha) 1 strip Q6HR 11/02/24 18:00 11/08/24 06:05 1 STRIP Insulin Human Regular Q6HR SC 11/02/24 18:00 11/07/24 23:39 2 UNITS Dextrose 50 ml UD PRN IV 11/02/24 15:45 Aspirin 81 mg DAILY PO 11/03/24 10:00 11/06/24 10:12 81 MG Atorvastatin Calcium 40 mg HS PO 11/03/24 22:00 11/07/24 21:59 40 MG Furosemide 20 mg BIDD NG 11/03/24 18:00 11/07/24 18:09 20 MG Fentanyl Citrate 250 ml @ 2.5 mls/hr Q24H IV 11/03/24 13:30 11/08/24 05:34 17.5 MLS/HR Spironolactone 25 mg DAILY PO 11/04/24 10:00 11/06/24 10:13 25 MG Empaglifozin 10 mg DAILY PO 11/04/24 10:00 11/06/24 10:13 10 MG Potassium Bicarbonate 25 meq DAILY GT 11/05/24 10:00 11/08/24 06:41 25 MEQ Pantoprazole Sodium 40 mg DAILY IV 11/05/24 11:52 11/08/24 09:58 40 MG Sennosides 8.6 mg HS PO 11/05/24 22:00 11/07/24 21:59 8.6 MG Enteral Nutritional Formula 1,000 ml 5ML/HR GT 11/07/24 09:30 Norepinephrine Bitartrate 250 ml @ 3.75 mls/hr Q24H IV 11/07/24 12:15 11/07/24 12:15 3.75 MLS/HR Cefepime HCl 50 ml @ 12.5 mls/hr Q12H IV 11/07/24 22:00 11/08/24 10:03 12.5 MLS/HR Metoclopramide HCl 10 mg Q8HR GT 11/08/24 14:00 11/09/24 22:01 Enoxaparin Sodium 60 mg Q12HR SC 11/08/24 22:00 UNV Amiodarone HCl 200 mg Q12HR GT 11/08/24 22:00 UNV Amiodarone HCL/ Dextrose 200 ml @ 16.66 mls/ hr Q12H IV 11/08/24 16:45 UNV objective The patient is well-nourished and well-developed with no distress. The patient is intubated MENTAL STATUS: Subjective CRANIAL NERVES: Pupils are equal, round and nonreactive, very small. There are conjugated eye movement. No signs of facial weakness. There are gagging or coughing reflexes SENSATION: Responses to light painful stimuli MOTOR: Normal tone in the upper and lower extremity. Normal muscle bulk. No fasciculations. No spontaneous movement. REFLEXES: Deep tendon reflexes are symmetrical. Upgoing toes in the feet,. CEREBELLAR/COORDINATION: Deferred GAIT/STATION: deferred laboratory and microbiology Laboratory Tests 11/08/24 03:25 Test 11/08/24 03:25 Range/Units Serum Glucose 138 H 74-106 mg/dL Problem List Fever, leukocytosis, altered mental status Sepsis UTI Pneumonia Coma/altered mental status Hypoxic encephalopathy Metabolic encephalopathy Rule out intracranial pathology Hypokalemia Kidney failure Heart attack AFib Assessment/Plan Monitoring Supportive treatment ICU care Follow-up blood tests Blood culture EEG MR head Respiratory support/vent management Stabilize vitals/pressor drip Oxygen IV antibiotics IV fluids Lovenox 60 mg subQ b.i.d. More recommendation per clinical course This medical document was created using an electronic medical record system with [employer] dictation system. Although this document has been carefully reviewed, there may still be some phonetic and typographical errors. These areas are purely typographical due to imperfections of the software programs, and do not reflect any compromise in the patient's medical care. Prognosis guarded Dietary Evaluation Review Comments: Glucerna 1.2 @45ml/hr providing 65g prot, 1296kcal 869ml free water Expected Outcomes/Goals: Maintain Wt, prevent losing muscle mass Plan discussed with: Other ELY PORRAS MD Nov 08, 2024 10:41
[2024-11-08] MEDS: LIDOCAINE 2%HCL (LOCAL ANESTH.) INJ 20ML MDV ONE (13:05)
[2024-11-08] MEDS: IODIXANOL 320MG/ML 100ML BTL IV ONE ×2 (13:05→14:09)
[2024-11-08] MEDS: ANGIOMAX 250 MG VIAL IV ONE (13:29)
[2024-11-08] MEDS: HEPARIN SODIUM (PORCINE) 5000 UNITS/ML 1ML VIAL ONE (13:29)
[2024-11-08] MEDS: SODIUM CHL 0.9% 50 ML ONE (13:30)
[2024-11-08] MEDS: VERAPAMIL 2.5MG/ML INJ 2ML VIAL IV ONE (13:30)
[2024-11-08] MEDS: TICAGRELOR 90 MG TAB ONE (14:10)
--- NOTE | 2024-11-08 14:16 | DVHOP2 ---
Operative Report Operative Report CARDIAC CAN PILER PROCEDURE REPORT [place], [place] Date of Service: 11/08/24 Parking Meter Attendant: Ramona Aguayo MD PROCEDURES PERFORMED: Coronary angiogram, left heart catheterization, conscious sedation administration and supervision, less than 15 minutes; fluoroscopy use and interpretation. sedation 15-30 mins, ptca 1 vessel, pci 1 vessel, acute AR intervention US guided vascular access PREOPERATIVE DIAGNOSES: high risk nstemi, POSTOP DIAGNOSIS: severe 3v cad, pci to LAD DESCRIPTION OF PROCEDURE: The patient or appropriate family signed informed consent understanding the risks, benefits and alternatives of the procedure, they wished to proceed. The patient was brought to the cardiac laborer driver in n.p.o. state. The patient was prepped in a sterile fashion. Sedation was used per cardiac cath protocol. I administered 2 mL of 2% lidocaine to the right wrist. With an antegrade front wall puncture. I cannulated the right radial artery using US guidance as she had a very poor pulse , we saved to pacs system. then we placed and placed a 6-[place] Glidesheath slender. Next, an intra-arterial spasmolytic was administered. Next, a - 5[place] catheter and XB 3 guide and were used for coronary angiogram and LVEDP measurement and pressure pullback. At the completion of procedure, all guides and wires were removed, and there were no immediate complications. 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 LEFT MAIN: Moderate size left main, it bifurcates into LAD and circumflex. no severe stenosis. CIRCUMFLEX: Moderate caliber vessel coming off the left main. mid CX is 90% stenosis. LAD: LAD is a moderate caliber vessel coming of the left main. 99% prox LAD stenosis INTERVENTION: We decided to proceed with coronary intervention. I started with a 6F __XB 3 __ Guide to intubate the LM __. Angiomax bolus and gtt was started. Following this, I decided to wire using an .014 BMW across the culprit lesion with ease. At this time, we performed balloon angioplasty with a _2. x 15 mm balloon by maryanne ramirez up to _12___ ATMS over _2_ number of inflations. Following this, I decided to place a stent using a 3 x 30 mm onyx____ stent inflated up to __16 __ ATMS over 15 seconds with two separate inflations. Following this, the stent balloon removed and angio performed showing 0% residual stenosis. KEVIN pre/post: 3./3 CONCLUSIONS: 1. sp pci to prox LAD 99% PLAN: Aggressive risk factor modification and medical management for the patient. DAPT x 1 year uninterrupted persistent afib may need doac and plavix RAMONA AGUAYO MD Nov 08, 2024 14:16
--- NOTE | 2024-11-08 14:19 | DVHPN2 ---
Progress Note Date Seen: Nov 08, 2024 Medical Necessity Reason Pt with a Central, PICC or Fol: No Objective vital signs Vital Sign Date Time Temp Pulse Resp B/P (MAP) Pulse Ox O2 Delivery O2 Flow Rate FiO2 11/08/24 13:36 52 16 115/47 100 30 11/08/24 13:00 99.0 210.2 11/08/24 12:00 Mechanical Ventilator+ Total Intake and Output 11/07/24 11/07/24 11/08/24 15:00 23:00 07:00 Intake Total 212.265 ml 621.635 ml 791.62 ml Output Total 650 ml 275 ml Balance 212.265 ml -28.365 ml 516.62 ml medications Current Medications Medications Dose Ordered Sig/Edson Route Start Time Stop Time Status Last Admin Dose Admin Midazolam HCl 50 ml @ 1 mls/hr Q24H IV 11/02/24 12:45 11/08/24 10:00 5 MLS/HR Nicardipine HCl 250 ml @ 50 mls/hr Q5H IV 11/02/24 14:30 UNV Ondansetron HCl 4 mg Q4HP PRN IV 11/02/24 15:00 Acetaminophen 650 mg Q6HP PRN PO 11/02/24 15:00 11/08/24 06:46 650 MG Nitroglycerin 0.4 mg Q5MINP PRN SL 11/02/24 15:00 Diagnostic Test (Pha) 1 strip Q6HR 11/02/24 18:00 11/08/24 06:05 1 STRIP Insulin Human Regular Q6HR SC 11/02/24 18:00 11/07/24 23:39 2 UNITS Dextrose 50 ml UD PRN IV 11/02/24 15:45 Aspirin 81 mg DAILY PO 11/03/24 10:00 11/06/24 10:12 81 MG Atorvastatin Calcium 40 mg HS PO 11/03/24 22:00 11/07/24 21:59 40 MG Furosemide 20 mg BIDD NG 11/03/24 18:00 11/07/24 18:09 20 MG Fentanyl Citrate 250 ml @ 2.5 mls/hr Q24H IV 11/03/24 13:30 11/08/24 05:34 17.5 MLS/HR Spironolactone 25 mg DAILY PO 11/04/24 10:00 11/06/24 10:13 25 MG Empaglifozin 10 mg DAILY PO 11/04/24 10:00 11/06/24 10:13 10 MG Potassium Bicarbonate 25 meq DAILY GT 11/05/24 10:00 11/08/24 06:41 25 MEQ Pantoprazole Sodium 40 mg DAILY IV 11/05/24 11:52 11/08/24 09:58 40 MG Sennosides 8.6 mg HS PO 11/05/24 22:00 11/07/24 21:59 8.6 MG Enteral Nutritional Formula 1,000 ml 5ML/HR GT 11/07/24 09:30 Norepinephrine Bitartrate 250 ml @ 3.75 mls/hr Q24H IV 11/07/24 12:15 11/07/24 12:15 3.75 MLS/HR Cefepime HCl 50 ml @ 12.5 mls/hr Q12H IV 11/07/24 22:00 11/08/24 10:03 12.5 MLS/HR Metoclopramide HCl 10 mg Q8HR GT 11/08/24 14:00 11/09/24 22:01 Enoxaparin Sodium 60 mg Q12HR SC 11/08/24 22:00 Amiodarone HCl 200 mg Q12HR GT 11/08/24 22:00 Amiodarone HCL/ Dextrose 200 ml @ 16.66 mls/ hr Q12H IV 11/08/24 16:45 Examination: GENERAL:Abnormal, HEENT:Abnormal, LUNGS:Abnormal, CVS:Abnormal, ABDOMEN:Abnormal laboratory and microbiology Laboratory Tests 11/08/24 03:25 Test 11/08/24 03:25 Range/Units Serum Glucose 138 H 74-106 mg/dL Microbiology Date/Time Source Procedure Growth Status 11/03/24 00:00 Nose MRSA Screen - Final Complete 11/02/24 12:17 Voided Urine Urine Culture - Final Complete 11/02/24 11:55 Blood Blood Culture - Final NO GROWTH AFTER 5 DAYS OF INCUBATION. Complete 11/02/24 11:10 Sputum Gram Stain - Final Complete 11/02/24 11:10 Sputum Respiratory Culture - Final Complete Problem List/Assessment/Plan Problem List/Assessment/Plan NSTEMI, suspected Type I Hypertensive emergency with acute encephalopathy De Teddy HFrEF, NYHA class IV Ventricular bigeminy in the setting of severe hypokalemia/hypomagnesemia Mild mitral and tricuspid valve regurgitation Dyslipidemia Rule out primary aldosteronism Insulin-dependent diabetes mellitus Acute kidney injury Hypothyroidism Gout Plan/Recommendation sp pci to prox LAD 99% stenosis has critical 3v cad needs plavix afib management bvery poor overall condition C on hold today as bp has dropped, starting levophed, amio gtt Plan discussed with: Patient, Other (rn) My Orders My Orders Orders - RAMONA AGUAYO MD Procedure Category Date Status Time Cl Left Heart Cath CL 11/08/24 Taken 12:57 Clopidogrel Bisulfate PHA 11/08/24 Verified (Plavix) 21:30 Clopidogrel Bisulfate PHA 11/09/24 Verified (Plavix) 10:00 Dietary Evaluation Review Comments: Glucerna 1.2 @45ml/hr providing 65g prot, 1296kcal 869ml free water Expected Outcomes/Goals: Maintain Wt, prevent losing muscle mass Date of Service: Nov 08, 2024 Billing Provider: RAMONA AGUAYO MD Common Visit Codes: NOT BILLABLE RAMONA AGUAYO MD Nov 08, 2024 14:19
[2024-11-08] MEDS: AMIODARONE 360mg/200mL PREMIX 200 ML IV SCH (16:45)
[2024-11-08] MEDS: Jevity 1.2 Cal/Fiber 1 Liter GT SCH (16:53)
[2024-11-08] MEDS: AMIODARONE HCL 200 MG TAB PO ONE (16:53)
[2024-11-08] MEDS: METOCLOPRAMIDE 10 mg/10ml ORAL soln GT SCH (17:01)
[2024-11-08] MEDS: CLOPIDOGREL BISULFATE 75 MG TAB PO ONE (21:31)
[2024-11-08] MEDS: ENOXAPARIN SOD 100 MG/1 ML SYRINGE SC SCH (21:32)
[2024-11-08] MEDS: AMIODARONE HCL 200 MG TAB GT SCH (21:33)
[2024-11-09] VITALS (111 sets, daily range): BP systolic 76–161; BP diastolic 40–65; PULSE 51–162; RESP 10–25; TEMP 98.4–100.9; O2SAT 91–100
[2024-11-09 04:24] LABS: Hematocrit 31.3 % (36.0-46.0); Hemoglobin 10.9 g/dL (12.2-16.2); Mean Corpuscular Hemoglobin 30.2 pg (28.0-32.0); Mean Corpuscular Volume 86.7 fL (80.0-100.0); Nucleated Red Blood Cells % 0.0 %
[2024-11-09 04:34] LABS: Alanine Aminotransferase 27 U/L (7-40); Alkaline Phosphatase 65 U/L (46-116); Anion Gap 8 (5-15); BUN/Creatinine Ratio 17.4 (10.0-20.0); Blood Urea Nitrogen 19 mg/dL (9-23); Carbon Dioxide 30 mmol/L (20-31); Chloride 106 mmol/L (98-107); Magnesium 2.0 mg/dL (1.6-2.6); Potassium 3.5 mmol/L (3.5-5.1); Sodium 144 mmol/L (136-145)
[2024-11-09 05:01] LABS: Albumin 3.0 g/dL (3.2-4.8); Bilirubin, Total 0.3 mg/dL (0.2-1.0); Calcium 8.7 mg/dL (8.7-10.4); Glucose 135 mg/dL (74-106); Total Protein 4.9 g/dL (5.7-8.2)
[2024-11-09] MEDS: AMIODARONE BOLUS KIT 100 ML IV ONE ×2 (06:25→06:26)
[2024-11-09] MEDS: AMIODARONE 360mg/200mL PREMIX 200 ML IV ONE ×2 (06:25→06:39)
[2024-11-09] MEDS: POTASSIUM CHL 20MEQ/100ML 100 ML IV ONE (06:27)
[2024-11-09 07:23] LABS: Base Excess -0.1 mmol/L (-2.0-3.0)
--- NOTE | 2024-11-09 07:49 | DVH ---
CHEST RADIOGRAPH Indication: CHF Technique: Single frontal view of the chest was obtained, unchanged. Comparison: XY CHEST PORTABLE on DOS: 11/08/24 FINDINGS: Lines and Tubes: The endotracheal tube terminates 4.7 cm above the aegle. There is a right central venous catheter with its tip terminating in the right atrium. Lungs: Pulmonary congestion is unchanged. No focal consolidation. Pleura: No effusion.No pneumothorax. Cardiomediastinal contours: Unremarkable Bones: No acute osseous abnormality. IMPRESSION: Stable position of the support lines and tubes. Stable pulmonary vascular congestion.
--- NOTE | 2024-11-09 07:57 | DVHPN2 ---
Subjective Patient chemically sedated Reviewed: Care Plan, H&P, Labs, Medications Changes from previous H/P or p: No Changes General: Per HPI Objective Vitals Vital Signs Date Time Temp Pulse Resp B/P (MAP) Pulse Ox O2 Delivery O2 Flow Rate FiO2 11/09/24 07:15 116 17 124/55 (78) 97 30 11/09/24 06:45 100.4 100.4 11/09/24 06:00 Mechanical Ventilator+ Intake/Output Intake and Output 11/09/24 07:00 Intake Total 1643.94 ml Output Total 1075 ml Balance 568.94 ml Intake Oral 225 ml IV Total 1293.94 ml Tube Feeding 125 ml Output Urine Total 1075 ml General Appearance: moderate distress, Other (Unable to assess) HEENT: PERRLA Lungs: Clear to auscultation, Normal air movement, Other (Mechanical ventilation) Cardiovascular: Normal S1, Normal S2 Abdomen: Normal bowel sounds, Soft, No tenderness, No hepatospenomegaly Genitourinary: No Apparent Abnormalities ([place]) Musculoskeletal: Other (No motor movement) Skin: Dry, Intact Psych/Mental Status: Other (Unable to assess) Medications Current Medications Medications Dose Ordered Sig/Edsno Route Start Time Stop Time Status Last Admin Dose Admin Midazolam HCl 50 ml @ 1 mls/hr Q24H IV 11/02/24 12:45 11/09/24 05:19 5 MLS/HR Nicardipine HCl 250 ml @ 50 mls/hr Q5H IV 11/02/24 14:30 UNV Ondansetron HCl 4 mg Q4HP PRN IV 11/02/24 15:00 Acetaminophen 650 mg Q6HP PRN PO 11/02/24 15:00 11/09/24 05:42 650 MG Nitroglycerin 0.4 mg Q5MINP PRN SL 11/02/24 15:00 Diagnostic Test (Pha) 1 strip Q6HR 11/02/24 18:00 11/09/24 05:42 1 STRIP Insulin Human Regular Q6HR SC 11/02/24 18:00 11/08/24 23:47 2 UNITS Dextrose 50 ml UD PRN IV 11/02/24 15:45 Aspirin 81 mg DAILY PO 11/03/24 10:00 11/08/24 16:53 81 MG Atorvastatin Calcium 40 mg HS PO 11/03/24 22:00 11/08/24 21:32 40 MG Furosemide 20 mg BIDD NG 11/03/24 18:00 11/09/24 05:42 20 MG Fentanyl Citrate 250 ml @ 2.5 mls/hr Q24H IV 11/03/24 13:30 11/08/24 17:00 20 MLS/HR Empaglifozin 10 mg DAILY PO 11/04/24 10:00 11/08/24 16:53 10 MG Potassium Bicarbonate 25 meq DAILY GT 11/05/24 10:00 11/08/24 06:41 25 MEQ Pantoprazole Sodium 40 mg DAILY IV 11/05/24 11:52 11/08/24 09:58 40 MG Sennosides 8.6 mg HS PO 11/05/24 22:00 11/08/24 21:32 8.6 MG Enteral Nutritional Formula 1,000 ml 5ML/HR GT 11/07/24 09:30 11/08/24 16:53 1,000 ML Norepinephrine Bitartrate 250 ml @ 3.75 mls/hr Q24H IV 11/07/24 12:15 11/08/24 20:07 7.5 MLS/HR Cefepime HCl 50 ml @ 12.5 mls/hr Q12H IV 11/07/24 22:00 11/08/24 21:33 12.5 MLS/HR Metoclopramide HCl 10 mg Q8HR GT 11/08/24 14:00 11/09/24 22:01 11/09/24 05:41 10 MG Clopidogrel Bisulfate 75 mg DAILY PO 11/09/24 10:00 Laboratory Results Laboratory Tests 11/09/24 03:25 Chemistry Test 11/09/24 03:25 Albumin 3.0 g/dL (3.2-4.8) L Calcium Level 8.7 mg/dL (8.7-10.4) Magnesium Level 2.0 mg/dL (1.6-2.6) Total Protein 4.9 g/dL (5.7-8.2) L LFT Test 11/09/24 03:25 Alanine Aminotransferase (ALT) 27 U/L (7-40) Alkaline Phosphatase 65 U/L (46-116) Aspartate Amino Transferase (AST) 76 U/L (13-40) H Total Bilirubin 0.3 mg/dL (0.2-1.0) Urinalysis Test 11/02/24 12:17 Urine Color Light-yellow (Yellow) Urine Clarity Turbid (Clear) H Urine pH 7.0 (5.0-9.0) Urine Specific [place] 1.010 (1.001-1.035) Urine Protein 2+ (Negative) H Urine Ketones Negative (Negative) Urine Blood 1+ /uL (Negative) H Urine Nitrite Negative (Negative) Urine Bilirubin Negative (Negative) Urine Urobilinogen Normal mg/dL (Negative) Urine Leukocyte Esterase Trace /uL (Negative) Urine RBC 2 /hpf (0 - 4) Urine Microscopic WBC 15 /HPF (0-5) H Urine Squamous Epithelial Cells Few /hpf (<5) Urine Bacteria None seen /hpf (None Seen) Urine Hyaline Casts Few /lpf (0 - 2) Urine Glucose Trace mg/dL (Normal) Blood Gas Results Test 11/09/24 07:18 Arterial Blood pH 7.398 (7.350-7.450) FiO2 % 30.0 Microbiology Microbiology Date/Time Source Procedure Growth Status 11/03/24 00:00 Nose MRSA Screen - Final Complete 11/02/24 12:17 Voided Urine Urine Culture - Final Complete 11/02/24 11:55 Blood Blood Culture - Final NO GROWTH AFTER 5 DAYS OF INCUBATION. Complete 11/02/24 11:10 Sputum Gram Stain - Final Complete 11/02/24 11:10 Sputum Respiratory Culture - Final Complete Labs and/or images reviewed: Labs reviewed by me, Image(s) reviewed by me Assessment/Plan Assessment/Plan Impression: -metabolic encephalopathy -acute hypoxic respiratory failure -acute systolic heart failure -NSTEMI type [address]-depression in lateral leads -dyslipidemia -diabetes mellitus -accelerated hypertension -ventricular bigeminy with bradycardia Plan: Events: Patient had left heart catheterization yesterday. Patient had findings of 99% lad, status post PTCA and stent placement. Patient was started on dual anti platelet therapy. Patient went into AFib with RVR earlier this a.m.. Amiodarone drip restarted. Plans for spontaneous breathing trial once hemodynamically stable. -Cardiology: Recommendations reviewed -continue DAPT -continue Lasix, hold beta-[place] and MILADYS inhibitor given hypotension -regular insulin sliding scale -TF with Jevity -potassium and magnesium replacement -PUD prophylaxis -repeat labs, chest x-ray, ABG in a.m. Critical care time spent with patient discussing and formulating plan of care: 40 minutes. This does not include time spent performing procedures. This medical document was created using an electronic medical record system with [employer] dictation system. Although this document has been carefully reviewed, there may still be some phonetic and typographical errors. These areas are purely typographical due to imperfections of the software programs, and do not reflect any compromise in the patient's medical care. Plan discussed with: Patient, Son, Other (RN) My Orders Orders - ALEXANDER TAMAYO NP Procedure Category Date Status Time Metoclopramide Oral PHA 11/08/24 In Process Soln (Reglan Oral So 14:00 Chest Portable XY 11/09/24 Resulted 05:00 Chest Portable XY 11/10/24 Logged 05:00 Chest Portable XY 11/11/24 Logged 05:00 Abg W/ Co-Ox RT 11/09/24 Logged 07:00 Cpap/Sed Vacation Med ORDERS 11/09/24 Transmitted Weaning 07:10 Date of Service: Nov 09, 2024 Billing Provider: ALEXANDER TAMAYO NP Common Visit Codes: [id number] CARE 30-74 MIN ALEXANDER TAMAOY NP Nov 09, 2024 07:57
--- NOTE | 2024-11-09 07:58 | DVHPN2 ---
Progress Note Date Seen: Nov 09, 2024 Medical Necessity Reason Pt with a Central, PICC or Fol: No Objective vital signs Vital Sign Date Time Temp Pulse Resp B/P (MAP) Pulse Ox O2 Delivery O2 Flow Rate FiO2 11/09/24 07:15 116 17 124/55 (78) 97 30 11/09/24 06:45 100.4 100.4 11/09/24 06:00 Mechanical Ventilator+ Total Intake and Output 11/08/24 11/08/24 11/09/24 14:59 22:59 06:59 Intake Total 630.78 ml 440.82 ml 619.0 ml Output Total 325 ml 750 ml Balance 630.78 ml 115.82 ml -131.0 ml medications Current Medications Medications Dose Ordered Sig/Edson Route Start Time Stop Time Status Last Admin Dose Admin Midazolam HCl 50 ml @ 1 mls/hr Q24H IV 11/02/24 12:45 11/09/24 05:19 5 MLS/HR Nicardipine HCl 250 ml @ 50 mls/hr Q5H IV 11/02/24 14:30 UNV Ondansetron HCl 4 mg Q4HP PRN IV 11/02/24 15:00 Acetaminophen 650 mg Q6HP PRN PO 11/02/24 15:00 11/09/24 05:42 650 MG Nitroglycerin 0.4 mg Q5MINP PRN SL 11/02/24 15:00 Diagnostic Test (Pha) 1 strip Q6HR 11/02/24 18:00 11/09/24 05:42 1 STRIP Insulin Human Regular Q6HR SC 11/02/24 18:00 11/08/24 23:47 2 UNITS Dextrose 50 ml UD PRN IV 11/02/24 15:45 Aspirin 81 mg DAILY PO 11/03/24 10:00 11/08/24 16:53 81 MG Atorvastatin Calcium 40 mg HS PO 11/03/24 22:00 11/08/24 21:32 40 MG Furosemide 20 mg BIDD NG 11/03/24 18:00 11/09/24 05:42 20 MG Fentanyl Citrate 250 ml @ 2.5 mls/hr Q24H IV 11/03/24 13:30 11/08/24 17:00 20 MLS/HR Empaglifozin 10 mg DAILY PO 11/04/24 10:00 11/08/24 16:53 10 MG Potassium Bicarbonate 25 meq DAILY GT 11/05/24 10:00 11/08/24 06:41 25 MEQ Pantoprazole Sodium 40 mg DAILY IV 11/05/24 11:52 11/08/24 09:58 40 MG Sennosides 8.6 mg HS PO 11/05/24 22:00 11/08/24 21:32 8.6 MG Enteral Nutritional Formula 1,000 ml 5ML/HR GT 11/07/24 09:30 11/08/24 16:53 1,000 ML Norepinephrine Bitartrate 250 ml @ 3.75 mls/hr Q24H IV 11/07/24 12:15 11/08/24 20:07 7.5 MLS/HR Cefepime HCl 50 ml @ 12.5 mls/hr Q12H IV 11/07/24 22:00 11/08/24 21:33 12.5 MLS/HR Metoclopramide HCl 10 mg Q8HR GT 11/08/24 14:00 11/09/24 22:01 11/09/24 05:41 10 MG Clopidogrel Bisulfate 75 mg DAILY PO 11/09/24 10:00 Examination: GENERAL:Abnormal, HEENT:Abnormal, LUNGS:Abnormal, CVS:Abnormal, ABDOMEN:Abnormal laboratory and microbiology Laboratory Tests 11/09/24 03:25 Test 11/09/24 03:25 Range/Units Serum Glucose 135 H 74-106 mg/dL Microbiology Date/Time Source Procedure Growth Status 11/03/24 00:00 Nose MRSA Screen - Final Complete 11/02/24 12:17 Voided Urine Urine Culture - Final Complete 11/02/24 11:55 Blood Blood Culture - Final NO GROWTH AFTER 5 DAYS OF INCUBATION. Complete 11/02/24 11:10 Sputum Gram Stain - Final Complete 11/02/24 11:10 Sputum Respiratory Culture - Final Complete Problem List/Assessment/Plan Problem List/Assessment/Plan NSTEMI, suspected Type I Hypertensive emergency with acute encephalopathy De Teddy HFrEF, NYHA class IV Ventricular bigeminy in the setting of severe hypokalemia/hypomagnesemia Mild mitral and tricuspid valve regurgitation Dyslipidemia Rule out primary aldosteronism Insulin-dependent diabetes mellitus Acute kidney injury Hypothyroidism Gout Plan/Recommendation sp pci to prox LAD 99% stenosis has critical 3v cad needs plavix afib management bvery poor overall condition afib rvr with tachy kaley----amio gtt started again [facility] on hold today as bp has dropped, starting levophed, amio gtt Plan discussed with: Other (rn) My Orders My Orders Orders - RAMONA AGUAYO MD Procedure Category Date Status Time Cl Left Heart Cath CL 11/08/24 Taken 12:57 Clopidogrel Bisulfate PHA 11/09/24 In Process (Plavix) 10:00 Dietary Evaluation Review Comments: Glucerna 1.2 @45ml/hr providing 65g prot, 1296kcal 869ml free water Expected Outcomes/Goals: Maintain Wt, prevent losing muscle mass Date of Service: Nov 09, 2024 Billing Provider: RAMONA AGUAYO MD Common Visit Codes: NOT BILLABLE RAMONA AGUAYO MD Nov 09, 2024 07:57
--- NOTE | 2024-11-09 08:07 | ECG ---
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
--- NOTE | 2024-11-09 10:30 | DVHPN2 ---
Progress Note - Dictate Date Seen: Nov 09, 2024 Medical Necessity Reason Pt with a Central, PICC or Fol: No Subjective Ms. Frank is a 77 years old female with a history of hypertension, diabetes, heart failure, she was brought to the [facility] on 11/02/2024 with a chief complaint of altered mental status. I have seen and examined the patient, talked to her nurse, she is intubated, eyes are open, but nonresponsive to verbal stimuli, she moves the arms and legs Blood culture, 11/02/2024: Urine culture, 11/02/2024: Urinalysis, 11/02/2024: WBC: 15 urine leukocyte esterase:: Trace UDS, 11/02/2024: Negative WBC/HB/PLT/MCV, 11/02/2024: 13.6/11.8/220/84.9, 11/03/2024: 14.1/10.7/173/85 Na 11/03/2024: 145, 11/04/2024: 147, 11/05/24: 146 K 11/02/2024: 2 BUN/CR, 11/02/24: 25/1.47, 11/03/2024: 20/1.31 GFR, 11/02/2024: 36 Troponin one high sensitivity, 11/02/2024: 6108, 5013, 9224 TG/HDL/LDL/HDL, 11/02/2024: 202/IA T/127/27 TSH, 11/02/2024: 4.66 EKG, 11/07/2024: Atrial fibrillation with rapid V-rate EEG 11/03/2024: Remarkably abnormal Echocardiogram, 11/03/2024: lvef 30% severe LV dysfunction anteroseptum is akinetic RVmild enlarged left atrium enlarged no severe valve abnormalities noted mild mitral regurg mild trciuspid regurg Chest x-ray, 11/02/2024: Endotracheal tube in appropriate position. Pulmonary edema versus atypical infection CT head, 11/02/2024: No intracranial hemorrhage or mass effect. Mild chronic microvascular ischemic changes. Mild global cerebral volume loss. vital signs Vital Sign Date Time Temp Pulse Resp B/P (MAP) Pulse Ox O2 Delivery O2 Flow Rate FiO2 11/09/24 10:15 79/49 11/09/24 10:12 90 16 99 30 11/09/24 10:00 99.0 210.2 11/09/24 08:00 Mechanical Ventilator+ Total Intake and Output 11/08/24 11/08/24 11/09/24 15:00 23:00 07:00 Intake Total 633.28 ml 436.66 ml 574.0 ml Output Total 325 ml 750 ml Balance 633.28 ml 111.66 ml -176.0 ml medications Current Medications Medications Dose Ordered Sig/Edson Route Start Time Stop Time Status Last Admin Dose Admin Midazolam HCl 50 ml @ 1 mls/hr Q24H IV 11/02/24 12:45 11/09/24 05:19 5 MLS/HR Nicardipine HCl 250 ml @ 50 mls/hr Q5H IV 11/02/24 14:30 UNV Ondansetron HCl 4 mg Q4HP PRN IV 11/02/24 15:00 Acetaminophen 650 mg Q6HP PRN PO 11/02/24 15:00 11/09/24 05:42 650 MG Nitroglycerin 0.4 mg Q5MINP PRN SL 11/02/24 15:00 Diagnostic Test (Pha) 1 strip Q6HR 11/02/24 18:00 11/09/24 05:42 1 STRIP Insulin Human Regular Q6HR SC 11/02/24 18:00 11/08/24 23:47 2 UNITS Dextrose 50 ml UD PRN IV 11/02/24 15:45 Aspirin 81 mg DAILY PO 11/03/24 10:00 11/08/24 16:53 81 MG Atorvastatin Calcium 40 mg HS PO 11/03/24 22:00 11/08/24 21:32 40 MG Furosemide 20 mg BIDD NG 11/03/24 18:00 11/09/24 05:42 20 MG Fentanyl Citrate 250 ml @ 2.5 mls/hr Q24H IV 11/03/24 13:30 11/08/24 17:00 20 MLS/HR Empaglifozin 10 mg DAILY PO 11/04/24 10:00 11/08/24 16:53 10 MG Potassium Bicarbonate 25 meq DAILY GT 11/05/24 10:00 11/08/24 06:41 25 MEQ Pantoprazole Sodium 40 mg DAILY IV 11/05/24 11:52 11/08/24 09:58 40 MG Sennosides 8.6 mg HS PO 11/05/24 22:00 11/08/24 21:32 8.6 MG Enteral Nutritional Formula 1,000 ml 5ML/HR GT 11/07/24 09:30 11/08/24 16:53 1,000 ML Norepinephrine Bitartrate 250 ml @ 3.75 mls/hr Q24H IV 11/07/24 12:15 11/08/24 20:07 7.5 MLS/HR Cefepime HCl 50 ml @ 12.5 mls/hr Q12H IV 11/07/24 22:00 11/08/24 21:33 12.5 MLS/HR Metoclopramide HCl 10 mg Q8HR GT 11/08/24 14:00 11/09/24 22:01 11/09/24 05:41 10 MG Clopidogrel Bisulfate 75 mg DAILY PO 11/09/24 10:00 objective The patient is well-nourished and well-developed with no distress. The patient is intubated MENTAL STATUS: Subjective CRANIAL NERVES: Pupils are equal, round and nonreactive, very small. There are conjugated eye movement. No signs of facial weakness. There are gagging or coughing reflexes SENSATION: Responses to light painful stimuli MOTOR: Normal tone in the upper and lower extremity. Normal muscle bulk. No fasciculations. She moves the arms and legs REFLEXES: Deep tendon reflexes are symmetrical. Upgoing toes in the feet,. CEREBELLAR/COORDINATION: Deferred GAIT/STATION: deferred laboratory and microbiology Laboratory Tests 11/09/24 03:25 Test 11/09/24 03:25 Range/Units Serum Glucose 135 H 74-106 mg/dL Problem List Fever, leukocytosis, altered mental status Sepsis UTI Pneumonia Coma/altered mental status Hypoxic encephalopathy Metabolic encephalopathy Rule out intracranial pathology Hypokalemia Kidney failure Heart attack AFib Assessment/Plan Monitoring Supportive treatment ICU care Follow-up blood tests MR head Respiratory support/vent management Stabilize vitals/pressor drip Oxygen IV antibiotics IV fluids Lovenox 60 mg subQ b.i.d. More recommendation per clinical course This medical document was created using an electronic medical record system with [employer] dictation system. Although this document has been carefully reviewed, there may still be some phonetic and typographical errors. These areas are purely typographical due to imperfections of the software programs, and do not reflect any compromise in the patient's medical care. Prognosis guarded Dietary Evaluation Review Comments: Glucerna 1.2 @45ml/hr providing 65g prot, 1296kcal 869ml free water Expected Outcomes/Goals: Maintain Wt, prevent losing muscle mass Plan discussed with: Other ELY PORRAS MD Nov 09, 2024 10:30
[2024-11-09] MEDS: CLOPIDOGREL BISULFATE 75 MG TAB PO SCH (12:37)
[2024-11-09] MEDS: MAGNESIUM SULFATE 1GM/100ML 100 ML IV ONE (15:11)
[2024-11-09] MEDS: AMIODARONE HCL 200 MG TAB GT ONE (15:12)
--- NOTE | 2024-11-09 16:38 | ECG ---
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
--- NOTE | 2024-11-09 16:38 | ECG ---
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
--- NOTE | 2024-11-09 16:38 | ECG ---
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
--- NOTE | 2024-11-09 16:38 | ECG ---
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
[2024-11-09] MEDS: FUROSEMIDE 20 MG/2 ML VIAL IV SCH (17:49)
[2024-11-09] MEDS: AMIODARONE HCL 200 MG TAB GT SCH (21:57)
[2024-11-10] VITALS (110 sets, daily range): BP systolic 91–168; BP diastolic 39–113; PULSE 53–102; RESP 10–28; TEMP 97.9–101.8; O2SAT 90–100
[2024-11-10 03:56] LABS: Hematocrit 30.7 % (36.0-46.0); Hemoglobin 10.7 g/dL (12.2-16.2); Mean Corpuscular Hemoglobin 30.5 pg (28.0-32.0); Mean Corpuscular Volume 87.5 fL (80.0-100.0); Nucleated Red Blood Cells % 0.0 %
[2024-11-10 03:57] LABS: Anion Gap 7 (5-15); Carbon Dioxide 29 mmol/L (20-31); Chloride 105 mmol/L (98-107); Potassium 4.2 mmol/L (3.5-5.1); Sodium 141 mmol/L (136-145)
[2024-11-10 04:03] LABS: BUN/Creatinine Ratio 15.9 (10.0-20.0); Blood Urea Nitrogen 20 mg/dL (9-23)
[2024-11-10 04:04] LABS: Calcium 8.7 mg/dL (8.7-10.4); Glucose 177 mg/dL (74-106)
--- NOTE | 2024-11-10 06:26 | DVH ---
CHEST RADIOGRAPH Indication: CHF Technique: Single frontal view of the chest was obtained Comparison: XY CHEST PORTABLE on DOS: 11/09/24 FINDINGS: Lines and Tubes: The endotracheal tube terminates 6.0 cm above the eagle. There is a right central v enous catheter with its tip terminating in the right atrium. Lungs: Decreased pulmonary interstitial prominence. No focal consolidation. Pleura: No effusion. No pneumothorax. Cardiomediastinal contours: Unremarkable Bones: No acute osseous abnormality. IMPRESSION: 1. Decreased pulmonary vascular congestion.
[2024-11-10 07:19] LABS: Base Excess 0.1 mmol/L (-2.0-3.0)
--- NOTE | 2024-11-10 08:58 | DVHPN2 ---
Subjective Patient chemically sedated Reviewed: Care Plan, H&P, Labs, Medications Changes from previous H/P or p: No Changes General: Per HPI Objective Vitals Vital Signs Date Time Temp Pulse Resp B/P (MAP) Pulse Ox O2 Delivery O2 Flow Rate FiO2 11/10/24 08:19 74 22 100 Mechanical Ventilator+ 30 30 11/10/24 08:16 133/45 (74) 11/10/24 06:15 99.5 211.1 Intake/Output Intake and Output 11/10/24 07:00 Intake Total 2066.615 ml Output Total 700 ml Balance 1366.615 ml Intake Oral 380 ml IV Total 1196.615 ml Tube Feeding 490 ml Output Urine Total 700 ml General Appearance: moderate distress, Other (Unable to assess) HEENT: PERRLA Lungs: Clear to auscultation, Normal air movement, Other (Mechanical ventilation) Cardiovascular: Normal S1, Normal S2 Abdomen: Normal bowel sounds, Soft, No tenderness, No hepatospenomegaly Genitourinary: No Apparent Abnormalities ([place]) Musculoskeletal: Other (No motor movement) Skin: Dry, Intact Psych/Mental Status: Other (Unable to assess) Medications Current Medications Medications Dose Ordered Sig/Edson Route Start Time Stop Time Status Last Admin Dose Admin Midazolam HCl 50 ml @ 1 mls/hr Q24H IV 11/02/24 12:45 11/10/24 04:06 7 MLS/HR Nicardipine HCl 250 ml @ 50 mls/hr Q5H IV 11/02/24 14:30 UNV Ondansetron HCl 4 mg Q4HP PRN IV 11/02/24 15:00 Acetaminophen 650 mg Q6HP PRN PO 11/02/24 15:00 11/09/24 20:47 650 MG Nitroglycerin 0.4 mg Q5MINP PRN SL 11/02/24 15:00 Diagnostic Test (Pha) 1 strip Q6HR 11/02/24 18:00 11/10/24 06:03 1 STRIP Insulin Human Regular Q6HR SC 11/02/24 18:00 11/09/24 18:01 3 UNITS Dextrose 50 ml UD PRN IV 11/02/24 15:45 Aspirin 81 mg DAILY PO 11/03/24 10:00 11/09/24 12:37 81 MG Atorvastatin Calcium 40 mg HS PO 11/03/24 22:00 11/09/24 21:57 40 MG Fentanyl Citrate 250 ml @ 2.5 mls/hr Q24H IV 11/03/24 13:30 11/09/24 15:10 22.5 MLS/HR Empaglifozin 10 mg DAILY PO 11/04/24 10:00 11/09/24 12:37 10 MG Potassium Bicarbonate 25 meq DAILY GT 11/05/24 10:00 11/09/24 12:37 25 MEQ Pantoprazole Sodium 40 mg DAILY IV 11/05/24 11:52 11/09/24 12:43 40 MG Sennosides 8.6 mg HS PO 11/05/24 22:00 11/09/24 21:57 8.6 MG Enteral Nutritional Formula 1,000 ml 5ML/HR GT 11/07/24 09:30 11/09/24 18:02 1,000 ML Norepinephrine Bitartrate 250 ml @ 3.75 mls/hr Q24H IV 11/07/24 12:15 11/09/24 16:15 15 MLS/HR Cefepime HCl 50 ml @ 12.5 mls/hr Q12H IV 11/07/24 22:00 11/09/24 21:57 12.5 MLS/HR Clopidogrel Bisulfate 75 mg DAILY PO 11/09/24 10:00 11/09/24 12:37 75 MG Amiodarone HCl 200 mg Q12HR GT 11/09/24 22:00 11/09/24 21:57 200 MG Furosemide 20 mg BIDD IV 11/09/24 18:00 11/10/24 06:03 20 MG Laboratory Results Laboratory Tests 11/10/24 02:51 Chemistry Test 11/10/24 02:51 Calcium Level 8.7 mg/dL (8.7-10.4) Cardiac Markers Test 11/10/24 02:51 B-Type Natriuretic Peptide 600.97 pg/mL (0-100) Urinalysis Test 11/02/24 12:17 Urine Color Light-yellow (Yellow) Urine Clarity Turbid (Clear) H Urine pH 7.0 (5.0-9.0) Urine Specific [place] 1.010 (1.001-1.035) Urine Protein 2+ (Negative) H Urine Ketones Negative (Negative) Urine Blood 1+ /uL (Negative) H Urine Nitrite Negative (Negative) Urine Bilirubin Negative (Negative) Urine Urobilinogen Normal mg/dL (Negative) Urine Leukocyte Esterase Trace /uL (Negative) Urine RBC 2 /hpf (0 - 4) Urine Microscopic WBC 15 /HPF (0-5) H Urine Squamous Epithelial Cells Few /hpf (<5) Urine Bacteria None seen /hpf (None Seen) Urine Hyaline Casts Few /lpf (0 - 2) Urine Glucose Trace mg/dL (Normal) Blood Gas Results Test 11/10/24 06:56 Arterial Blood pH 7.391 (7.350-7.450) FiO2 % 30.0 Microbiology Microbiology Date/Time Source Procedure Growth Status 11/03/24 00:00 Nose MRSA Screen - Final Complete 11/02/24 12:17 Voided Urine Urine Culture - Final Complete 11/02/24 11:55 Blood Blood Culture - Final NO GROWTH AFTER 5 DAYS OF INCUBATION. Complete 11/02/24 11:10 Sputum Gram Stain - Final Complete 11/02/24 11:10 Sputum Respiratory Culture - Final Complete Labs and/or images reviewed: Labs reviewed by me, Image(s) reviewed by me Assessment/Plan Assessment/Plan Impression: -metabolic encephalopathy -acute hypoxic respiratory failure -acute systolic heart failure -NSTEMI type [address]-depression in lateral leads -dyslipidemia -diabetes mellitus -accelerated hypertension -ventricular bigeminy with bradycardia -Cardiogenic Shock Plan: Events: Patient now in SR. Hemodynamically stable. Spontaneous breathing trial -Cardiology: Recommendations reviewed -continue DAPT -Wean off of Norepinephrine gtt -Amiodarone gtt off -regular insulin sliding scale -PUD prophylaxis -repeat labs, chest x-ray, ABG in a.m. Critical care time spent with patient discussing and formulating plan of care: 40 minutes. This does not include time spent performing procedures. This medical document was created using an electronic medical record system with [employer] dictation system. Although this document has been carefully reviewed, there may still be some phonetic and typographical errors. These areas are purely typographical due to imperfections of the software programs, and do not reflect any compromise in the patient's medical care. Plan discussed with: Patient, Other (RN) My Orders Orders - ALEXANDER TAMAYO NP Procedure Category Date Status Time Cpap/Sed Vacation Med ORDERS 11/10/24 Transmitted Weaning 08:17 Cpap Trial For Am ORDERS 11/10/24 Transmitted 08:17 Basic Metabolic Panel LAB 11/11/24 Verified 05:00 Basic Metabolic Panel LAB 11/12/24 Verified 05:00 Basic Metabolic Panel LAB 11/13/24 Verified 05:00 Complete Blood Count LAB 11/11/24 Verified 05:00 Complete Blood Count LAB 11/12/24 Verified 05:00 Complete Blood Count LAB 11/13/24 Verified 05:00 Date of Service: Nov 10, 2024 Billing Provider: ALEXANDER TAMAYO NP Common Visit Codes: [id number] CARE 30-74 MIN ALEXANDER TAMAYO NP Nov 10, 2024 08:58
--- NOTE | 2024-11-10 12:48 | DVHPN2 ---
Progress Note Date Seen: Nov 10, 2024 Medical Necessity Reason Pt with a Central, PICC or Fol: No Objective vital signs Vital Sign Date Time Temp Pulse Resp B/P (MAP) Pulse Ox O2 Delivery O2 Flow Rate FiO2 11/10/24 12:28 85 16 132/54 (80) 100 30 11/10/24 08:19 Mechanical Ventilator+ 11/10/24 06:15 99.5 211.1 Total Intake and Output 11/09/24 11/09/24 11/10/24 15:00 23:00 07:00 Intake Total 497.865 ml 718.250 ml 850.5 ml Output Total 400 ml 300 ml Balance 497.865 ml 318.250 ml 550.5 ml medications Current Medications Medications Dose Ordered Sig/Edson Route Start Time Stop Time Status Last Admin Dose Admin Midazolam HCl 50 ml @ 1 mls/hr Q24H IV 11/02/24 12:45 11/10/24 04:06 7 MLS/HR Nicardipine HCl 250 ml @ 50 mls/hr Q5H IV 11/02/24 14:30 UNV Ondansetron HCl 4 mg Q4HP PRN IV 11/02/24 15:00 Acetaminophen 650 mg Q6HP PRN PO 11/02/24 15:00 11/09/24 20:47 650 MG Nitroglycerin 0.4 mg Q5MINP PRN SL 11/02/24 15:00 Diagnostic Test (Pha) 1 strip Q6HR 11/02/24 18:00 11/10/24 06:03 1 STRIP Insulin Human Regular Q6HR SC 11/02/24 18:00 11/09/24 18:01 3 UNITS Dextrose 50 ml UD PRN IV 11/02/24 15:45 Aspirin 81 mg DAILY PO 11/03/24 10:00 11/10/24 09:39 81 MG Atorvastatin Calcium 40 mg HS PO 11/03/24 22:00 11/09/24 21:57 40 MG Fentanyl Citrate 250 ml @ 2.5 mls/hr Q24H IV 11/03/24 13:30 11/09/24 15:10 22.5 MLS/HR Empaglifozin 10 mg DAILY PO 11/04/24 10:00 11/10/24 09:40 10 MG Pantoprazole Sodium 40 mg DAILY IV 11/05/24 11:52 11/10/24 09:39 40 MG Sennosides 8.6 mg HS PO 11/05/24 22:00 11/09/24 21:57 8.6 MG Enteral Nutritional Formula 1,000 ml 5ML/HR GT 11/07/24 09:30 11/09/24 18:02 1,000 ML Norepinephrine Bitartrate 250 ml @ 3.75 mls/hr Q24H IV 11/07/24 12:15 11/10/24 09:34 11.25 MLS/HR Cefepime HCl 50 ml @ 12.5 mls/hr Q12H IV 11/07/24 22:00 11/10/24 09:39 12.5 MLS/HR Clopidogrel Bisulfate 75 mg DAILY PO 11/09/24 10:00 11/10/24 09:39 75 MG Amiodarone HCl 200 mg Q12HR GT 11/09/24 22:00 11/10/24 09:39 200 MG Furosemide 20 mg BIDD IV 11/09/24 18:00 11/10/24 06:03 20 MG Examination: GENERAL:Abnormal, HEENT:Abnormal, LUNGS:Abnormal, CVS:Abnormal, ABDOMEN:Abnormal laboratory and microbiology Laboratory Tests 11/10/24 02:51 Test 11/10/24 02:51 Range/Units Serum Glucose 177 H 74-106 mg/dL Microbiology Date/Time Source Procedure Growth Status 11/03/24 00:00 Nose MRSA Screen - Final Complete 11/02/24 12:17 Voided Urine Urine Culture - Final Complete 11/02/24 11:55 Blood Blood Culture - Final NO GROWTH AFTER 5 DAYS OF INCUBATION. Complete 11/02/24 11:10 Sputum Gram Stain - Final Complete 11/02/24 11:10 Sputum Respiratory Culture - Final Complete Problem List/Assessment/Plan Problem List/Assessment/Plan NSTEMI, suspected Type I Hypertensive emergency with acute encephalopathy De Teddy HFrEF, NYHA class IV Ventricular bigeminy in the setting of severe hypokalemia/hypomagnesemia Mild mitral and tricuspid valve regurgitation Dyslipidemia Rule out primary aldosteronism Insulin-dependent diabetes mellitus Acute kidney injury Hypothyroidism Gout Plan/Recommendation sp pci to prox LAD 99% stenosis has critical 3v cad needs plavix afib management bvery poor overall condition afib rvr with tachy kaley----amio gtt started again Plan discussed with: Patient, Other (rn) Dietary Evaluation Review Comments: Glucerna 1.2 @45ml/hr providing 65g prot, 1296kcal 869ml free water Expected Outcomes/Goals: Maintain Wt, prevent losing muscle mass Date of Service: Nov 10, 2024 Billing Provider: RAMONA AGUAYO MD Common Visit Codes: NOT BILLABLE RAMONA AGUAYO MD Nov 10, 2024 12:48
[2024-11-10] MEDS: KETOROLAC TROMETH 30 MG/ML 1ML VIAL IV ONE (17:17)
--- NOTE | 2024-11-10 22:57 | DVHPN2 ---
Progress Note - Dictate Date Seen: Nov 10, 2024 Medical Necessity Reason Pt with a Central, PICC or Fol: No Subjective Ms. Frank is a 77 years old female with a history of hypertension, diabetes, heart failure, she was brought to the [facility] on 11/02/2024 with a chief complaint of altered mental status. I have seen and examined the patient, talked to her nurse, she is intubated, eyes are open, she moves the eyes and head from [id number], he moves the arms and legs, but does not follow verbal commands Blood culture, 11/02/2024: Urine culture, 11/02/2024: Urinalysis, 11/02/2024: WBC: 15 urine leukocyte esterase:: Trace UDS, 11/02/2024: Negative WBC/HB/PLT/MCV, 11/02/2024: 13.6/11.8/220/84.9, 11/03/2024: 14.1/10.7/173/85 Na 11/03/2024: 145, 11/04/2024: 147, 11/05/24: 146 K 11/02/2024: 2 BUN/CR, 11/02/24: 25/1.47, 11/03/2024: 20/1.31 GFR, 11/02/2024: 36 Troponin one high sensitivity, 11/02/2024: 6108, 5013, 9224 TG/HDL/LDL/HDL, 11/02/2024: 202/IA T/127/27 TSH, 11/02/2024: 4.66 EKG, 11/07/2024: Atrial fibrillation with rapid V-rate EEG 11/03/2024: Remarkably abnormal Echocardiogram, 11/03/2024: lvef 30% severe LV dysfunction anteroseptum is akinetic RVmild enlarged left atrium enlarged no severe valve abnormalities noted mild mitral regurg mild trciuspid regurg Chest x-ray, 11/02/2024: Endotracheal tube in appropriate position. Pulmonary edema versus atypical infection CT head, 11/02/2024: No intracranial hemorrhage or mass effect. Mild chronic microvascular ischemic changes. Mild global cerebral volume loss. vital signs Vital Sign Date Time Temp Pulse Resp B/P (MAP) Pulse Ox O2 Delivery O2 Flow Rate FiO2 11/10/24 22:05 91 28 140/61 (87) 98 30 11/10/24 18:30 100.8 213.4 11/10/24 18:00 Mechanical Ventilator+ Total Intake and Output 11/09/24 11/09/24 11/10/24 15:00 23:00 07:00 Intake Total 497.865 ml 718.250 ml 895.0 ml Output Total 400 ml 300 ml Balance 497.865 ml 318.250 ml 595.0 ml medications Current Medications Medications Dose Ordered Sig/Edson Route Start Time Stop Time Status Last Admin Dose Admin Midazolam HCl 50 ml @ 1 mls/hr Q24H IV 11/02/24 12:45 11/10/24 04:06 7 MLS/HR Nicardipine HCl 250 ml @ 50 mls/hr Q5H IV 11/02/24 14:30 UNV Ondansetron HCl 4 mg Q4HP PRN IV 11/02/24 15:00 Acetaminophen 650 mg Q6HP PRN PO 11/02/24 15:00 11/09/24 20:47 650 MG Nitroglycerin 0.4 mg Q5MINP PRN SL 11/02/24 15:00 Diagnostic Test (Pha) 1 strip Q6HR 11/02/24 18:00 11/10/24 17:18 1 STRIP Insulin Human Regular Q6HR SC 11/02/24 18:00 11/10/24 17:22 2 UNITS Dextrose 50 ml UD PRN IV 11/02/24 15:45 Aspirin 81 mg DAILY PO 11/03/24 10:00 11/10/24 09:39 81 MG Atorvastatin Calcium 40 mg HS PO 11/03/24 22:00 11/10/24 22:28 40 MG Fentanyl Citrate 250 ml @ 2.5 mls/hr Q24H IV 11/03/24 13:30 11/09/24 15:10 22.5 MLS/HR Empaglifozin 10 mg DAILY PO 11/04/24 10:00 11/10/24 09:40 10 MG Pantoprazole Sodium 40 mg DAILY IV 11/05/24 11:52 11/10/24 09:39 40 MG Sennosides 8.6 mg HS PO 11/05/24 22:00 11/10/24 22:27 8.6 MG Enteral Nutritional Formula 1,000 ml 5ML/HR GT 11/07/24 09:30 11/09/24 18:02 1,000 ML Norepinephrine Bitartrate 250 ml @ 3.75 mls/hr Q24H IV 11/07/24 12:15 11/10/24 09:34 11.25 MLS/HR Cefepime HCl 50 ml @ 12.5 mls/hr Q12H IV 11/07/24 22:00 11/10/24 22:29 12.5 MLS/HR Clopidogrel Bisulfate 75 mg DAILY PO 11/09/24 10:00 11/10/24 09:39 75 MG Amiodarone HCl 200 mg Q12HR GT 11/09/24 22:00 11/10/24 22:28 200 MG Furosemide 20 mg BIDD IV 11/09/24 18:00 11/10/24 17:17 20 MG objective The patient is well-nourished and well-developed with no distress. The patient is intubated MENTAL STATUS: Subjective CRANIAL NERVES: Pupils are equal, round and nonreactive, very small. There are conjugated eye movement. No signs of facial weakness. There are gagging or coughing reflexes SENSATION: Responses to light painful stimuli MOTOR: Normal tone in the upper and lower extremity. Normal muscle bulk. No fasciculations. She moves the arms and legs REFLEXES: Deep tendon reflexes are symmetrical. Upgoing toes in the feet,. CEREBELLAR/COORDINATION: Deferred GAIT/STATION: deferred laboratory and microbiology Laboratory Tests 11/10/24 02:51 Test 11/10/24 02:51 Range/Units Serum Glucose 177 H 74-106 mg/dL Problem List Fever, leukocytosis, altered mental status Sepsis UTI Pneumonia Coma/altered mental status Hypoxic encephalopathy Metabolic encephalopathy Rule out intracranial pathology Hypokalemia Kidney failure Heart attack AFib Assessment/Plan Monitoring Supportive treatment ICU care Follow-up blood tests MR head Respiratory support/vent management Stabilize vitals/pressor drip Oxygen IV antibiotics IV fluids Aspirin 81 mg daily Plavix 75 mg daily Lipitor 40 mg daily More recommendation per clinical course This medical document was created using an electronic medical record system with [employer] system. Although this document has been carefully reviewed, there may still be some phonetic and typographical errors. These areas are purely typographical due to imperfections of the software programs, and do not reflect any compromise in the patient's medical care. Prognosis poor, guarded Dietary Evaluation Review Comments: Glucerna 1.2 @45ml/hr providing 65g prot, 1296kcal 869ml free water Expected Outcomes/Goals: Maintain Wt, prevent losing muscle mass Plan discussed with: Other ELY PORRAS MD Nov 10, 2024 22:57
[2024-11-11] VITALS (98 sets, daily range): BP systolic 77–176; BP diastolic 32–87; PULSE 48–152; RESP 10–33; TEMP 96.8–100.6; O2SAT 91–100
[2024-11-11] MEDS: ONDANSETRON HCL 4 MG/2 ML VIAL IV PRN (02:40)
[2024-11-11 04:06] LABS: Calcium 9.0 mg/dL (8.7-10.4); Chloride 104 mmol/L (98-107); Potassium 3.8 mmol/L (3.5-5.1); Sodium 143 mmol/L (136-145)
[2024-11-11 04:07] LABS: Anion Gap 13 (5-15); Carbon Dioxide 26 mmol/L (20-31)
[2024-11-11 04:11] LABS: Hematocrit 26.6 % (36.0-46.0); Hemoglobin 9.5 g/dL (12.2-16.2); Mean Corpuscular Hemoglobin 30.9 pg (28.0-32.0); Mean Corpuscular Volume 86.6 fL (80.0-100.0); Nucleated Red Blood Cells % 0.0 %
[2024-11-11 04:12] LABS: BUN/Creatinine Ratio 16.3 (10.0-20.0); Blood Urea Nitrogen 22 mg/dL (9-23)
[2024-11-11 04:13] LABS: Glucose 137 mg/dL (74-106)
--- NOTE | 2024-11-11 05:50 | DVH ---
CHEST RADIOGRAPH Indication: CHF Technique: Single frontal view of the chest was obtained COMPARISON: XY CHEST PORTABLE on DOS: 11/10/24, XY CHEST PORTABLE on DOS: 11/09/24, XY CHEST PORTABLE o n DOS: 11/08/24, XY CHEST PORTABLE on DOS: 11/06/24, XY CHEST PORTABLE on DOS: 11/05/24 FINDINGS: Lines and Tubes: Endotracheal tube, enteric catheter and right central venous catheter in satisfactor y position. Lungs: Congestion Pleura: No effusion. No pneumothorax. Cardiomediastinal contours: Unremarkable Bones: Unremarkable IMPRESSION: Lines and tubes in satisfactory position. No significant interval change.
--- NOTE | 2024-11-11 08:36 | DVHPN2 ---
Subjective Patient chemically sedated Reviewed: Care Plan, H&P, Labs, Medications Changes from previous H/P or p: No Changes General: Per HPI Objective Vitals Vital Signs Date Time Temp Pulse Resp B/P (MAP) Pulse Ox O2 Delivery O2 Flow Rate FiO2 11/11/24 07:14 67 27 157/60 (92) 99 30 11/11/24 06:45 98.8 209.8 11/11/24 06:00 Mechanical Ventilator+ Intake/Output Intake and Output 11/11/24 07:00 Intake Total 683.83 ml Output Total 1050 ml Balance -366.17 ml Intake Oral 400 ml IV Total 283.83 ml Output Urine Total 1050 ml # Bowel Movements 3 General Appearance: moderate distress, Other (Patient encephalopathic.) HEENT: PERRLA Lungs: Clear to auscultation, Normal air movement, Other (Mechanical ventilation) Cardiovascular: Normal S1, Normal S2, Other (Sinus rhythm with frequent PACs) Abdomen: Normal bowel sounds, Soft, No tenderness, No hepatospenomegaly Genitourinary: No Apparent Abnormalities ([place]) Musculoskeletal: Other (No motor movement) Skin: Dry, Intact Psych/Mental Status: Other (Unable to assess) Medications Current Medications Medications Dose Ordered Sig/Edson Route Start Time Stop Time Status Last Admin Dose Admin Midazolam HCl 50 ml @ 1 mls/hr Q24H IV 11/02/24 12:45 11/10/24 04:06 7 MLS/HR Nicardipine HCl 250 ml @ 50 mls/hr Q5H IV 11/02/24 14:30 UNV Ondansetron HCl 4 mg Q4HP PRN IV 11/02/24 15:00 11/11/24 02:40 4 MG Acetaminophen 650 mg Q6HP PRN PO 11/02/24 15:00 11/11/24 00:58 650 MG Nitroglycerin 0.4 mg Q5MINP PRN SL 11/02/24 15:00 Diagnostic Test (Pha) 1 strip Q6HR 11/02/24 18:00 11/11/24 05:49 1 STRIP Insulin Human Regular Q6HR SC 11/02/24 18:00 11/10/24 17:22 2 UNITS Dextrose 50 ml UD PRN IV 11/02/24 15:45 Aspirin 81 mg DAILY PO 11/03/24 10:00 11/10/24 09:39 81 MG Atorvastatin Calcium 40 mg HS PO 11/03/24 22:00 11/10/24 22:28 40 MG Fentanyl Citrate 250 ml @ 2.5 mls/hr Q24H IV 11/03/24 13:30 11/11/24 05:38 7.5 MLS/HR Empaglifozin 10 mg DAILY PO 11/04/24 10:00 11/10/24 09:40 10 MG Pantoprazole Sodium 40 mg DAILY IV 11/05/24 11:52 11/10/24 09:39 40 MG Sennosides 8.6 mg HS PO 11/05/24 22:00 11/10/24 22:27 8.6 MG Enteral Nutritional Formula 1,000 ml 5ML/HR GT 11/07/24 09:30 11/09/24 18:02 1,000 ML Norepinephrine Bitartrate 250 ml @ 3.75 mls/hr Q24H IV 11/07/24 12:15 11/10/24 09:34 11.25 MLS/HR Cefepime HCl 50 ml @ 12.5 mls/hr Q12H IV 11/07/24 22:00 11/10/24 22:29 12.5 MLS/HR Clopidogrel Bisulfate 75 mg DAILY PO 11/09/24 10:00 11/10/24 09:39 75 MG Amiodarone HCl 200 mg Q12HR GT 11/09/24 22:00 11/10/24 22:28 200 MG Furosemide 20 mg BIDD IV 11/09/24 18:00 11/11/24 05:51 20 MG Laboratory Results Laboratory Tests 11/11/24 03:05 Chemistry Test 11/11/24 03:05 Calcium Level 9.0 mg/dL (8.7-10.4) Urinalysis Test 11/02/24 12:17 Urine Color Light-yellow (Yellow) Urine Clarity Turbid (Clear) H Urine pH 7.0 (5.0-9.0) Urine Specific [place] 1.010 (1.001-1.035) Urine Protein 2+ (Negative) H Urine Ketones Negative (Negative) Urine Blood 1+ /uL (Negative) H Urine Nitrite Negative (Negative) Urine Bilirubin Negative (Negative) Urine Urobilinogen Normal mg/dL (Negative) Urine Leukocyte Esterase Trace /uL (Negative) Urine RBC 2 /hpf (0 - 4) Urine Microscopic WBC 15 /HPF (0-5) H Urine Squamous Epithelial Cells Few /hpf (<5) Urine Bacteria None seen /hpf (None Seen) Urine Hyaline Casts Few /lpf (0 - 2) Urine Glucose Trace mg/dL (Normal) Microbiology Microbiology Date/Time Source Procedure Growth Status 11/03/24 00:00 Nose MRSA Screen - Final Complete 11/02/24 12:17 Voided Urine Urine Culture - Final Complete 11/02/24 11:55 Blood Blood Culture - Final NO GROWTH AFTER 5 DAYS OF INCUBATION. Complete 11/02/24 11:10 Sputum Gram Stain - Final Complete 11/02/24 11:10 Sputum Respiratory Culture - Final Complete Labs and/or images reviewed: Labs reviewed by me, Image(s) reviewed by me Assessment/Plan Assessment/Plan Impression: -metabolic encephalopathy -acute hypoxic respiratory failure -acute systolic heart failure -NSTEMI type [address]-depression in lateral leads -dyslipidemia -diabetes mellitus -accelerated hypertension -ventricular bigeminy with bradycardia -Cardiogenic Shock Plan: Events: Patient now off of vasopressor therapy. Sinus rhythm with frequent PACs. -continue amiodarone via G-tube. Start metoprolol tartrate via G-tube -Cardiology: Recommendations reviewed -continue DAPT -spontaneous breathing trial once awake. Use Precedex for anxiety/agitation -regular insulin sliding scale -PUD prophylaxis -repeat labs, chest x-ray, ABG in a.m. Critical care time spent with patient discussing and formulating plan of care: 40 minutes. This does not include time spent performing procedures. This medical document was created using an electronic medical record system with [employer] dictation system. Although this document has been carefully reviewed, there may still be some phonetic and typographical errors. These areas are purely typographical due to imperfections of the software programs, and do not reflect any compromise in the patient's medical care. Plan discussed with: Patient, Other (RN) My Orders Orders - ALEXANDER TAMAYO COPS Procedure Category Date Status Time Basic Metabolic Panel LAB 11/12/24 Verified 05:00 Basic Metabolic Panel LAB 11/13/24 Verified 05:00 Complete Blood Count LAB 11/12/24 Verified 05:00 Complete Blood Count LAB 11/13/24 Verified 05:00 Abg W/ Co-Ox RT 11/11/24 Logged 06:00 Cpap Trial For Am ORDERS 11/11/24 Transmitted 07:20 Metoprolol Inj PHA 11/11/24 Logged (Lopressor) 08:45 Metoprolol Tartrate PHA 11/11/24 Logged Tablet (Lopressor Ta 10:00 Date of Service: Nov 11, 2024 Billing Provider: ALEXANDER TAMAYO NP Common Visit Codes: [id number] CARE 30-74 MIN ALEXANDER TAMAYO NP Nov 11, 2024 08:36
[2024-11-11] MEDS ORDERED: METOPROLOL TARTRATE 1MG/1ML-5ML VIAL IV PRN (08:45)
[2024-11-11] MEDS: METOPROLOL TARTRATE 25 MG TAB NG SCH (10:00)
[2024-11-11 14:14] LABS: Base Excess -0.1 mmol/L (-2.0-3.0)
[2024-11-11] MEDS: HALOPERIDOL LACTATE 5 MG/ML INJ VIAL IM ONE (18:37)
--- NOTE | 2024-11-11 19:16 | DVHPN2 ---
Progress Note - Dictate Date Seen: Nov 11, 2024 Medical Necessity Reason Pt with a Central, PICC or Fol: No Subjective Ms. Frank is a 77 years old female with a history of hypertension, diabetes, heart failure, she was brought to the [facility] on 11/02/2024 with a chief complaint of altered mental status. I have seen and examined the patient, talked to her nurse, she is extubated, eyes are open, she moves the eyes and head from [id number], he moves the arms and legs, but does not follow verbal commands Blood culture, 11/02/2024: No growth Urine culture, 11/02/2024: No growth Urinalysis, 11/02/2024: WBC: 15 urine leukocyte esterase:: Trace UDS, 11/02/2024: Negative WBC/HB/PLT/MCV, 11/02/2024: 13.6/11.8/220/84.9, 11/03/2024: 14.1/10.7/173/85 Na 11/03/2024: 145, 11/04/2024: 147, 11/05/24: 146 K 11/02/2024: 2 BUN/CR, 11/02/24: 25/1.47, 11/03/2024: 20/1.31, 11/11/2024: 22/1.35 GFR, 11/02/2024: 36, 11/11/2024: 40 Troponin one high sensitivity, 11/02/2024: 6108, 5013, 9224 TG/HDL/LDL/HDL, 11/02/2024: 202/180/127/27 TSH, 11/02/2024: 4.66 EKG, 11/07/2024: Atrial fibrillation with rapid V-rate EEG 11/03/2024: Remarkably abnormal Echocardiogram, 11/03/2024: lvef 30% severe LV dysfunction anteroseptum is akinetic RVmild enlarged left atrium enlarged no severe valve abnormalities noted mild mitral regurg mild trciuspid regurg Chest x-ray, 11/02/2024: Endotracheal tube in appropriate position. Pulmonary edema versus atypical infection CT head, 11/02/2024: No intracranial hemorrhage or mass effect. Mild chronic microvascular ischemic changes. Mild global cerebral volume loss. vital signs Vital Sign Date Time Temp Pulse Resp B/P (MAP) Pulse Ox O2 Delivery O2 Flow Rate FiO2 11/11/24 18:35 112/63 11/11/24 17:00 84 16 100 11/11/24 16:00 97.8 97.8 11/11/24 16:00 Cool Aerosol 10 30 30 Total Intake and Output 11/10/24 11/10/24 11/11/24 15:00 23:00 07:00 Intake Total 110.75 ml 246.0 ml 327.08 ml Output Total 700 ml 350 ml Balance 110.75 ml -454.0 ml -22.92 ml medications Current Medications Medications Dose Ordered Sig/Edson Route Start Time Stop Time Status Last Admin Dose Admin Midazolam HCl 50 ml @ 1 mls/hr Q24H IV 11/02/24 12:45 11/10/24 04:06 7 MLS/HR Nicardipine HCl 250 ml @ 50 mls/hr Q5H IV 11/02/24 14:30 UNV Ondansetron HCl 4 mg Q4HP PRN IV 11/02/24 15:00 11/11/24 02:40 4 MG Acetaminophen 650 mg Q6HP PRN PO 11/02/24 15:00 11/11/24 00:58 650 MG Nitroglycerin 0.4 mg Q5MINP PRN SL 11/02/24 15:00 Diagnostic Test (Pha) 1 strip Q6HR 11/02/24 18:00 11/11/24 18:35 1 STRIP Insulin Human Regular Q6HR SC 11/02/24 18:00 11/10/24 17:22 2 UNITS Dextrose 50 ml UD PRN IV 11/02/24 15:45 Aspirin 81 mg DAILY PO 11/03/24 10:00 11/11/24 12:01 81 MG Atorvastatin Calcium 40 mg HS PO 11/03/24 22:00 11/10/24 22:28 40 MG Fentanyl Citrate 250 ml @ 2.5 mls/hr Q24H IV 11/03/24 13:30 11/11/24 05:38 7.5 MLS/HR Empaglifozin 10 mg DAILY PO 11/04/24 10:00 11/11/24 12:01 10 MG Pantoprazole Sodium 40 mg DAILY IV 11/05/24 11:52 11/11/24 12:01 40 MG Sennosides 8.6 mg HS PO 11/05/24 22:00 11/10/24 22:27 8.6 MG Enteral Nutritional Formula 1,000 ml 5ML/HR GT 11/07/24 09:30 11/09/24 18:02 1,000 ML Norepinephrine Bitartrate 250 ml @ 3.75 mls/hr Q24H IV 11/07/24 12:15 11/10/24 09:34 11.25 MLS/HR Cefepime HCl 50 ml @ 12.5 mls/hr Q12H IV 11/07/24 22:00 11/11/24 12:01 12.5 MLS/HR Clopidogrel Bisulfate 75 mg DAILY PO 11/09/24 10:00 11/11/24 12:02 75 MG Amiodarone HCl 200 mg Q12HR GT 11/09/24 22:00 11/11/24 12:00 200 MG Furosemide 20 mg BIDD IV 11/09/24 18:00 11/11/24 18:35 20 MG Metoprolol Tartrate 1.25 mg Q6HPRN PRN IV 11/11/24 08:45 Metoprolol Tartrate 25 mg BID NG 11/11/24 10:00 objective The patient is well-nourished and well-developed with no distress. MENTAL STATUS: Subjective CRANIAL NERVES: Pupils are equal, round and nonreactive, very small. There are conjugated eye movement. Normal sensory and motor examination bilateral trigeminal distribution. No signs of facial weakness. SENSATION: Responses to pinprick and light touch MOTOR: Normal tone in the upper and lower extremity. Normal muscle bulk. No fasciculations. She moves the arms and legs REFLEXES: Deep tendon reflexes are symmetrical. CEREBELLAR/COORDINATION: Deferred GAIT/STATION: deferred laboratory and microbiology Laboratory Tests 11/11/24 03:05 Test 11/11/24 03:05 Range/Units Serum Glucose 137 H 74-106 mg/dL Problem List Fever, leukocytosis, altered mental status Sepsis UTI Pneumonia Coma/altered mental status Hypoxic encephalopathy Metabolic encephalopathy Rule out intracranial pathology Hypokalemia Kidney failure Heart attack AFib Assessment/Plan Monitoring Supportive treatment ICU care Follow-up blood tests MR head Respiratory support Stabilize vitals Oxygen IV antibiotics IV fluids Aspirin 81 mg daily Plavix 75 mg daily Lipitor 40 mg daily More recommendation per clinical course This medical document was created using an electronic medical record system with [employer] dictation system. Although this document has been carefully reviewed, there may still be some phonetic and typographical errors. These areas are purely typographical due to imperfections of the software programs, and do not reflect any compromise in the patient's medical care. Prognosis poor Dietary Evaluation Review Comments: Glucerna 1.2 @45ml/hr providing 65g prot, 1296kcal 869ml free water Expected Outcomes/Goals: Maintain Wt, prevent losing muscle mass Plan discussed with: Other ELY PORRAS MD Nov 11, 2024 19:16
[2024-11-11] MEDS: AMIODARONE 360mg/200mL PREMIX 200 ML IV ONE (20:14)
[2024-11-12] VITALS (92 sets, daily range): BP systolic 48–203; BP diastolic 39–170; PULSE 41–88; RESP 11–26; TEMP 97.7–100.3; O2SAT 78–100
[2024-11-12] MEDS: AMIODARONE 360mg/200mL PREMIX 200 ML IV SCH (02:03)
[2024-11-12 03:45] LABS: Hematocrit 22.1 % (36.0-46.0); Hemoglobin 7.8 g/dL (12.2-16.2); Nucleated Red Blood Cells % 0.0 %
[2024-11-12 03:49] LABS: Mean Corpuscular Hemoglobin 30.8 pg (28.0-32.0); Mean Corpuscular Volume 87.4 fL (80.0-100.0)
[2024-11-12 03:54] LABS: Chloride 104 mmol/L (98-107); Sodium 145 mmol/L (136-145)
[2024-11-12 03:55] LABS: Anion Gap 20 (5-15); Calcium 9.0 mg/dL (8.7-10.4); Carbon Dioxide 21 mmol/L (20-31)
[2024-11-12 04:00] LABS: BUN/Creatinine Ratio 14.8 (10.0-20.0); Blood Urea Nitrogen 22 mg/dL (9-23)
[2024-11-12 04:02] LABS: Glucose 148 mg/dL (74-106); Potassium 3.4 mmol/L (3.5-5.1)
[2024-11-12] MEDS: POTASSIUM CHL 20MEQ/100ML 100 ML IV ONE (06:13)
[2024-11-12] MEDS ORDERED: POTASSIUM EFFERVESENT TAB 25 MEQ GT SCH (10:00)
--- NOTE | 2024-11-12 10:31 | DVHPN2 ---
Progress Note - Dictate Date Seen: Nov 12, 2024 Medical Necessity Reason Pt with a Central, PICC or Fol: No vital signs Vital Sign Date Time Temp Pulse Resp B/P (MAP) Pulse Ox O2 Delivery O2 Flow Rate FiO2 11/12/24 08:00 78 22 99 Nasal Cannula* 3 32 11/12/24 06:15 130/52 11/12/24 00:00 100.3 100.3 Total Intake and Output 11/11/24 11/11/24 11/12/24 15:00 23:00 07:00 Intake Total 59.250 ml 209.99 ml 231.336 ml Output Total 850 ml 600 ml Balance 59.250 ml -640.01 ml -368.664 ml medications Current Medications Medications Dose Ordered Sig/Edson Route Start Time Stop Time Status Last Admin Dose Admin Midazolam HCl 50 ml @ 1 mls/hr Q24H IV 11/02/24 12:45 11/10/24 04:06 7 MLS/HR Nicardipine HCl 250 ml @ 50 mls/hr Q5H IV 11/02/24 14:30 UNV Ondansetron HCl 4 mg Q4HP PRN IV 11/02/24 15:00 11/12/24 05:02 4 MG Acetaminophen 650 mg Q6HP PRN PO 11/02/24 15:00 11/11/24 00:58 650 MG Nitroglycerin 0.4 mg Q5MINP PRN SL 11/02/24 15:00 Diagnostic Test (Pha) 1 strip Q6HR 11/02/24 18:00 11/12/24 06:15 1 STRIP Insulin Human Regular Q6HR SC 11/02/24 18:00 11/10/24 17:22 2 UNITS Dextrose 50 ml UD PRN IV 11/02/24 15:45 Aspirin 81 mg DAILY PO 11/03/24 10:00 11/11/24 12:01 81 MG Atorvastatin Calcium 40 mg HS PO 11/03/24 22:00 11/10/24 22:28 40 MG Fentanyl Citrate 250 ml @ 2.5 mls/hr Q24H IV 11/03/24 13:30 11/11/24 05:38 7.5 MLS/HR Empaglifozin 10 mg DAILY PO 11/04/24 10:00 11/11/24 12:01 10 MG Pantoprazole Sodium 40 mg DAILY IV 11/05/24 11:52 11/11/24 12:01 40 MG Sennosides 8.6 mg HS PO 11/05/24 22:00 11/10/24 22:27 8.6 MG Enteral Nutritional Formula 1,000 ml 5ML/HR GT 11/07/24 09:30 11/09/24 18:02 1,000 ML Norepinephrine Bitartrate 250 ml @ 3.75 mls/hr Q24H IV 11/07/24 12:15 11/10/24 09:34 11.25 MLS/HR Cefepime HCl 50 ml @ 12.5 mls/hr Q12H IV 11/07/24 22:00 11/11/24 22:07 12.5 MLS/HR Clopidogrel Bisulfate 75 mg DAILY PO 11/09/24 10:00 11/11/24 12:02 75 MG Amiodarone HCl 200 mg Q12HR GT 11/09/24 22:00 11/11/24 12:00 200 MG Furosemide 20 mg BIDD IV 11/09/24 18:00 11/12/24 06:15 20 MG Metoprolol Tartrate 1.25 mg Q6HPRN PRN IV 11/11/24 08:45 Metoprolol Tartrate 25 mg BID NG 11/11/24 10:00 Acetaminophen 650 mg Q6HP PRN MS 11/11/24 20:15 Amiodarone HCL/ Dextrose 200 ml @ 16.66 mls/ hr Q12H IV 11/12/24 02:15 11/12/24 02:03 16.66 MLS/HR laboratory and microbiology Laboratory Tests 11/12/24 03:14 Test 11/12/24 03:14 Range/Units Serum Glucose 148 H 74-106 mg/dL 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 Impression Acute hypoxemic respiratory failure Elevated troponin NSTEMI CHF Patient seen and examined in ICU Events S/p extubation remains delirious started on precedex drip restraints if needed observe closely Labs and imaging reviewed Cr 1.5 CXR congestion ABG reviewed Management suppl 02 precedex NPO off abx Bronchodilators/nebs Monitor renal function Monitor electrolytes Supplement as needed Pressors as needed for hemodynamic support To maintain a mean arterial pressure of 65 mmHg Echo report reviewed F/u cardiology DVT prophylaxis Critical care time 35 minutes Dietary Evaluation Review Comments: Glucerna 1.2 @45ml/hr providing 65g prot, 1296kcal 869ml free water Expected Outcomes/Goals: Maintain Wt, prevent losing muscle mass Plan discussed with: Other (rn) SCARLETT LUBIN MD Nov 12, 2024 10:30
[2024-11-12] MEDS: ACETAMINOPHEN 650 MG RECT SUPP PR PRN (14:07)
--- NOTE | 2024-11-12 18:26 | DVHPN2 ---
Subjective I am assuming the care of the patient from today onwards. Patient initially presented to hospital with altered mental status found to have acute hypoxic respiratory failure secondary to acute CHF exacerbation with systolic dysfunction status post intubation on 11/02, status post extubation on11/11, currently agitated. Patient's has a one-to-one sitter. Patient's amiodarone drip is off. Reviewed: Care Plan, H&P, Labs, Medications Changes from previous H/P or p: No Changes General: Per HPI Objective Vitals Vital Signs Date Time Temp Pulse Resp B/P (MAP) Pulse Ox O2 Delivery O2 Flow Rate FiO2 11/12/24 18:03 116/67 11/12/24 18:00 52 11/12/24 18:00 16 98 Room Air* 0 21 11/12/24 12:00 98.7 98.7 Intake/Output Intake and Output 11/12/24 07:00 Intake Total 517.236 ml Output Total 1450 ml Balance -932.764 ml Intake Oral 125 ml IV Total 392.236 ml Output Urine Total 1050 ml Gastric Drainage Total 400 ml # Bowel Movements 2 Exam HEENT pupils are reactive Neck is supple CV is S1-S2 regular rate and rhythm Respiratory are clear GI positive bowel sound Extremity no edema MANAGER VIDEO GAMES no motor deficit General Appearance: moderate distress, Other (Patient encephalopathic.) HEENT: PERRLA Lungs: Clear to auscultation, Normal air movement, Other (Mechanical ventilation) Cardiovascular: Normal S1, Normal S2, Other (Sinus rhythm with frequent PACs) Abdomen: Normal bowel sounds, Soft, No tenderness, No hepatospenomegaly Genitourinary: No Apparent Abnormalities ([place]) Musculoskeletal: Other (No motor movement) Skin: Dry, Intact Psych/Mental Status: Other (Unable to assess) Medications Current Medications Medications Dose Ordered Sig/Edson Route Start Time Stop Time Status Last Admin Dose Admin Nicardipine HCl 250 ml @ 50 mls/hr Q5H IV 11/02/24 14:30 UNV Ondansetron HCl 4 mg Q4HP PRN IV 11/02/24 15:00 11/12/24 05:02 4 MG Acetaminophen 650 mg Q6HP PRN PO 11/02/24 15:00 11/11/24 00:58 650 MG Nitroglycerin 0.4 mg Q5MINP PRN SL 11/02/24 15:00 Diagnostic Test (Pha) 1 strip Q6HR 11/02/24 18:00 11/12/24 13:24 1 STRIP Insulin Human Regular Q6HR SC 11/02/24 18:00 11/10/24 17:22 2 UNITS Dextrose 50 ml UD PRN IV 11/02/24 15:45 Aspirin 81 mg DAILY PO 11/03/24 10:00 11/11/24 12:01 81 MG Atorvastatin Calcium 40 mg HS PO 11/03/24 22:00 11/10/24 22:28 40 MG Empaglifozin 10 mg DAILY PO 11/04/24 10:00 11/11/24 12:01 10 MG Pantoprazole Sodium 40 mg DAILY IV 11/05/24 11:52 11/12/24 13:23 40 MG Sennosides 8.6 mg HS PO 11/05/24 22:00 11/10/24 22:27 8.6 MG Norepinephrine Bitartrate 250 ml @ 3.75 mls/hr Q24H IV 11/07/24 12:15 11/10/24 09:34 11.25 MLS/HR Cefepime HCl 50 ml @ 12.5 mls/hr Q12H IV 11/07/24 22:00 11/12/24 13:23 12.5 MLS/HR Clopidogrel Bisulfate 75 mg DAILY PO 11/09/24 10:00 11/11/24 12:02 75 MG Amiodarone HCl 200 mg Q12HR GT 11/09/24 22:00 11/11/24 12:00 200 MG Furosemide 20 mg BIDD IV 11/09/24 18:00 11/12/24 18:03 20 MG Metoprolol Tartrate 1.25 mg Q6HPRN PRN IV 11/11/24 08:45 Metoprolol Tartrate 25 mg BID NG 11/11/24 10:00 Acetaminophen 650 mg Q6HP PRN CO 11/11/24 20:15 11/12/24 14:07 650 MG Amiodarone HCL/ Dextrose 200 ml @ 16.66 mls/ hr Q12H IV 11/12/24 02:15 11/12/24 13:25 16.66 MLS/HR Laboratory Results Laboratory Tests 11/12/24 03:14 Chemistry Test 11/12/24 03:14 Calcium Level 9.0 mg/dL (8.7-10.4) Urinalysis Test 11/02/24 12:17 Urine Color Light-yellow (Yellow) Urine Clarity Turbid (Clear) H Urine pH 7.0 (5.0-9.0) Urine Specific [place] 1.010 (1.001-1.035) Urine Protein 2+ (Negative) H Urine Ketones Negative (Negative) Urine Blood 1+ /uL (Negative) H Urine Nitrite Negative (Negative) Urine Bilirubin Negative (Negative) Urine Urobilinogen Normal mg/dL (Negative) Urine Leukocyte Esterase Trace /uL (Negative) Urine RBC 2 /hpf (0 - 4) Urine Microscopic WBC 15 /HPF (0-5) H Urine Squamous Epithelial Cells Few /hpf (<5) Urine Bacteria None seen /hpf (None Seen) Urine Hyaline Casts Few /lpf (0 - 2) Urine Glucose Trace mg/dL (Normal) Microbiology Microbiology Date/Time Source Procedure Growth Status 11/03/24 00:00 Nose MRSA Screen - Final Complete 11/02/24 12:17 Voided Urine Urine Culture - Final Complete 11/02/24 11:55 Blood Blood Culture - Final NO GROWTH AFTER 5 DAYS OF INCUBATION. Complete 11/02/24 11:10 Sputum Gram Stain - Final Complete 11/02/24 11:10 Sputum Respiratory Culture - Final Complete Assessment/Plan Assessment/Plan 79-year-old female with a known history of diabetes mellitus type 2, hypertension, dyslipidemia who initially presented to the hospital with altered mental status found to have 1. Acute hypoxic respiratory failure secondary to acute CHF exacerbation with systolic dysfunction11/02, status post extubation on11/11, currently on nasal cannula 2. Cardiomyopathy with the EF of 30% 3. NSTEMI type 1 status post left heart catheterization with a PCI to LAD 4. Failed swallow evaluation, status post NG tube, start Clinimix 5. Acute metabolic encephalopathy 6. Cardiogenic shock, resolved 7. Paroxysmal AFib currently off of amiodarone drip. - continue NG tube, start Clinimix, repeat swallow evaluation Follow up Cardiology recommendations Plan discussed with: Patient, Other (Patient's bedside) Date of Service: Nov 13, 2024 Billing Provider: AVELINO SAMUEL MD Common Visit Codes: [id number] INP/OBS CARE(HIGH) AVELINO SAMUEL MD Nov 12, 2024 18:26
[2024-11-13] VITALS (32 sets, daily range): BP systolic 60–261; BP diastolic 42–231; PULSE 45–83; RESP 11–21; TEMP 97.9–98.8; O2SAT 83–100
[2024-11-13 03:29] LABS: Chloride 105 mmol/L (98-107)
[2024-11-13 03:30] LABS: Anion Gap 18 (5-15); Carbon Dioxide 24 mmol/L (20-31)
[2024-11-13 03:31] LABS: Calcium 8.9 mg/dL (8.7-10.4)
[2024-11-13 03:33] LABS: Hematocrit 22.7 % (36.0-46.0); Hemoglobin 8.1 g/dL (12.2-16.2); Mean Corpuscular Hemoglobin 30.8 pg (28.0-32.0); Nucleated Red Blood Cells % 0.0 %
[2024-11-13 03:35] LABS: BUN/Creatinine Ratio 12.7 (10.0-20.0); Blood Urea Nitrogen 18 mg/dL (9-23); Mean Corpuscular Volume 86.2 fL (80.0-100.0)
[2024-11-13 04:03] LABS: Glucose 121 mg/dL (74-106); Potassium 2.7 mmol/L (3.5-5.1); Sodium 147 mmol/L (136-145)
[2024-11-13] MEDS: POTASSIUM CHL 20MEQ/100ML 300 ML IV ONE (05:10)
[2024-11-13] MEDS: POTASSIUM CHL 20MEQ/100ML 100 ML IV SCH ×2 (05:12→15:32)
--- NOTE | 2024-11-13 10:36 | MEDREC ---
FORMERLY [facility], [facility] ASP Intervention Section I FORMERLY [facility], [facility] ASP Intervention: Deescalate AB based on CS (11 DAYS ON CEFEPIME NO PSEUDOMONAS AERUGINOSA IN CULTURE PATIENT ON ROOM AIR PLEASE CONSIDER D/C OR DE-ESCALATION OF ANTIBIOTIC ) SHIV SAENZ PHARMACIST Nov 13, 2024 10:36
--- NOTE | 2024-11-13 14:17 | DVHPN2 ---
Progress Note - Dictate Date Seen: Nov 13, 2024 Medical Necessity Reason Pt with a Central, PICC or Fol: No vital signs Vital Sign Date Time Temp Pulse Resp B/P (MAP) Pulse Ox O2 Delivery O2 Flow Rate FiO2 11/13/24 11:03 81 15 171/120 (137) 95 11/13/24 10:00 Nasal Cannula* 3 32 11/13/24 08:00 98.7 98.7 Total Intake and Output 11/12/24 11/12/24 11/13/24 15:00 23:00 07:00 Intake Total 253.905 ml 192.710 ml 47.125 ml Output Total 1125 ml 600 ml Balance 253.905 ml -932.290 ml -552.875 ml medications Current Medications Medications Dose Ordered Sig/Edson Route Start Time Stop Time Status Last Admin Dose Admin Nicardipine HCl 250 ml @ 50 mls/hr Q5H IV 11/02/24 14:30 UNV Ondansetron HCl 4 mg Q4HP PRN IV 11/02/24 15:00 11/12/24 05:02 4 MG Acetaminophen 650 mg Q6HP PRN PO 11/02/24 15:00 11/11/24 00:58 650 MG Nitroglycerin 0.4 mg Q5MINP PRN SL 11/02/24 15:00 Diagnostic Test (Pha) 1 strip Q6HR 11/02/24 18:00 11/13/24 12:02 1 STRIP Insulin Human Regular Q6HR SC 11/02/24 18:00 11/10/24 17:22 2 UNITS Dextrose 50 ml UD PRN IV 11/02/24 15:45 Aspirin 81 mg DAILY PO 11/03/24 10:00 11/13/24 10:43 81 MG Atorvastatin Calcium 40 mg HS PO 11/03/24 22:00 11/10/24 22:28 40 MG Empaglifozin 10 mg DAILY PO 11/04/24 10:00 11/13/24 10:42 10 MG Pantoprazole Sodium 40 mg DAILY IV 11/05/24 11:52 11/13/24 10:17 40 MG Sennosides 8.6 mg HS PO 11/05/24 22:00 11/10/24 22:27 8.6 MG Norepinephrine Bitartrate 250 ml @ 3.75 mls/hr Q24H IV 11/07/24 12:15 11/10/24 09:34 11.25 MLS/HR Cefepime HCl 50 ml @ 12.5 mls/hr Q12H IV 11/07/24 22:00 11/13/24 10:15 12.5 MLS/HR Clopidogrel Bisulfate 75 mg DAILY PO 11/09/24 10:00 11/13/24 10:43 75 MG Amiodarone HCl 200 mg Q12HR GT 11/09/24 22:00 11/13/24 10:42 200 MG Furosemide 20 mg BIDD IV 11/09/24 18:00 11/13/24 05:13 20 MG Metoprolol Tartrate 1.25 mg Q6HPRN PRN IV 11/11/24 08:45 Metoprolol Tartrate 25 mg BID NG 11/11/24 10:00 Acetaminophen 650 mg Q6HP PRN MT 11/11/24 20:15 11/12/24 14:07 650 MG Amiodarone HCL/ Dextrose 200 ml @ 16.66 mls/ hr Q12H IV 11/12/24 02:15 11/12/24 13:25 16.66 MLS/HR laboratory and microbiology Laboratory Tests 11/13/24 11:58 11/13/24 02:58 Test 11/13/24 02:58 Range/Units Serum Glucose 121 H 74-106 mg/dL 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 Impression Acute hypoxemic respiratory failure Elevated troponin NSTEMI CHF Patient seen and examined in ICU Events S/p extubation no improvement in mental status requires restraints observe closely Labs and imaging reviewed ABG reviewed Management suppl 02 precedex NPO off abx Bronchodilators/nebs Monitor renal function Monitor electrolytes Supplement as needed Echo report reviewed F/u cardiology DVT prophylaxis Critical care time 35 minutes Dietary Evaluation Review Comments: Glucerna 1.2 @45ml/hr providing 65g prot, 1296kcal 869ml free water Expected Outcomes/Goals: Maintain Wt, prevent losing muscle mass Plan discussed with: Other (Rn) SCARLETT LUBIN MD Nov 13, 2024 14:17
[2024-11-13] MEDS ORDERED: CLINIMIX PER PHARMACY 0 ML IV SCH (15:00)
[2024-11-13] MEDS: POTASSIUM CHL 20MEQ/100ML 200 ML IV ONE (15:28)
[2024-11-13] MEDS: AMINO ACID INFUSION IN D10W 1,000 ML IV SCH (21:34)
[2024-11-13] MEDS ORDERED: DEXTROSE (50%) 50ML SYRG IV SCH (22:00)
--- NOTE | 2024-11-13 22:10 | DVHPN2 ---
Progress Note - Dictate Date Seen: Nov 13, 2024 Medical Necessity Reason Pt with a Central, PICC or Fol: No Subjective Ms. Frank is a 77 years old female with a history of hypertension, diabetes, heart failure, she was brought to the [facility] on 11/02/2024 with a chief complaint of altered mental status. I have seen and examined the patient, talked to her nurse, she is extubated, eyes are open, she moves the eyes and head from [id number], he moves the arms and legs, she talks, she may only oriented to person Poor sleep Blood culture, 11/02/2024: No growth Urine culture, 11/02/2024: No growth Urinalysis, 11/02/2024: WBC: 15 urine leukocyte esterase:: Trace UDS, 11/02/2024: Negative WBC/HB/PLT/MCV, 11/02/2024: 13.6/11.8/220/84.9, 11/03/2024: 14.1/10.7/173/85 Na 11/03/2024: 145, 11/04/2024: 147, 11/05/24: 146 K 11/02/2024: 2 BUN/CR, 11/02/24: 25/1.47, 11/03/2024: 20/1.31, 11/11/2024: 22/1.35 GFR, 11/02/2024: 36, 11/11/2024: 40 Troponin one high sensitivity, 11/02/2024: 6108, 5013, 9224 TG/HDL/LDL/HDL, 11/02/2024: 202/180/127/27 TSH, 11/02/2024: 4.66 EKG, 11/07/2024: Atrial fibrillation with rapid V-rate EEG 11/03/2024: Remarkably abnormal Echocardiogram, 11/03/2024: lvef 30% severe LV dysfunction anteroseptum is akinetic RVmild enlarged left atrium enlarged no severe valve abnormalities noted mild mitral regurg mild trciuspid regurg Chest x-ray, 11/02/2024: Endotracheal tube in appropriate position. Pulmonary edema versus atypical infection CT head, 11/02/2024: No intracranial hemorrhage or mass effect. Mild chronic microvascular ischemic changes. Mild global cerebral volume loss. vital signs Vital Sign Date Time Temp Pulse Resp B/P (MAP) Pulse Ox O2 Delivery O2 Flow Rate FiO2 11/13/24 21:35 77 157/58 11/13/24 18:00 16 98 Room Air* 0 21 11/13/24 14:07 98.8 98.8 Total Intake and Output 11/12/24 11/12/24 11/13/24 15:00 23:00 07:00 Intake Total 253.905 ml 192.710 ml 47.125 ml Output Total 1125 ml 600 ml Balance 253.905 ml -932.290 ml -552.875 ml medications Current Medications Medications Dose Ordered Sig/Edson Route Start Time Stop Time Status Last Admin Dose Admin Nicardipine HCl 250 ml @ 50 mls/hr Q5H IV 11/02/24 14:30 UNV Ondansetron HCl 4 mg Q4HP PRN IV 11/02/24 15:00 11/12/24 05:02 4 MG Acetaminophen 650 mg Q6HP PRN PO 11/02/24 15:00 11/11/24 00:58 650 MG Nitroglycerin 0.4 mg Q5MINP PRN SL 11/02/24 15:00 Diagnostic Test (Pha) 1 strip Q6HR 11/02/24 18:00 11/13/24 23:59 11/13/24 17:57 1 STRIP Insulin Human Regular Q6HR SC 11/02/24 18:00 11/13/24 23:59 11/10/24 17:22 2 UNITS Aspirin 81 mg DAILY PO 11/03/24 10:00 11/13/24 10:43 81 MG Atorvastatin Calcium 40 mg HS PO 11/03/24 22:00 11/10/24 22:28 40 MG Empaglifozin 10 mg DAILY PO 11/04/24 10:00 11/13/24 10:42 10 MG Pantoprazole Sodium 40 mg DAILY IV 11/05/24 11:52 11/13/24 10:17 40 MG Sennosides 8.6 mg HS PO 11/05/24 22:00 11/10/24 22:27 8.6 MG Norepinephrine Bitartrate 250 ml @ 3.75 mls/hr Q24H IV 11/07/24 12:15 11/10/24 09:34 11.25 MLS/HR Cefepime HCl 50 ml @ 12.5 mls/hr Q12H IV 11/07/24 22:00 11/13/24 21:34 12.5 MLS/HR Clopidogrel Bisulfate 75 mg DAILY PO 11/09/24 10:00 11/13/24 10:43 75 MG Amiodarone HCl 200 mg Q12HR GT 11/09/24 22:00 11/13/24 10:42 200 MG Furosemide 20 mg BIDD IV 11/09/24 18:00 11/13/24 17:57 20 MG Metoprolol Tartrate 1.25 mg Q6HPRN PRN IV 11/11/24 08:45 Metoprolol Tartrate 25 mg BID NG 11/11/24 10:00 Acetaminophen 650 mg Q6HP PRN DC 11/11/24 20:15 11/12/24 14:07 650 MG Amiodarone HCL/ Dextrose 200 ml @ 16.66 mls/ hr Q12H IV 11/12/24 02:15 11/12/24 13:25 16.66 MLS/HR Amino Acids 0 ml @ 0 mls/hr PER PHARMACY IV 11/13/24 15:00 Amino Acids/ Electrolytes/ Dextrose 1,000 ml @ 41 mls/hr DAILY@2200 IV 11/13/24 22:00 11/13/24 21:34 41 MLS/HR Diagnostic Test (Pha) 1 strip Q6HR 11/14/24 00:00 Insulin Human Regular FOLLOW SLIDING SCALE Q6HR SC 11/14/24 00:00 Dextrose 50 ml UD IV 11/13/24 22:00 Temazepam 30 mg HSPRN PRN PO 11/13/24 21:00 objective The patient is well-nourished and well-developed with no distress. MENTAL STATUS: Subjective CRANIAL NERVES: Pupils are equal, round and nonreactive, very small. There are conjugated eye movement. Normal sensory and motor examination bilateral trigeminal distribution. No signs of facial weakness. SENSATION: Responses to pinprick and light touch MOTOR: Normal tone in the upper and lower extremity. Normal muscle bulk. No fasciculations. She moves the arms and legs REFLEXES: Deep tendon reflexes are symmetrical. CEREBELLAR/COORDINATION: Deferred GAIT/STATION: deferred laboratory and microbiology Laboratory Tests 11/13/24 11:58 11/13/24 02:58 Test 11/13/24 02:58 Range/Units Serum Glucose 121 H 74-106 mg/dL Problem List Fever, leukocytosis, altered mental status Sepsis UTI Pneumonia Coma/altered mental status Hypoxic encephalopathy Metabolic encephalopathy Rule out intracranial pathology Hypokalemia Kidney failure Heart attack AFib Insomnia Assessment/Plan Monitoring Supportive treatment ICU care Follow-up blood tests MR head Respiratory support Stabilize vitals Oxygen IV antibiotics IV fluids Aspirin 81 mg daily Plavix 75 mg daily Lipitor 40 mg daily Restoril 30 mg p.o. q.h.s. p.r.n. (NPO) More recommendation per clinical course This medical document was created using an electronic medical record system with [employer] dictation system. Although this document has been carefully reviewed, there may still be some phonetic and typographical errors. These areas are purely typographical due to imperfections of the software programs, and do not reflect any compromise in the patient's medical care. Prognosis poor Dietary Evaluation Review Comments: Glucerna 1.2 @45ml/hr providing 65g prot, 1296kcal 869ml free water Expected Outcomes/Goals: Maintain Wt, prevent losing muscle mass Plan discussed with: Other ELY PORRAS MD Nov 13, 2024 22:10
[2024-11-13] MEDS: HALOPERIDOL LACTATE 5 MG/ML INJ VIAL ONE (23:01)
[2024-11-13] MEDS: HALOPERIDOL LACTATE 5 MG/ML INJ VIAL IM ONE (23:02)
[2024-11-13] MEDS: ACCU-CHEK COMFORT CURVE STRIP VI SCH (23:16)
[2024-11-13] MEDS: InsuLIN REG 1unit/0.01ml Soln (100units/ml) SC SCH (23:17)
[2024-11-14] VITALS (31 sets, daily range): BP systolic 134–186; BP diastolic 59–131; PULSE 66–105; RESP 10–27; TEMP 97.8–98.8; O2SAT 89–99
[2024-11-14 04:39] LABS: Hematocrit 26.3 % (36.0-46.0); Hemoglobin 9.1 g/dL (12.2-16.2); Mean Corpuscular Hemoglobin 29.9 pg (28.0-32.0); Mean Corpuscular Volume 86.6 fL (80.0-100.0); Nucleated Red Blood Cells % 0.0 %
[2024-11-14 04:45] LABS: Alkaline Phosphatase 63 U/L (46-116); Anion Gap 21 (5-15); BUN/Creatinine Ratio 13.1 (10.0-20.0); Blood Urea Nitrogen 18 mg/dL (9-23); Calcium 8.9 mg/dL (8.7-10.4); Carbon Dioxide 21 mmol/L (20-31); Chloride 107 mmol/L (98-107)
[2024-11-14 04:46] LABS: Bilirubin, Total 0.5 mg/dL (0.2-1.0)
[2024-11-14 04:53] LABS: Alanine Aminotransferase 48 U/L (7-40); Albumin 3.1 g/dL (3.2-4.8); Glucose 163 mg/dL (74-106); Magnesium 1.5 mg/dL (1.6-2.6); Potassium 2.9 mmol/L (3.5-5.1); Sodium 149 mmol/L (136-145); Total Protein 4.9 g/dL (5.7-8.2)
[2024-11-14] MEDS: POTASSIUM CHL 20MEQ/100ML 100 ML IV ONE ×2 (05:24→05:25)
[2024-11-14 05:31] LABS: Triglycerides 152 mg/dL (< 150)
--- NOTE | 2024-11-14 08:06 | DVH ---
INDICATION: NGT verification TECHNIQUE: Single frontal view of the chest was obtained COMPARISON: XY CHEST PORTABLE on DOS: 11/11/24, XY CHEST PORTABLE on DOS: 11/10/24, XY CHEST PORTABLE o n DOS: 11/09/24, XY CHEST PORTABLE on DOS: 11/08/24, XY CHEST PORTABLE on DOS: 11/06/24, XY CHEST PORTABLE on DOS: 11/11/24 FINDINGS: Lines and Tubes: Endotracheal tube not clearly soon, enteric catheter and right central venous cathet er in satisfactory position. Lungs: Congestion Pleura: No effusion. No pneumothorax. Cardiomediastinal contours: Unremarkable Bones: Unremarkable IMPRESSION: Lines and tubes in satisfactory position. No significant interval change.
--- NOTE | 2024-11-14 10:10 | DVHPN2 ---
Progress Note - Dictate Date Seen: Nov 14, 2024 Medical Necessity Reason Pt with a Central, PICC or Fol: No Subjective Ms. Frank is a 77 years old female with a history of hypertension, diabetes, heart failure, she was brought to the [facility] on 11/02/2024 with a chief complaint of altered mental status. I have seen and examined the patient, talked to her nurse, she is extubated, eyes are open, she moves the eyes and head from [id number], he moves the arms and legs, she talks, follows verbal commands, but she does not want to answer my questions, according to her nurse, she is oriented to person, place, she knows year and the month She received Haldol 2.5 mg intramuscular, but did not sleep last night Her brother is in the unit Blood culture, 11/02/2024: No growth Urine culture, 11/02/2024: No growth Urinalysis, 11/02/2024: WBC: 15 urine leukocyte esterase:: Trace UDS, 11/02/2024: Negative WBC/HB/PLT/MCV, 11/02/2024: 13.6/11.8/220/84.9, 11/03/2024: 14.1/10.7/173/85 Na 11/03/2024: 145, 11/04/2024: 147, 11/05/24: 146 K 11/02/2024: 2 BUN/CR, 11/02/24: 25/1.47, 11/03/2024: 20/1.31, 11/11/2024: 22/1.35 GFR, 11/02/2024: 36, 11/11/2024: 40 Troponin one high sensitivity, 11/02/2024: 6108, 5013, 9224 TG/HDL/LDL/HDL, 11/02/2024: 202/180/127/27 TSH, 11/02/2024: 4.66 EKG, 11/07/2024: Atrial fibrillation with rapid V-rate EEG 11/03/2024: Remarkably abnormal Echocardiogram, 11/03/2024: lvef 30% severe LV dysfunction anteroseptum is akinetic RVmild enlarged left atrium enlarged no severe valve abnormalities noted mild mitral regurg mild trciuspid regurg Chest x-ray, 11/02/2024: Endotracheal tube in appropriate position. Pulmonary edema versus atypical infection CT head, 11/02/2024: No intracranial hemorrhage or mass effect. Mild chronic microvascular ischemic changes. Mild global cerebral volume loss. vital signs Vital Sign Date Time Temp Pulse Resp B/P (MAP) Pulse Ox O2 Delivery O2 Flow Rate FiO2 11/14/24 08:01 97.8 72 17 160/63 (95) 99 97.8 11/14/24 08:00 Room Air* 0 21 Total Intake and Output 11/13/24 11/13/24 11/14/24 15:00 23:00 07:00 Intake Total 50.0 ml 207.0 ml 362.0 ml Output Total 650 ml 1400 ml Balance 50.0 ml -443.0 ml -1038.0 ml medications Current Medications Medications Dose Ordered Sig/Edson Route Start Time Stop Time Status Last Admin Dose Admin Nicardipine HCl 250 ml @ 50 mls/hr Q5H IV 11/02/24 14:30 UNV Ondansetron HCl 4 mg Q4HP PRN IV 11/02/24 15:00 11/12/24 05:02 4 MG Acetaminophen 650 mg Q6HP PRN PO 11/02/24 15:00 11/11/24 00:58 650 MG Nitroglycerin 0.4 mg Q5MINP PRN SL 11/02/24 15:00 Aspirin 81 mg DAILY PO 11/03/24 10:00 11/14/24 09:01 81 MG Atorvastatin Calcium 40 mg HS PO 11/03/24 22:00 11/10/24 22:28 40 MG Empaglifozin 10 mg DAILY PO 11/04/24 10:00 11/14/24 09:01 10 MG Pantoprazole Sodium 40 mg DAILY IV 11/05/24 11:52 11/14/24 09:00 40 MG Sennosides 8.6 mg HS PO 11/05/24 22:00 11/10/24 22:27 8.6 MG Norepinephrine Bitartrate 250 ml @ 3.75 mls/hr Q24H IV 11/07/24 12:15 11/10/24 09:34 11.25 MLS/HR Cefepime HCl 50 ml @ 12.5 mls/hr Q12H IV 11/07/24 22:00 11/14/24 09:00 12.5 MLS/HR Clopidogrel Bisulfate 75 mg DAILY PO 11/09/24 10:00 11/14/24 09:03 75 MG Amiodarone HCl 200 mg Q12HR GT 11/09/24 22:00 11/14/24 09:01 200 MG Furosemide 20 mg BIDD IV 11/09/24 18:00 11/14/24 05:45 20 MG Metoprolol Tartrate 1.25 mg Q6HPRN PRN IV 11/11/24 08:45 Metoprolol Tartrate 25 mg BID NG 11/11/24 10:00 Acetaminophen 650 mg Q6HP PRN [place] 11/11/24 20:15 11/12/24 14:07 650 MG Amiodarone HCL/ Dextrose 200 ml @ 16.66 mls/ hr Q12H IV 11/12/24 02:15 11/12/24 13:25 16.66 MLS/HR Amino Acids 0 ml @ 0 mls/hr PER PHARMACY IV 11/13/24 15:00 Amino Acids/ Electrolytes/ Dextrose 1,000 ml @ 41 mls/hr DAILY@2200 IV 11/13/24 22:00 11/13/24 21:34 41 MLS/HR Diagnostic Test (Pha) 1 strip Q6HR 11/14/24 00:00 11/14/24 05:45 1 STRIP Insulin Human Regular FOLLOW SLIDING SCALE Q6HR SC 11/14/24 00:00 11/14/24 05:52 4 UNITS Dextrose 50 ml UD IV 11/13/24 22:00 Temazepam 30 mg HSPRN PRN PO 11/13/24 21:00 objective The patient is well-nourished and well-developed with no distress. MENTAL STATUS: Subjective CRANIAL NERVES: Pupils are equal, round and nonreactive, very small. There are conjugated eye movement. Normal sensory and motor examination bilateral trigeminal distribution. No signs of facial weakness. SENSATION: Responses to pinprick and light touch MOTOR: Normal tone in the upper and lower extremity. Normal muscle bulk. No fasciculations. She moves the arms and legs REFLEXES: Deep tendon reflexes are symmetrical. CEREBELLAR/COORDINATION: Deferred GAIT/STATION: deferred laboratory and microbiology Laboratory Tests 11/14/24 03:30 Test 11/14/24 03:30 Range/Units Serum Glucose 163 H 74-106 mg/dL Problem List Fever, leukocytosis, altered mental status Sepsis UTI Pneumonia Coma/altered mental status Hypoxic encephalopathy Metabolic encephalopathy Rule out intracranial pathology Hypokalemia Kidney failure Heart attack AFib Insomnia Assessment/Plan Monitoring Supportive treatment ICU care Follow-up blood tests MR head Respiratory support Stabilize vitals Oxygen IV antibiotics IV fluids Aspirin 81 mg daily Plavix 75 mg daily Lipitor 40 mg daily Restoril 30 mg p.o. q.h.s. p.r.n. (NPO) More recommendation per clinical course This medical document was created using an electronic medical record system with [employer] dictation system. Although this document has been carefully reviewed, there may still be some phonetic and typographical errors. These areas are purely typographical due to imperfections of the software programs, and do not reflect any compromise in the patient's medical care. Dietary Evaluation Review Comments: Glucerna 1.2 @45ml/hr providing 65g prot, 1296kcal 869ml free water Expected Outcomes/Goals: Maintain Wt, prevent losing muscle mass Plan discussed with: Other ELY PORRAS MD Nov 14, 2024 10:10
[2024-11-14] MEDS: POTASSIUM PHOSPHATE 22 MEQ in SODIUM CHL 0.9% 100 ML IV ONE (11:37)
[2024-11-14] MEDS: MAGNESIUM SULFATE 1GM/100ML 100 ML IV ONE (11:38)
[2024-11-14] MEDS: ENALAPRILAT 1.25 MG/ML-1ML VIAL IV ONE (15:42)
--- NOTE | 2024-11-14 16:06 | DVHPN2 ---
Subjective Patient initially presented to hospital with altered mental status found to have acute hypoxic respiratory failure secondary to acute CHF exacerbation with systolic dysfunction status post intubation on 11/02, status post extubation on11/11, currently agitated. Patient's has a one-to-one sitter. Patient's amiodarone drip is off. Reviewed: Care Plan, H&P, Labs, Medications Changes from previous H/P or p: No Changes General: Per HPI Objective Vitals Vital Signs Date Time Temp Pulse Resp B/P (MAP) Pulse Ox O2 Delivery O2 Flow Rate FiO2 11/14/24 15:01 76 21 174/72 (106) 95 11/14/24 14:00 Room Air* 0 21 11/14/24 11:00 98.8 98.8 Intake/Output Intake and Output 11/14/24 07:00 Intake Total 660.0 ml Output Total 2050 ml Balance -1390.0 ml IV Total 660.0 ml Output Urine Total 2050 ml Exam HEENT pupils are reactive Neck is supple CV is S1-S2 regular rate and rhythm Respiratory are clear GI positive bowel sound Extremity no edema [employer] no motor deficit General Appearance: moderate distress, Other (Patient encephalopathic.) HEENT: PERRLA Lungs: Clear to auscultation, Normal air movement, Other (Mechanical ventilation) Cardiovascular: Normal S1, Normal S2, Other (Sinus rhythm with frequent PACs) Abdomen: Normal bowel sounds, Soft, No tenderness, No hepatospenomegaly Genitourinary: No Apparent Abnormalities ([place]) Musculoskeletal: Other (No motor movement) Skin: Dry, Intact Psych/Mental Status: Other (Unable to assess) Medications Current Medications Medications Dose Ordered Sig/Edson Route Start Time Stop Time Status Last Admin Dose Admin Nicardipine HCl 250 ml @ 50 mls/hr Q5H IV 11/02/24 14:30 UNV Ondansetron HCl 4 mg Q4HP PRN IV 11/02/24 15:00 11/12/24 05:02 4 MG Acetaminophen 650 mg Q6HP PRN PO 11/02/24 15:00 11/11/24 00:58 650 MG Nitroglycerin 0.4 mg Q5MINP PRN SL 11/02/24 15:00 Aspirin 81 mg DAILY PO 11/03/24 10:00 11/14/24 09:01 81 MG Atorvastatin Calcium 40 mg HS PO 11/03/24 22:00 11/10/24 22:28 40 MG Empaglifozin 10 mg DAILY PO 11/04/24 10:00 11/14/24 09:01 10 MG Pantoprazole Sodium 40 mg DAILY IV 11/05/24 11:52 11/14/24 09:00 40 MG Sennosides 8.6 mg HS PO 11/05/24 22:00 11/10/24 22:27 8.6 MG Norepinephrine Bitartrate 250 ml @ 3.75 mls/hr Q24H IV 11/07/24 12:15 11/10/24 09:34 11.25 MLS/HR Cefepime HCl 50 ml @ 12.5 mls/hr Q12H IV 11/07/24 22:00 11/14/24 09:00 12.5 MLS/HR Clopidogrel Bisulfate 75 mg DAILY PO 11/09/24 10:00 11/14/24 09:03 75 MG Amiodarone HCl 200 mg Q12HR GT 11/09/24 22:00 11/14/24 09:01 200 MG Furosemide 20 mg BIDD IV 11/09/24 18:00 11/14/24 05:45 20 MG Metoprolol Tartrate 1.25 mg Q6HPRN PRN IV 11/11/24 08:45 Metoprolol Tartrate 25 mg BID NG 11/11/24 10:00 Acetaminophen 650 mg Q6HP PRN [place] 11/11/24 20:15 11/12/24 14:07 650 MG Amiodarone HCL/ Dextrose 200 ml @ 16.66 mls/ hr Q12H IV 11/12/24 02:15 11/12/24 13:25 16.66 MLS/HR Amino Acids 0 ml @ 0 mls/hr PER PHARMACY IV 11/13/24 15:00 Amino Acids/ Electrolytes/ Dextrose 1,000 ml @ 41 mls/hr DAILY@2200 IV 11/13/24 22:00 11/13/24 21:34 41 MLS/HR Diagnostic Test (Pha) 1 strip Q6HR 11/14/24 00:00 11/14/24 11:21 1 STRIP Insulin Human Regular FOLLOW SLIDING SCALE Q6HR SC 11/14/24 00:00 11/14/24 11:22 4 UNITS Dextrose 50 ml UD IV 11/13/24 22:00 Temazepam 30 mg HSPRN PRN PO 11/13/24 21:00 Enalaprilat 1.25 mg Q6HP PRN IV 11/14/24 15:15 UNV Laboratory Results Laboratory Tests 11/14/24 03:30 Chemistry Test 11/14/24 03:30 Albumin 3.1 g/dL (3.2-4.8) L Calcium Level 8.9 mg/dL (8.7-10.4) Magnesium Level 1.5 mg/dL (1.6-2.6) L Phosphorus Level 1.8 mg/dL (2.4-5.1) L Total Protein 4.9 g/dL (5.7-8.2) L Lipid panel Test 11/14/24 03:30 Triglycerides Level 152 mg/dL (< 150) H LFT Test 11/14/24 03:30 Alanine Aminotransferase (ALT) 48 U/L (7-40) H Alkaline Phosphatase 63 U/L (46-116) Aspartate Amino Transferase (AST) 80 U/L (13-40) H Total Bilirubin 0.5 mg/dL (0.2-1.0) Urinalysis Test 11/02/24 12:17 Urine Color Light-yellow (Yellow) Urine Clarity Turbid (Clear) H Urine pH 7.0 (5.0-9.0) Urine Specific [place] 1.010 (1.001-1.035) Urine Protein 2+ (Negative) H Urine Ketones Negative (Negative) Urine Blood 1+ /uL (Negative) H Urine Nitrite Negative (Negative) Urine Bilirubin Negative (Negative) Urine Urobilinogen Normal mg/dL (Negative) Urine Leukocyte Esterase Trace /uL (Negative) Urine RBC 2 /hpf (0 - 4) Urine Microscopic WBC 15 /HPF (0-5) H Urine Squamous Epithelial Cells Few /hpf (<5) Urine Bacteria None seen /hpf (None Seen) Urine Hyaline Casts Few /lpf (0 - 2) Urine Glucose Trace mg/dL (Normal) Microbiology Microbiology Date/Time Source Procedure Growth Status 11/03/24 00:00 Nose MRSA Screen - Final Complete 11/02/24 12:17 Voided Urine Urine Culture - Final Complete 11/02/24 11:55 Blood Blood Culture - Final NO GROWTH AFTER 5 DAYS OF INCUBATION. Complete 11/02/24 11:10 Sputum Gram Stain - Final Complete 11/02/24 11:10 Sputum Respiratory Culture - Final Complete Assessment/Plan Assessment/Plan 79-year-old female with a known history of diabetes mellitus type 2, hypertension, dyslipidemia who initially presented to the hospital with altered mental status found to have 1. Acute hypoxic respiratory failure secondary to acute CHF exacerbation with systolic dysfunction11/02, status post extubation on11/11, currently on nasal cannula 2. Cardiomyopathy with the EF of 30% 3. NSTEMI type 1 status post left heart catheterization with a PCI to LAD 4. Failed swallow evaluation, status post NG tube, start Clinimix 5. Acute metabolic encephalopathy 6. Cardiogenic shock, resolved 7. Paroxysmal AFib currently off of amiodarone drip. - continue Clinimix, repeat swallow evaluation -follow up Cardiology recommendations. Plan discussed with: Other (bedside RN.) My Orders Orders - AVELINO SAMUEL MD Procedure Category Date Status Time Amino Acid Infusion PHA 11/13/24 In Process In D10w (Clinimix 4. 22:00 Glucose Blood PHA 11/14/24 In Process (Accu-Chek Comfort 00:00 Insulin R (Human) PHA 11/14/24 In Process (Insulin R) 00:00 Dextrose 50% Syringe PHA 11/13/24 In Process 22:00 Clinimix Per Pharmacy JUAN RAMON 11/13/24 In Process 22:00 Comprehensive LAB 11/15/24 Verified Metabolic Panel 05:00 Magnesium LAB 11/15/24 Verified 05:00 Phosphorus LAB 11/15/24 Verified 05:00 Clinimix Per Pharmacy JU[facility] RAMON 11/14/24 In Process 22:00 Date of Service: Nov 13, 2024 Billing Provider: AVELINO SAMUEL MD Common Visit Codes: [id number] INP/OBS CARE(MOD) AVELINO SAMUEL MD Nov 14, 2024 16:06
[2024-11-14] MEDS: ENALAPRILAT 1.25 MG/ML-1ML VIAL IV PRN (16:34)
[2024-11-15] VITALS (16 sets, daily range): BP systolic 109–170; BP diastolic 51–98; PULSE 57–104; RESP 12–26; TEMP 97.5–98.9; O2SAT 93–100
[2024-11-15] MEDS: TEMAZEPAM 15 MG CAP PO PRN (00:23)
[2024-11-15 01:10] LABS: Potassium 2.2 mmol/L (3.5-5.1)
[2024-11-15 01:17] LABS: Magnesium 1.5 mg/dL (1.6-2.6)
[2024-11-15] MEDS: MAGNESIUM SULFATE 1GM/100ML 100 ML IV SCH (01:40)
[2024-11-15] MEDS: POTASSIUM CHL 20MEQ/100ML 100 ML IV SCH (01:41)
[2024-11-15 06:11] LABS: Alkaline Phosphatase 61 U/L (46-116); Anion Gap 11 (5-15); BUN/Creatinine Ratio 13.7 (10.0-20.0); Bilirubin, Total 0.5 mg/dL (0.2-1.0); Blood Urea Nitrogen 14 mg/dL (9-23); Calcium 8.9 mg/dL (8.7-10.4); Chloride 103 mmol/L (98-107)
[2024-11-15 06:22] LABS: Sodium 146 mmol/L (136-145)
[2024-11-15 06:23] LABS: Alanine Aminotransferase 41 U/L (7-40); Albumin 3.1 g/dL (3.2-4.8); Carbon Dioxide 32 mmol/L (20-31); Glucose 191 mg/dL (74-106); Magnesium 2.8 mg/dL (1.6-2.6); Potassium 2.6 mmol/L (3.5-5.1); Total Protein 5.0 g/dL (5.7-8.2)
--- NOTE | 2024-11-15 10:48 | DVHPN2 ---
Subjective Patient denies any symptoms. Reviewed: Care Plan, H&P, Labs, Medications Changes from previous H/P or p: Changes General: Per HPI Objective Vitals Vital Signs Date Time Temp Pulse Resp B/P (MAP) Pulse Ox O2 Delivery O2 Flow Rate FiO2 11/15/24 09:13 67 132/63 11/15/24 09:01 98.2 16 96 98.2 11/15/24 04:00 Room Air* 0 21 Intake/Output Intake and Output 11/15/24 07:00 Intake Total 1672.75 ml Output Total 1751 ml Balance -78.25 ml IV Total 1590.75 ml Other 82 ml Output Urine Total 1750 ml Stool Total 1 ml # Bowel Movements 1 General Appearance: Alert, Oriented X3, Cooperative, mild distress HEENT: Atraumatic, PERRLA Lungs: Clear to auscultation, Normal air movement, Other (Mechanical ventilation) Cardiovascular: Normal S1, Normal S2 Abdomen: Normal bowel sounds, Soft, No tenderness, No hepatospenomegaly Genitourinary: No Apparent Abnormalities ([place]) Musculoskeletal: Other (No motor movement) Extremities: Normal pulses, No tenderness/swelling Skin: Dry, Intact Psych/Mental Status: Other (Unable to assess) Medications Current Medications Medications Dose Ordered Sig/Edson Route Start Time Stop Time Status Last Admin Dose Admin Nicardipine HCl 250 ml @ 50 mls/hr Q5H IV 11/02/24 14:30 UNV Ondansetron HCl 4 mg Q4HP PRN IV 11/02/24 15:00 11/12/24 05:02 4 MG Acetaminophen 650 mg Q6HP PRN PO 11/02/24 15:00 11/11/24 00:58 650 MG Nitroglycerin 0.4 mg Q5MINP PRN SL 11/02/24 15:00 Aspirin 81 mg DAILY PO 11/03/24 10:00 11/15/24 09:14 81 MG Atorvastatin Calcium 40 mg HS PO 11/03/24 22:00 11/10/24 22:28 40 MG Empaglifozin 10 mg DAILY PO 11/04/24 10:00 11/15/24 09:13 10 MG Pantoprazole Sodium 40 mg DAILY IV 11/05/24 11:52 11/15/24 09:14 40 MG Sennosides 8.6 mg HS PO 11/05/24 22:00 11/10/24 22:27 8.6 MG Cefepime HCl 50 ml @ 12.5 mls/hr Q12H IV 11/07/24 22:00 11/15/24 09:14 12.5 MLS/HR Clopidogrel Bisulfate 75 mg DAILY PO 11/09/24 10:00 11/15/24 09:13 75 MG Amiodarone HCl 200 mg Q12HR GT 11/09/24 22:00 11/15/24 09:13 200 MG Furosemide 20 mg BIDD IV 11/09/24 18:00 11/15/24 06:56 20 MG Metoprolol Tartrate 1.25 mg Q6HPRN PRN IV 11/11/24 08:45 Metoprolol Tartrate 25 mg BID NG 11/11/24 10:00 11/15/24 09:13 25 MG Acetaminophen 650 mg Q6HP PRN [place] 11/11/24 20:15 11/12/24 14:07 650 MG Amino Acids 0 ml @ 0 mls/hr PER PHARMACY IV 11/13/24 15:00 Amino Acids/ Electrolytes/ Dextrose 1,000 ml @ 41 mls/hr DAILY@2200 IV 11/13/24 22:00 11/14/24 21:26 41 MLS/HR Diagnostic Test (Pha) 1 strip Q6HR 11/14/24 00:00 11/15/24 06:51 1 STRIP Insulin Human Regular FOLLOW SLIDING SCALE Q6HR SC 11/14/24 00:00 11/15/24 06:52 4 UNITS Dextrose 50 ml UD IV 11/13/24 22:00 Temazepam 30 mg HSPRN PRN PO 11/13/24 21:00 11/15/24 00:23 30 MG Enalaprilat 1.25 mg Q6HP PRN IV 11/14/24 15:15 11/14/24 16:34 1.25 MG Laboratory Results Laboratory Tests 11/14/24 03:30 11/15/24 04:57 Chemistry Test 11/15/24 00:43 11/15/24 04:57 Magnesium Level 1.5 mg/dL (1.6-2.6) L 2.8 mg/dL (1.6-2.6) #H Albumin 3.1 g/dL (3.2-4.8) L Calcium Level 8.9 mg/dL (8.7-10.4) Phosphorus Level 0.9 mg/dL (2.4-5.1) L Total Protein 5.0 g/dL (5.7-8.2) L LFT Test 11/15/24 04:57 Alanine Aminotransferase (ALT) 41 U/L (7-40) H Alkaline Phosphatase 61 U/L (46-116) Aspartate Amino Transferase (AST) 44 U/L (13-40) H Total Bilirubin 0.5 mg/dL (0.2-1.0) Urinalysis Test 11/02/24 12:17 Urine Color Light-yellow (Yellow) Urine Clarity Turbid (Clear) H Urine pH 7.0 (5.0-9.0) Urine Specific [place] 1.010 (1.001-1.035) Urine Protein 2+ (Negative) H Urine Ketones Negative (Negative) Urine Blood 1+ /uL (Negative) H Urine Nitrite Negative (Negative) Urine Bilirubin Negative (Negative) Urine Urobilinogen Normal mg/dL (Negative) Urine Leukocyte Esterase Trace /uL (Negative) Urine RBC 2 /hpf (0 - 4) Urine Microscopic WBC 15 /HPF (0-5) H Urine Squamous Epithelial Cells Few /hpf (<5) Urine Bacteria None seen /hpf (None Seen) Urine Hyaline Casts Few /lpf (0 - 2) Urine Glucose Trace mg/dL (Normal) Microbiology Microbiology Date/Time Source Procedure Growth Status 11/03/24 00:00 Nose MRSA Screen - Final Complete 11/02/24 12:17 Voided Urine Urine Culture - Final Complete 11/02/24 11:55 Blood Blood Culture - Final NO GROWTH AFTER 5 DAYS OF INCUBATION. Complete 11/02/24 11:10 Sputum Gram Stain - Final Complete 11/02/24 11:10 Sputum Respiratory Culture - Final Complete Labs and/or images reviewed: Labs reviewed by me, Image(s) reviewed by me Assessment/Plan Assessment/Plan Impression: -metabolic encephalopathy -acute hypoxic respiratory failure -acute systolic heart failure -NSTEMI type [address]-depression in lateral leads -dyslipidemia -diabetes mellitus -accelerated hypertension -ventricular bigeminy with bradycardia -Cardiogenic Shock Plan: Events: No events overnight. Clinically stable. -advance diet, attempt to weaned off Clinimix once patient is consuming enough calories orally. -physical therapy -electrolyte replacement -repeat labs in a.m. -continue dual antiplatelet therapy -continue beta blockers, MILADYS inhibitor Total time spent with patient discussing and formulating plan of care: 35 minutes. This medical document was created using an electronic medical record system with [employer] dictation system. Although this document has been carefully reviewed, there may still be some phonetic and typographical errors. These areas are purely typographical due to imperfections of the software programs, and do not reflect any compromise in the patient's medical care. Plan discussed with: Patient, Other (RN) My Orders Orders - ALEXANDER TAMAYO NP Procedure Category Date Status Time Cardiac DIET 11/15/24 Transmitted Diet-2gna,Lofat,Lochol Lunch Pt Request For Service PT 11/15/24 Logged 10:40 Nutritional PHA 11/15/24 Logged Supplements (Ensure 18:00 Basic Metabolic Panel LAB 11/16/24 Verified 04:00 Magnesium LAB 11/16/24 Verified 04:00 Date of Service: Nov 15, 2024 Billing Provider: ALEXANDER TAMAYO NP Common Visit Codes: [id number] INP/OBS CARE(HIGH) ALEXANDER TAMAYO NP Nov 15, 2024 10:48
[2024-11-15] MEDS: POTASSIUM PHOSPHATE 44 MEQ in D5W 5% 250 ML IV ONE (15:42)
--- NOTE | 2024-11-15 16:00 | DVHPN2 ---
Subjective stable to dc, able to take bedside swallow Reviewed: Care Plan, H&P, Labs, Medications Changes from previous H/P or p: No Changes General: Per HPI Objective Vitals Vital Signs Date Time Temp Pulse Resp B/P (MAP) Pulse Ox O2 Delivery O2 Flow Rate FiO2 11/15/24 13:38 98.0 58 21 153/60 (91) 94 98.0 11/15/24 08:00 Room Air* 0 21 Intake/Output Intake and Output 11/15/24 07:00 Intake Total 1672.75 ml Output Total 1751 ml Balance -78.25 ml IV Total 1590.75 ml Other 82 ml Output Urine Total 1750 ml Stool Total 1 ml # Bowel Movements 1 General Appearance: Alert, Oriented X3, Cooperative, mild distress HEENT: Atraumatic, PERRLA Lungs: Clear to auscultation, Normal air movement, Other (Mechanical ventilation) Cardiovascular: Normal S1, Normal S2 Abdomen: Normal bowel sounds, Soft, No tenderness, No hepatospenomegaly Genitourinary: No Apparent Abnormalities ([place]) Musculoskeletal: Other (No motor movement) Extremities: Normal pulses, No tenderness/swelling Skin: Dry, Intact Psych/Mental Status: Other (Unable to assess) Medications Current Medications Medications Dose Ordered Sig/Edson Route Start Time Stop Time Status Last Admin Dose Admin Nicardipine HCl 250 ml @ 50 mls/hr Q5H IV 11/02/24 14:30 UNV Ondansetron HCl 4 mg Q4HP PRN IV 11/02/24 15:00 11/12/24 05:02 4 MG Acetaminophen 650 mg Q6HP PRN PO 11/02/24 15:00 11/11/24 00:58 650 MG Nitroglycerin 0.4 mg Q5MINP PRN SL 11/02/24 15:00 Aspirin 81 mg DAILY PO 11/03/24 10:00 11/15/24 09:14 81 MG Atorvastatin Calcium 40 mg HS PO 11/03/24 22:00 11/10/24 22:28 40 MG Empaglifozin 10 mg DAILY PO 11/04/24 10:00 11/15/24 09:13 10 MG Pantoprazole Sodium 40 mg DAILY IV 11/05/24 11:52 11/15/24 09:14 40 MG Sennosides 8.6 mg HS PO 11/05/24 22:00 11/10/24 22:27 8.6 MG Cefepime HCl 50 ml @ 12.5 mls/hr Q12H IV 11/07/24 22:00 11/15/24 09:14 12.5 MLS/HR Clopidogrel Bisulfate 75 mg DAILY PO 11/09/24 10:00 11/15/24 09:13 75 MG Amiodarone HCl 200 mg Q12HR GT 11/09/24 22:00 11/15/24 09:13 200 MG Furosemide 20 mg BIDD IV 11/09/24 18:00 11/15/24 06:56 20 MG Metoprolol Tartrate 1.25 mg Q6HPRN PRN IV 11/11/24 08:45 Metoprolol Tartrate 25 mg BID NG 11/11/24 10:00 11/15/24 09:13 25 MG Acetaminophen 650 mg Q6HP PRN [place] 11/11/24 20:15 11/12/24 14:07 650 MG Amino Acids 0 ml @ 0 mls/hr PER PHARMACY IV 11/13/24 15:00 Amino Acids/ Electrolytes/ Dextrose 1,000 ml @ 41 mls/hr DAILY@2200 IV 11/13/24 22:00 11/14/24 21:26 41 MLS/HR Diagnostic Test (Pha) 1 strip Q6HR 11/14/24 00:00 11/15/24 12:00 1 STRIP Insulin Human Regular FOLLOW SLIDING SCALE Q6HR SC 11/14/24 00:00 11/15/24 06:52 4 UNITS Dextrose 50 ml UD IV 11/13/24 22:00 Temazepam 30 mg HSPRN PRN PO 11/13/24 21:00 11/15/24 00:23 30 MG Enalaprilat 1.25 mg Q6HP PRN IV 11/14/24 15:15 11/14/24 16:34 1.25 MG Enteral Nutritional Formula 240 ml BIDWM PO 11/15/24 18:00 Laboratory Results Laboratory Tests 11/14/24 03:30 11/15/24 04:57 11/15/24 12:06 Chemistry Test 11/15/24 00:43 11/15/24 04:57 11/15/24 12:06 Magnesium Level 1.5 mg/dL (1.6-2.6) L 2.8 mg/dL (1.6-2.6) #H Albumin 3.1 g/dL (3.2-4.8) L Calcium Level 8.9 mg/dL (8.7-10.4) Phosphorus Level 0.9 mg/dL (2.4-5.1) L 0.7 mg/dL (2.4-5.1) L Total Protein 5.0 g/dL (5.7-8.2) L LFT Test 11/15/24 04:57 Alanine Aminotransferase (ALT) 41 U/L (7-40) H Alkaline Phosphatase 61 U/L (46-116) Aspartate Amino Transferase (AST) 44 U/L (13-40) H Total Bilirubin 0.5 mg/dL (0.2-1.0) Urinalysis Test 11/02/24 12:17 Urine Color Light-yellow (Yellow) Urine Clarity Turbid (Clear) H Urine pH 7.0 (5.0-9.0) Urine Specific [place] 1.010 (1.001-1.035) Urine Protein 2+ (Negative) H Urine Ketones Negative (Negative) Urine Blood 1+ /uL (Negative) H Urine Nitrite Negative (Negative) Urine Bilirubin Negative (Negative) Urine Urobilinogen Normal mg/dL (Negative) Urine Leukocyte Esterase Trace /uL (Negative) Urine RBC 2 /hpf (0 - 4) Urine Microscopic WBC 15 /HPF (0-5) H Urine Squamous Epithelial Cells Few /hpf (<5) Urine Bacteria None seen /hpf (None Seen) Urine Hyaline Casts Few /lpf (0 - 2) Urine Glucose Trace mg/dL (Normal) Microbiology Microbiology Date/Time Source Procedure Growth Status 11/03/24 00:00 Nose MRSA Screen - Final Complete 11/02/24 12:17 Voided Urine Urine Culture - Final Complete 11/02/24 11:55 Blood Blood Culture - Final NO GROWTH AFTER 5 DAYS OF INCUBATION. Complete 11/02/24 11:10 Sputum Gram Stain - Final Complete 11/02/24 11:10 Sputum Respiratory Culture - Final Complete Assessment/Plan Assessment/Plan 79-year-old female with a known history of diabetes mellitus type 2, hypertension, dyslipidemia who initially presented to the hospital with altered mental status found to have 1. Acute hypoxic respiratory failure secondary to acute CHF exacerbation with systolic dysfunction11/02, status post extubation on11/11, currently on nasal cannula 2. Cardiomyopathy with the EF of 30% 3. NSTEMI type 1 status post left heart catheterization with a PCI to LAD 4. Failed swallow evaluation, status post NG tube, start Clinimix 5. Acute metabolic encephalopathy 6. Cardiogenic shock, resolved 7. Paroxysmal AFib currently off of amiodarone drip. - continue Clinimix, repeat swallow evaluation -follow up Cardiology recommendations. Plan discussed with: Patient Date of Service: Nov 14, 2024 Billing Provider: JASWANT CURTIS MD Common Visit Codes: [id number] CARE 30-74 MIN JASWANT CURTIS MD Nov 15, 2024 16:00
[2024-11-15] MEDS: Ensure Enlive Strawberry 8oz Bottle PO SCH (17:43)
--- NOTE | 2024-11-15 22:43 | DVHPN2 ---
Progress Note - Dictate Date Seen: Nov 15, 2024 Medical Necessity Reason Pt with a Central, PICC or Fol: No Subjective Ms. Frank is a 77 years old female with a history of hypertension, diabetes, heart failure, she was brought to the [facility] on 11/02/2024 with a chief complaint of altered mental status. I have seen and examined the patient, talked to her nurse, she is stronger, she talks more, she is oriented to person, place, she knows year, she follows verbal commands Blood culture, 11/02/2024: No growth Urine culture, 11/02/2024: No growth Urinalysis, 11/02/2024: WBC: 15 urine leukocyte esterase:: Trace UDS, 11/02/2024: Negative WBC/HB/PLT/MCV, 11/02/2024: 13.6/11.8/220/84.9, 11/03/2024: 14.1/10.7/173/85 Na 11/03/2024: 145, 11/04/2024: 147, 11/05/24: 146, 11/13/2024: 147, 11/14/24: 149, 11/15/2024: K 11/02/2024: 2 BUN/CR, 11/02/24: 25/1.47, 11/03/2024: 20/1.31, 11/11/2024: 22/1.35 GFR, 11/02/2024: 36, 11/11/2024: 40 Troponin one high sensitivity, 11/02/2024: 6108, 5013, 9224 TG/HDL/LDL/HDL, 11/02/2024: 202/180/127/27 TSH, 11/02/2024: 4.66 EKG, 11/07/2024: Atrial fibrillation with rapid V-rate EEG 11/03/2024: Remarkably abnormal Echocardiogram, 11/03/2024: lvef 30% severe LV dysfunction anteroseptum is akinetic RVmild enlarged left atrium enlarged no severe valve abnormalities noted mild mitral regurg mild trciuspid regurg Chest x-ray, 11/02/2024: Endotracheal tube in appropriate position. Pulmonary edema versus atypical infection CT head, 11/02/2024: No intracranial hemorrhage or mass effect. Mild chronic microvascular ischemic changes. Mild global cerebral volume loss. vital signs Vital Sign Date Time Temp Pulse Resp B/P (MAP) Pulse Ox O2 Delivery O2 Flow Rate FiO2 11/15/24 20:10 16 97 Room Air* 0 21 11/15/24 17:18 98.9 57 153/60 (91) 98.9 Total Intake and Output 11/14/24 11/14/24 11/15/24 15:00 23:00 07:00 Intake Total 416.75 ml 353.0 ml 903.0 ml Output Total 1751 ml Balance 416.75 ml -1398.0 ml 903.0 ml medications Current Medications Medications Dose Ordered Sig/Edson Route Start Time Stop Time Status Last Admin Dose Admin Nicardipine HCl 250 ml @ 50 mls/hr Q5H IV 11/02/24 14:30 UNV Ondansetron HCl 4 mg Q4HP PRN IV 11/02/24 15:00 11/12/24 05:02 4 MG Acetaminophen 650 mg Q6HP PRN PO 11/02/24 15:00 11/11/24 00:58 650 MG Nitroglycerin 0.4 mg Q5MINP PRN SL 11/02/24 15:00 Aspirin 81 mg DAILY PO 11/03/24 10:00 11/15/24 09:14 81 MG Atorvastatin Calcium 40 mg HS PO 11/03/24 22:00 11/10/24 22:28 40 MG Empaglifozin 10 mg DAILY PO 11/04/24 10:00 11/15/24 09:13 10 MG Pantoprazole Sodium 40 mg DAILY IV 11/05/24 11:52 11/15/24 09:14 40 MG Sennosides 8.6 mg HS PO 11/05/24 22:00 11/10/24 22:27 8.6 MG Cefepime HCl 50 ml @ 12.5 mls/hr Q12H IV 11/07/24 22:00 11/15/24 09:14 12.5 MLS/HR Clopidogrel Bisulfate 75 mg DAILY PO 11/09/24 10:00 11/15/24 09:13 75 MG Amiodarone HCl 200 mg Q12HR GT 11/09/24 22:00 11/15/24 09:13 200 MG Furosemide 20 mg BIDD IV 11/09/24 18:00 11/15/24 16:47 20 MG Metoprolol Tartrate 1.25 mg Q6HPRN PRN IV 11/11/24 08:45 Metoprolol Tartrate 25 mg BID NG 11/11/24 10:00 11/15/24 09:13 25 MG Acetaminophen 650 mg Q6HP PRN SC 11/11/24 20:15 11/12/24 14:07 650 MG Amino Acids 0 ml @ 0 mls/hr PER PHARMACY IV 11/13/24 15:00 Amino Acids/ Electrolytes/ Dextrose 1,000 ml @ 41 mls/hr DAILY@2200 IV 11/13/24 22:00 11/14/24 21:26 41 MLS/HR Diagnostic Test (Pha) 1 strip Q6HR 11/14/24 00:00 11/15/24 16:47 1 STRIP Insulin Human Regular FOLLOW SLIDING SCALE Q6HR SC 11/14/24 00:00 11/15/24 16:53 4 UNITS Dextrose 50 ml UD IV 11/13/24 22:00 Temazepam 30 mg HSPRN PRN PO 11/13/24 21:00 11/15/24 00:23 30 MG Enalaprilat 1.25 mg Q6HP PRN IV 11/14/24 15:15 11/14/24 16:34 1.25 MG Enteral Nutritional Formula 240 ml BIDWM PO 11/15/24 18:00 11/15/24 17:43 240 ML objective The patient is well-nourished and well-developed with no distress. MENTAL STATUS: Subjective CRANIAL NERVES: Pupils are equal, round and nonreactive, very small. There are conjugated eye movement. Normal sensory and motor examination bilateral trigeminal distribution. No signs of facial weakness. SENSATION: Responses to pinprick and light touch MOTOR: Normal tone in the upper and lower extremity. Normal muscle bulk. No fasciculations. She moves the arms and legs REFLEXES: Deep tendon reflexes are symmetrical. CEREBELLAR/COORDINATION: Deferred GAIT/STATION: deferred laboratory and microbiology Laboratory Tests 11/15/24 12:06 11/15/24 04:57 11/14/24 03:30 Test 11/15/24 04:57 Range/Units Serum Glucose 191 H 74-106 mg/dL Problem List Fever, leukocytosis, altered mental status Sepsis UTI Pneumonia Coma/altered mental status Hypoxic encephalopathy Metabolic encephalopathy Rule out intracranial pathology Hypokalemia Kidney failure Heart attack AFib Assessment/Plan Monitoring Supportive treatment Telemetry Oxygen IV antibiotics IV fluids Aspirin 81 mg daily Plavix 75 mg daily Lipitor 40 mg daily Restoril 30 mg p.o. q.h.s. p.r.n. More recommendation per clinical course This medical document was created using an electronic medical record system with [employer] dictation system. Although this document has been carefully reviewed, there may still be some phonetic and typographical errors. These areas are purely typographical due to imperfections of the software programs, and do not reflect any compromise in the patient's medical care. Prognosis poor Dietary Evaluation Review Comments: Glucerna 1.2 @45ml/hr providing 65g prot, 1296kcal 869ml free water Expected Outcomes/Goals: Maintain Wt, prevent losing muscle mass Plan discussed with: Other ELY PORRAS MD Nov 15, 2024 22:43
[2024-11-16 01:00] VITALS: BP 140/66; PULSE 59; RESP 17; TEMP 96.7; O2SAT 98
[2024-11-16 05:00] VITALS: BP 158/47; PULSE 60; RESP 18; TEMP 98.8; O2SAT 98
[2024-11-16 07:47] LABS: Anion Gap 11 (5-15); Carbon Dioxide 29 mmol/L (20-31); Chloride 103 mmol/L (98-107); Sodium 143 mmol/L (136-145)
[2024-11-16 07:48] LABS: Calcium 8.9 mg/dL (8.7-10.4)
[2024-11-16 07:53] LABS: BUN/Creatinine Ratio 13.7 (10.0-20.0); Blood Urea Nitrogen 14 mg/dL (9-23)
[2024-11-16 07:54] LABS: Magnesium 2.0 mg/dL (1.6-2.6)
[2024-11-16 07:58] LABS: Glucose 152 mg/dL (74-106); Potassium 3.0 mmol/L (3.5-5.1)
[2024-11-16 09:00] VITALS: BP 157/67; PULSE 58; RESP 18; TEMP 97.3; O2SAT 94
--- NOTE | 2024-11-16 09:51 | DVHPN2 ---
Subjective Patient denies any symptoms. Reviewed: Care Plan, H&P, Labs, Medications Changes from previous H/P or p: No Changes General: Per HPI Objective Vitals Vital Signs Date Time Temp Pulse Resp B/P (MAP) Pulse Ox O2 Delivery O2 Flow Rate FiO2 11/16/24 06:48 153/53 11/16/24 05:00 98.8 60 18 98 98.8 11/15/24 20:10 Room Air* 0 21 Intake/Output Intake and Output 11/16/24 07:00 Intake Total 700 ml Output Total 1225 ml Balance -525 ml Intake Oral 400 ml IV Total 300 ml Output Urine Total 1225 ml # Bowel Movements 3 General Appearance: Alert, Oriented X3, Cooperative, mild distress HEENT: Atraumatic, PERRLA Lungs: Clear to auscultation, Normal air movement, Other (Mechanical ventilation) Cardiovascular: Normal S1, Normal S2 Abdomen: Normal bowel sounds, Soft, No tenderness, No hepatospenomegaly Genitourinary: No Apparent Abnormalities ([place]) Musculoskeletal: Other (No motor movement) Extremities: Normal pulses, No tenderness/swelling Skin: Dry, Intact Psych/Mental Status: Other (Unable to assess) Medications Current Medications Medications Dose Ordered Sig/Edson Route Start Time Stop Time Status Last Admin Dose Admin Nicardipine HCl 250 ml @ 50 mls/hr Q5H IV 11/02/24 14:30 UNV Ondansetron HCl 4 mg Q4HP PRN IV 11/02/24 15:00 11/12/24 05:02 4 MG Acetaminophen 650 mg Q6HP PRN PO 11/02/24 15:00 11/11/24 00:58 650 MG Nitroglycerin 0.4 mg Q5MINP PRN SL 11/02/24 15:00 Aspirin 81 mg DAILY PO 11/03/24 10:00 11/15/24 09:14 81 MG Atorvastatin Calcium 40 mg HS PO 11/03/24 22:00 11/15/24 22:40 40 MG Empaglifozin 10 mg DAILY PO 11/04/24 10:00 11/15/24 09:13 10 MG Pantoprazole Sodium 40 mg DAILY IV 11/05/24 11:52 11/15/24 09:14 40 MG Sennosides 8.6 mg HS PO 11/05/24 22:00 11/15/24 22:41 8.6 MG Cefepime HCl 50 ml @ 12.5 mls/hr Q12H IV 11/07/24 22:00 11/15/24 22:41 12.5 MLS/HR Clopidogrel Bisulfate 75 mg DAILY PO 11/09/24 10:00 11/15/24 09:13 75 MG Furosemide 20 mg BIDD IV 11/09/24 18:00 11/16/24 06:48 20 MG Metoprolol Tartrate 1.25 mg Q6HPRN PRN IV 11/11/24 08:45 Acetaminophen 650 mg Q6HP PRN PA 11/11/24 20:15 11/12/24 14:07 650 MG Amino Acids 0 ml @ 0 mls/hr PER PHARMACY IV 11/13/24 15:00 Amino Acids/ Electrolytes/ Dextrose 1,000 ml @ 41 mls/hr DAILY@2200 IV 11/13/24 22:00 11/15/24 22:40 41 MLS/HR Diagnostic Test (Pha) 1 strip Q6HR 11/14/24 00:00 11/16/24 06:44 1 STRIP Insulin Human Regular FOLLOW SLIDING SCALE Q6HR SC 11/14/24 00:00 11/16/24 06:46 2 UNITS Dextrose 50 ml UD IV 11/13/24 22:00 Temazepam 30 mg HSPRN PRN PO 11/13/24 21:00 11/15/24 00:23 30 MG Enalaprilat 1.25 mg Q6HP PRN IV 11/14/24 15:15 11/14/24 16:34 1.25 MG Enteral Nutritional Formula 240 ml BIDWM PO 11/15/24 18:00 11/15/24 17:43 240 ML Amiodarone HCl 200 mg Q12HR PO 11/16/24 10:00 UNV Metoprolol Tartrate 25 mg BID PO 11/16/24 10:00 UNV Laboratory Results Laboratory Tests 11/14/24 03:30 11/16/24 06:12 Chemistry Test 11/15/24 12:06 11/16/24 06:12 Phosphorus Level 0.7 mg/dL (2.4-5.1) L Calcium Level 8.9 mg/dL (8.7-10.4) Magnesium Level 2.0 mg/dL (1.6-2.6) Urinalysis Test 11/02/24 12:17 Urine Color Light-yellow (Yellow) Urine Clarity Turbid (Clear) H Urine pH 7.0 (5.0-9.0) Urine Specific [place] 1.010 (1.001-1.035) Urine Protein 2+ (Negative) H Urine Ketones Negative (Negative) Urine Blood 1+ /uL (Negative) H Urine Nitrite Negative (Negative) Urine Bilirubin Negative (Negative) Urine Urobilinogen Normal mg/dL (Negative) Urine Leukocyte Esterase Trace /uL (Negative) Urine RBC 2 /hpf (0 - 4) Urine Microscopic WBC 15 /HPF (0-5) H Urine Squamous Epithelial Cells Few /hpf (<5) Urine Bacteria None seen /hpf (None Seen) Urine Hyaline Casts Few /lpf (0 - 2) Urine Glucose Trace mg/dL (Normal) Microbiology Microbiology Date/Time Source Procedure Growth Status 11/03/24 00:00 Nose MRSA Screen - Final Complete 11/02/24 12:17 Voided Urine Urine Culture - Final Complete 11/02/24 11:55 Blood Blood Culture - Final NO GROWTH AFTER 5 DAYS OF INCUBATION. Complete 11/02/24 11:10 Sputum Gram Stain - Final Complete 11/02/24 11:10 Sputum Respiratory Culture - Final Complete Labs and/or images reviewed: Labs reviewed by me, Image(s) reviewed by me Assessment/Plan Assessment/Plan Impression: -metabolic encephalopathy -acute hypoxic respiratory failure -acute systolic heart failure -NSTEMI type 1 involving LAD and circumflex -dyslipidemia -diabetes mellitus -accelerated hypertension -ventricular bigeminy with bradycardia -Cardiogenic Shock -probable underlying dementia -acute delirium Plan: Events: No events overnight. Clinically stable. -stop Clinimix -discontinue central line if tolerating oral intake -physical therapy -electrolyte replacement -repeat labs in a.m. -continue dual antiplatelet therapy -continue amiodarone, hold beta-[place] given bradycardia. Continue MILADYS inhibitor -PT evaluation Total time spent with patient discussing and formulating plan of care: 35 minutes. This medical document was created using an electronic medical record system with [employer] system. Although this document has been carefully reviewed, there may still be some phonetic and typographical errors. These areas are purely typographical due to imperfections of the software programs, and do not reflect any compromise in the patient's medical care. Plan discussed with: Patient, Other (RN) My Orders Orders - ALEXANDER TAMYAO NP Procedure Category Date Status Time Cardiac DIET 11/15/24 Transmitted Diet-2gna,Lofat,Lochol Lunch Pt Request For Service PT 11/15/24 Logged 10:40 Nutritional PHA 11/15/24 In Process Supplements (Ensure 18:00 Metoprolol Tartrate PHA 11/16/24 Logged Tablet (Lopressor Ta 10:00 Date of Service: Nov 16, 2024 Billing Provider: ALEXANDER TAMAYO NP Common Visit Codes: [id number] INP/OBS CARE(HIGH) ALEXANDER TAMAYO NP Nov 16, 2024 09:51
[2024-11-16] MEDS: METOPROLOL TARTRATE 25 MG TAB PO SCH (10:00)
[2024-11-16] MEDS: AMIODARONE HCL 200 MG TAB PO SCH (10:00)
[2024-11-16] MEDS: SACUBITRIL-VALSARTAN 24mg/26mg TAB PO SCH (10:00)
[2024-11-16 17:00] VITALS: BP 153/76; PULSE 58; RESP 18; TEMP 98.1; O2SAT 95
[2024-11-16 21:00] VITALS: BP 156/55; PULSE 54; RESP 18; O2SAT 93
--- NOTE | 2024-11-16 23:51 | DVHPN2 ---
Progress Note - Dictate Date Seen: Nov 16, 2024 Medical Necessity Reason Pt with a Central, PICC or Fol: No Subjective Ms. Frank is a 77 years old female with a history of hypertension, diabetes, heart failure, she was brought to the [facility] on 11/02/2024 with a chief complaint of altered mental status. I have seen and examined the patient, talked to her nurse and sitter, she keeps improving, she moves the extremities more than before, her voice is stronger, but she is only oriented to herself, she follows verbal commands Blood culture, 11/02/2024: No growth Urine culture, 11/02/2024: No growth Urinalysis, 11/02/2024: WBC: 15 urine leukocyte esterase:: Trace UDS, 11/02/2024: Negative WBC/HB/PLT/MCV, 11/02/2024: 13.6/11.8/220/84.9, 11/03/2024: 14.1/10.7/173/85 Na 11/03/2024: 145, 11/04/2024: 147, 11/05/24: 146, 11/13/2024: 147, 11/14/24: 149, 11/15/2024: K 11/02/2024: 2 BUN/CR, 11/02/24: 25/1.47, 11/03/2024: 20/1.31, 11/11/2024: 22/1.35 GFR, 11/02/2024: 36, 11/11/2024: 40 Troponin one high sensitivity, 11/02/2024: 6108, 5013, 9224 TG/HDL/LDL/HDL, 11/02/2024: 202/180/127/27 TSH, 11/02/2024: 4.66 EKG, 11/07/2024: Atrial fibrillation with rapid V-rate EEG 11/03/2024: Remarkably abnormal Echocardiogram, 11/03/2024: lvef 30% severe LV dysfunction anteroseptum is akinetic RVmild enlarged left atrium enlarged no severe valve abnormalities noted mild mitral regurg mild trciuspid regurg Chest x-ray, 11/02/2024: Endotracheal tube in appropriate position. Pulmonary edema versus atypical infection CT head, 11/02/2024: No intracranial hemorrhage or mass effect. Mild chronic microvascular ischemic changes. Mild global cerebral volume loss. vital signs Vital Sign Date Time Temp Pulse Resp B/P (MAP) Pulse Ox O2 Delivery O2 Flow Rate FiO2 11/16/24 23:11 54 156/55 11/16/24 21:00 18 93 11/16/24 17:00 98.1 98.1 11/16/24 08:00 Room Air* 0 21 Total Intake and Output 11/15/24 11/15/24 11/16/24 15:00 23:00 07:00 Intake Total 250 ml 400 ml 50 ml Output Total 550 ml 675 ml Balance 250 ml -150 ml -625 ml medications Current Medications Medications Dose Ordered Sig/Edson Route Start Time Stop Time Status Last Admin Dose Admin Nicardipine HCl 250 ml @ 50 mls/hr Q5H IV 11/02/24 14:30 UNV Ondansetron HCl 4 mg Q4HP PRN IV 11/02/24 15:00 11/12/24 05:02 4 MG Acetaminophen 650 mg Q6HP PRN PO 11/02/24 15:00 11/11/24 00:58 650 MG Nitroglycerin 0.4 mg Q5MINP PRN SL 11/02/24 15:00 Aspirin 81 mg DAILY PO 11/03/24 10:00 11/16/24 10:15 81 MG Atorvastatin Calcium 40 mg HS PO 11/03/24 22:00 11/16/24 21:38 40 MG Empaglifozin 10 mg DAILY PO 11/04/24 10:00 11/16/24 10:15 10 MG Pantoprazole Sodium 40 mg DAILY IV 11/05/24 11:52 11/16/24 10:14 40 MG Sennosides 8.6 mg HS PO 11/05/24 22:00 11/16/24 21:38 8.6 MG Clopidogrel Bisulfate 75 mg DAILY PO 11/09/24 10:00 11/16/24 10:15 75 MG Furosemide 20 mg BIDD IV 11/09/24 18:00 11/16/24 18:11 20 MG Acetaminophen 650 mg Q6HP PRN MO 11/11/24 20:15 11/12/24 14:07 650 MG Diagnostic Test (Pha) 1 strip Q6HR 11/14/24 00:00 11/16/24 18:24 1 STRIP Insulin Human Regular FOLLOW SLIDING SCALE Q6HR SC 11/14/24 00:00 11/16/24 12:45 2 UNITS Dextrose 50 ml UD IV 11/13/24 22:00 Temazepam 30 mg HSPRN PRN PO 11/13/24 21:00 11/15/24 00:23 30 MG Enalaprilat 1.25 mg Q6HP PRN IV 11/14/24 15:15 11/14/24 16:34 1.25 MG Enteral Nutritional Formula 240 ml BIDWM PO 11/15/24 18:00 11/16/24 18:08 240 ML Amiodarone HCl 200 mg Q12HR PO 11/16/24 10:00 11/16/24 21:38 200 MG Metoprolol Tartrate 25 mg BID PO 11/16/24 10:00 11/16/24 21:38 25 MG Sacubitril/ Valsartan 0.5 tab BID PO 11/16/24 10:00 11/16/24 21:38 0.5 TAB objective The patient is well-nourished and well-developed with no distress. MENTAL STATUS: Subjective CRANIAL NERVES: Pupils are equal, round and nonreactive, very small. There are conjugated eye movement. Normal sensory and motor examination bilateral trigeminal distribution. No signs of facial weakness. SENSATION: Responses to pinprick and light touch MOTOR: Normal tone in the upper and lower extremity. Normal muscle bulk. No fasciculations. She moves the arms and legs REFLEXES: Deep tendon reflexes are symmetrical. CEREBELLAR/COORDINATION: Deferred GAIT/STATION: deferred laboratory and microbiology Laboratory Tests 11/16/24 06:12 11/14/24 03:30 Test 11/16/24 06:12 Range/Units Serum Glucose 152 H 74-106 mg/dL Problem List Fever, leukocytosis, altered mental status Sepsis UTI Pneumonia Coma/altered mental status Hypoxic encephalopathy Metabolic encephalopathy Rule out intracranial pathology Hypokalemia Kidney failure Heart attack AFib Assessment/Plan Monitoring Supportive treatment Telemetry Oxygen IV antibiotics IV fluids Aspirin 81 mg daily Plavix 75 mg daily Lipitor 40 mg daily Restoril 30 mg p.o. q.h.s. p.r.n. Haldol 2.5 mg intramuscular p.r.n. for agitation More recommendation per clinical course This medical document was created using an electronic medical record system with [employer] dictation system. Although this document has been carefully reviewed, there may still be some phonetic and typographical errors. These areas are purely typographical due to imperfections of the software programs, and do not reflect any compromise in the patient's medical care. Prognosis poor Dietary Evaluation Review Comments: Glucerna 1.2 @45ml/hr providing 65g prot, 1296kcal 869ml free water Expected Outcomes/Goals: Maintain Wt, prevent losing muscle mass Plan discussed with: Other ELY PORRAS MD Nov 16, 2024 23:51
[2024-11-17] VITALS (7 sets, daily range): BP systolic 122–160; BP diastolic 53–66; PULSE 50–60; RESP 16–20; TEMP 97–98.2; O2SAT 95–99
--- NOTE | 2024-11-17 09:14 | DVHPN2 ---
Subjective Patient denies any symptoms. Reviewed: Care Plan, H&P, Labs, Medications Changes from previous H/P or p: No Changes General: Per HPI Objective Vitals Vital Signs Date Time Temp Pulse Resp B/P (MAP) Pulse Ox O2 Delivery O2 Flow Rate FiO2 11/17/24 06:32 154/54 11/17/24 05:00 97.8 54 20 97.8 11/17/24 01:00 95 11/16/24 20:00 Room Air* 0 21 Intake/Output Intake and Output 11/17/24 07:00 Intake Total 1230 ml Output Total 2700 ml Balance -1470 ml Intake Oral 480 ml IV Total 750 ml Output Urine Total 2700 ml # Bowel Movements 2 General Appearance: Alert, Oriented X3, Cooperative, mild distress HEENT: Atraumatic, PERRLA Lungs: Clear to auscultation, Normal air movement, Other (Mechanical ventilation) Cardiovascular: Normal S1, Normal S2 Abdomen: Normal bowel sounds, Soft, No tenderness, No hepatospenomegaly Genitourinary: No Apparent Abnormalities ([place]) Musculoskeletal: Other (No motor movement) Extremities: Normal pulses, No tenderness/swelling Skin: Dry, Intact Psych/Mental Status: Other (Unable to assess) Medications Current Medications Medications Dose Ordered Sig/Edson Route Start Time Stop Time Status Last Admin Dose Admin Nicardipine HCl 250 ml @ 50 mls/hr Q5H IV 11/02/24 14:30 UNV Ondansetron HCl 4 mg Q4HP PRN IV 11/02/24 15:00 11/12/24 05:02 4 MG Acetaminophen 650 mg Q6HP PRN PO 11/02/24 15:00 11/11/24 00:58 650 MG Nitroglycerin 0.4 mg Q5MINP PRN SL 11/02/24 15:00 Aspirin 81 mg DAILY PO 11/03/24 10:00 11/16/24 10:15 81 MG Atorvastatin Calcium 40 mg HS PO 11/03/24 22:00 11/16/24 21:38 40 MG Empaglifozin 10 mg DAILY PO 11/04/24 10:00 11/16/24 10:15 10 MG Pantoprazole Sodium 40 mg DAILY IV 11/05/24 11:52 11/16/24 10:14 40 MG Sennosides 8.6 mg HS PO 11/05/24 22:00 11/16/24 21:38 8.6 MG Clopidogrel Bisulfate 75 mg DAILY PO 11/09/24 10:00 11/16/24 10:15 75 MG Acetaminophen [address] 11/11/24 20:15 11/12/24 14:07 650 MG Diagnostic Test (Pha) 1 strip Q6HR 11/14/24 00:00 11/16/24 18:24 1 STRIP Insulin Human Regular FOLLOW SLIDING SCALE Q6HR SC 11/14/24 00:00 11/16/24 12:45 2 UNITS Dextrose 50 ml UD IV 11/13/24 22:00 Temazepam 30 mg HSPRN PRN PO 11/13/24 21:00 11/15/24 00:23 30 MG Enalaprilat 1.25 mg Q6HP PRN IV 11/14/24 15:15 11/14/24 16:34 1.25 MG Enteral Nutritional Formula 240 ml BIDWM PO 11/15/24 18:00 11/16/24 18:08 240 ML Amiodarone HCl 200 mg Q12HR PO 11/16/24 10:00 11/16/24 21:38 200 MG Metoprolol Tartrate 25 mg BID PO 11/16/24 10:00 11/16/24 21:38 25 MG Sacubitril/ Valsartan 0.5 tab BID PO 11/16/24 10:00 11/16/24 21:38 0.5 TAB Haloperidol Lactate 2.5 mg Q8HP PRN IM 11/17/24 00:00 Furosemide 20 mg BIDD PO 11/17/24 18:00 UNV Laboratory Results Laboratory Tests 11/14/24 03:30 11/16/24 06:12 Urinalysis Test 11/02/24 12:17 Urine Color Light-yellow (Yellow) Urine Clarity Turbid (Clear) H Urine pH 7.0 (5.0-9.0) Urine Specific [place] 1.010 (1.001-1.035) Urine Protein 2+ (Negative) H Urine Ketones Negative (Negative) Urine Blood 1+ /uL (Negative) H Urine Nitrite Negative (Negative) Urine Bilirubin Negative (Negative) Urine Urobilinogen Normal mg/dL (Negative) Urine Leukocyte Esterase Trace /uL (Negative) Urine RBC 2 /hpf (0 - 4) Urine Microscopic WBC 15 /HPF (0-5) H Urine Squamous Epithelial Cells Few /hpf (<5) Urine Bacteria None seen /hpf (None Seen) Urine Hyaline Casts Few /lpf (0 - 2) Urine Glucose Trace mg/dL (Normal) Microbiology Microbiology Date/Time Source Procedure Growth Status 11/03/24 00:00 Nose MRSA Screen - Final Complete 11/02/24 12:17 Voided Urine Urine Culture - Final Complete 11/02/24 11:55 Blood Blood Culture - Final NO GROWTH AFTER 5 DAYS OF INCUBATION. Complete 11/02/24 11:10 Sputum Gram Stain - Final Complete 11/02/24 11:10 Sputum Respiratory Culture - Final Complete Labs and/or images reviewed: Labs reviewed by me, Image(s) reviewed by me Assessment/Plan Assessment/Plan Impression: -metabolic encephalopathy -acute hypoxic respiratory failure -acute systolic heart failure -NSTEMI type 1 involving LAD and circumflex -dyslipidemia -diabetes mellitus -accelerated hypertension -ventricular bigeminy with bradycardia -Cardiogenic Shock -probable underlying dementia -acute delirium Plan: Events: Poor oral intake. Patient is drinking ensure shakes. Continues to have confusion. -discontinue central line if tolerating oral intake -physical therapy -electrolyte replacement -repeat labs in a.m. -continue dual antiplatelet therapy -discontinue amiodarone given bradycardia. Decrease metoprolol tartrate to 12.5 mg p.o. b.i.d.. Continue Prema Antonio -PT evaluation: Patient's sitter reports she was able to assist patient with ambulation to the bathroom. -social service consultation for alf facility placement Total time spent with patient discussing and formulating plan of care: 35 minutes. This medical document was created using an electronic medical record system with [employer]ation system. Although this document has been carefully reviewed, there may still be some phonetic and typographical errors. These areas are purely typographical due to imperfections of the software programs, and do not reflect any compromise in the patient's medical care. Plan discussed with: Patient, Other (RN) My Orders Orders - ALEXANDER TAMAYO TOLL RELIEF OPERATOR Procedure Category Date Status Time Communication Order ORDERS 11/16/24 Transmitted 09:48 Sacubitril-Valsartan PHA 11/16/24 In Process (Entresto 24-26 Mg 10:00 Basic Metabolic Panel LAB 11/17/24 Logged 08:54 Magnesium LAB 11/17/24 Logged 08:54 Furosemide Tablet PHA 11/17/24 Logged (Lasix Tablet) 18:00 Chest Xray 1 View XY 11/17/24 Logged 08:54 Cardiac DIET 11/17/24 Transmitted Diet-2gna,Lofat,Lochol Breakfast * Band Head Saw Operator CONS 11/17/24 Transmitted Consult Date of Service: Nov 17, 2024 Billing Provider: ALEXANDER TAMAYO NP Common Visit Codes: [id number] INP/OBS CARE(HIGH) ALEXANDER TAMAYO NP Nov 17, 2024 09:14
--- NOTE | 2024-11-17 10:26 | DVH ---
CHEST RADIOGRAPH Indication: CHF Technique: Single frontal view of the chest was obtained Comparison: XY CHEST PORTABLE on DOS: 11/14/24, XY CHEST PORTABLE on DOS: 11/11/24, XY CHEST PORTABLE o n DOS: 11/10/24, XY CHEST PORTABLE on DOS: 11/09/24, XY CHEST PORTABLE on DOS: 11/08/24 FINDINGS: Lines and Tubes: Right central venous catheter tip in the SVC. Endotracheal tube nasogastric tube ar e removed. Lungs: Unchanged congestion Pleura: No effusion. No pneumothorax. Cardiomediastinal contours: Unremarkable Bones: No acute osseous abnormality. IMPRESSION: Unchanged pulmonary congestion.
[2024-11-17] MEDS: METOPROLOL TARTRATE 25 MG TAB PO SCH (10:39)
[2024-11-17 10:56] LABS: Chloride 103 mmol/L (98-107); Sodium 144 mmol/L (136-145)
[2024-11-17 10:57] LABS: Anion Gap 9 (5-15); Calcium 9.3 mg/dL (8.7-10.4); Carbon Dioxide 32 mmol/L (20-31); Potassium 3.1 mmol/L (3.5-5.1)
[2024-11-17 11:02] LABS: BUN/Creatinine Ratio 13.2 (10.0-20.0); Blood Urea Nitrogen 15 mg/dL (9-23); Glucose 159 mg/dL (74-106)
[2024-11-17 11:03] LABS: Magnesium 1.8 mg/dL (1.6-2.6)
[2024-11-17] MEDS: FUROSEMIDE 20 MG TAB PO SCH (18:00)
[2024-11-17] MEDS: POTASSIUM CHL 20 Meq TABLET PO ONE (21:10)
--- NOTE | 2024-11-17 23:22 | DVHPN2 ---
Progress Note - Dictate Date Seen: Nov 17, 2024 Medical Necessity Reason Pt with a Central, PICC or Fol: No Subjective Ms. Frank is a 77 years old female with a history of hypertension, diabetes, heart failure, she was brought to the [facility] on 11/02/2024 with a chief complaint of altered mental status. I have seen and examined the patient, talked to her nurse and sitter, she keeps improving, she is more sociable, she moves the arms and legs, the muscle power feels fine, she is oriented to person, place, she knows year, month, date No new complaints She reports he wants to talked to but she does not have his contact information Blood culture, 11/02/2024: No growth Urine culture, 11/02/2024: No growth Urinalysis, 11/02/2024: WBC: 15 urine leukocyte esterase:: Trace UDS, 11/02/2024: Negative WBC/HB/PLT/MCV, 11/02/2024: 13.6/11.8/220/84.9, 11/03/2024: 14.1/10.7/173/85 Na 11/03/2024: 145, 11/04/2024: 147, 11/05/24: 146, 11/13/2024: 147, 11/14/24: 149, 11/15/2024: K 11/02/2024: 2 BUN/CR, 11/02/24: 25/1.47, 11/03/2024: 20/1.31, 11/11/2024: 22/1.35 GFR, 11/02/2024: 36, 11/11/2024: 40 Troponin one high sensitivity, 11/02/2024: 6108, 5013, 9224 TG/HDL/LDL/HDL, 11/02/2024: 202/180/127/27 TSH, 11/02/2024: 4.66 EKG, 11/07/2024: Atrial fibrillation with rapid V-rate EEG 11/03/2024: Remarkably abnormal Echocardiogram, 11/03/2024: lvef 30% severe LV dysfunction anteroseptum is akinetic RVmild enlarged left atrium enlarged no severe valve abnormalities noted mild mitral regurg mild trciuspid regurg Chest x-ray, 11/02/2024: Endotracheal tube in appropriate position. Pulmonary edema versus atypical infection CT head, 11/02/2024: No intracranial hemorrhage or mass effect. Mild chronic microvascular ischemic changes. Mild global cerebral volume loss. vital signs Vital Sign Date Time Temp Pulse Resp B/P (MAP) Pulse Ox O2 Delivery O2 Flow Rate FiO2 11/17/24 22:12 60 118/64 11/17/24 21:00 98.0 16 96 98.0 11/17/24 20:00 Room Air* 0 21 Total Intake and Output 11/16/24 11/16/24 11/17/24 15:00 23:00 07:00 Intake Total 1210 ml 20 ml Output Total 1200 ml 1500 ml Balance 10 ml -1480 ml medications Current Medications Medications Dose Ordered Sig/Edson Route Start Time Stop Time Status Last Admin Dose Admin Nicardipine HCl 250 ml @ 50 mls/hr Q5H IV 11/02/24 14:30 UNV Ondansetron HCl 4 mg Q4HP PRN IV 11/02/24 15:00 11/12/24 05:02 4 MG Acetaminophen 650 mg Q6HP PRN PO 11/02/24 15:00 11/11/24 00:58 650 MG Nitroglycerin 0.4 mg Q5MINP PRN SL 11/02/24 15:00 Aspirin 81 mg DAILY PO 11/03/24 10:00 11/17/24 10:35 81 MG Atorvastatin Calcium 40 mg HS PO 11/03/24 22:00 11/17/24 21:11 40 MG Empaglifozin 10 mg DAILY PO 11/04/24 10:00 11/17/24 10:35 10 MG Pantoprazole Sodium 40 mg DAILY IV 11/05/24 11:52 11/17/24 10:37 40 MG Sennosides 8.6 mg HS PO 11/05/24 22:00 11/17/24 21:11 8.6 MG Clopidogrel Bisulfate 75 mg DAILY PO 11/09/24 10:00 11/17/24 10:36 75 MG Acetaminophen 650 mg Q6HP PRN AL 11/11/24 20:15 11/12/24 14:07 650 MG Diagnostic Test (Pha) 1 strip Q6HR 11/14/24 00:00 11/17/24 23:13 1 STRIP Insulin Human Regular FOLLOW SLIDING SCALE Q6HR SC 11/14/24 00:00 11/17/24 12:00 2 UNITS Dextrose 50 ml UD IV 11/13/24 22:00 Temazepam 30 mg HSPRN PRN PO 11/13/24 21:00 11/15/24 00:23 30 MG Enalaprilat 1.25 mg Q6HP PRN IV 11/14/24 15:15 11/14/24 16:34 1.25 MG Enteral Nutritional Formula 240 ml BIDWM PO 11/15/24 18:00 11/17/24 18:21 240 ML Sacubitril/ Valsartan 0.5 tab BID PO 11/16/24 10:00 11/17/24 21:11 0.5 TAB Haloperidol Lactate 2.5 mg Q8HP PRN IM 11/17/24 00:00 Furosemide 20 mg BIDD PO 11/17/24 18:00 11/17/24 21:12 20 MG Metoprolol Tartrate 12.5 mg BID PO 11/17/24 10:00 11/17/24 21:12 12.5 MG objective The patient is well-nourished and well-developed with no distress. MENTAL STATUS: Subjective CRANIAL NERVES: Pupils are equal, round and nonreactive, very small. There are conjugated eye movement. Normal sensory and motor examination bilateral trigeminal distribution. No signs of facial weakness. SENSATION: Responses to pinprick and light touch MOTOR: Normal tone in the upper and lower extremity. Normal muscle bulk. No fasciculations. She moves the arms and legs REFLEXES: Deep tendon reflexes are symmetrical. CEREBELLAR/COORDINATION: Deferred GAIT/STATION: deferred laboratory and microbiology Laboratory Tests 11/17/24 01:02 11/14/24 03:30 Test 11/17/24 01:02 Range/Units Serum Glucose 159 H 74-106 mg/dL Problem List Fever, leukocytosis, altered mental status, resolved Sepsis UTI Pneumonia Coma/altered mental status Hypoxic encephalopathy Metabolic encephalopathy Rule out intracranial pathology Hypokalemia Kidney failure Heart attack AFib Assessment/Plan Monitoring Supportive treatment Telemetry Oxygen IV antibiotics IV fluids Aspirin 81 mg daily Plavix 75 mg daily Lipitor 40 mg daily Restoril 30 mg p.o. q.h.s. p.r.n. Haldol 2.5 mg intramuscular p.r.n. for agitation Protonix 40 mg daily More recommendation per clinical course This medical document was created using an electronic medical record system with [employer] dictation system. Although this document has been carefully reviewed, there may still be some phonetic and typographical errors. These areas are purely typographical due to imperfections of the software programs, and do not reflect any compromise in the patient's medical care. Prognosis poor Dietary Evaluation Review Comments: Glucerna 1.2 @45ml/hr providing 65g prot, 1296kcal 869ml free water Expected Outcomes/Goals: Maintain Wt, prevent losing muscle mass Plan discussed with: Other ELY PORRAS MD Nov 17, 2024 23:22
[2024-11-18 01:00] VITALS: BP 147/59; PULSE 58; RESP 18; TEMP 97.1; O2SAT 98
[2024-11-18 05:00] VITALS: BP 147/56; PULSE 51; RESP 16; TEMP 97.8; O2SAT 98
[2024-11-18 09:00] VITALS: BP 147/65; PULSE 58; RESP 16; TEMP 97.8; O2SAT 95
--- NOTE | 2024-11-18 12:51 | DVHPN2 ---
Subjective Patient denies any symptoms. Reviewed: Care Plan, H&P, Labs, Medications Changes from previous H/P or p: No Changes General: Per HPI Objective Vitals Vital Signs Date Time Temp Pulse Resp B/P (MAP) Pulse Ox O2 Delivery O2 Flow Rate FiO2 11/18/24 10:14 58 147/65 11/18/24 09:00 97.8 16 95 97.8 11/18/24 07:36 Room Air* 0 21 Intake/Output Intake and Output 11/18/24 07:00 Intake Total 750 ml Output Total 500 ml Balance 250 ml Intake Oral 750 ml Output Urine Total 500 ml # Voids 4 # Bowel Movements 5 General Appearance: Alert, Oriented X3, Cooperative, mild distress HEENT: Atraumatic, PERRLA Lungs: Clear to auscultation, Normal air movement, Other (Mechanical ventilation) Cardiovascular: Normal S1, Normal S2 Abdomen: Normal bowel sounds, Soft, No tenderness, No hepatospenomegaly Genitourinary: No Apparent Abnormalities ([place]) Musculoskeletal: Other (No motor movement) Extremities: Normal pulses, No tenderness/swelling Skin: Dry, Intact Psych/Mental Status: Other (Unable to assess) Medications Current Medications Medications Dose Ordered Sig/Edson Route Start Time Stop Time Status Last Admin Dose Admin Nicardipine HCl 250 ml @ 50 mls/hr Q5H IV 11/02/24 14:30 UNV Ondansetron HCl 4 mg Q4HP PRN IV 11/02/24 15:00 11/12/24 05:02 4 MG Acetaminophen 650 mg Q6HP PRN PO 11/02/24 15:00 11/11/24 00:58 650 MG Nitroglycerin 0.4 mg Q5MINP PRN SL 11/02/24 15:00 Aspirin 81 mg DAILY PO 11/03/24 10:00 11/18/24 09:51 81 MG Atorvastatin Calcium 40 mg HS PO 11/03/24 22:00 11/17/24 21:11 40 MG Empaglifozin 10 mg DAILY PO 11/04/24 10:00 11/18/24 10:00 10 MG Pantoprazole Sodium 40 mg DAILY IV 11/05/24 11:52 11/18/24 09:50 40 MG Sennosides 8.6 mg HS PO 11/05/24 22:00 11/17/24 21:11 8.6 MG Clopidogrel Bisulfate 75 mg DAILY PO 11/09/24 10:00 11/18/24 09:50 75 MG Acetaminophen 650 mg Q6HP PRN IA 11/11/24 20:15 11/12/24 14:07 650 MG Diagnostic Test (Pha) 1 strip Q6HR 11/14/24 00:00 11/18/24 11:47 1 STRIP Insulin Human Regular FOLLOW SLIDING SCALE Q6HR SC 11/14/24 00:00 11/18/24 11:44 2 UNITS Dextrose 50 ml UD IV 11/13/24 22:00 Temazepam 30 mg HSPRN PRN PO 11/13/24 21:00 11/18/24 00:36 30 MG Enalaprilat 1.25 mg Q6HP PRN IV 11/14/24 15:15 11/14/24 16:34 1.25 MG Enteral Nutritional Formula 240 ml BIDWM PO 11/15/24 18:00 11/17/24 18:21 240 ML Sacubitril/ Valsartan 0.5 tab BID PO 11/16/24 10:00 11/18/24 10:00 0.5 TAB Haloperidol Lactate 2.5 mg Q8HP PRN IM 11/17/24 00:00 Furosemide 20 mg BIDD PO 11/17/24 18:00 11/17/24 21:12 20 MG Metoprolol Tartrate 12.5 mg BID PO 11/17/24 10:00 11/18/24 10:14 12.5 MG Laboratory Results Laboratory Tests 11/14/24 03:30 11/17/24 01:02 Urinalysis Test 11/02/24 12:17 Urine Color Light-yellow (Yellow) Urine Clarity Turbid (Clear) H Urine pH 7.0 (5.0-9.0) Urine Specific [place] 1.010 (1.001-1.035) Urine Protein 2+ (Negative) H Urine Ketones Negative (Negative) Urine Blood 1+ /uL (Negative) H Urine Nitrite Negative (Negative) Urine Bilirubin Negative (Negative) Urine Urobilinogen Normal mg/dL (Negative) Urine Leukocyte Esterase Trace /uL (Negative) Urine RBC 2 /hpf (0 - 4) Urine Microscopic WBC 15 /HPF (0-5) H Urine Squamous Epithelial Cells Few /hpf (<5) Urine Bacteria None seen /hpf (None Seen) Urine Hyaline Casts Few /lpf (0 - 2) Urine Glucose Trace mg/dL (Normal) Microbiology Microbiology Date/Time Source Procedure Growth Status 11/03/24 00:00 Nose MRSA Screen - Final Complete 11/02/24 12:17 Voided Urine Urine Culture - Final Complete 11/02/24 11:55 Blood Blood Culture - Final NO GROWTH AFTER 5 DAYS OF INCUBATION. Complete 11/02/24 11:10 Sputum Gram Stain - Final Complete 11/02/24 11:10 Sputum Respiratory Culture - Final Complete Labs and/or images reviewed: Labs reviewed by me, Image(s) reviewed by me Assessment/Plan Assessment/Plan Impression: -metabolic encephalopathy -acute hypoxic respiratory failure -acute systolic heart failure -NSTEMI type 1 involving LAD and circumflex -dyslipidemia -diabetes mellitus -accelerated hypertension -ventricular bigeminy with bradycardia -Cardiogenic Shock -probable underlying dementia -acute delirium Plan: Events: Patient continues to have confusion. States that currently she is in [place]. Discussed plan of care with the patient's brother, Balbir. Bablir is agreeable to have the patient to be transferred to intermediate facility. -discontinue central line if tolerating oral intake -physical therapy -electrolyte replacement -repeat labs in a.m. -continue dual antiplatelet therapy -discontinue amiodarone given bradycardia. Decrease metoprolol tartrate to 12.5 mg p.o. b.i.d.. Continue Prema Antonio -PT evaluation: Patient's sitter reports she was able to assist patient with ambulation to the bathroom. -social service consultation for intermediate facility placement Total time spent with patient discussing and formulating plan of care: 35 minutes. This medical document was created using an electronic medical record system with [employer] dictation system. Although this document has been carefully reviewed, there may still be some phonetic and typographical errors. These areas are purely typographical due to imperfections of the software programs, and do not reflect any compromise in the patient's medical care. Plan discussed with: Patient, Other (RN) My Orders Orders - ALEXANDER TAMAYO NP Procedure Category Date Status Time Imaging Transfer ORDERS 11/18/24 Transmitted Request 11:42 Date of Service: Nov 18, 2024 Billing Provider: ALEXANDER TAMAYO NP Common Visit Codes: [id number] INP/OBS CARE(HIGH) ALEXANDER TAMAYO [facility] [employer] [facility] [employer] Nov 18, 2024 12:51
[2024-11-18] MEDS ORDERED: LORazepam 2MG/ML-1ML VIAL IV PRN (16:30)
[2024-11-18] MEDS: HALOPERIDOL LACTATE 5 MG/ML INJ VIAL IM PRN (17:54)
[2024-11-18] MEDS: LORazepam 0.5 MG TAB PO PRN (17:55)
[2024-11-18 21:00] VITALS: BP 109/65; PULSE 62; RESP 16; TEMP 97.5; O2SAT 99
[2024-11-19] VITALS (7 sets, daily range): BP systolic 120–131; BP diastolic 50–71; PULSE 47–62; RESP 15–17; TEMP 36.6; O2SAT 93–100
--- NOTE | 2024-11-19 16:31 | DVHDS2 ---
Discharge Summary Date of Admission Nov 02, 2024 at 15:00 Date of Discharge: Nov 19, 2024 Admitting Diagnosis NSTEMI Labs/Diagnostic Data: Laboratory Results Test 11/19/24 06:11 11/17/24 01:02 11/15/24 12:06 11/15/24 04:57 POC Glucose 119 mg/dl (70-106) Sodium Level 144 mmol/L (136-145) Potassium Level 3.1 mmol/L (3.5-5.1) Chloride Level 103 mmol/L (98-107) Carbon Dioxide Level 32 mmol/L (20-31) Anion Gap 9 (5-15) Blood Urea Nitrogen 15 mg/dL (9-23) Creatinine 1.14 mg/dL (0.550-1.02) Glomerular Filtration Rate Calc 49 mL/min (>90) BUN/Creatinine Ratio 13.2 (10.0-20.0) Serum Glucose 159 mg/dL (74-106) Calcium Level 9.3 mg/dL (8.7-10.4) Magnesium Level 1.8 mg/dL (1.6-2.6) Phosphorus Level 0.7 mg/dL (2.4-5.1) Total Bilirubin 0.5 mg/dL (0.2-1.0) Aspartate Amino Transferase (AST) 44 U/L (13-40) Alanine Aminotransferase (ALT) 41 U/L (7-40) Alkaline Phosphatase 61 U/L (46-116) Total Protein 5.0 g/dL (5.7-8.2) Albumin 3.1 g/dL (3.2-4.8) Test 11/14/24 03:30 11/11/24 14:05 11/10/24 12:38 11/10/24 06:56 White Blood Count 10.6 10^3/uL (4.4-10.8) Red Blood Count 3.03 10^6/uL (4.0-5.20) Hemoglobin 9.1 g/dL (12.2-16.2) Hematocrit 26.3 % (36.0-46.0) Mean Corpuscular Volume 86.6 fL (80.0-100.0) Mean Corpuscular Hemoglobin 29.9 pg (28.0-32.0) Mean Corpuscular Hemoglobin Concent 34.6 g/dL (32.0-36.0) Red Cell Distribution Width 14.2 % (11.8-14.3) Platelet Count 234 10^3/uL (140-450) Mean Platelet Volume 7.8 fL (6.9-10.8) Neutrophils (%) (Auto) 84.8 % (37.0-80.0) Lymphocytes (%) (Auto) 5.0 % (10.0-50.0) Monocytes (%) (Auto) 9.3 % (0.0-12.0) Eosinophils (%) (Auto) 0.5 % (0.0-7.0) Basophils (%) (Auto) 0.4 % (0.0-2.0) Neutrophils # (Auto) 9.0 10 ^3/uL (1.6-8.6) Lymphocytes # (Auto) 0.5 10 ^3/uL (0.4-5.4) Monocytes # (Auto) 1.0 10 ^3/uL (0-1.3) Eosinophils # (Auto) 0.1 10 ^3/uL (0-0.8) Basophils # (Auto) 0 10 ^3/uL (0-0.2) Nucleated Red Blood Cells 0.0 % Triglycerides Level 152 mg/dL (< 150) Blood Gas Specimen Type Arterial Blood Gas Sample Site Right radial Blood Gas Patient Temperature 37.0 Arterial Blood Date Drawn [id number] Arterial Blood pH 7.431 (7.350-7.450) Arterial Blood Partial Pressure CO2 36.9 mmHg (32.0-45.0) Arterial Blood Partial Pressure O2 114.0 mmHg (83.0-108.0) Arterial Blood HCO3 24.0 mmol/L (21.0-28.0) Arterial Blood Oxygen Saturation 97.5 % (94.0-98.0) Arterial Blood Base Excess -0.1 mmol/L (-2.0-3.0) Arterial Blood Oxyhemoglobin 97.0 % (94.0-98.0) Arterial Blood Carboxyhemoglobin 0.2 % (0.5-1.5) Arterial Blood Methemoglobin 0.3 % (0.0-1.5) Prem Test Modified Blood Gas Total Hemoglobin 9.80 g/dL (12.0-16.0) Blood Gas Modality Vent - cpap FiO2 % 30.0 Blood Gas Pressure Support 8 Blood Gas PEEP or CPAP 5.0 Vancomycin Level Trough 4.0 ug/mL (5-10) Blood Gas Set Respiration Rate 16.0 Blood Gas Tidal Volume 350.0 Test 11/10/24 02:51 11/08/24 03:25 11/07/24 03:23 11/04/24 03:00 B-Type Natriuretic Peptide 600.97 pg/mL (0-100) Prothrombin Time 11.0 sec (9.3-11.8) Prothrombin Time INR 1.04 (0.9-1.15) Activated Partial Thromboplast Time 28.0 SEC (24.5-34.5) Hemoglobin A1c 5.5 % A1C (<5.7) Random Vancomycin Level 11.2 ug/mL (5-10) Test 11/03/24 03:58 11/02/24 16:09 11/02/24 14:02 11/02/24 13:21 Troponin I High Sensitivity 5668 ng/L (</=34) Renin Activity 2.8 ng/mL/hr (.) Aldosterone 6.3 ng/dL (.) Cholesterol Level 180 mg/dL (< 200) LDL Cholesterol 127 mg/dL (< 100) HDL Cholesterol 27 mg/dL (40-59) Thyroid Stimulating Hormone (TSH) 4.66 uIU/mL (0.55-4.78) Blood Gas Spontaneous Rate 18 Specimen Drawn By Blood Gas Critical Value Read Back Yes Blood Gas Notified Whom Blood Gas Notified Time [id number] Blood Gas Notified By Kimberly avery rt Test 11/02/24 13:18 11/02/24 12:17 11/02/24 11:55 Influenza Type A Antigen Negative (Negative) Influenza Type B Antigen Negative (Negative) SARS-CoV-2 Antigen (Rapid) Negative (NEGATIVE) Urine Color Light-yellow (Yellow) Urine Clarity Turbid (Clear) Urine pH 7.0 (5.0-9.0) Urine Specific [place] 1.010 (1.001-1.035) Urine Protein 2+ (Negative) Urine Ketones Negative (Negative) Urine Blood 1+ /uL (Negative) Urine Nitrite Negative (Negative) Urine Bilirubin Negative (Negative) Urine Urobilinogen Normal mg/dL (Negative) Urine Leukocyte Esterase Trace /uL (Negative) Urine RBC 2 /hpf (0 - 4) Urine Microscopic WBC 15 /HPF (0-5) Urine Squamous Epithelial Cells Few /hpf (<5) Urine Bacteria None seen /hpf (None Seen) Urine Hyaline Casts Few /lpf (0 - 2) Urine Glucose Trace mg/dL (Normal) Urine Opiates Screen Neg (NEGATIVE) Urine Fentanyl Screen Neg (NEGATIVE) Urine Barbiturates Screen Neg (NEGATIVE) Urine Phencyclidine Screen Neg (NEGATIVE) Urine Amphetamines Screen Neg (NEGATIVE) Urine Benzodiazepines Screen Neg (NEGATIVE) Urine Cocaine Screen Neg (NEGATIVE) Urine Cannabinoids Screen Neg (NEGATIVE) Lactic Acid Level 1.9 mmol/L (0.4-2.0) Other Laboratory Tests 11/17/24 01:02 11/14/24 03:30 Brief Hx & Hospital Course: History of Present Illness Nannette Frank is a 79-year-old male with past medical history of hypertension, CHF, and diabetes, who was brought to the hospital by EMS for ALOC. Patient lives in a [facility]. This morning the roommate noticed that the patient was not breathing well or responding. She alerted staff and EMS was called. Patient was last seen well last night about 2200. When EMS arrived they found her to be only responsive to pain. Patient was brought to the hospital and intubated shortly after arrival. Course of hospitalization: Patient had worsening clinical status requiring endotracheal intubation. Patient was in shock, as well as going into AFib with RVR requiring vasopressor therapy as well as amiodarone infusion. Patient's clinical status improved. Renal function improved. Patient was taken to the cardiac catheterization lab for which she had multivessel disease, with her LAD being the culprit for her acute PR. patient has successful PTCA and stent placement. Patient was started on dual antiplatelet therapy with anticoagulation stopped. Patient was successfully weaned from mechanical ventilation. Patient has been ambulating. Patient does having underlying history of dementia according to family in his currently confused. Patient will be discharged to a [facility] facility for continued rehabilitation. She will be continued on guideline directed medical therapy as well as dual antiplatelet therapy. Patient's family is agreeable with discharge plan. All questions answered. Physical examination General: Alert and Oriented x2. No acute distress. Well-nourished. Eyes: EOMI. Anicteric. HENT: Moist mucous membranes. Lungs: Clear to auscultation bilaterally. No accessory muscle use. Cardiovascular: Regular rate and rhythm. No murmur. No JVD. Abdomen: Soft, non-tender and non-distended. No palpable masses. Extremities: No edema. Non-tender. Skin: No rashes or lesions. Warm. Neurologic: No focal neurological deficits. CN II-XII grossly intact, but not individually tested. Psychiatric: Cooperative. Appropriate mood and affect. Total time spent with patient discussing and formulating plan of care: 35 minutes. This medical document was created using an electronic medical record system with [employer] dictation system. Although this document has been carefully reviewed, there may still be some phonetic and typographical errors. These areas are purely typographical due to imperfections of the software programs, and do not reflect any compromise in the patient's medical care. Consults/Reason for consult Cardiology: Acute PR Operations or Procedures Left heart catheterization with PTCA and stent placement Condition at Discharge: Fair Final Diagnosis/Problems List NSTEMI involving LAD -metabolic encephalopathy -acute hypoxic respiratory failure -acute systolic heart failure -NSTEMI type 1 involving LAD and circumflex -dyslipidemia -diabetes mellitus -accelerated hypertension -ventricular bigeminy with bradycardia -Cardiogenic Shock -probable underlying dementia -acute delirium Discharge Disposition: [facility] Facility Discharge Instruct/Medications Diet: Cardiac 2g Na,low cholest Activity: No Restrictions, As Tolerated Follow Up/Referral: Dr. Love in 3 weeks Medications: refer to medication reconciliation form Scheduled Carvedilol (Carvedilol), 1 TAB PO BID, (Reported) Glipizide (Glipizide), 20 MG PO BID, (Reported) Lisinopril & Hydrochlorothiazi (Lisinopril/Hydrochlorothi), 1 TAB PO DAILY, (Reported) Metformin Hydrochloride (Glumetza), 500 MG PO DAILY, (Reported) 36 Discharge Statement: "Patient was advised to return to the ER or call 911 if any headaches, dizziness, shortness of breath, chest pain, abdominal pain, bleeding, fevers, or worsening of medical condition. Patient was counseled about treatment plan, medications, possible side effects, patientverbalized understanding. All questions were answered to the best of my ability. This discharge took greater then 30 minutes in planning, reviewing documentation, counseling the patient, and discussing with other team members." ASSESSMENT ASSESSMENT Assessment NSTEMI involving LAD Date of Service: Nov 19, 2024 Billing Provider: ALEXANDER TAMAYO NP Common Visit Codes: [id number] INP/OBS CARE(HIGH) ALEXANDER TAMAYO NP Nov 19, 2024 16:31
== END 2024-11-19 18:55 | DRG 321 ==
LOC: EDBD 10:31 → ER 10:31 → EDUNIT# 15:00 → OVERFLOW 15:00 → ICU WEST 11-03 05:00 → TELE-CENTR 11-15 05:25 → WEST WING 11-16 09:25 → TELE-WESTW 11-18 22:42
PROVIDERS: ADMIT Nurse Practitioner Acute Care; ATTEND Nurse Practitioner Acute Care
PROC: 0BH18EZ Insertion of Endotracheal Airway into Trachea, Via Natural or Artificial Opening Endoscopic (ICD-10-PCS; 2024-11-02)
PROC: 02HV33Z Insertion of Infusion Device into Superior Vena Cava, Percutaneous Approach (ICD-10-PCS; 2024-11-02)
PROC: 5A1955Z Respiratory Ventilation, Greater than 96 Consecutive Hours (ICD-10-PCS; principal; 2024-11-03)
PROC: 027034Z Dilation of Coronary Artery, One Artery with Drug-eluting Intraluminal Device, Percutaneous Approach (ICD-10-PCS; 2024-11-08)
PROC: 4A023N7 Measurement of Cardiac Sampling and Pressure, Left Heart, Percutaneous Approach (ICD-10-PCS; 2024-11-08)
PROC: B211YZZ Fluoroscopy of Multiple Coronary Arteries using Other Contrast (ICD-10-PCS; 2024-11-08)
DX: I21.4 Non-ST elevation (NSTEMI) myocardial infarction (principal); G93.41 Metabolic encephalopathy; J96.01 Acute respiratory failure with hypoxia; R57.0 Cardiogenic shock; I50.23 Acute on chronic systolic (congestive) heart failure; I16.1 Hypertensive emergency; N39.0 Urinary tract infection, site not specified; G93.1 Anoxic brain damage, not elsewhere classified; I42.9 Cardiomyopathy, unspecified; N17.9 Acute kidney failure, unspecified; Z20.822 Contact with and (suspected) exposure to COVID-19; F03.90 Unspecified dementia, unspecified severity, without behavioral disturbance, psychotic disturbance, mood disturbance, and anxiety; E87.6 Hypokalemia; E78.5 Hyperlipidemia, unspecified; E83.42 Hypomagnesemia; M10.9 Gout, unspecified; I25.10 Atherosclerotic heart disease of native coronary artery without angina pectoris; E11.65 Type 2 diabetes mellitus with hyperglycemia; E03.9 Hypothyroidism, unspecified; I08.1 Rheumatic disorders of both mitral and tricuspid valves; R00.8 Other abnormalities of heart beat; I11.0 Hypertensive heart disease with heart failure; I48.0 Paroxysmal atrial fibrillation; Z90.710 Acquired absence of both cervix and uterus; Z90.49 Acquired absence of other specified parts of digestive tract; Z79.4 Long term (current) use of insulin; Z79.82 Long term (current) use of aspirin; Z79.02 Long term (current) use of antithrombotics/antiplatelets; Z78.1 Physical restraint status; Z79.899 Other long term (current) drug therapy; Z86.16 Personal history of COVID-19
CPT/HCPCS: 31500; 36415; 36556; 36600; 70450; 71045; 80048; 80053; 80061; 80202; 80307; 81001; 82088; 82805; 82962; 83036; 83605; 83735; 83880; 84100; 84132; 84244; 84443; 84478; 84484; 85025; 85610; 85730; 87040; 87070; 87081; 87086; 87205; 87426; 87804; 93005; 93306; 94003; 95819; 97110; 97116; 97163; 97530; 99152; 99153; 99291; 99292; G0378; J0131; J0461; J1815; J1885; J2405; J2470; J2543; J3480; J7060; Q9967